=== PATIENT | female | born 1945 | race Caucasian/White ===

== ENCOUNTER 2017-06-01 02:05 | Inpatient (IN) | payer MEDICARE, OTHER ==
[2017-06-01] VITALS (18 sets, daily range): BP systolic 106–142; BP diastolic 52–65; PULSE 74–94; RESP 12–28; TEMP 97.9–101.4; O2SAT 86–100
[~2017-06-01] VITALS: Ht 157.5 cm; Wt 82.0 kg
[~2017-06-01 02:05] MED LIST: ACET325T PO; CIPR-9 PO; DEPA500T3 PO; FOSA70TA PO; IPRASOL INH; ISOS10TA PO; LACT PO; LAMO100T PO; LAMO25 PO; LEVE500T8 PO; LORA-392 PO; METF500 PO; METO25TA3 PO; PRAV40TA PO; RISP1 PO; SENN8.6C PO; SINE10100 PO; ZYVO600T PO
[2017-06-01] MEDS ORDERED: ACETAMINOPHEN 325 MG TAB PO ONE (02:15)
[2017-06-01] MEDS ORDERED: SODIUM CHLORIDE 0.9% FLUSH 10 ML FLUSH IVF PRN (02:15)
--- NOTE | 2017-06-01 02:18 | PD ---
HPI Chief Complaint: Respiratory Symptoms Time Seen by Provider: 02:10 Travel History International Travel<30 days: No Contact w/Intl Traveler<30days: No Traveled to known affect area: No History of Present Illness HPI The patient is a 72-year-old female who presents to the emergency department from [place] [facility] the [facility] for shortness of breath. The patient apparently had increasing shortness of breath earlier tonight, is normally on oxygen via nasal cannula 2 L, her oxygen level was increased to 4 L via nasal cannula. The patient was noted to have a fever of greater than 101 rectally. The patient was recently diagnosed with a stage IV sacral decubitus ulcer placed on vancomycin via a right upper extremity PICC line. The patient was brought to the emergency department for progressing shortness of breath. The patient is a somewhat limited historian, is able to answer to her name and current location, but is unable to tell me the month or year. She denies any chest pain, nausea, vomiting, or abdominal pain. PFSH Past Medical History Asthma: No Autoimmune Disease: No Blood Disorders: No Bipolar Disorder: Yes Anxiety: Yes Depression: Yes Heart Rhythm Problems: No Cancer: No Cardiovascular Problems: No High Cholesterol: No Chemotherapy: No Chest Pain: No Congestive Heart Failure: No COPD: No Cerebrovascular Accident: Yes Coronary Artery Disease: Yes (ANGINA) Diabetes: Yes Diminished Hearing: No Endocrine: Yes Gastrointestinal Disorders: Yes (gastro reflux ) GERD: Yes Glaucoma: No Genitourinary: Yes (CKD stage II) Headaches: No Hepatitis: No Hiatal Hernia: No Hypertension: Yes Immune Disorder: No Kidney Stones: No Musculoskeletal: Yes (osteoporosis, chronic shoulderpain ) Neurologic: Yes (epilepsy, cerebral infarction ) Psychiatric: Yes (dependent personality disorder) Reproductive: No Respiratory: Yes Migraines: No Myocardial Infarction: No Radiation Therapy: No Renal Failure: No Schizophrenia: Yes (paranoid schizophrenia ) Sickle Cell Disease: No Sleep Apnea: No Thyroid Disease: Yes (hypothyroidism ) Ulcer: No Menopausal: Yes Past Surgical History Abdominal Surgery: No AICD: No Arteriovenous Shunt: No Cardiac Surgery: No Ear Surgery: No Endocrine Surgery: No Eye Surgery: No Genitourinary Surgery: No Gynecologic Surgery: Yes (D & C) Insulin Pump: No Joint Replacement: No Neurologic Surgery: No Oral Surgery: No Pacemaker: No Thoracic Surgery: No Other Surgery: Yes Social History Alcohol Use: No Tobacco Use: No Substance Use: No Allergies-Medications (Allergen,Severity, Reaction): Coded Allergies: adhesive (Unverified Allergy, Severe, 05/24/17) doxycycline (Unverified Allergy, Severe, 05/24/17) minocycline (Unverified Allergy, Severe, 05/24/17) penicillin G (Unverified Allergy, Severe, 05/24/17) tigecycline (Unverified Allergy, Severe, 05/24/17) Uncoded Allergies: ANTIHISTAMINES (Allergy, Severe, 09/05/07) Reported Meds & Prescriptions Reported Meds & Active Scripts Active Acidophilus/l-Sporogenes (Lactobacillus Acidophilus) 1 Tab Tab 1 Tab PO Q12HR Cipro (Ciprofloxacin HCl) 500 Mg Tab 500 Mg PO Q12HR Metoprolol Tartrate 25 Mg Tab 50 Mg PO BID Ativan (Lorazepam) 0.5 Mg Tab 0.5 Mg PO Q8H PRN Reported Vitamin D-1000 (Cholecalciferol) 1,000 Unit Tab 1,000 Units PO DAILY Vitamin C (Ascorbic Acid) 250 Mg Chew 500 Mg CHEW BID Vancomycin Inj (Vancomycin HCl) 1,000 Mg Inj 1 Gm IV DAILY Synthroid (Levothyroxine Sodium) 125 Mcg Tab 125 Mcg PO DAILY Sinemet (Carbidopa/Levodopa) 10-100 Mg Tab 1 Tab PO TID Senokot S (Sennosides-Docusate Sodium) 8.6-50 Mg Tab 1 Tab PO DAILY PRN Requip (Ropinirole) 1 Mg Tab 1 Mg PO TID Neurontin (Gabapentin) 300 Mg Cap 300 Mg PO TID One Daily-Minerals (Multiple Vitamins W/ Minerals) 1 Tab 1 Tab PO DAILY Lopid (Gemfibrozil) 600 Mg Tab 600 Mg PO BID Take 30 minutes prior to breakfast and dinner Glipizide 5 Mg Tab 5 Mg PO BID Take 30 minutes before a meal Tylenol (Acetaminophen) 325 Mg Tab 650 Mg PO Q6H PRN Levetiracetam 500 Mg Tab 500 Mg PO BID Lamotrigine 100 Mg Tab 100 Mg PO DAILY Lamictal (Lamotrigine) 25 Mg Tab 25 Mg PO HS Isosorbide Dinitrate 10 Mg Tab 10 Mg PO BID Glucophage (Metformin HCl) 500 Mg Tab 1,000 Mg PO BID With meals Fosamax (Alendronate Sodium) 70 Mg Tab 70 Mg PO Q7D Duoneb (Ipratropium-Albuterol Neb) 0.5-2.5 Mg/3 Ml Neb 1 INH Q6HR NEB Depakote ER (Divalproex Sodium) 500 Mg Pedro 750 Mg PO HS Sinemet (Carbidopa/Levodopa) 10-100 Mg Tab 1 Tab PO Q8HR Risperdal (Risperidone) 1 Mg Tab 1 Mg PO TID Pravachol (Pravastatin) 40 Mg Tab 40 Mg PO DAILY Review of Systems ROS Limitations: Poor Historian Except as stated in HPI: all other systems reviewed are Neg General / Constitutional: Positive: Fever Cardiovascular: No: Chest Pain or Discomfort Respiratory: Positive: Cough, Shortness of Breath Gastrointestinal: No: Nausea, Vomiting, Abdominal Pain Musculoskeletal: Positive: Pain (back pain over the sacrum secondary to his sacral decubitus ulcer) Physical Exam Narrative GENERAL: Awake somewhat lethargic 72-year-old female who appears her stated age with mild respiratory distress. SKIN: Focused skin assessment warm/dry. HEAD: Atraumatic. Normocephalic. EYES: No injection or drainage. ENT: No nasal bleeding or discharge. Mucous membranes pink and moist. NECK: Trachea midline. No JVD. CARDIOVASCULAR: Regular rate and rhythm. No murmur appreciated. RESPIRATORY: Mild tachypnea with a respiratory rate of 24. Diminished breath sounds in the right base. Prolonged expiratory phase in the right upper lung montero. GASTROINTESTINAL: Abdomen soft, nontender without rebound tenderness. Back: Patient has a stage IV sacral decubitus ulcer with mild surrounding erythema. MUSCULOSKELETAL: No obvious deformities. No clubbing. No cyanosis. No edema. NEUROLOGICAL: Awake and alert. No obvious cranial nerve deficits. Motor grossly within normal limits. Normal speech. Oriented to person and place, but not month or year. PSYCHIATRIC: Appropriate mood and affect; insight and judgment normal. Data Data Last Documented VS Vital Signs Date Time Temp Pulse Resp B/P (MAP) Pulse Ox O2 Delivery O2 Flow Rate FiO2 06/01/17 03:30 99.6 83 20 126/58 (80) 95 3.00 06/01/17 02:38 Nasal Cannula Orders Orders Complete Blood Count With Diff (06/01/17 02:11) Comprehensive Metabolic Panel (06/01/17 02:11) B-Type Natriuretic Peptide (06/01/17 02:11) Act Partial Throm Time (Ptt) (06/01/17 02:11) Prothrombin Time / Inr (Pt) (06/01/17 02:11) Magnesium (Mg) (06/01/17 02:11) Ckmb (Isoenzyme) Profile (06/01/17 02:11) Troponin I (06/01/17 02:11) Urinalysis - C+S If Indicated (06/01/17 02:11) Influenzae A/B Antigen (06/01/17 02:11) Blood Culture (06/01/17 02:11) Iv Access Insert/Monitor (06/01/17 02:11) Electrocardiogram (06/01/17 02:11) Ecg Monitoring (06/01/17 02:11) Oximetry (06/01/17 02:11) Oxygen Administration (06/01/17 02:11) Chest, Single Ap (06/01/17 02:11) Sodium Chloride 0.9% Flush (Ns Flush) (06/01/17 02:15) Albuterol-Ipratropium Neb (Duoneb Neb) (06/01/17 02:15) Lactic Acid (06/01/17 02:11) Acetaminophen (Tylenol) (06/01/17 02:15) Valproic Acid (Depakene) (06/01/17 02:15) Cath For Specimen (06/01/17 02:52) Sodium Chlorid 0.9% 500 Ml Inj (Ns 500 M (06/01/17 03:15) Urine Culture (06/01/17 03:00) CKMB (06/01/17 02:15) CKMB% (06/01/17 02:15) Ceftriaxone Inj (Rocephin Inj) (06/01/17 03:30) Sodium Chlor 0.9% 1000 Ml Inj (Ns 1000 M (06/01/17 03:30) Admit Order (Ed Use Only) (06/01/17 03:58) Labs Laboratory Tests Test 06/01/17 02:15 06/01/17 02:30 06/01/17 03:00 White Blood Count 7.9 TH/MM3 Red Blood Count 3.85 MIL/MM3 Hemoglobin 11.0 GM/DL Hematocrit 34.8 % Mean Corpuscular Volume 90.3 FL Mean Corpuscular Hemoglobin 28.4 PG Mean Corpuscular Hemoglobin Concent 31.5 % Red Cell Distribution Width 17.7 % Platelet Count 295 TH/MM3 Mean Platelet Volume 7.5 FL Neutrophils (%) (Auto) 62.9 % Lymphocytes (%) (Auto) 21.2 % Monocytes (%) (Auto) 11.2 % Eosinophils (%) (Auto) 4.4 % Basophils (%) (Auto) 0.3 % Neutrophils # (Auto) 4.9 TH/MM3 Lymphocytes # (Auto) 1.7 TH/MM3 Monocytes # (Auto) 0.9 TH/MM3 Eosinophils # (Auto) 0.3 TH/MM3 Basophils # (Auto) 0.0 TH/MM3 CBC Comment AUTO DIFF Differential Comment AUTO DIFF CONFIRMED Prothrombin Time 10.5 SEC Prothromb Time International Ratio 1.0 RATIO Activated Partial Thromboplast Time 19.8 SEC Blood Urea Nitrogen 39 MG/DL Creatinine 1.61 MG/DL Random Glucose 140 MG/DL Total Protein 7.6 GM/DL Albumin 2.8 GM/DL Calcium Level 9.8 MG/DL Magnesium Level 2.5 MG/DL Alkaline Phosphatase 54 U/L Aspartate Amino Transf (AST/SGOT) 26 U/L Alanine Aminotransferase (ALT/SGPT) 12 U/L Total Bilirubin 0.1 MG/DL Sodium Level 138 MEQ/L Potassium Level 4.6 MEQ/L Chloride Level 100 MEQ/L Carbon Dioxide Level 27.9 MEQ/L Anion Gap 10 MEQ/L Estimat Glomerular Filtration Rate 32 ML/MIN Total Creatine Kinase 1163 U/L Creatine Kinase MB 23.6 NG/ML Creatine Kinase MB % 2.0 % Troponin I LESS THAN 0.02 NG/ML B-Type Natriuretic Peptide 79 PG/ML Valproic Acid (Depakene) Level 44 MCG/ML Lactic Acid Level 2.4 mmol/L Urine Color YELLOW Urine Turbidity CLOUDY Urine pH 6.0 Urine Specific [place] 1.014 Urine Protein 30 mg/dL Urine Glucose (UA) NEG mg/dL Urine Ketones NEG mg/dL Urine Occult Blood SMALL Urine Nitrite POS Urine Bilirubin NEG Urine Urobilinogen LESS THAN 2.0 MG/DL Urine Leukocyte Esterase LARGE Urine RBC 9 /hpf Urine WBC /hpf Urine WBC Clumps MANY Urine Squamous Epithelial Cells 3 /hpf Urine Bacteria FEW /hpf Microscopic Urinalysis Comment CULTURE INDICATED MDM Medical Decision Making Medical Screen Exam Complete: Yes Emergency Medical Condition: Yes Medical Record Reviewed: Yes Interpretation(s) EKG reveals normal sinus rhythm with a rate in 92. Chest x-ray reveals elevated right hemidiaphragm, atelectasis, stable exam compared to previous chest x-ray. Laboratory Tests Test 06/01/17 02:15 06/01/17 02:30 06/01/17 03:00 White Blood Count 7.9 TH/MM3 Red Blood Count 3.85 MIL/MM3 Hemoglobin 11.0 GM/DL Hematocrit 34.8 % Mean Corpuscular Volume 90.3 FL Mean Corpuscular Hemoglobin 28.4 PG Mean Corpuscular Hemoglobin Concent 31.5 % Red Cell Distribution Width 17.7 % Platelet Count 295 TH/MM3 Mean Platelet Volume 7.5 FL Neutrophils (%) (Auto) 62.9 % Lymphocytes (%) (Auto) 21.2 % Monocytes (%) (Auto) 11.2 % Eosinophils (%) (Auto) 4.4 % Basophils (%) (Auto) 0.3 % Neutrophils # (Auto) 4.9 TH/MM3 Lymphocytes # (Auto) 1.7 TH/MM3 Monocytes # (Auto) 0.9 TH/MM3 Eosinophils # (Auto) 0.3 TH/MM3 Basophils # (Auto) 0.0 TH/MM3 CBC Comment AUTO DIFF Prothrombin Time 10.5 SEC Prothromb Time International Ratio 1.0 RATIO Activated Partial Thromboplast Time 19.8 SEC Blood Urea Nitrogen 39 MG/DL Creatinine 1.61 MG/DL Random Glucose 140 MG/DL Total Protein 7.6 GM/DL Albumin 2.8 GM/DL Calcium Level 9.8 MG/DL Magnesium Level 2.5 MG/DL Alkaline Phosphatase 54 U/L Aspartate Amino Transf (AST/SGOT) 26 U/L Alanine Aminotransferase (ALT/SGPT) 12 U/L Total Bilirubin 0.1 MG/DL Sodium Level 138 MEQ/L Potassium Level 4.6 MEQ/L Chloride Level 100 MEQ/L Carbon Dioxide Level 27.9 MEQ/L Anion Gap 10 MEQ/L Estimat Glomerular Filtration Rate 32 ML/MIN Total Creatine Kinase 1163 U/L Troponin I LESS THAN 0.02 NG/ML B-Type Natriuretic Peptide 79 PG/ML Valproic Acid (Depakene) Level 44 MCG/ML Lactic Acid Level 2.4 mmol/L Urine Color YELLOW Urine Turbidity CLOUDY Urine pH 6.0 Urine Specific [place] 1.014 Urine Protein 30 mg/dL Urine Glucose (UA) NEG mg/dL Urine Ketones NEG mg/dL Urine Occult Blood SMALL Urine Nitrite POS Urine Bilirubin NEG Urine Urobilinogen LESS THAN 2.0 MG/DL Urine Leukocyte Esterase LARGE Urine RBC 9 /hpf Urine WBC /hpf Urine WBC Clumps MANY Urine Squamous Epithelial Cells 3 /hpf Urine Bacteria FEW /hpf Microscopic Urinalysis Comment CULTURE INDICATED Date/Time Source Procedure Growth Status 06/01/17 02:30 Blood Peripheral Aerobic Blood Culture Pending Received 06/01/17 02:30 Blood Peripheral Anaerobic Blood Culture Pending Received 06/01/17 02:15 Blood Peripheral Aerobic Blood Culture Pending Received 06/01/17 02:15 Blood Peripheral Anaerobic Blood Culture Pending Received 06/01/17 03:00 Nasal Aspirate Influenza Types A,B Antigen (HOMERO) - Final NEGATIVE FOR FLU A AND B ANTIGEN.... Complete 06/01/17 03:00 Urine Clean Catch Urine Culture Pending Received Differential Diagnosis Differential diagnosis includes pneumonia, aspiration pneumonia, congestive heart failure, pleural effusion, pulmonary embolism, acute coronary syndrome, sepsis, UTI, delirium. Narrative Course IV was established, labs are drawn and sent, and the patient was placed on cardiac telemetry monitoring and continuous pulse oximetry monitoring. EKG was ordered and interpreted. Chest x-ray was obtained. Blood culture and lactic acid were sent to lab. The patient was administer duo nebs 2. Chest x-ray reveals atelectasis, no obvious pneumonia. UA reveals infection with innumerable wbc's. The patient has been treated with vancomycin for a chronic sacral decubitus ulcer, however, is now febrile with UTI, lactic acidosis, and criteria suggesting severe sepsis. The patient initially was provided 500 cc of normal saline, was then provided another liter of normal saline, however, due to patient's IV fluids were administered as patient was slightly hypoxic. The on-call medical service was paged for admission. The patient received Rocephin 1 g intravenously for UTI with sepsis. Sepsis Criteria SIRS Criteria (2 or more): Temp > 100.9 or < 96.8, Heart rate over 90 Sepsis Criteria (SIRS+source): Infect source susp/known Severe Sepsis (+one): Lactate >2 Criteria Outcome: Meets severe sepsis criteria Physician Communication Physician Communication The on-call medical service was paged for admission. I discussed the patient with Dr. Hernandez who agrees with admission. Diagnosis Primary Impression: Severe sepsis Additional Impressions: UTI (urinary tract infection) Qualified Codes: N39.0 - Urinary tract infection, site not specified Rhabdomyolysis Qualified Codes: M62.82 - Rhabdomyolysis Sacral decubitus ulcer Qualified Codes: L89.154 - Pressure ulcer of sacral region, stage 4 DIDI (acute kidney injury) Admitting Information Admitting Physician Requests: Admit Condition: Stable Joaquín Charlton MD Jun 01, 2017 02:18
[2017-06-01] MEDS: RESP: ALBUTEROL 2.5 MG/IPRATROPIUM 0.5 MG NEB (SCH) INH ×2 (02:22→02:25)
--- NOTE | 2017-06-01 02:42 | RADRPT ---
EXAM DATE/TIME: 06/01/2017 02:19 [facility] COMPARISON: CHEST SINGLE AP, September 04, 2016, 9:35. INDICATIONS : Shortness of breath. MEDICAL HISTORY : Cerebrovascular disease. Hypertension. Gastroesophageal reflux disease.Epilepsy SURGICAL HISTORY : None. ENCOUNTER: Initial ACUITY: 1 day PAIN SCORE: 0/10 LOCATION: Bilateral chest FINDINGS: Elevated right hemidiaphragm noted. Basilar density on the right probably represents chronic atelecta sis. No significant effusion. No pneumothorax. Stable exam since August 2016 CONCLUSION: 1. Elevated right hemidiaphragm with basilar atelectasis. No acute findings compared with 2016. Vidal Diaz MD on June 01, 2017 at 2:39 Board Certified Radiologist. This report was verified electronically.
[2017-06-01 02:43] LABS: AUTOMATED NEUTROPHIL # 4.9 TH/MM3 (1.8-7.7); BASOPHIL % 0.3 % (0.0-2.0); EOSINOPHIL # 0.3 TH/MM3 (0-0.4); EOSINOPHIL % 4.4 % (0.0-4.0); HEMATOCRIT 34.8 % (35.0-46.0); LYMPH % 21.2 % (9.0-44.0); LYMPHOCYTE # 1.7 TH/MM3 (1.0-4.8); MEAN CELL VOLUME 90.3 FL (80.0-100.0); MEAN CORPUSCULAR HEMOGLOBIN 28.4 PG (27.0-34.0); MEAN CORPUSCULAR HGB CONC 31.5 % (32.0-36.0); MONO % 11.2 % (0.0-8.0); NEUT % 62.9 % (16.0-70.0); PLATELET COUNT 295 TH/MM3 (150-450); RED BLOOD COUNT 3.85 MIL/MM3 (4.00-5.30); RED CELL DISTRIBUTION WIDTH 17.7 % (11.6-17.2); WHITE BLOOD COUNT 7.9 TH/MM3 (4.0-11.0)
[2017-06-01 02:45] LABS: HEMO FLAGS AUTO DIFF
[2017-06-01 03:00] LABS: APTT (PATIENT) 19.8 SEC (24.3-30.1); PROTHROMBIN TIME - PATIENT 10.5 SEC (9.8-11.6)
[2017-06-01 03:02] LABS: ALT (GPT) 12 U/L (10-53); ANION GAP 10 MEQ/L (5-15); AST (GOT) 26 U/L (15-37); BICARBONATE 27.9 MEQ/L (21.0-32.0); BLOOD UREA NITROGEN 39 MG/DL (7-18); CHLORIDE 100 MEQ/L (98-107); GLOMERULAR FILTRATION RATE 32 ML/MIN (>89); MAGNESIUM 2.5 MG/DL (1.5-2.5); POTASSIUM 4.6 MEQ/L (3.5-5.1); SODIUM (NA) 138 MEQ/L (136-145)
[2017-06-01 03:14] LABS: BACTERIA, URINE FEW /hpf; BLOOD, URINE SMALL (NEG); GLUCOSE,URINE NEG (NEG); KETONE, URINE NEG (NEG); NITRITE,URINE POS (NEG); SQUAMOUS EPITHELIAL CELL URINE 3 /hpf (0-5); URINE COLOR YELLOW (YELLW/STRAW)
[2017-06-01 03:15] LABS: COMMENT (UR) CULTURE INDICATED; CULTURE IF INDICATED CULTURE INDICATED
[2017-06-01] MEDS ORDERED: SODIUM CHLORID 0.9% 500 ML INJ 500 ML IV ONE (03:15)
[2017-06-01 03:16] LABS: ALKALINE PHOSPHATASE 54 U/L (45-117); CREATINE KINASE 1163 U/L (26-192); TOTAL BILIRUBIN ADULT 0.1 MG/DL (0.2-1.0)
[2017-06-01] MEDS ORDERED: SINE10100 PO (03:24)
[2017-06-01] MEDS ORDERED: VITA1000 PO (03:24)
[2017-06-01] MEDS ORDERED: GEMF600 PO (03:24)
[2017-06-01] MEDS ORDERED: ONETAB22 PO (03:24)
[2017-06-01] MEDS ORDERED: GLIP5TAB8 PO (03:24)
[2017-06-01] MEDS ORDERED: NEUR300C PO (03:24)
[2017-06-01] MEDS ORDERED: LEVO.125 PO (03:24)
[2017-06-01] MEDS ORDERED: TYLE325T PO (03:24)
[2017-06-01] MEDS ORDERED: VANC1000P IV (03:24)
[2017-06-01] MEDS ORDERED: ROPI1TAB72 PO (03:24)
[2017-06-01] MEDS ORDERED: SENN1TAB17 PO (03:24)
[2017-06-01] MEDS ORDERED: VITA250C3 CHEW (03:24)
[2017-06-01 03:28] LABS: CKMB 23.6 NG/ML (0.5-3.6)
[2017-06-01] MEDS ORDERED: SODIUM CHLOR 0.9% 1000 ML INJ 1,000 ML IV ONE (03:30)
[2017-06-01] MEDS ORDERED: cefTRIAXone INJ 1,000 MG in SODIUM CHLORIDE 0.9% INJ 100 ML IV ONE (03:30)
[2017-06-01 03:46] LABS: SCAN/DIFF AUTO DIFF CONFIRMED
[2017-06-01] MEDS ORDERED: NALOXONE HCL 0.4 MG/ML AMP IV PRN (04:00)
[2017-06-01] MEDS ORDERED: SODIUM CHLORIDE 0.9% FLUSH 10 ML FLUSH IV FLUSH PRN (04:00)
--- NOTE | 2017-06-01 05:37 | HHI.HP ---
[facility] Primary Care Physician Admission Diagnosis sepsis, UTI, rhabdomyolysis, acute kidney injury, sacral decubitus u Diagnoses: (1) Sepsis (2) Rhabdomyolysis (3) UTI (urinary tract infection) (4) DIDI (acute kidney injury) (5) Sacral decubitus ulcer Chief Complaint: right arm pain and shortness of breath Travel History International Travel<30 Days: No Contact w/Intl Traveler <30 Da: No Traveled to Known Affected Are: No History of Present Illness Written by Mary Nolasco, acting as scribe for Dr. Hernandez on 06/01/17 at 05:36. Pain in PICC arm. Reports shortness of breath for "a while". States she does not have sleep apnea. States she's been coughing a lot. She reports mucus production. She states she's been unable to produce any mucus with her cough. Denies nausea, vomiting, diarrhea. States she has occasional pain with urination. Denies urinary catheter. She states she is unable to walk. She's had fever and large stage IV sacral decubitus per [employer]. Review of Systems Except as stated in HPI: all other systems reviewed are Neg Past Family Social History Past Medical History Per patient: States she used to have diabetes CVA Seizures Denies hepatitis, liver problems, CAD, CHF, atrial fibrillation, kidney problems , DVT, PE, thyroid problems, or cancers Per penitentiary paperwork: Diabetes Mellitus, type 2 Osteoporosis CVA Epilepsy Hyperlipidemia Bipolar disorder Schizophrenia, paranoid Parkinson's Disease Sacral decubitus Dysphagia Hypothyroidism GERd CKD Muscle Weakness . Past Surgical History D&C . Reported Medications Reported Meds & Active Scripts Active Acidophilus/l-Sporogenes (Lactobacillus Acidophilus) 1 Tab Tab 1 Tab PO Q12HR Cipro (Ciprofloxacin HCl) 500 Mg Tab 500 Mg PO Q12HR Metoprolol Tartrate 25 Mg Tab 50 Mg PO BID Ativan (Lorazepam) 0.5 Mg Tab 0.5 Mg PO Q8H PRN Reported Vitamin D-1000 (Cholecalciferol) 1,000 Unit Tab 1,000 Units PO DAILY Vitamin C (Ascorbic Acid) 250 Mg Chew 500 Mg CHEW BID Vancomycin Inj (Vancomycin HCl) 1,000 Mg Inj 1 Gm IV DAILY Synthroid (Levothyroxine Sodium) 125 Mcg Tab 125 Mcg PO DAILY Sinemet (Carbidopa/Levodopa) 10-100 Mg Tab 1 Tab PO TID Senokot S (Sennosides-Docusate Sodium) 8.6-50 Mg Tab 1 Tab PO DAILY PRN Requip (Ropinirole) 1 Mg Tab 1 Mg PO TID Neurontin (Gabapentin) 300 Mg Cap 300 Mg PO TID One Daily-Minerals (Multiple Vitamins W/ Minerals) 1 Tab 1 Tab PO DAILY Lopid (Gemfibrozil) 600 Mg Tab 600 Mg PO BID Take 30 minutes prior to breakfast and dinner Glipizide 5 Mg Tab 5 Mg PO BID Take 30 minutes before a meal Tylenol (Acetaminophen) 325 Mg Tab 650 Mg PO Q6H PRN Levetiracetam 500 Mg Tab 500 Mg PO BID Lamotrigine 100 Mg Tab 100 Mg PO DAILY Lamictal (Lamotrigine) 25 Mg Tab 25 Mg PO HS Isosorbide Dinitrate 10 Mg Tab 10 Mg PO BID Glucophage (Metformin HCl) 500 Mg Tab 1,000 Mg PO BID With meals Fosamax (Alendronate Sodium) 70 Mg Tab 70 Mg PO Q7D Duoneb (Ipratropium-Albuterol Neb) 0.5-2.5 Mg/3 Ml Neb 1 INH Q6HR NEB Depakote ER (Divalproex Sodium) 500 Mg Pedro 750 Mg PO HS Sinemet (Carbidopa/Levodopa) 10-100 Mg Tab 1 Tab PO Q8HR Risperdal (Risperidone) 1 Mg Tab 1 Mg PO TID Pravachol (Pravastatin) 40 Mg Tab 40 Mg PO DAILY . Allergies: Coded Allergies: adhesive (Unverified Allergy, Severe, 05/24/17) doxycycline (Unverified Allergy, Severe, 05/24/17) minocycline (Unverified Allergy, Severe, 05/24/17) penicillin G (Unverified Allergy, Severe, 05/24/17) tigecycline (Unverified Allergy, Severe, 05/24/17) Uncoded Allergies: ANTIHISTAMINES (Allergy, Severe, 09/05/07) Active Ordered Medications Current Medications Sodium Chloride (NS Flush) 2 ml UNSCH PRN IVF FLUSH AFTER USING IV ACCESS; Start 8/23/17 at 02:15; Stop 06/01/17 at 04:12; Status DC Albuterol/ Ipratropium (Duoneb Neb) 1 ampule Q15M INH Last administered on 06/01 02:25; Start 06/01/17 at 02:15; Stop 06/01/17 at 02:31; Status DC Acetaminophen (Tylenol) 650 mg ONCE ONCE PO Last administered on 06/01/17 02: 40; Start 06/01/17 at 02:15; Stop 06/01/17 at 02:16; Status DC Sodium Chloride 500 ml @ 500 mls/hr BOLUS ONCE IV Last administered on 03:19; Start 06/01/17 at 03:15; Stop 06/01/17 at 04:14; Status DC Ceftriaxone Sodium 1000 mg/ Sodium Chloride 100 ml @ 200 mls/hr ONCE ONCE IV Last administered on 06/01/17 03:33; Start 06/01/17 at 03:30; Stop 06/01/17 at 03:59; Status DC Sodium Chloride 1,000 ml @ 999 mls/hr BOLUS ONCE IV Last administered on 06/01 03:33; Start 06/01/17 at 03:30; Stop 06/01/17 at 04:30; Status DC Sodium Chloride (NS Flush) 2 ml UNSCH PRN IV FLUSH FLUSH AFTER USING IV ACCESS ; Start 06/01/17 at 04:00 Sodium Chloride (NS Flush) 2 ml BID IV FLUSH ; Start 06/01/17 at 09:00 Naloxone HCl (Narcan Inj) 0.4 mg UNSCH PRN IV SEE LABEL COMMENTS; Start at 04:00 Ceftriaxone Sodium 1000 mg/ Sodium Chloride 100 ml @ 200 mls/hr Q24H IV ; Start 06/02/17 at 04:15 . Family History none recalled . Social History Tobacco: smoked "a long time ago". Quit at least 20 - 30 years ago . Physical Exam Vital Signs Vital Signs Date Time Temp Pulse Resp B/P (MAP) Pulse Ox O2 Delivery O2 Flow Rate FiO2 06/01/17 04:44 87 20 108/52 (70) 94 Nasal Cannula 3.00 06/01/17 03:30 99.6 83 20 126/58 (80) 95 3.00 8/23/17 03:00 81 16 142/64 (90) 97 3.00 06/01/17 02:38 22 100 Nasal Cannula 3.00 06/01/17 02:34 93 22 100 Nasal Cannula 3.00 06/01/17 02:33 100 Nasal Cannula 3.00 06/01/17 02:23 96 Nasal Cannula 4.00 06/01/17 02:13 101.4 91 24 106/65 (79) 96 Physical Exam GENERAL: This is an ill-appearing elderly patient, in no apparent distress. SKIN: No rashes. Cool and dry. HEAD: Atraumatic. Normocephalic. EYES: No scleral icterus. No injection or drainage. ENT: Nose without bleeding, purulent drainage. NECK: Trachea midline. No JVD or lymphadenopathy. CARDIOVASCULAR: Regular rate and rhythm without murmurs, gallops, or rubs. Right arm tender, tense, slightly edematous. RESPIRATORY: Patient is purse-lipped breathing. Very tight air entry with minimal air movement auscultated. GASTROINTESTINAL: Abdomen soft, non-tender, nondistended. No guarding. MUSCULOSKELETAL: Extremities without clubbing, cyanosis. No calf tenderness. NEUROLOGICAL: Somewhat drowsy female; poor historian. . Laboratory Laboratory Tests Test 06/01/17 02:15 06/01/17 02:30 06/01/17 03:00 White Blood Count 7.9 Red Blood Count 3.85 Hemoglobin 11.0 Hematocrit 34.8 Mean Corpuscular Volume 90.3 Mean Corpuscular Hemoglobin 28.4 Mean Corpuscular Hemoglobin Concent 31.5 Red Cell Distribution Width 17.7 Platelet Count 295 Mean Platelet Volume 7.5 Neutrophils (%) (Auto) 62.9 Lymphocytes (%) (Auto) 21.2 Monocytes (%) (Auto) 11.2 Eosinophils (%) (Auto) 4.4 Basophils (%) (Auto) 0.3 Neutrophils # (Auto) 4.9 Lymphocytes # (Auto) 1.7 Monocytes # (Auto) 0.9 Eosinophils # (Auto) 0.3 Basophils # (Auto) 0.0 CBC Comment AUTO DIFF Differential Comment AUTO DIFF CONFIRMED Prothrombin Time 10.5 Prothromb Time International Ratio 1.0 Activated Partial Thromboplast Time 19.8 Blood Urea Nitrogen 39 Creatinine 1.61 Random Glucose 140 Total Protein 7.6 Albumin 2.8 Calcium Level 9.8 Magnesium Level 2.5 Alkaline Phosphatase 54 Aspartate Amino Transf (AST/SGOT) 26 Alanine Aminotransferase (ALT/SGPT) 12 Total Bilirubin 0.1 Sodium Level 138 Potassium Level 4.6 Chloride Level 100 Carbon Dioxide Level 27.9 Anion Gap 10 Estimat Glomerular Filtration Rate 32 Total Creatine Kinase 1163 Creatine Kinase MB 23.6 Creatine Kinase MB % 2.0 Troponin I LESS THAN 0.02 B-Type Natriuretic Peptide 79 Valproic Acid (Depakene) Level 44 Lactic Acid Level 2.4 Urine Color YELLOW Urine Turbidity CLOUDY Urine pH 6.0 Urine Specific [place] 1.014 Urine Protein 30 Urine Glucose (UA) NEG Urine Ketones NEG Urine Occult Blood SMALL Urine Nitrite POS Urine Bilirubin NEG Urine Urobilinogen LESS THAN 2.0 Urine Leukocyte Esterase LARGE Urine RBC 9 Urine WBC Urine WBC Clumps MANY Urine Squamous Epithelial Cells 3 Urine Bacteria FEW Microscopic Urinalysis Comment CULTURE INDICATED Date/Time Source Procedure Growth Status 06/01/17 02:30 Blood Peripheral Aerobic Blood Culture Pending Received 06/01/17 02:30 Blood Peripheral Anaerobic Blood Culture Pending Received 06/01/17 03:00 Nasal Aspirate Influenza Types A,B Antigen (HOMERO) - Final NEGATIVE FOR FLU A AND B ANTIGEN.... Complete 06/01/17 03:00 Urine Clean Catch Urine Culture Pending Received Result Diagram: 06/01/1721406/01/17214 Imaging CXR shows elevated right hemidiaphragm with basilar atelectasis. No acute findings. . Caprini VTE Risk Assessment Caprini VTE Risk Assessment: Mod/High Risk (score >= 2) Caprini Risk Assessment Model Point Value = 1 Point Value = 2 Point Value = 3 Point Value = 5 Age 41-60 Minor surgery BMI > 25 kg/m2 Swollen legs Varicose veins or History of unexplained or recurrent spontaneous Oral contraceptives or hormone replacement Sepsis (< 1 month) Serious lung disease, including pneumonia (< 1 month) Abnormal pulmonary function Acute myocardial infarction Congestive heart failure (< 1 month) History of inflammatory bowel disease Medical patient at bed rest Age 61-74 Arthroscopic surgery Major open surgery (> 45 min) Laparoscopic surgery (> 45 min) Malignancy Confined to bed (> 72 hours) Immobilizing plaster cast Central venous access Age >= 75 History of VTE Family history of VTE Factor V Leiden Prothrombin [id number] Lupus anticoagulant Anticardiolipin antibodies Elevated serum homocysteine Heparin-induced thrombocytopenia Other congenital or acquired thrombophilia Stroke (< 1 month) Elective arthroplasty Hip, pelvis, or leg fracture Acute spinal cord injury (< 1 month) Prophylaxis Regimen Total Risk Factor Score Risk Level Prophylaxis Regimen 0-1 Low Early ambulation 2 Moderate Order ONE of the following: *Sequential Compression Device (SCD) *Heparin 5000 units SQ BID 3-4 Higher Order ONE of the following medications: *Heparin 5000 units SQ TID *Enoxaparin/Lovenox 40 mg SQ daily (WT < 150 kg, CrCl > 30 mL/min) *Enoxaparin/Lovenox 30 mg SQ daily (WT < 150 kg, CrCl > 10-29 mL/min) *Enoxaparin/Lovenox 30 mg SQ BID (WT < 150 kg, CrCl > 30 mL/min) AND/OR *Sequential Compression Device (SCD) 5 or more Highest Order ONE of the following medications: *Heparin 5000 units SQ TID (Preferred with Epidurals) *Enoxaparin/Lovenox 40 mg SQ daily (WT < 150 kg, CrCl > 30 mL/min) *Enoxaparin/Lovenox 30 mg SQ daily (WT < 150 kg, CrCl > 10-29 mL/min) *Enoxaparin/Lovenox 30 mg SQ BID (WT < 150 kg, CrCl > 30 mL/min) AND *Sequential Compression Device (SCD) Assessment and Plan Problem List: (1) Sepsis ICD Code: A41.9 - Sepsis, unspecified organism Status: Acute (2) UTI (urinary tract infection) ICD Code: N39.0 - Urinary tract infection, site not specified Status: Acute (3) Rhabdomyolysis ICD Code: M62.82 - Rhabdomyolysis Status: Acute (4) DIDI (acute kidney injury) ICD Code: N17.9 - Acute kidney failure, unspecified Status: Acute (5) Sacral decubitus ulcer ICD Code: L89.159 - Pressure ulcer of sacral region, unspecified stage Status: Acute Assessment and Plan Sepsis UTI - Temperature 101.4 on admission, tachycardia, increasing oxygen requirements/ hypoxia, lactic acidosis - UA consistent with UTI - meets sepsis criteria - negative for flu a and b - Antibiotics: IV Levaquin and vancomycin - Initial lactic acid 2.4, will order lactic acid sepsis protocol - IVF boluses given in ED - await urine culture and adjust antibiotics as needed - Blood cultures pending - await results Hypoxic respiratory failure - check ABGs - Duonebs q6h and q2h prn wheezing - Solumedrol 125 mg IV and then 60 mg q6h - transfer to critical care for close observation - patient is at high risk for decompensation - check 2-D echocardiogram for cardiac function and structure Rhabdomyolysis - TCK 1163, CK-MB23.6 - Fluid boluses given in ED - recheck CK in a.m. and follow results DIDI - BUN 39, creatinine 1.61, estimated GFR 32 - Fluid boluses given in ED totaling 1.5 L - Recheck BMP and follow trends in renal indices - Avoid nephrotoxins Sacral decubitus - consult patient care nursing assistant Right arm pain, edema near PICC - Right upper extremity u/s, r/o DVT DVT prophylaxis - Heparin 5000 units subq q8h . This note was transcribed by essie [Mary Nolasco]. I, Dr. Ashutosh Hernandez personally performed the history, physical exam, and medical decision making; and confirmed the accuracy of the information in the transcribed note. Authenticated by Dr. Ashutosh Hernandez on 06/01/17 at 05:36. Discussed Condition With ER physician, patient, and RN . Physician Certification 2 Midnight Certification Type: Admission for Inpatient Services Order for Inpatient Services The services are ordered in accordance with Medicare regulations or non- Medicare payer requirements, as applicable. In the case of services not specified as inpatient-only, they are appropriately provided as inpatient services in accordance with the 2-midnight benchmark. Estimated LOS (days): 3 days is the estimated time the patient will need to remain in the hospital, assuming treatment plan goals are met and no additional complications. Post-Hospital Plan: SNF Problem Qualifiers (1) Rhabdomyolysis: Qualified Codes: M62.82 - Rhabdomyolysis (2) UTI (urinary tract infection): Qualified Codes: N39.0 - Urinary tract infection, site not specified (3) Sacral decubitus ulcer: Qualified Codes: L89.154 - Pressure ulcer of sacral region, stage 4 Mary Nolasco Jun 01, 2017 05:36 Ashutosh Hernandez MD Jun 01, 2017 06:43
[2017-06-01] MEDS ORDERED: methylPREDNISolone SOD SUCC 125 MG/2 ML VIAL IV PUSH ONE (05:45)
[2017-06-01] MEDS ORDERED: RESP: ALBUTEROL 2.5 MG/IPRATROPIUM 0.5 MG NEB (PRN) NEB (05:45)
[2017-06-01] MEDS: CARBIDOPA/LEVODOPA 10 MG/100 MG TAB PO SCH ×3 (06:00→21:04)
[2017-06-01 06:24] LABS: BLOOD GAS BASE EXCESS -1.1 mmol/L (-2-2); BLOOD GAS CARBOXYHEMOGLOBIN 1.4 % (0-4); BLOOD GAS HCO3 26 mmol/L (22-26); BLOOD GAS METHEMOGLOBIN 0.8 % (0-2); BLOOD GAS O2 HGB SATURATION 93 % (90-100); BLOOD GAS OXYGEN CONTENT 13.4 Vol % (12.0-20.0); BLOOD GAS PCO2 64 mmHg (38-42); BLOOD GAS PO2 88 mmHg (61-120); BLOOD GAS TOTAL HGB 10.1 G/DL (12.0-16.0); TEMP CORR TO 98.6
[2017-06-01 06:26] LABS: OXYGEN DEVICE NASAL CANNULA
[2017-06-01 06:27] LABS: DRAW SITE RT RADIAL; NUMBER OF ARTERIAL PUNCTURES 1; STAT NO; ULNAR PULSE PRESENT
[2017-06-01] MEDS ORDERED: CHLORHEXIDINE GLUCONATE 2 % 1 PACK (2 CLOTHS) TOP PRN (06:45)
[2017-06-01] MEDS ORDERED: MISCELLANEOUS NURSING INFORMATION XX SCH (06:45)
[2017-06-01] MEDS ORDERED: LEVOFLOXACIN 750 MG PREMIX INJ 150 ML IV SCH (08:00)
[2017-06-01] MEDS ORDERED: DEXTROSE 50% IN WATER 50 ML VIAL(D50) IV PRN (08:45)
[2017-06-01] MEDS ORDERED: GLUCAGON 1 MG/ML VIAL IM/SQ PRN (08:45)
[2017-06-01] MEDS ORDERED: CHLORHEXIDINE GLUCONATE 2 % 1 PACK (2 CLOTHS)(extra cloths) TOPICAL PRN (08:45)
[2017-06-01] MEDS: SODIUM CHLOR 0.9% 1000 ML INJ 1,000 ML IV SCH ×2 (08:45→21:05)
[2017-06-01] MEDS ORDERED: VANCOMYCIN HCL 1000 MG VIAL IV SCH (09:00)
[2017-06-01] MEDS: lamoTRIgine 100 MG TAB PO SCH (09:00)
[2017-06-01] MEDS: SODIUM CHLORIDE 0.9% FLUSH 10 ML FLUSH IV FLUSH SCH ×2 (09:00→21:04)
[2017-06-01] MEDS: RESP: ALBUTEROL 2.5 MG/IPRATROPIUM 0.5 MG NEB (SCH) NEB ×3 (09:03→20:34)
--- NOTE | 2017-06-01 09:05 | RADRPT ---
EXAM DATE/TIME: 06/01/2017 08:21 [facility] COMPARISON: No previous studies available for comparison. INDICATIONS : Right arm pain. MEDICAL HISTORY : CVA. Angina. Hypertension. Diabetic. Szichophrenic. Bipolar. CKD. Epilepsy. SURGICAL HISTORY : None. ENCOUNTER: Initial ACUITY: 1 day PAIN SCORE: 4/10 LOCATION: Right arm. FINDINGS: There is spontaneous flow documented in the brachial, basilic, cephalic, axillary, and subclavian vei ns. The vessels are compressible and augmentation response is documented. No filling defects are se en. The flow is phasic with respiration. Direction of flow in the jugular vein is caudal. CONCLUSION: Normal examination. Perico Miranda MD on June 01, 2017 at 9:03 Board Certified Radiologist. This report was verified electronically.
[2017-06-01 09:09] LABS: BACTERIA, URINE OCC /hpf; BLOOD, URINE NEG (NEG); COMMENT (UR) CATH-CULTURE IND; CULTURE IF INDICATED CATH CULTURE IND; GLUCOSE,URINE NEG (NEG); KETONE, URINE NEG (NEG); NITRITE,URINE NEG (NEG); URINE COLOR YELLOW (YELLW/STRAW)
--- NOTE | 2017-06-01 09:48 | PD.CONS ---
HPI Service Critical Care Medicine Consult Requested By Dr. Hernandez Reason for Consult respiratory distress Primary Care Physician No Primary Care Physician History of Present Illness Admission Diagnosis sepsis, UTI, rhabdomyolysis, acute kidney injury, sacral decubitus ulcer Diagnoses: (1) Sepsis (2) Rhabdomyolysis (3) UTI (urinary tract infection) (4) DIDI (acute kidney injury) (5) Sacral decubitus ulcer Chief Complaint: right arm pain and shortness of breath Travel History International Travel<30 Days: No Contact w/Intl Traveler <30 Da: No Traveled to Known Affected Are: No History of Present Illness 72-year-old female who was complaining of shortness of breath and cough with mucus production as well as pain with urination. Patient is also c/o pain in right arm where she has a PICC per documentation. She reportedly had a fever and large stage IV sacral decubitus ulcer and was admitted by hospitalist service for sepsis/UTI to the floor however in view of elevated PCO2 and respiratory acidosis was transferred to the ICU and placed on BiPAP. She did receive 2 L of normal saline bolus in the ER. Critical care consult was requested by hospitalist service following patient's transfer to the ICU. I evaluated the patient shortly following her arrival while she was on BiPAP with full facemask. At that time she was awake and alert moving all 4 extremities and following commands. She had already received IV antibiotics and Solu- Medrol. Her BNP was not elevated. She denied any chest pain, nausea or abdominal pain at the time of my evaluation. ROS - General Review of Systems Except as stated in HPI: all other systems reviewed are Neg. PFSH Past Family Social History Past Medical History Per patient: States she used to have diabetes CVA Seizures Denies hepatitis, liver problems, CAD, CHF, atrial fibrillation, kidney problems , DVT, PE, thyroid problems, or cancers Per residential paperwork: Diabetes Mellitus, type 2 Osteoporosis CVA Epilepsy Hyperlipidemia Bipolar disorder Schizophrenia, paranoid Parkinson's Disease Sacral decubitus Dysphagia Hypothyroidism GERd CKD Muscle Weakness . Past Surgical History D&C . Reported Medications Reported Meds & Active Scripts Active Acidophilus/l-Sporogenes (Lactobacillus Acidophilus) 1 Tab Tab 1 Tab PO Q12HR Cipro (Ciprofloxacin HCl) 500 Mg Tab 500 Mg PO Q12HR Metoprolol Tartrate 25 Mg Tab 50 Mg PO BID Ativan (Lorazepam) 0.5 Mg Tab 0.5 Mg PO Q8H PRN Reported Vitamin D-1000 (Cholecalciferol) 1,000 Unit Tab 1,000 Units PO DAILY Vitamin C (Ascorbic Acid) 250 Mg Chew 500 Mg CHEW BID Vancomycin Inj (Vancomycin HCl) 1,000 Mg Inj 1 Gm IV DAILY Synthroid (Levothyroxine Sodium) 125 Mcg Tab 125 Mcg PO DAILY Sinemet (Carbidopa/Levodopa) 10-100 Mg Tab 1 Tab PO TID Senokot S (Sennosides-Docusate Sodium) 8.6-50 Mg Tab 1 Tab PO DAILY PRN Requip (Ropinirole) 1 Mg Tab 1 Mg PO TID Neurontin (Gabapentin) 300 Mg Cap 300 Mg PO TID One Daily-Minerals (Multiple Vitamins W/ Minerals) 1 Tab 1 Tab PO DAILY Lopid (Gemfibrozil) 600 Mg Tab 600 Mg PO BID Take 30 minutes prior to breakfast and dinner Glipizide 5 Mg Tab 5 Mg PO BID Take 30 minutes before a meal Tylenol (Acetaminophen) 325 Mg Tab 650 Mg PO Q6H PRN Levetiracetam 500 Mg Tab 500 Mg PO BID Lamotrigine 100 Mg Tab 100 Mg PO DAILY Lamictal (Lamotrigine) 25 Mg Tab 25 Mg PO HS Isosorbide Dinitrate 10 Mg Tab 10 Mg PO BID Glucophage (Metformin HCl) 500 Mg Tab 1,000 Mg PO BID With meals Fosamax (Alendronate Sodium) 70 Mg Tab 70 Mg PO Q7D Duoneb (Ipratropium-Albuterol Neb) 0.5-2.5 Mg/3 Ml Neb 1 INH Q6HR NEB Depakote ER (Divalproex Sodium) 500 Mg Pedro 750 Mg PO HS Sinemet (Carbidopa/Levodopa) 10-100 Mg Tab 1 Tab PO Q8HR Risperdal (Risperidone) 1 Mg Tab 1 Mg PO TID Pravachol (Pravastatin) 40 Mg Tab 40 Mg PO DAILY . Allergies: Coded Allergies: adhesive (Unverified Allergy, Severe, 05/24/17) doxycycline (Unverified Allergy, Severe, 05/24/17) minocycline (Unverified Allergy, Severe, 05/24/17) penicillin G (Unverified Allergy, Severe, 05/24/17) tigecycline (Unverified Allergy, Severe, 05/24/17) Uncoded Allergies: ANTIHISTAMINES (Allergy, Severe, 09/05/07) Active Ordered Medications Current Medications Sodium Chloride (NS Flush) 2 ml UNSCH PRN IVF FLUSH AFTER USING IV ACCESS; Start 06/01/17 at 02:15; Stop 06/01/17 at 04:12; Status DC Albuterol/ Ipratropium (Duoneb Neb) 1 ampule Q15M INH Last administered on 06/01 02:25; Start 06/01/17 at 02:15; Stop 06/01/17 at 02:31; Status DC Acetaminophen (Tylenol) 650 mg ONCE ONCE PO Last administered on 06/01/17 02: 40; Start 06/01/17 at 02:15; Stop 06/01/17 at 02:16; Status DC Sodium Chloride 500 ml @ 500 mls/hr BOLUS ONCE IV Last administered on 03:19; Start 06/01/17 at 03:15; Stop 06/01/17 at 04:14; Status DC Ceftriaxone Sodium 1000 mg/ Sodium Chloride 100 ml @ 200 mls/hr ONCE ONCE IV Last administered on 06/01/17 03:33; Start 06/01/17 at 03:30; Stop 06/01/17 at 03:59; Status DC Sodium Chloride 1,000 ml @ 999 mls/hr BOLUS ONCE IV Last administered on 06/01 03:33; Start 06/01/17 at 03:30; Stop 06/01/17 at 04:30; Status DC Sodium Chloride (NS Flush) 2 ml UNSCH PRN IV FLUSH FLUSH AFTER USING IV ACCESS ; Start 06/01/17 at 04:00 Sodium Chloride (NS Flush) 2 ml BID IV FLUSH ; Start 06/01/17 at 09:00 Naloxone HCl (Narcan Inj) 0.4 mg UNSCH PRN IV SEE LABEL COMMENTS; Start at 04:00 Ceftriaxone Sodium 1000 mg/ Sodium Chloride 100 ml @ 200 mls/hr Q24H IV ; Start 06/02/17 at 04:15 . Family History noncontributory at this time . Social History Tobacco: smoked "a long time ago". Quit at least 20 - 30 years ago Physical Exam Vital Signs Vital Signs Date Time Temp Pulse Resp B/P (MAP) Pulse Ox O2 Delivery O2 Flow Rate FiO2 06/01/17 06:55 97 35 06/01/17 05:53 98.4 88 19 117/61 (79) 97 06/01/17 05:17 06/01/17 04:44 87 20 108/52 (70) 94 Nasal Cannula 3.00 06/01/17 03:30 99.6 83 20 126/58 (80) 95 3.00 06/01/17 03:00 81 16 142/64 (90) 97 3.00 06/01/17 02:38 22 100 Nasal Cannula 3.00 06/01/17 02:34 93 22 100 Nasal Cannula 3.00 06/01/17 02:33 100 Nasal Cannula 3.00 06/01/17 02:23 96 Nasal Cannula 4.00 06/01/17 02:13 101.4 91 24 106/65 (79) 96 Physical Exam Physical Exam GENERAL: This is an ill-appearing elderly patient, in no apparent distress. SKIN: No rashes. Cool and dry. HEAD: Atraumatic. Normocephalic. EYES: No scleral icterus. No injection or drainage. ENT: Nose without bleeding, purulent drainage. NECK: Trachea midline. No JVD or lymphadenopathy. CARDIOVASCULAR: Regular rate and rhythm without murmurs, gallops, or rubs. RESPIRATORY: Patient is purse-lipped breathing. Very tight air entry with minimal air movement auscultated. GASTROINTESTINAL: Abdomen soft, non-tender, nondistended. No guarding. MUSCULOSKELETAL: Extremities without clubbing, cyanosis. No calf tenderness. Right arm tender, tense, slightly edematous. NEUROLOGICAL: Awake and alert, moving all 4 extremities, grossly nonfocal. On BiPAP with full facemask. Does have some tremors. Laboratory Laboratory Tests Test 06/01/17 02:15 06/01/17 02:30 06/01/17 03:00 06/01/17 06:03 White Blood Count 7.9 Red Blood Count 3.85 Hemoglobin 11.0 Hematocrit 34.8 Mean Corpuscular Volume 90.3 Mean Corpuscular Hemoglobin 28.4 Mean Corpuscular Hemoglobin Concent 31.5 Red Cell Distribution Width 17.7 Platelet Count 295 Mean Platelet Volume 7.5 Neutrophils (%) (Auto) 62.9 Lymphocytes (%) (Auto) 21.2 Monocytes (%) (Auto) 11.2 Eosinophils (%) (Auto) 4.4 Basophils (%) (Auto) 0.3 Neutrophils # (Auto) 4.9 Lymphocytes # (Auto) 1.7 Monocytes # (Auto) 0.9 Eosinophils # (Auto) 0.3 Basophils # (Auto) 0.0 CBC Comment AUTO DIFF Differential Comment AUTO DIFF CONFIRMED Prothrombin Time 10.5 Prothromb Time International Ratio 1.0 Activated Partial Thromboplast Time 19.8 Blood Urea Nitrogen 39 Creatinine 1.61 Random Glucose 140 Total Protein 7.6 Albumin 2.8 Calcium Level 9.8 Magnesium Level 2.5 Alkaline Phosphatase 54 Aspartate Amino Transf (AST/SGOT) 26 Alanine Aminotransferase (ALT/SGPT) 12 Total Bilirubin 0.1 Sodium Level 138 Potassium Level 4.6 Chloride Level 100 Carbon Dioxide Level 27.9 Anion Gap 10 Estimat Glomerular Filtration Rate 32 Total Creatine Kinase 1163 Creatine Kinase MB 23.6 Creatine Kinase MB % 2.0 Troponin I LESS THAN 0.02 B-Type Natriuretic Peptide 79 Valproic Acid (Depakene) Level 44 Lactic Acid Level 2.4 Urine Color YELLOW Urine Turbidity CLOUDY Urine pH 6.0 Urine Specific [place] 1.014 Urine Protein 30 Urine Glucose (UA) NEG Urine Ketones NEG Urine Occult Blood SMALL Urine Nitrite POS Urine Bilirubin NEG Urine Urobilinogen LESS THAN 2.0 Urine Leukocyte Esterase LARGE Urine RBC 9 Urine WBC Urine WBC Clumps MANY Urine Squamous Epithelial Cells 3 Urine Bacteria FEW Microscopic Urinalysis Comment CULTURE INDICATED Blood Gas Puncture Site RT RADIAL Blood Gas Patient Temperature 98.6 Blood Gas HCO3 26 Blood Gas Base Excess -1.1 Blood Gas Oxygen Saturation 93 Arterial Blood pH 7.22 Arterial Blood Partial Pressure CO2 64 Arterial Blood Partial Pressure O2 88 Arterial Blood Oxygen Content 13.4 Arterial Blood Carboxyhemoglobin 1.4 Arterial Blood Methemoglobin 0.8 Blood Gas Hemoglobin 10.1 Oxygen Delivery Device NASAL CANNULA Test 06/01/17 08:14 Date/Time Source Procedure Growth Status 06/01/17 02:30 Blood Peripheral Aerobic Blood Culture Pending Received 06/01/17 02:30 Blood Peripheral Anaerobic Blood Culture Pending Received 06/01/17 03:00 Nasal Aspirate Influenza Types A,B Antigen (HOMERO) - Final NEGATIVE FOR FLU A AND B ANTIGEN.... Complete 06/01/17 03:00 Urine Clean Catch Urine Culture Pending Received Result Diagram: 06/01/1721406/01/17214 Imaging Rt UE venous doppler: negative for DVT Last Impressions Chest X-Ray 06/01/17210 Signed Impressions: Service Date/Time: Thursday, June 01, 2017 02:19 - CONCLUSION: 1. Elevated right hemidiaphragm with basilar atelectasis. No acute findings compared with 2016. Vidal Diaz MD Septic Shock Reassessment Heart: Regular rate and rhythm Lungs: Clear Skin: Warm Peripheral Pulses: Bounding Right Radial Capillary Refill: Brisk Assessment and Plan Assessment and Plan Sepsis UTI Acute respiratory failure requiring BiPAP Acute respiratory acidosis Rhabdomyolysis DIDI/ CKD Sacral decubitus ulcer Right upper extremity swelling near PICC Diabetes mellitus Parkinson's disease Osteoporosis CVA Epilepsy Hyperlipidemia Bipolar disorder Schizophrenia, paranoid Dysphagia Hypothyroidism GERD Muscle Weakness Neuro - Follow neuro status, avoid narcotics and sedatives. Continue meds for Parkinson's Cardiovascular - Received fluid boluses in ER. Will continue gentle hydration. BNP is normal. Watch for hypotension. Resp - Continue Duonebs q6h and q2h prn wheezing - Received Solumedrol 125 mg IV and then 60 mg q6h -Started on BiPAP with full facemask, patient is at high risk for decompensation - check 2-D echocardiogram for cardiac function and structure Renal/ - IV hydration, strict intake output, monitor and replete electro lites, follow BUN/creatinine - Current CPK ID - Temperature 101.4 on admission, tachycardia, increasing oxygen requirements/ hypoxia, lactic acidosis - UA consistent with UTI - meets sepsis criteria - negative for flu a and b - Antibiotics: IV Levaquin and vancomycin - Initial lactic acid 2.4, f/u lactic acid sepsis protocol -Received fluid boluses in ER. - Wound care to follow for sacral decubitus ulcer. Heme -Follow CBC. Right upper extremity negative for DVT by venous doppler Endocrine - Watch for hyperglycemia, SSI for glycemic control as needed. Continue glipizide if tolerating by mouth. DVT prophylaxis - Heparin 5000 units subq q8h Condition critical, patient started on BiPAP however may require intubation if respiratory status worsens. Time spent on critical care excluding procedures 40 minutes Reynaldo Ryan MD Jun 01, 2017 09:48
[2017-06-01] MEDS: PRAVASTATIN SOD 40 MG TAB PO SCH (09:51)
[2017-06-01] MEDS: ISOSORBIDE DINITRATE 10 MG TAB PO SCH ×2 (09:51→21:04)
[2017-06-01] MEDS: LACTOBACILLUS ACIDOPHILUS TAB PO SCH ×2 (09:51→21:05)
[2017-06-01] MEDS: risperiDONE 1 MG TAB PO SCH ×3 (09:51→18:20)
[2017-06-01] MEDS: levETIRAcetam 500 MG TAB PO SCH ×2 (09:51→21:04)
[2017-06-01] MEDS: VANCOMYCIN 1,000 MG/NS 250 ML IV SCH ×2 (11:00)
[2017-06-01] MEDS: INSULIN ASPART SUPPLEMENTAL SCALE SQ SCH ×3 (12:00→21:23)
--- NOTE | 2017-06-01 12:19 | PD.WCN.NOT ---
Wound Consult Description: Sacral stage 4 pressure injury present on admission Communicated with: DEBORAH Rianey 5th floor [facility] [place] and call placed to Doctor Sudha Ryan for orders Recommendation: Please cleanse wound to sacral area with normal saline. Please pack wound with maxorb II (calcium alginate) dressing cut in to single strip. Apply skin prep to periwound before applying adhesive foam dressing change every other day or PRN if saturated or dislodged. Please continue to turn patient every 2 hours and PRN for comfort Additional Information: Patient seen on 5th floor [facility] [place] for evaluation of sacral decubitus wound management. Patient positioned to L side with assistance of Redd CABRERA C and singer songwriter. Removed adhesive foam dressing in place to reveal small wound to sacral area. Wound measures 1cm x 0.5cm x 3.4cm. Patient admitted with wound and came from custodial care facility. Etiology of wound is pressure from prolonged sitting. Due to the size and location of wound, visualization of tissue in wound bed is obscured. Tissue that is visible near the surface is red and vascular. Bone is palpated in wound bed. Wound has round shape with well defined wound margins. Periwound presents with maceration that is circumferential and extends ~0.2cm out from wound. Cleansed wound with normal saline and packed wound with Maxorb II ( calcium alginate) dressing that was cut in to single strip. Applied skin prep to periwound before applying adhesive foam dressing in place. Patient is laying on Karla [facility] [place] standard air bed.DEBORAH Rainey Repositioned patient to offload pressure from buttock area. Malorie Mcghee [facility] Jun 01, 2017 12:19
[2017-06-01] MEDS: LEVOFLOXACIN 750 MG PREMIX INJ 150 ML IV SCH (12:35)
[2017-06-01] MEDS: methylPREDNISolone SOD SUCC 125 MG/2 ML VIAL IV PUSH SCH ×2 (12:36→18:21)
[2017-06-01] MEDS: HEPARIN SODIUM - SQ 10,000 UNITS/ML VIAL SQ SCH ×2 (14:00→21:03)
[2017-06-01 14:16] LABS: LACTIC ACID GHOST NOT REPORTABLE
--- NOTE | 2017-06-01 16:43 | ECHRPT ---
Indication: Shortness of breath CONCLUSIONS Normal left ventricular size and wall thickness. The left ventricular systolic function is normal wi th an estimated ejection fraction of 65%. Left ventricular diastolic function parameters are normal. The aortic valve is not well visualized. There is mild tricuspid valve regurgitation. The estimated pulmonary arterial pressure is 54 mmHg. BP: / HR: 88 Rhythm: Sinus MEASUREMENTS (Male / Female) Normal Values Technical Quality:Fair 2D ECHO LV Diastolic Diameter PLAX 4.2 cm 4.2 - 5.9 / 3.9 - 5.3 cm LV Systolic Diameter PLAX 3.0 cm IVS Diastolic Thickness 1.3 cm 0.6 - 1.0 / 0.6 - 0.9 cm LVPW Diastolic Thickness 1.4 cm 0.6 - 1.0 / 0.6 - 0.9 cm LV Relative Wall Thickness 0.7 LVOT Diameter 1.4 cm M-MODE Aortic Root Diameter MM 2.3 cm LA Systolic Diameter MM 3.4 cm LA Ao Ratio MM 1.5 AV Cusp Separation MM 1.8 cm DOPPLER AV Peak Velocity 152.0 cm/s AV Peak Gradient 9.2 mmHg LVOT Peak Velocity 133.0 cm/s LVOT Peak Gradient 7.1 mmHg AV Area Cont Eq pk 1.3 cm Mitral E Point Velocity 102.0 cm/s Mitral A Point Velocity 73.1 cm/s Mitral E to A Ratio 1.4 LV E' Lateral Velocity 8.4 cm/s Mitral E to LV E' Lateral Ratio 12.2 LV E' Septal Velocity 8.4 cm/s Mitral E to LV E' Septal Ratio 12.2 TR Peak Velocity 331.0 cm/s TR Peak Gradient 43.8 mmHg PV Peak Velocity 125.0 cm/s PV Peak Gradient 6.3 mmHg FINDINGS LEFT VENTRICLE Normal left ventricular size and wall thickness. The left ventricular systolic function is normal wi th an estimated ejection fraction in the range of 60-65%. Left ventricular diastolic function parameters a re normal. RIGHT VENTRICLE Normal right ventricular size and systolic function. LEFT ATRIUM The left atrial size is normal. RIGHT ATRIUM The right atrial size is normal. ATRIAL SEPTUM Normal atrial septal thickness without atrial level shunting by limited color doppler interrogation. AORTA The aortic root and proximal ascending aorta are normal in size on limited imaging. MITRAL VALVE Structurally normal mitral valve. No mitral valve stenosis or regurgitation. AORTIC VALVE The aortic valve is not well visualized. TRICUSPID VALVE There is mild tricuspid valve regurgitation. The estimated pulmonary arterial pressure is 54 mmHg. PULMONARY VALVE The pulmonary valve is not well visualized. VESSELS The inferior vena cava is normal in size. PERICARDIUM No pericardial effusion. Jaciel Perez MD (Electronically Signed) Final Date:01 June 2017 16:43
--- NOTE | 2017-06-01 19:38 | EKG ---
Date Performed: 06/01/2017 Time Performed: 02:43:54 PTAGE: 72 years EKG: Sinus rhythm BORDERLINE LEFT AXIS DEVIATION BORDERLINE ECG Compared to the PREVIOUS TRACING rate slower DOCTOR: Crain Turner Interpretating Date/Time 06/01/2017 19:37:14
[2017-06-01] MEDS: lamoTRIgine 25 MG TAB PO SCH (21:11)
[2017-06-02] VITALS (15 sets, daily range): BP systolic 129–165; BP diastolic 57–86; PULSE 88–110; RESP 19–24; TEMP 98.2–99.5; O2SAT 91–98
[2017-06-02] MEDS: INSULIN ASPART SUPPLEMENTAL SCALE SQ SCH ×6 (03:20→20:00)
[2017-06-02] MEDS: CHLORHEXIDINE GLUCONATE 2 % 1 PACK (2 CLOTHS) TOP SCH (03:21)
[2017-06-02] MEDS: CHLORHEXIDINE GLUCONATE 2 % 1 PACK (2 CLOTHS)(taper/protocol) TOPICAL SCH (03:21)
[2017-06-02] MEDS: RESP: ALBUTEROL 2.5 MG/IPRATROPIUM 0.5 MG NEB (SCH) NEB ×4 (03:40→20:09)
[2017-06-02] MEDS ORDERED: cefTRIAXone INJ 1,000 MG in SODIUM CHLORIDE 0.9% INJ 100 ML IV SCH (04:15)
[2017-06-02 04:48] LABS: AUTOMATED NEUTROPHIL # 4.9 TH/MM3 (1.8-7.7); BASOPHIL % 0.1 % (0.0-2.0); LYMPH % 10.6 % (9.0-44.0); LYMPHOCYTE # 0.6 TH/MM3 (1.0-4.8); MEAN CELL VOLUME 90.5 FL (80.0-100.0); MEAN CORPUSCULAR HEMOGLOBIN 28.7 PG (27.0-34.0); MEAN CORPUSCULAR HGB CONC 31.7 % (32.0-36.0); MONO % 1.9 % (0.0-8.0); NEUT % 87.4 % (16.0-70.0); PLATELET COUNT 268 TH/MM3 (150-450); RED BLOOD COUNT 3.65 MIL/MM3 (4.00-5.30); RED CELL DISTRIBUTION WIDTH 17.3 % (11.6-17.2); WHITE BLOOD COUNT 5.6 TH/MM3 (4.0-11.0)
[2017-06-02 04:55] LABS: HEMO FLAGS AUTO DIFF
[2017-06-02] MEDS: CARBIDOPA/LEVODOPA 10 MG/100 MG TAB PO SCH ×3 (05:23→22:11)
[2017-06-02] MEDS: methylPREDNISolone SOD SUCC 125 MG/2 ML VIAL IV PUSH SCH ×4 (05:24→20:26)
[2017-06-02] MEDS: HEPARIN SODIUM - SQ 10,000 UNITS/ML VIAL SQ SCH ×3 (05:24→22:11)
[2017-06-02 05:25] LABS: BICARBONATE 24.4 MEQ/L (21.0-32.0); POTASSIUM 4.5 MEQ/L (3.5-5.1)
[2017-06-02 05:45] LABS: CKMB 5.5 NG/ML (0.5-3.6)
[2017-06-02 07:01] LABS: BANDS 4 % (0-6); MYELOCYTES 1 % (0-0); POLYS (SEG NEUTROPHILS) 84 % (16-70); WBC DIFF SAMPLE 100
[2017-06-02 07:03] LABS: PLATELET ESTIMATE SMEAR NORMAL (NORMAL); PLATELET MORPHOLOGY NORMAL (NORMAL)
[2017-06-02 07:04] LABS: SCAN/DIFF FINAL DIFF MANUAL
[2017-06-02 07:31] LABS: CRITICAL VALUE YES
[2017-06-02] MEDS: SODIUM CHLOR 0.9% 1000 ML INJ 1,000 ML IV SCH ×2 (09:00→20:25)
[2017-06-02] MEDS: lamoTRIgine 100 MG TAB PO SCH (09:01)
[2017-06-02] MEDS: VANCOMYCIN 1,000 MG/NS 250 ML IV SCH ×2 (09:01)
[2017-06-02] MEDS: levETIRAcetam 500 MG TAB PO SCH ×2 (09:01→20:24)
[2017-06-02] MEDS: risperiDONE 1 MG TAB PO SCH ×3 (09:01→17:25)
[2017-06-02] MEDS: ISOSORBIDE DINITRATE 10 MG TAB PO SCH ×2 (09:01→20:24)
[2017-06-02] MEDS: SODIUM CHLORIDE 0.9% FLUSH 10 ML FLUSH IV FLUSH SCH ×2 (09:01→20:25)
[2017-06-02] MEDS: LACTOBACILLUS ACIDOPHILUS TAB PO SCH ×2 (09:02→20:24)
[2017-06-02] MEDS: PRAVASTATIN SOD 40 MG TAB PO SCH (09:02)
--- NOTE | 2017-06-02 14:21 | HHI.CCPN ---
Subjective Remarks/Hospital Course 06/01: 72-year-old female who was complaining of shortness of breath and cough with mucus production as well as pain with urination. Patient is also c/o pain in right arm where she has a PICC per documentation. She reportedly had a fever and large stage IV sacral decubitus ulcer and was admitted by hospitalist service for sepsis/UTI to the floor however in view of elevated PCO2 and respiratory acidosis was transferred to the ICU and placed on BiPAP. She did receive 2 L of normal saline bolus in the ER. Critical care consult was requested by hospitalist service following patient's transfer to the ICU. I evaluated the patient shortly following her arrival while she was on BiPAP with full facemask. At that time she was awake and alert moving all 4 extremities and following commands. She had already received IV antibiotics and Solu- Medrol. Her BNP was not elevated. She denied any chest pain, nausea or abdominal pain at the time of my evaluation. 06/02: Resting in bed comfortably. Breathing better. On nasal cannula since yesterday. No hypotension. Wants to eat. Has been tolerating by mouth diet. Objective Vital Signs Date Time Temp Pulse Resp B/P (MAP) Pulse Ox O2 Delivery O2 Flow Rate FiO2 06/02/17 13:24 149/58 (88) 06/02/17 12:00 110 06/02/17 12:00 98.2 22 96 06/02/17 08:49 Nasal Cannula 5.00 06/01/17 06:55 35 Intake and Output 06/02/17 06/02/17 06/03/17 08:00 16:00 00:00 Intake Total 1639 ml 250 ml Output Total 1400 ml Balance 239 ml 250 ml Result Diagram: 06/02/17 0426 06/02/17 0426 Other Results Microbiology Date/Time Source Procedure Growth Status 06/01/17 03:00 Nasal Aspirate Influenza Types A,B Antigen (HOMERO) - Final NEGATIVE FOR FLU A AND B ANTIGEN.... Complete Imaging Rt UE venous doppler: negative for DVT Last Impressions Chest X-Ray 06/01/17 021 Signed Impressions: Service Date/Time: Thursday, June 01, 2017 02:19 - CONCLUSION: 1. Elevated right hemidiaphragm with basilar atelectasis. No acute findings compared with 2016. Vidal Diaz MD Objective Remarks Physical Exam GENERAL: This is an elderly patient, in no apparent distress. SKIN: No rashes. Cool and dry. HEAD: Atraumatic. Normocephalic. EYES: No scleral icterus. No injection or drainage. ENT: Nose without bleeding, purulent drainage. NECK: Trachea midline. No JVD or lymphadenopathy. CARDIOVASCULAR: Regular rate and rhythm without murmurs, gallops, or rubs. RESPIRATORY: Patient is purse-lipped breathing. Very tight air entry with minimal air movement auscultated. GASTROINTESTINAL: Abdomen soft, non-tender, nondistended. No guarding. MUSCULOSKELETAL: Extremities without clubbing, cyanosis. No calf tenderness. Right arm tender, tense, slightly edematous. NEUROLOGICAL: Awake and alert, moving all 4 extremities, grossly nonfocal. Does have some tremors. A/P Assessment and Plan Sepsis UTI Acute respiratory failure Acute respiratory acidosis Rhabdomyolysis DIDI/ CKD Sacral decubitus ulcer Right upper extremity swelling near PICC Diabetes mellitus Parkinson's disease Osteoporosis CVA Epilepsy Hyperlipidemia Bipolar disorder Schizophrenia, paranoid Dysphagia Hypothyroidism GERD Muscle Weakness Neuro - Follow neuro status, avoid narcotics and sedatives. Continue meds for Parkinson's Cardiovascular - Received fluid boluses in ER. Will continue gentle hydration. BNP is normal. Watch for hypotension. Resp - Continue Duonebs q6h and q2h prn wheezing - Received Solumedrol 125 mg IV and then 60 mg q6h. decrease Solu-Medrol to 40 mg IV every 12 hours for 2 days and then stop - check 2-D echocardiogram for cardiac function and structure Renal/ - IV hydration, strict intake output, monitor and replete electro lites, follow BUN/creatinine - F/u CPK ID - Temperature 101.4 on admission, tachycardia, increasing oxygen requirements/ hypoxia, lactic acidosis - UA consistent with UTI - meets sepsis criteria - negative for flu a and b - Antibiotics: IV Levaquin and vancomycin - Initial lactic acid 2.4, f/u lactic acid sepsis protocol -Received fluid boluses in ER. - Wound care to follow for sacral decubitus ulcer. Urine cultures growing gram-negative rods, 1 set of blood culture with gram- positive cocci possibly contaminant. ID consult requested for antibiotic management Heme -Follow CBC. Right upper extremity negative for DVT by venous doppler Endocrine - Watch for hyperglycemia, SSI for glycemic control as needed. Continue glipizide if tolerating by mouth. DVT prophylaxis - Heparin 5000 units subq q8h Patient will be transferred out of ICU. Consult and Transfer to hospitalist service for further medical management. Critical care will be signing off. Reynaldo Ryan MD Jun 02, 2017 14:21
[2017-06-02] MEDS: lamoTRIgine 25 MG TAB PO SCH (20:26)
[2017-06-03] VITALS (17 sets, daily range): BP systolic 132–186; BP diastolic 66–107; PULSE 96–112; RESP 19–33; TEMP 98.1–99.3; O2SAT 90–97
[2017-06-03] MEDS: RESP: ALBUTEROL 2.5 MG/IPRATROPIUM 0.5 MG NEB (SCH) NEB ×4 (02:23→21:03)
[2017-06-03] MEDS: CHLORHEXIDINE GLUCONATE 2 % 1 PACK (2 CLOTHS)(taper/protocol) TOPICAL SCH (04:00)
[2017-06-03] MEDS: INSULIN ASPART SUPPLEMENTAL SCALE SQ SCH ×7 (04:00→23:50)
[2017-06-03] MEDS: CHLORHEXIDINE GLUCONATE 2 % 1 PACK (2 CLOTHS) TOP SCH (04:00)
[2017-06-03] MEDS: CARBIDOPA/LEVODOPA 10 MG/100 MG TAB PO SCH ×3 (05:07→20:47)
[2017-06-03] MEDS: HEPARIN SODIUM - SQ 10,000 UNITS/ML VIAL SQ SCH ×3 (05:07→20:46)
--- NOTE | 2017-06-03 07:43 | MB ---
cc: ANUSHKA VILLAFANA MD DATE OF CONSULTATION: 06/02/2017. REASON FOR CONSULTATION: Consult for bacteremia/sepsis. REQUESTING PHYSICIAN: Dr. Sanket Ryan. HISTORY OF PRESENT ILLNESS: This is a 72-year-old white female who was brought to the emergency department from a custodial facility with respiratory distress. The patient developed shortness of breath while at [place]. She was noted to also have temperature of 101 degrees rectally. She is noted to have been treated with antibiotics for a sacral decubitus ulceration and was receiving Vancomycin via PICC line. I do not have further information on that course of treatment. The patient has a history of schizophrenia of the paranoid type. Blood cultures were taken on 06/01, and one bottle has gram-positive cocci. A urine culture also was taken and has gram-negative silvia. The patient's white blood cell count is normal. Her temperature was 101.4 degrees Fahrenheit on admission and after that it came down to normal and has remained normal since admission. She is currently awake and alert. It is difficult to get information from her because her speech is pressured and she does not keep her attention on the questions asked. Another urine culture was taken later on the day of 06/01 and it has no growth in 24 hours. She has a Corrigan catheter in place, which was inserted on admission. The patient does follow commands for me. She denies aches or pains. PAST MEDICAL HISTORY: 1. Paranoid schizophrenia. 2. Seizure disorder. 3. Hypothyroidism. 4. Depression. 5. Anxiety. 6. Gastroesophageal reflux disease (GERD). 7. Chronic kidney disease stage II. 8. Diabetes mellitus type 2. 9. Hyperlipidemia. 10. Sacral decubitus. ALLERGIES: 1. PENICILLIN. 2. TIGECYCLINE. 3. MINOCYCLINE. 4. DOXYCYCLINE. 5. ADHESIVE TAPES. 6. ANTIHISTAMINES. MEDICATIONS: 1. Methylprednisolone. 2. Levaquin. 3. DuoNeb. 4. Isordil. 5. Lactinex. 6. Lamictal. 7. Keppra. 8. Pravachol. 9. Risperdal. 10. Vancomycin. 11. Sinemet. SOCIAL HISTORY: No tobacco. No alcohol. No illicit drugs. FAMILY HISTORY: Noncontributory. REVIEW OF SYSTEMS: Difficult to obtain because of the patient is unable to focus on questions asked and speech being pressured. FAMILY HISTORY: Unable to obtain. PHYSICAL EXAMINATION: GENERAL: This is a well-developed female who is moderately obese. She is in no acute distress. VITAL SIGNS: Temperature 98.2, blood pressure 163/67, heart rate 110, respirations 18. HEAD, EYES, EARS, NOSE, THROAT: The head is atraumatic. Extraocular movements grossly intact. Pupils reactive to light. No icterus. Oropharynx with moist mucosa. The patient is edentulous. NECK: The neck is supple without adenopathy or swelling. LUNGS: Decreased breath sounds bilaterally. HEART: Regular rate and rhythm without murmurs, rubs or gallops. ABDOMEN: Bowel sounds present, obese, soft, nontender. RECTAL: Not performed. EXTREMITIES: No clubbing, cyanosis or edema. SKIN: No rash. NEUROLOGIC: No gross focal findings. PSYCHIATRIC: The patient has pressured speech. LABS: White blood cells 5.6, platelet count 268,000, 84% neutrophils, hemoglobin 10.5. Creatinine 1.57, BUN 29, estimated GFR is 33, sodium 139. IMPRESSION: 1. Bacteremia with gram-positive cocci in one of four bottles. Pseudo bacteremia. The patient does not have current evidence suggesting sepsis, and I think the blood culture is contamination. 2. Bacteruria with gram-negative bacteria. 3. Fever on admission along with tachycardia and lactic acidosis suggesting sepsis; however, the blood culture and urine culture are not demonstrating the same bacteria. The patient however appears clinically stable. RECOMMENDATIONS/PLAN: 1. Discontinue Vancomycin. 2. May continue the Levaquin until the sensitivity of the urine bacteria is available. 3. Follow the patient's clinical status and repeat the blood cultures again if she has new fever. Thank you for this consultation. The patient's progress will be monitored and further recommendations will be given on follow up if necessary. Anushka Villafana MD FD/[place] /2:59 PM /7:38 AM
[2017-06-03] MEDS: SODIUM CHLORIDE 0.9% FLUSH 10 ML FLUSH IV FLUSH SCH ×2 (09:00→20:47)
[2017-06-03] MEDS: PRAVASTATIN SOD 40 MG TAB PO SCH (09:00)
[2017-06-03] MEDS: lamoTRIgine 100 MG TAB PO SCH (09:00)
[2017-06-03] MEDS: LACTOBACILLUS ACIDOPHILUS TAB PO SCH ×2 (09:00→20:47)
[2017-06-03] MEDS: ISOSORBIDE DINITRATE 10 MG TAB PO SCH ×2 (09:21→20:47)
[2017-06-03] MEDS: levETIRAcetam 500 MG TAB PO SCH ×2 (09:21→20:47)
[2017-06-03] MEDS: risperiDONE 1 MG TAB PO SCH ×3 (09:21→18:33)
[2017-06-03] MEDS: methylPREDNISolone SOD SUCC 125 MG/2 ML VIAL IV PUSH SCH ×2 (09:22→20:46)
[2017-06-03] MEDS: LEVOFLOXACIN 750 MG PREMIX INJ 150 ML IV SCH (10:00)
--- NOTE | 2017-06-03 10:30 | HHI.IDPN ---
Note Infectious Disease Note Patient is in no distress. Comfortable watching TV. Responsive. Speech pressured but understandable. PAST MEDICAL HISTORY: 1. Paranoid schizophrenia. 2. Seizure disorder. 3. Hypothyroidism. 4. Depression. 5. Anxiety. 6. Gastroesophageal reflux disease (GERD). 7. Chronic kidney disease stage II. 8. Diabetes mellitus type 2. 9. Hyperlipidemia. 10. Sacral decubitus. ALLERGIES: 1. PENICILLIN. 2. TIGECYCLINE. 3. MINOCYCLINE. 4. DOXYCYCLINE. 5. ADHESIVE TAPES. 6. ANTIHISTAMINES. MEDICATIONS: 1. Methylprednisolone. 2. Levaquin. 3. DuoNeb. 4. Isordil. 5. Lactinex. 6. Lamictal. 7. Keppra. 8. Pravachol. 9. Risperdal. 10. Vancomycin. 11. Sinemet. OBJECTIVE: Vital Signs Date Time Temp Pulse Resp B/P (MAP) Pulse Ox O2 Delivery O2 Flow Rate FiO2 06/03/17 07:39 96 Nasal Cannula 5.00 06/03/17 06:01 98.1 96 29 160/66 (97) 95 06/03/17 06:00 96 06/03/17 04:00 102 06/03/17 04:00 102 31 186/101 (129) 92 06/03/17 02:00 108 06/03/17 00:00 101 06/03/17 00:00 98.7 101 20 155/78 (103) 90 06/02/17 22:00 102 06/02/17 20:09 93 06/02/17 20:00 93 06/02/17 20:00 98.4 93 24 154/86 (108) 91 06/02/17 18:00 95 06/02/17 16:00 98.8 88 20 157/67 (97) 93 06/02/17 16:00 88 06/02/17 13:24 149/58 (88) 06/02/17 12:00 110 06/02/17 12:00 98.2 93 22 163/67 (99) 96 Laboratory Tests Test 06/02/17 04:26 White Blood Count 5.6 TH/MM3 Red Blood Count 3.65 MIL/MM3 Hemoglobin 10.5 GM/DL Hematocrit 33.0 % Mean Corpuscular Volume 90.5 FL Mean Corpuscular Hemoglobin 28.7 PG Mean Corpuscular Hemoglobin Concent 31.7 % Red Cell Distribution Width 17.3 % Platelet Count 268 TH/MM3 Mean Platelet Volume 7.5 FL Neutrophils (%) (Auto) 87.4 % Lymphocytes (%) (Auto) 10.6 % Monocytes (%) (Auto) 1.9 % Eosinophils (%) (Auto) 0.0 % Basophils (%) (Auto) 0.1 % Neutrophils # (Auto) 4.9 TH/MM3 Lymphocytes # (Auto) 0.6 TH/MM3 Monocytes # (Auto) 0.1 TH/MM3 Eosinophils # (Auto) 0.0 TH/MM3 Basophils # (Auto) 0.0 TH/MM3 CBC Comment AUTO DIFF Differential Total Cells Counted 100 Neutrophils % (Manual) 84 % Band Neutrophils % 4 % Lymphocytes % 11 % Neutrophils # (Manual) 5.0 TH/MM3 Myelocytes 1 % Differential Comment FINAL DIFF MANUAL Platelet Estimate NORMAL Platelet Morphology Comment NORMAL Red Cell Morphology Comment NORMAL Laboratory Tests Test 06/01/17 11:52 06/01/17 15:47 06/02/17 04:26 Lactic Acid Level 3.0 mmol/L 2.7 mmol/L Blood Urea Nitrogen 29 MG/DL Creatinine 1.57 MG/DL Random Glucose 281 MG/DL Calcium Level 8.8 MG/DL Sodium Level 139 MEQ/L Potassium Level 4.5 MEQ/L Chloride Level 106 MEQ/L Carbon Dioxide Level 24.4 MEQ/L Anion Gap 9 MEQ/L Estimat Glomerular Filtration Rate 33 ML/MIN Total Creatine Kinase 438 U/L Creatine Kinase MB 5.5 NG/ML Creatine Kinase MB % 1.3 % Microbiology Date/Time Source Procedure Growth Status 06/01/17 02:30 Blood Peripheral Aerobic Blood Culture - Preliminary NO GROWTH IN 1 DAY Resulted 06/01/17 02:30 Blood Peripheral Anaerobic Blood Culture - Preliminary NO GROWTH IN 1 DAY Resulted 06/01/17 02:15 Blood Peripheral Aerobic Blood Culture - Preliminary Staph Sp Coagulase Negative Resulted 06/01/17 02:15 Blood Peripheral Anaerobic Blood Culture - Preliminary NO GROWTH IN 1 DAY Resulted 06/01/17 03:00 Nasal Aspirate Influenza Types A,B Antigen (HOMERO) - Final NEGATIVE FOR FLU A AND B ANTIGEN.... Complete 06/01/17 08:21 Urine Catheterized Urine Urine Culture - Final NO GROWTH IN 48 HOURS. Complete 06/01/17 03:00 Urine Clean Catch Urine Culture - Final Escherichia Coli Complete PHYSICAL EXAMINATION: GENERAL: No acute distress. HEENT: No icterus. Oropharynx - moist mucosa. The patient is edentulous. NECK: The neck is supple without adenopathy or swelling. LUNGS: Decreased breath sounds. HEART: Regular rate and rhythm without murmurs, rubs or gallops. ABDOMEN: Bowel sounds present, obese, soft, nontender. EXTREMITIES: No clubbing, cyanosis or edema. SKIN: No rash. NEUROLOGIC: No gross focal findings. PSYCHIATRIC: Pressured speech. Calm. IMPRESSION: 1. Bacteremia with gram-positive cocci in one of four bottles. Pseudo bacteremia. The patient does not have current evidence suggesting sepsis, and I think the blood culture is contamination. 2. Bacteruria with gram-negative bacteria. E. coli resistant to cipro on first urine culture but repeated urine culture has no growth. 3. Fever on admission along with tachycardia and lactic acidosis suggesting sepsis; however, the blood culture and urine culture are not demonstrating the same bacteria. The patient appears clinically stable. RECOMMENDATIONS/PLAN: 1. Discontinue Levaquin since repeat urine culture has no growth. 2. Follow the patient's clinical status and repeat the blood cultures again if she has new fever. I will sign off now. Please reconsult if further input needed. Carlton Toribio MD Jun 03, 2017 10:30
[2017-06-03] MEDS ORDERED: NITROFURANTOIN MONOHYD MACROCR 100 MG CAP PO SCH (10:45)
--- NOTE | 2017-06-03 10:54 | HHI.PR ---
Subjective Remarks The patient appeared uncomfortable. She knew she was in [place] but otherwise was confused. She was irritated at being here. She did not elaborate on her symptoms much. Discussed with nursing at the bedside. Objective Vitals Vital Signs Date Time Temp Pulse Resp B/P (MAP) Pulse Ox O2 Delivery O2 Flow Rate FiO2 06/03/17 10:00 109 06/03/17 08:00 98.6 107 26 159/82 (107) 96 06/03/17 08:00 107 06/03/17 07:39 96 Nasal Cannula 5.00 06/03/17 06:01 98.1 96 29 160/66 (97) 95 06/03/17 06:00 96 06/03/17 04:00 102 06/03/17 04:00 102 31 186/101 (129) 92 06/03/17 02:00 108 06/03/17 00:00 101 06/03/17 00:00 98.7 101 20 155/78 (103) 90 06/02/17 22:00 102 06/02/17 20:09 93 06/02/17 20:00 93 06/02/17 20:00 98.4 93 24 154/86 (108) 91 06/02/17 18:00 95 06/02/17 16:00 98.8 88 20 157/67 (97) 93 06/02/17 16:00 88 06/02/17 13:24 149/58 (88) 06/02/17 12:00 110 06/02/17 12:00 98.2 93 22 163/67 (99) 96 I/O 06/02/17 06/02/17 06/02/17 06/03/17 06/03/17 06/03/17 07:00 15:00 23:00 07:00 15:00 23:00 Intake Total 1639 ml 250 ml 1201 ml 720 ml Output Total 1400 ml 1000 ml 1000 ml Balance 239 ml 250 ml 201 ml -280 ml Intake Oral 650 ml 720 ml IV Total 989 ml 250 ml 1201 ml Output Urine Total 1400 ml 1000 ml 1000 ml # Bowel Movements 0 Result Diagram: 06/02/17 0426 06/02/17 042 Imaging Last Impressions Chest X-Ray 06/01/17210 Signed Impressions: Service Date/Time: Thursday, June 01, 2017 02:19 - CONCLUSION: 1. Elevated right hemidiaphragm with basilar atelectasis. No acute findings compared with 2016. Vidal Diaz MD Upper Extremity Ultrasound 06/01/17 0000 Signed Impressions: Service Date/Time: Thursday, June 01, 2017 08:21 - CONCLUSION: Normal examination. Perico Miranda MD Objective Remarks GENERAL: This is an elderly patient, appearing uncomfortable. SKIN: No rashes. Cool and dry. HEAD: Atraumatic. Normocephalic. EYES: No scleral icterus. No injection or drainage. ENT: Nose without bleeding, purulent drainage. NECK: Trachea midline. No JVD or lymphadenopathy. CARDIOVASCULAR: Regular rate and rhythm without murmurs, gallops, or rubs. RESPIRATORY: Poor respiratory effort. GASTROINTESTINAL: Abdomen soft, non-tender, nondistended. No guarding. MUSCULOSKELETAL: TR- 1 + LE edema. NEUROLOGICAL: Awake and alert, moving all 4 extremities, grossly nonfocal. Does have some tremors. PSYCH: Agitated. Medications and IVs Current Medications Medications (Trade) Dose Ordered Sig/Malena Route Start Time Stop Time Status Last Admin (NS Flush) 2 ml UNSCH PRN IV FLUSH 06/01/17 04:00 (NS Flush) 2 ml BID IV FLUSH 06/01/17 09:00 06/03/17 09:00 (Narcan Inj) 0.4 mg UNSCH PRN IV 06/01/17 04:00 (Duoneb Neb) 1 ampule Q6HR NEB NEB 06/01/17 10:00 06/03/17 07:38 (Duoneb Neb) 1 ampule Q2HR NEB PRN NEB 06/01/17 05:45 (Sinemet 10-100 Mg) 1 tab Q8HR PO 06/01/17 06:00 06/03/17 05:07 (Isordil) 10 mg BID PO 06/01/17 09:00 06/03/17 09:21 (Lactinex) 1 tab Q12HR PO 06/01/17 09:00 06/03/17 09:00 (LaMICtal) 100 mg DAILY PO 06/01/17 09:00 06/03/17 09:00 (LaMICtal) 25 mg HS PO 06/01/17 21:00 06/02/17 20:26 (Keppra) 500 mg BID PO 06/01/17 09:00 06/03/17 09:21 (Ativan) 0.5 mg Q8H PRN PO 06/01/17 05:45 (Pravachol) 40 mg DAILY PO 06/01/17 09:00 06/03/17 09:00 (risperDAL) 1 mg TID PO 06/01/17 09:00 06/03/17 09:21 Miscellaneous Information 1 Q361D XX 06/01/17 06:45 06/01/17 06:45 (Chlorhexidine 2% Cloth) 3 pack Taper DAILY@04 TOP 06/02/17 04:00 05/29/18 03:59 06/03/17 04:00 (Chlorhexidine 2% Cloth) 3 pack UNSCH PRN TOP 06/01/17 06:45 (Heparin Inj) 5,000 units Q8HR SQ 06/01/17 06:45 06/03/17 05:07 Sodium Chloride 1,000 ml @ 84 mls/hr [id number] IV 06/01/17 08:45 06/02/17 20:25 Miscellaneous Information Patient in critical care unit? Ass... Q361D .XX 06/01/17 08:45 (Chlorhexidine 2% Cloth) 3 pack DAILY@04 TOPICAL 06/02/17 04:00 06/06/17 04:01 (Chlorhexidine 2% Cloth) 3 pack UNSCH PRN TOPICAL 06/01/17 08:45 06/06/17 08:44 (NovoLOG SUPPLEMENTAL SCALE) 1 Q4HR SQ 06/01/17 12:00 06/03/17 08:00 (D50w (Vial) Inj) 25 ml UNSCH PRN IV 06/01/17 08:45 (Glucagon Inj) 1 mg UNSCH PRN IM/SQ 06/01/17 08:45 (SoluMEDROL INJ) 40 mg Q12HR IV PUSH 06/02/17 21:00 06/04/17 14:20 06/03/17 09:22 (Macrobid) 100 mg BIDPC PO 06/03/17 10:45 UNV A/P Problem List: (1) Sepsis ICD Code: A41.9 - Sepsis, unspecified organism Status: Acute (2) UTI (urinary tract infection) ICD Code: N39.0 - Urinary tract infection, site not specified Status: Acute (3) Rhabdomyolysis ICD Code: M62.82 - Rhabdomyolysis Status: Acute (4) DIDI (acute kidney injury) ICD Code: N17.9 - Acute kidney failure, unspecified Status: Acute (5) Sacral decubitus ulcer ICD Code: L89.159 - Pressure ulcer of sacral region, unspecified stage Status: Acute Assessment and Plan Sepsis/ UTI Temperature 101.4 on admission, tachycardic, increasing oxygen requirements/ hypoxia, lactic acidosis - UA consistent with UTI. Negative for flu a and b. Initial lactic acid 2.4. IVF boluses given in ED. 1 blood culture positive, likely contaminant per ID. - ID following. D/c antibiotics as repeat urine culture with no growth. - follow blood cultures. Hypoxic respiratory failure Required BiPAP, now on 4L NC. Echo with normal EF. - Continue Duonebs q6h and q2h prn wheezing. - Decrease Solu-Medrol to 40 mg IV every 12 hours for 2 days and then stop. - oxygen and nebs as needed. - incentive spirometry. - pulmonology consult requested. - PT/ OT. Rhabdomyolysis CPK 1163 on admission. Improved with IVFs. - follow CPK. DIDI Creatinine similar to baseline. S/p IVFs. - avoid nephrotoxic agents. Sacral decubitus clinical liaison consult appreciated. - continue wound care. - continue IV vancomycin. Right arm pain/ edema Duplex negative for DVT. - pain control as needed. Diabetes Glucose exacerbated by steroids. - Wean steroids as tolerated. - Insulin sliding scale. PPx: Heparin Discharge Planning Patient on transfer to the floor Problem Qualifiers (1) UTI (urinary tract infection): Qualified Codes: N39.0 - Urinary tract infection, site not specified (2) Rhabdomyolysis: Qualified Codes: M62.82 - Rhabdomyolysis (3) Sacral decubitus ulcer: Qualified Codes: L89.154 - Pressure ulcer of sacral region, stage 4 Lenin Mejía DO Jun 03, 2017 10:54
[2017-06-03] MEDS ORDERED: Vancomycin Consult Pharmacy 1 EA OTHER SCH (11:15)
[2017-06-03] MEDS ORDERED: VANCOMYCIN INJ 1,000 MG in SODIUM CHLOR 0.9% 250 ML INJ 250 ML IV SCH (11:15)
[2017-06-03] MEDS: LEVOTHYROXINE SODIUM 125 MCG TAB PO SCH (12:36)
--- NOTE | 2017-06-03 20:35 | MB ---
cc: CHINO HUGGINS DATE OF CONSULTATION 06/03/[address] Lnein Mejía REASON FOR CONSULTATION Respiratory failure HISTORY OF PRESENT ILLNESS Ms. Shields is a 72-year-old female with history of schizophrenia. She has sacral decubitus ulcer. The patient was admitted in the hospital with shortness of breath. She was found to have sepsis and UTI. She had blood work done. Her urine culture is growing E-coli. CBC - WBC count 5.6, hemoglobin 10.5, hematocrit 33, MCV 90, platelet count 268. Sodium 139, potassium 4.8, chloride 106, CO2 24, BUN 29, creatinine 1.59. Blood gas - pH 7.2, pCO2 64, bicarb 26. She is currently on nasal cannula. PAST MEDICAL HISTORY 1. History of decubitus ulcers 2. Schizophrenia 3. Renal insufficiency, 4. History of CVA 5. Seizure disorder. MEDICATIONS Currently taking 1. Depakote 750 mg at night time 2. Ativan 1 mg three times a day. 3. Levothyroxine 125 mcg a day. 4. Solu-Medrol 40 mg q. 12-hour. 5. Lamictal 25 mg at nighttime. 6. Albuterol/Atrovent nebulizer treatment 7. Imdur 10 mg a day. 8. Sinemet one tablet q.8 h. 9. Heparin 5000 units subcu ALLERGIES MINOCYCLINE PENICILLIN G DOXYCYCLINE ADHESIVE TAPE TIGECYCLINE ANTIHISTAMINES SOCIAL HISTORY The patient is un coperative, Denies any smoking or alcohol use. FAMILY HISTORY Noncontributory. REVIEW OF SYSTEMS She is irritable and does not answer appropriately. PHYSICAL EXAMINATION GENERAL: Obese female in mild shortness of breath not in acute distress. VITAL SIGNS: Blood pressure 168/83, heart rate 112, respirations 20, temperature 99 HEENT: Pupils are equal and reactive to light. Oral mucosa, nasal mucosa normal. NECK: Supple. JVP not raised. CHEST: Equal bilaterally. No rhonchi. CARDIOVASCULAR: S1, S2, normal. ABDOMEN: Soft, nondistended. Bowel sounds are present. EXTREMITIES: She has sacral decubitus. IMPRESSION 1. Respiratory insufficiency and respiratory acidosis, improving 2. COPD. 3. Schizophrenia 4. Sepsis 5. UTI 6. History of seizure disorder. PLAN The patient will continue with antibiotic. Give her aerosol treatment. Supplement her oxygen. IV Solu-Medrol. Monitor her electrolyte. The patient is being transferred to the floor. Further treatment will depend on the course in the hospital. Thank you, Dr. Mejía, for this consultation. MD MERRITT [place]/ /5:50 PM /8:17 PM DALI
[2017-06-03] MEDS: DIVALPROEX SODIUM E.R. 250 MG TAB PO SCH (20:46)
[2017-06-03] MEDS: LORazepam 0.5 MG TAB PO PRN (20:47)
[2017-06-03] MEDS: lamoTRIgine 25 MG TAB PO SCH (20:47)
[2017-06-03] MEDS ORDERED: VANCOMYCIN 1,000 MG/NS 250 ML IV ONE ×2 (23:00)
[2017-06-04] VITALS (10 sets, daily range): BP systolic 137–180; BP diastolic 73–89; PULSE 82–118; RESP 17–20; TEMP 97.1–99.8; O2SAT 90–97
[2017-06-04] MEDS: CHLORHEXIDINE GLUCONATE 2 % 1 PACK (2 CLOTHS) TOP SCH (00:11)
[2017-06-04] MEDS: CHLORHEXIDINE GLUCONATE 2 % 1 PACK (2 CLOTHS)(taper/protocol) TOPICAL SCH (00:11)
[2017-06-04] MEDS: INSULIN ASPART SUPPLEMENTAL SCALE SQ SCH ×6 (03:40→23:50)
[2017-06-04 05:22] LABS: BICARBONATE 24.6 MEQ/L (21.0-32.0); MAGNESIUM 2.4 MG/DL (1.5-2.5)
[2017-06-04 05:50] LABS: HEMATOCRIT 34.9 % (35.0-46.0); MEAN CELL VOLUME 90.7 FL (80.0-100.0); MEAN CORPUSCULAR HEMOGLOBIN 28.4 PG (27.0-34.0); MEAN CORPUSCULAR HGB CONC 31.4 % (32.0-36.0); PLATELET COUNT 280 TH/MM3 (150-450); RED BLOOD COUNT 3.85 MIL/MM3 (4.00-5.30); RED CELL DISTRIBUTION WIDTH 17.3 % (11.6-17.2); REVIEW FLAG FINAL; WHITE BLOOD COUNT 6.7 TH/MM3 (4.0-11.0)
[2017-06-04] MEDS: CARBIDOPA/LEVODOPA 10 MG/100 MG TAB PO SCH ×3 (05:54→21:47)
[2017-06-04] MEDS: HEPARIN SODIUM - SQ 10,000 UNITS/ML VIAL SQ SCH ×3 (05:54→21:47)
[2017-06-04] MEDS: LEVOTHYROXINE SODIUM 125 MCG TAB PO SCH (05:54)
[2017-06-04] MEDS: LORazepam 0.5 MG TAB PO PRN ×2 (05:55→14:05)
[2017-06-04] MEDS: RESP: ALBUTEROL 2.5 MG/IPRATROPIUM 0.5 MG NEB (SCH) NEB ×4 (05:57→20:51)
[2017-06-04] MEDS: lamoTRIgine 100 MG TAB PO SCH (08:14)
[2017-06-04] MEDS: CHOLECALCIFEROL (VIT D3) 1000 UNIT TAB PO SCH (08:14)
[2017-06-04] MEDS: levETIRAcetam 500 MG TAB PO SCH ×2 (08:14→21:47)
[2017-06-04] MEDS: PRAVASTATIN SOD 40 MG TAB PO SCH (08:14)
[2017-06-04] MEDS: risperiDONE 1 MG TAB PO SCH ×3 (08:15→17:57)
[2017-06-04] MEDS: ISOSORBIDE DINITRATE 10 MG TAB PO SCH ×2 (08:15→21:47)
[2017-06-04] MEDS: LACTOBACILLUS ACIDOPHILUS TAB PO SCH ×2 (08:16→21:46)
[2017-06-04] MEDS: methylPREDNISolone SOD SUCC 125 MG/2 ML VIAL IV PUSH SCH (08:16)
[2017-06-04] MEDS: SODIUM CHLORIDE 0.9% FLUSH 10 ML FLUSH IV FLUSH SCH ×2 (08:16→21:53)
--- NOTE | 2017-06-04 11:05 | HHI.PR ---
Subjective Remarks The patient said that she was thirsty. She wanted to drink water. She said she was having some shortness of breath. She denied any pain. Discussed with nursing. No acute concerns. Objective Vitals Vital Signs Date Time Temp Pulse Resp B/P (MAP) Pulse Ox O2 Delivery O2 Flow Rate FiO2 06/04/17 09:16 97 Nasal Cannula 2.00 06/04/17 08:30 96 Nasal Cannula 4.00 06/04/17 08:30 95 06/04/17 08:00 97.8 88 17 141/73 (95) 90 06/04/17 05:55 151/77 (101) 06/04/17 04:00 97.1 88 20 180/89 (119) 94 06/04/17 00:10 99.4 82 20 145/74 (97) 96 06/03/17 21:07 97 Nasal Cannula 3.00 06/03/17 20:15 Nasal Cannula 4.00 Humidified 06/03/17 20:15 104 06/03/17 20:00 98.3 107 19 132/86 (101) 97 06/03/17 18:00 104 06/03/17 17:00 112 31 168/83 (111) 95 06/03/17 17:00 112 06/03/17 16:02 112 33 156/79 (104) 95 06/03/17 16:02 112 06/03/17 16:00 112 06/03/17 16:00 112 31 177/107 (130) 94 06/03/17 16:00 99.0 06/03/17 14:00 105 06/03/17 12:00 99.3 111 30 166/74 (104) 94 06/03/17 12:00 111 I/O 06/03/17 06/03/17 06/03/17 06/04/17 06/04/17 06/04/17 07:00 15:00 23:00 07:00 15:00 23:00 Intake Total 720 ml 1472 ml 1590 ml 490 ml Output Total 1000 ml 2250 ml 900 ml Balance -280 ml 1472 ml -660 ml -410 ml Intake Oral 720 ml 1590 ml 240 ml IV Total 1472 ml 250 ml Output Urine Total 1000 ml 2250 ml 900 ml # Bowel Movements 0 0 Result Diagram: 06/04/1742406/04/17424 Imaging Last Impressions Chest X-Ray 06/01/17 0211 Signed Impressions: Service Date/Time: Thursday, June 01, 2017 02:19 - CONCLUSION: 1. Elevated right hemidiaphragm with basilar atelectasis. No acute findings compared with 2016. Vidal Diaz MD Upper Extremity Ultrasound 06/01/17 0000 Signed Impressions: Service Date/Time: Thursday, June 01, 2017 08:21 - CONCLUSION: Normal examination. Perico Miranda MD Objective Remarks GENERAL: This is an elderly patient, appearing comfortable. SKIN: No rashes. Cool and dry. HEAD: Atraumatic. Normocephalic. EYES: No scleral icterus. No injection or drainage. ENT: Nose without bleeding, purulent drainage. NECK: Trachea midline. No JVD or lymphadenopathy. CARDIOVASCULAR: Regular rate and rhythm without murmurs, gallops, or rubs. RESPIRATORY: Scattered rhonchi. GASTROINTESTINAL: Abdomen soft, non-tender, nondistended. No guarding. MUSCULOSKELETAL: TR- 1 + LE edema. NEUROLOGICAL: Awake and alert, moving all 4 extremities, grossly nonfocal. Does have some tremors. PSYCH: Calm. Medications and IVs Current Medications Medications (Trade) Dose Ordered Sig/Malena Route Start Time Stop Time Status Last Admin (NS Flush) 2 ml UNSCH PRN IV FLUSH 06/01/17 04:00 (NS Flush) 2 ml BID IV FLUSH 06/01/17 09:00 06/04/17 08:16 (Narcan Inj) 0.4 mg UNSCH PRN IV 06/01/17 04:00 (Duoneb Neb) 1 ampule Q6HR NEB NEB 06/01/17 10:00 06/04/17 09:15 (Duoneb Neb) 1 ampule Q2HR NEB PRN NEB 06/01/17 05:45 (Sinemet 10-100 Mg) 1 tab Q8HR PO 06/01/17 06:00 06/04/17 05:54 (Isordil) 10 mg BID PO 06/01/17 09:00 06/04/17 08:15 (Lactinex) 1 tab Q12HR PO 06/01/17 09:00 06/04/17 08:16 (LaMICtal) 100 mg DAILY PO 06/01/17 09:00 06/04/17 08:14 (LaMICtal) 25 mg HS PO 06/01/17 21:00 06/03/17 20:47 (Keppra) 500 mg BID PO 06/01/17 09:00 06/04/17 08:14 (Ativan) 0.5 mg Q8H PRN PO 06/01/17 05:45 06/04/17 05:55 (Pravachol) 40 mg DAILY PO 06/01/17 09:00 06/04/17 08:14 (risperDAL) 1 mg TID PO 06/01/17 09:00 06/04/17 08:15 Miscellaneous Information 1 Q361D XX 06/01/17 06:45 06/01/17 06:45 (Chlorhexidine 2% Cloth) 3 pack Taper DAILY@04 TOP 06/02/17 04:00 05/29/18 03:59 06/03/17 04:00 (Chlorhexidine 2% Cloth) 3 pack UNSCH PRN TOP 06/01/17 06:45 (Heparin Inj) 5,000 units Q8HR SQ 06/01/17 06:45 06/04/17 05:54 Miscellaneous Information Patient in critical care unit? Ass... Q361D .XX 06/01/17 08:45 (Chlorhexidine 2% Cloth) 3 pack DAILY@04 TOPICAL 06/02/17 04:00 06/06/17 04:01 (Chlorhexidine 2% Cloth) 3 pack UNSCH PRN TOPICAL 06/01/17 08:45 06/06/17 08:44 (NovoLOG SUPPLEMENTAL SCALE) 1 Q4HR SQ 06/01/17 12:00 06/04/17 03:40 (D50w (Vial) Inj) 25 ml UNSCH PRN IV 06/01/17 08:45 (Glucagon Inj) 1 mg UNSCH PRN IM/SQ 06/01/17 08:45 (SoluMEDROL INJ) 40 mg Q12HR IV PUSH 06/02/17 21:00 06/04/17 14:20 06/04/17 08:16 (Vitamin D3) 1,000 units DAILY PO 06/04/17 09:00 06/04/17 08:14 (Depakote Er) 750 mg HS PO 06/03/17 21:00 06/03/17 20:46 (Synthroid) 125 mcg DAILY@0600 PO 06/03/17 12:00 06/04/17 05:54 (Requip) 1 mg TID PO 06/03/17 13:00 06/04/17 08:15 Pharmacy Profile Note 0 ml @ 0 mls/hr UNSCH OTHER 06/03/17 11:15 A/P Problem List: (1) Sepsis ICD Code: A41.9 - Sepsis, unspecified organism Status: Acute (2) UTI (urinary tract infection) ICD Code: N39.0 - Urinary tract infection, site not specified Status: Acute (3) Rhabdomyolysis ICD Code: M62.82 - Rhabdomyolysis Status: Acute (4) DIDI (acute kidney injury) ICD Code: N17.9 - Acute kidney failure, unspecified Status: Acute (5) Sacral decubitus ulcer ICD Code: L89.159 - Pressure ulcer of sacral region, unspecified stage Status: Acute Assessment and Plan Sepsis/ UTI Temperature 101.4 on admission, tachycardic, increasing oxygen requirements/ hypoxia, lactic acidosis - UA consistent with UTI. Negative for flu a and b. Initial lactic acid 2.4. IVF boluses given in ED. 1 blood culture positive, likely contaminant per ID. - ID following. D/c antibiotics as repeat urine culture with no growth. - follow blood cultures. Hypoxic respiratory failure Required BiPAP, now on 2L NC. Echo with normal EF. Pulmonology consult appreciated. - Continue Duonebs q6h and q2h prn wheezing. - Decrease Solu-Medrol to 40 mg IV every 12 hours for 2 days and then stop. - oxygen and nebs as needed. - incentive spirometry. - pulmonology following. - PT/ OT. Rhabdomyolysis CPK 1163 on admission. Improved with IVFs. - follow CPK. Improved. DIDI Creatinine similar to baseline. S/p IVFs. Improved. - avoid nephrotoxic agents. Sacral decubitus customer care coordinator consult appreciated. - continue wound care. - continue IV vancomycin until 06/20 per order from [facility]. Right arm pain/ edema Duplex negative for DVT. - pain control as needed. Diabetes Glucose exacerbated by steroids. Well controlled 06/04. - Wean steroids as tolerated. - Insulin sliding scale. PPx: Heparin Discharge Planning D/c back to SNF when respiratory status improves Problem Qualifiers (1) UTI (urinary tract infection): Qualified Codes: N39.0 - Urinary tract infection, site not specified (2) Rhabdomyolysis: Qualified Codes: M62.82 - Rhabdomyolysis (3) Sacral decubitus ulcer: Qualified Codes: L89.154 - Pressure ulcer of sacral region, stage 4 Lenin Meíja DO Jun 04, 2017 11:05
[2017-06-04] MEDS ORDERED: VANCOMYCIN INJ 1,250 MG in SODIUM CHLOR 0.9% 250 ML INJ 250 ML IV ONE (13:00)
--- NOTE | 2017-06-04 18:33 | HHI.PR ---
Subjective Remarks 72 YOWF with COPD,Schizophrenia, UTI Off Abx Breathing better No Fever Hungry Objective Vital Signs Vital Signs Date Time Temp Pulse Resp B/P (MAP) Pulse Ox O2 Delivery O2 Flow Rate FiO2 06/04/17 16:00 97.6 118 17 137/76 (96) 93 06/04/17 12:00 98.3 101 17 138/78 (98) 95 06/04/17 09:16 97 Nasal Cannula 2.00 06/04/17 08:30 96 Nasal Cannula 4.00 06/04/17 08:30 95 06/04/17 08:00 97.8 88 17 141/73 (95) 90 06/04/17 05:55 151/77 (101) 06/04/17 04:00 97.1 88 20 180/89 (119) 94 06/04/17 00:10 99.4 82 20 145/74 (97) 96 06/03/17 21:07 97 Nasal Cannula 3.00 06/03/17 20:15 Nasal Cannula 4.00 Humidified 06/03/17 20:15 104 06/03/17 20:00 98.3 107 19 132/86 (101) 97 I/O 06/03/17 06/03/17 06/03/17 06/04/17 06/04/17 06/04/17 07:00 15:00 23:00 07:00 15:00 23:00 Intake Total 720 ml 1472 ml 1590 ml 490 ml Output Total 1000 ml 2250 ml 900 ml Balance -280 ml 1472 ml -660 ml -410 ml Intake Oral 720 ml 1590 ml 240 ml IV Total 1472 ml 250 ml Output Urine Total 1000 ml 2250 ml 900 ml # Bowel Movements 0 0 Result Diagram: 06/04/1742406/04/17424 Objective Remarks GENERAL: WBWN WF, NAD SKIN: Warm and dry. HEAD: Normocephalic. EYES: No scleral icterus. No injection or drainage. NECK: Supple, trachea midline. No JVD or lymphadenopathy. CARDIOVASCULAR: Regular rate and rhythm without murmurs, gallops, or rubs. RESPIRATORY: Breath sounds equal bilaterally. No accessory muscle use. GASTROINTESTINAL: Abdomen soft, non-tender, nondistended. MUSCULOSKELETAL: No cyanosis, or edema. BACK: Nontender without obvious deformity. No CVA tenderness. A/P Assessment and Plan COPD Resp insuff improved Schizophrenia Sz disorder UTI PLAN: Aerosol nebs Supplement 02 Stable off abx. Homer Fernandez MD Jun 04, 2017 18:33
[2017-06-04] MEDS: lamoTRIgine 25 MG TAB PO SCH (21:47)
[2017-06-04] MEDS: DIVALPROEX SODIUM E.R. 250 MG TAB PO SCH (21:47)
[2017-06-05] VITALS (8 sets, daily range): BP systolic 119–175; BP diastolic 56–86; PULSE 76–112; RESP 16–20; TEMP 96.4–99.8; O2SAT 94–96
[2017-06-05] MEDS: CHLORHEXIDINE GLUCONATE 2 % 1 PACK (2 CLOTHS)(taper/protocol) TOPICAL SCH (03:10)
[2017-06-05] MEDS: RESP: ALBUTEROL 2.5 MG/IPRATROPIUM 0.5 MG NEB (SCH) NEB ×4 (04:00→20:04)
[2017-06-05] MEDS: INSULIN ASPART SUPPLEMENTAL SCALE SQ SCH ×6 (04:00→23:31)
[2017-06-05] MEDS ORDERED: SODIUM CHLORIDE 0.9% FLUSH 10 ML FLUSH IVF PRN ×2 (04:00)
[2017-06-05] MEDS: CARBIDOPA/LEVODOPA 10 MG/100 MG TAB PO SCH ×3 (06:11→23:20)
[2017-06-05] MEDS: LEVOTHYROXINE SODIUM 125 MCG TAB PO SCH (06:11)
[2017-06-05] MEDS: HEPARIN SODIUM - SQ 10,000 UNITS/ML VIAL SQ SCH ×3 (06:12→23:19)
[2017-06-05 07:35] LABS: BICARBONATE 27.6 MEQ/L (21.0-32.0); MAGNESIUM 2.4 MG/DL (1.5-2.5)
[2017-06-05] MEDS: SODIUM CHLORIDE 0.9% FLUSH 10 ML FLUSH IVF SCH (09:00)
[2017-06-05] MEDS: LACTOBACILLUS ACIDOPHILUS TAB PO SCH ×2 (10:29→20:08)
[2017-06-05] MEDS: CHOLECALCIFEROL (VIT D3) 1000 UNIT TAB PO SCH (10:30)
[2017-06-05] MEDS: risperiDONE 1 MG TAB PO SCH ×3 (10:30→18:31)
[2017-06-05] MEDS: levETIRAcetam 500 MG TAB PO SCH ×2 (10:30→20:08)
[2017-06-05] MEDS: ISOSORBIDE DINITRATE 10 MG TAB PO SCH ×2 (10:30→20:07)
[2017-06-05] MEDS: SODIUM CHLORIDE 0.9% FLUSH 10 ML FLUSH IV FLUSH SCH ×2 (10:31→20:05)
[2017-06-05] MEDS: lamoTRIgine 100 MG TAB PO SCH (10:31)
[2017-06-05] MEDS: PRAVASTATIN SOD 40 MG TAB PO SCH (10:31)
[2017-06-05] MEDS: LORazepam 0.5 MG TAB PO PRN (10:35)
[2017-06-05] MEDS ORDERED: NITROFURANTOIN MONOHYD MACROCR 100 MG CAP PO SCH (12:45)
--- NOTE | 2017-06-05 12:47 | HHI.PR ---
Subjective Remarks The patient requested a purple popsicle. She said her breathing was good. She says she wanted to go back to her long-term facility. Discussed with nursing. Objective Vitals Vital Signs Date Time Temp Pulse Resp B/P (MAP) Pulse Ox O2 Delivery O2 Flow Rate FiO2 06/05/17 12:00 98.6 110 16 119/58 (78) 95 06/05/17 08:00 99.4 101 18 175/86 (115) 95 06/05/17 04:00 96.4 94 20 141/77 (98) 94 06/05/17 00:00 99.1 102 19 138/79 (98) 95 06/04/17 20:52 97 Nasal Cannula 2.00 06/04/17 20:00 99.8 118 19 179/88 (118) 95 06/04/17 20:00 106 06/04/17 20:00 Nasal Cannula 4.00 06/04/17 16:00 97.6 118 17 137/76 (96) 93 I/O 06/04/17 06/04/17 06/04/17 06/05/17 06/05/17 06/05/17 06:59 14:59 22:59 06:59 14:59 22:59 Intake Total 490 ml 820 ml 120 ml Output Total 900 ml 1150 ml 700 ml Balance -410 ml -330 ml -580 ml Intake Oral 240 ml 820 ml 120 ml IV Total 250 ml Output Urine Total 900 ml 1150 ml 700 ml # Bowel Movements 0 1 0 Result Diagram: 06/04/17 0425 06/05/17 0554 Imaging Last Impressions Chest X-Ray 06/01/17 0211 Signed Impressions: Service Date/Time: Thursday, June 01, 2017 02:19 - CONCLUSION: 1. Elevated right hemidiaphragm with basilar atelectasis. No acute findings compared with 2016. Vidal Diaz MD Upper Extremity Ultrasound 06/01/17 0000 Signed Impressions: Service Date/Time: Thursday, June 01, 2017 08:21 - CONCLUSION: Normal examination. Perico Miranda MD Objective Remarks GENERAL: This is an elderly patient, appearing comfortable. SKIN: No rashes. Cool and dry. HEAD: Atraumatic. Normocephalic. EYES: No scleral icterus. No injection or drainage. ENT: Nose without bleeding, purulent drainage. NECK: Trachea midline. No JVD or lymphadenopathy. CARDIOVASCULAR: Tachycardic without murmurs, gallops or rubs. RESPIRATORY: Scattered rhonchi. GASTROINTESTINAL: Abdomen soft, non-tender, nondistended. No guarding. MUSCULOSKELETAL: TR- 1 + LE edema. NEUROLOGICAL: Awake and alert, moving all 4 extremities, grossly nonfocal. Does have some tremors. PSYCH: Calm. Medications and IVs Current Medications Medications (Trade) Dose Ordered Sig/Malena Route Start Time Stop Time Status Last Admin (NS Flush) 2 ml UNSCH PRN IV FLUSH 06/01/17 04:00 (NS Flush) 2 ml BID IV FLUSH 06/01/17 09:00 06/05/17 10:31 (Narcan Inj) 0.4 mg UNSCH PRN IV 06/01/17 04:00 (Duoneb Neb) 1 ampule Q2HR NEB PRN NEB 06/01/17 05:45 (Sinemet 10-100 Mg) 1 tab Q8HR PO 06/01/17 06:00 06/05/17 06:11 (Isordil) 10 mg BID PO 06/01/17 09:00 06/05/17 10:30 (Lactinex) 1 tab Q12HR PO 06/01/17 09:00 06/05/17 10:29 (LaMICtal) 100 mg DAILY PO 06/01/17 09:00 06/05/17 10:31 (LaMICtal) 25 mg HS PO 06/01/17 21:00 06/04/17 21:47 (Keppra) 500 mg BID PO 06/01/17 09:00 06/05/17 10:30 (Ativan) 0.5 mg Q8H PRN PO 06/01/17 05:45 06/05/17 10:35 (Pravachol) 40 mg DAILY PO 06/01/17 09:00 06/05/17 10:31 (risperDAL) 1 mg TID PO 06/01/17 09:00 06/05/17 10:30 (Heparin Inj) 5,000 units Q8HR SQ 06/01/17 06:45 06/05/17 06:12 Miscellaneous Information Patient in critical care unit? Ass... Q361D .XX 06/01/17 08:45 (NovoLOG SUPPLEMENTAL SCALE) 1 Q4HR SQ 06/01/17 12:00 06/04/17 16:20 (D50w (Vial) Inj) 25 ml UNSCH PRN IV 06/01/17 08:45 (Glucagon Inj) 1 mg UNSCH PRN IM/SQ 06/01/17 08:45 (Vitamin D3) 1,000 units DAILY PO 06/04/17 09:00 06/05/17 10:30 (Depakote Er) 750 mg HS PO 06/03/17 21:00 06/04/17 21:47 (Synthroid) 125 mcg DAILY@0600 PO 06/03/17 12:00 06/05/17 06:11 (Requip) 1 mg TID PO 06/03/17 13:00 06/05/17 10:30 Pharmacy Profile Note 0 ml @ 0 mls/hr UNSCH OTHER 06/03/17 11:15 (Duoneb Neb) 1 ampule Q6HR NEB NEB 06/04/17 16:00 06/04/17 20:51 (NS Flush) DAILY IVF 06/05/17 09:00 (Heparin Central Flush) DAILY IV FLUSH 06/05/17 09:00 06/05/17 10:32 (NS Flush) UNSCH PRN IVF 06/05/17 04:00 (Heparin Central Flush) UNSCH PRN IV FLUSH 06/05/17 04:00 06/05/17 04:12 (NS Flush) UNSCH PRN IVF 06/05/17 04:00 A/P Problem List: (1) Sepsis ICD Code: A41.9 - Sepsis, unspecified organism Status: Acute (2) UTI (urinary tract infection) ICD Code: N39.0 - Urinary tract infection, site not specified Status: Acute (3) Rhabdomyolysis ICD Code: M62.82 - Rhabdomyolysis Status: Acute (4) DIDI (acute kidney injury) ICD Code: N17.9 - Acute kidney failure, unspecified Status: Acute (5) Sacral decubitus ulcer ICD Code: L89.159 - Pressure ulcer of sacral region, unspecified stage Status: Acute Assessment and Plan Sepsis/ UTI Temperature 101.4 on admission, tachycardic, increasing oxygen requirements/ hypoxia, lactic acidosis - UA consistent with UTI. Negative for flu a and b. Initial lactic acid 2.4. IVF boluses given in ED. 1 blood culture positive, likely contaminant per ID. - ID signed off. - follow blood cultures. - complete course of nitrofurantoin. - d/c Corrigan. Hypoxic respiratory failure Required BiPAP, now on 2L NC. Echo with normal EF. Pulmonology consult appreciated. - Continue Duonebs q6h and q2h prn wheezing. - S/p Solu-Medrol. - oxygen and nebs as needed. - incentive spirometry. - pulmonology following. - PT/ OT. Rhabdomyolysis CPK 1163 on admission. Improved with IVFs. - follow CPK. Improved. DIDI Creatinine similar to baseline. S/p IVFs. Improved. - avoid nephrotoxic agents. Sacral decubitus marketing and communications officer consult appreciated. - continue wound care. - continue IV vancomycin until 06/20 per order from SNF. Right arm pain/ edema Duplex negative for DVT. - pain control as needed. Diabetes Glucose exacerbated by steroids. Well controlled 06/05. - Wean steroids as tolerated. - Insulin sliding scale. PPx: Heparin Discharge Planning D/c back to SNF when respiratory status improves, possibly in AM Problem Qualifiers (1) UTI (urinary tract infection): Qualified Codes: N39.0 - Urinary tract infection, site not specified (2) Rhabdomyolysis: Qualified Codes: M62.82 - Rhabdomyolysis (3) Sacral decubitus ulcer: Qualified Codes: L89.154 - Pressure ulcer of sacral region, stage 4 Lenin Mejía DO Jun 05, 2017 12:47
--- NOTE | 2017-06-05 13:35 | RADRPT ---
EXAM DATE/TIME: 06/05/2017 13:06 [facility] COMPARISON: CHEST SINGLE AP, September 04, 2016, 9:35. CHEST SINGLE AP, June 01, 2017, 2:19. INDICATIONS : Dyspnea MEDICAL HISTORY : Cerebrovascular disease. Hypertension. Gastroesophageal reflux SURGICAL HISTORY : None. ENCOUNTER: Subsequent ACUITY: 4 - 6 days PAIN SCORE: Non-responsive. LOCATION: chest FINDINGS: A single view of the chest demonstrates an increasing infiltrate in the right lower lung. There is a mild infiltrate in the left lung base. There appears to be a small right effusion. The heart size is stable. There is a right-sided PICC line with no evidence of pneumothorax. The PICC line appears to b e curved into the innominate vein.. CONCLUSION: Increasing infiltrate and probable small effusion in the right lower lung. Mild infiltrate in the lef t lung base. Lamin Monahan MD on June 05, 2017 at 13:29 Board Certified Radiologist. This report was verified electronically.
--- NOTE | 2017-06-05 15:53 | HHI.PR ---
Subjective Remarks 72 YOWF with COPD,Schizophrenia, UTI Off Abx Breathing better No Fever Objective Vital Signs Vital Signs Date Time Temp Pulse Resp B/P (MAP) Pulse Ox O2 Delivery O2 Flow Rate FiO2 06/05/17 12:00 98.6 110 16 119/58 (78) 95 06/05/17 10:00 Nasal Cannula 4.00 06/05/17 08:00 99.4 101 18 175/86 (115) 95 06/05/17 04:00 96.4 94 20 141/77 (98) 94 06/05/17 00:00 99.1 102 19 138/79 (98) 95 06/04/17 20:52 97 Nasal Cannula 2.00 06/04/17 20:00 99.8 118 19 179/88 (118) 95 06/04/17 20:00 106 06/04/17 20:00 Nasal Cannula 4.00 06/04/17 16:00 97.6 118 17 137/76 (96) 93 I/O 06/04/17 06/04/17 06/04/17 06/05/17 06/05/17 06/05/17 06:59 14:59 22:59 06:59 14:59 22:59 Intake Total 490 ml 820 ml 120 ml Output Total 900 ml 1150 ml 700 ml Balance -410 ml -330 ml -580 ml Intake Oral 240 ml 820 ml 120 ml IV Total 250 ml Output Urine Total 900 ml 1150 ml 700 ml # Bowel Movements 0 1 0 Result Diagram: 06/04/17 0425 06/05/17 0554 Objective Remarks GENERAL: WBWN WF, NAD SKIN: Warm and dry. HEAD: Normocephalic. EYES: No scleral icterus. No injection or drainage. NECK: Supple, trachea midline. No JVD or lymphadenopathy. CARDIOVASCULAR: Regular rate and rhythm without murmurs, gallops, or rubs. RESPIRATORY: Breath sounds equal bilaterally. No accessory muscle use. GASTROINTESTINAL: Abdomen soft, non-tender, nondistended. MUSCULOSKELETAL: No cyanosis, or edema. BACK: Nontender without obvious deformity. No CVA tenderness. A/P Assessment and Plan COPD Resp insuff improved Schizophrenia Sz disorder UTI PLAN: Aerosol nebs Supplement 02 Stable off abx. Encourage PO intake. Homer Fernandez MD Jun 05, 2017 15:53
[2017-06-05] MEDS: DIVALPROEX SODIUM E.R. 250 MG TAB PO SCH (20:07)
[2017-06-05] MEDS: lamoTRIgine 25 MG TAB PO SCH (23:20)
[2017-06-06] VITALS: BP 111/59; PULSE 81; RESP 19; TEMP 99; O2SAT 96
[2017-06-06] MEDS: INSULIN ASPART SUPPLEMENTAL SCALE SQ SCH ×3 (04:00→11:32)
[2017-06-06 04:06] VITALS: BP 118/60; PULSE 83; RESP 19; TEMP 96.5; O2SAT 96
[2017-06-06] MEDS: CARBIDOPA/LEVODOPA 10 MG/100 MG TAB PO SCH (04:57)
[2017-06-06] MEDS: LORazepam 0.5 MG TAB PO PRN (04:58)
[2017-06-06] MEDS: LEVOTHYROXINE SODIUM 125 MCG TAB PO SCH (04:58)
[2017-06-06] MEDS: HEPARIN SODIUM - SQ 10,000 UNITS/ML VIAL SQ SCH (04:58)
[2017-06-06] MEDS: RESP: ALBUTEROL 2.5 MG/IPRATROPIUM 0.5 MG NEB (SCH) NEB ×2 (05:12→08:37)
[2017-06-06 06:39] LABS: BICARBONATE 29.4 MEQ/L (21.0-32.0); MAGNESIUM 2.3 MG/DL (1.5-2.5)
[2017-06-06 08:00] VITALS: BP 169/90; PULSE 111; RESP 19; TEMP 99; O2SAT 93
[2017-06-06 08:38] VITALS: O2SAT 92
[2017-06-06] MEDS: lamoTRIgine 100 MG TAB PO SCH (09:00)
[2017-06-06] MEDS: SODIUM CHLORIDE 0.9% FLUSH 10 ML FLUSH IVF SCH (09:00)
[2017-06-06] MEDS: LACTOBACILLUS ACIDOPHILUS TAB PO SCH (09:03)
[2017-06-06] MEDS: levETIRAcetam 500 MG TAB PO SCH (09:04)
[2017-06-06] MEDS: PRAVASTATIN SOD 40 MG TAB PO SCH (09:04)
[2017-06-06] MEDS: risperiDONE 1 MG TAB PO SCH (09:04)
[2017-06-06] MEDS: ISOSORBIDE DINITRATE 10 MG TAB PO SCH (09:04)
[2017-06-06] MEDS: SODIUM CHLORIDE 0.9% FLUSH 10 ML FLUSH IV FLUSH SCH (09:04)
[2017-06-06] MEDS: CHOLECALCIFEROL (VIT D3) 1000 UNIT TAB PO SCH (09:04)
[2017-06-06] MEDS ORDERED: LORA-392 PO (09:12)
--- NOTE | 2017-06-06 09:13 | HHI.DCPOC ---
Discharge Care Plan Diagnosis: (1) DIDI (acute kidney injury) (2) Sacral decubitus ulcer (3) UTI (urinary tract infection) (4) Hypernatremia (5) Parkinson's disease Goals to Promote Your Health * To prevent worsening of your condition and complications * To maintain your health at the optimal level Directions to Meet Your Goals Take your medications as prescribed Follow your dietary instruction Follow activity as directed Keep your appointments as scheduled Take your immunizations and boosters as scheduled If your symptoms worsen call your PCP, if no PCP go to Urgent Care Center or Emergency Room Smoking is Dangerous to Your Health. Avoid second hand smoke Call the 24-hour hour crisis hotline for domestic abuse at Lenin Mejía DO Jun 06, 2017 09:13
--- NOTE | 2017-06-06 09:16 | HHI.DS ---
Discharge Summary Admission Date Jun 01, 2017 at 04:00 Discharge Date: Jun 06, 2017 Admitting Diagnosis sepsis, UTI, rhabdomyolysis, acute kidney injury, sacral decubitus u (1) Sepsis ICD Code: A41.9 - Sepsis, unspecified organism Status: Acute (2) UTI (urinary tract infection) ICD Code: N39.0 - Urinary tract infection, site not specified Diagnosis: Principal Status: Acute (3) Rhabdomyolysis ICD Code: M62.82 - Rhabdomyolysis Status: Acute (4) DIDI (acute kidney injury) ICD Code: N17.9 - Acute kidney failure, unspecified Diagnosis: Principal Status: Acute (5) Sacral decubitus ulcer ICD Code: L89.159 - Pressure ulcer of sacral region, unspecified stage Status: Acute Procedures None Brief History - From Admission Written by Mary Nolasco, acting as scribe for Dr. Hernandez on 06/01/17 at 05:36. Pain in PICC arm. Reports shortness of breath for "a while". States she does not have sleep apnea. States she's been coughing a lot. She reports mucus production. She states she's been unable to produce any mucus with her cough. Denies nausea, vomiting, diarrhea. States she has occasional pain with urination. Denies urinary catheter. She states she is unable to walk. She's had fever and large stage IV sacral decubitus per MANAGER TALENT MANAGEMENT. CBC/BMP: 06/04/17 0425 06/06/17 0541 Significant Findings Laboratory Tests Test 06/03/17 14:07 06/04/17 04:25 06/05/17 05:54 06/06/17 05:41 Red Blood Count 3.85 MIL/MM3 (4.00-5.30) Hemoglobin 11.0 GM/DL (11.6-15.3) Hematocrit 34.9 % (35.0-46.0) Mean Corpuscular Hemoglobin Concent 31.4 % (32.0-36.0) Red Cell Distribution Width 17.3 % (11.6-17.2) Blood Urea Nitrogen 21 MG/DL (7-18) 21 MG/DL (7-18) Creatinine 1.34 MG/DL (0.50-1.00) 1.37 MG/DL (0.50-1.00) 1.19 MG/DL (0.50-1.00) Random Glucose 187 MG/DL (74-106) 129 MG/DL (74-106) 130 MG/DL (74-106) Chloride Level 110 MEQ/L (98-107) 111 MEQ/L (98-107) 109 MEQ/L (98-107) Estimat Glomerular Filtration Rate 39 ML/MIN (>89) 38 ML/MIN (>89) 45 ML/MIN (>89) Calcium Level 8.3 MG/DL (8.5-10.1) Sodium Level 146 MEQ/L (136-145) Imaging Last Impressions Chest X-Ray 06/05/17 0000 Signed Impressions: Service Date/Time: Monday, June 05, 2017 13:06 - CONCLUSION: Increasing infiltrate and probable small effusion in the right lower lung. Mild infiltrate in the left lung base. Lamin Monahan MD Upper Extremity Ultrasound 06/01/17 0000 Signed Impressions: Service Date/Time: Thursday, June 01, 2017 08:21 - CONCLUSION: Normal examination. Perico Miranda MD PE at Discharge GENERAL: This is an elderly patient resting in bed. SKIN: No rashes. Cool and dry. HEAD: Atraumatic. Normocephalic. EYES: No scleral icterus. No injection or drainage. ENT: Nose without bleeding, purulent drainage. NECK: Trachea midline. No JVD or lymphadenopathy. CARDIOVASCULAR: Tachycardic without murmurs, gallops or rubs. RESPIRATORY: Scattered rhonchi. GASTROINTESTINAL: Abdomen soft, non-tender, nondistended. No guarding. MUSCULOSKELETAL: 1+ edema in RUE, TR LE edema. NEUROLOGICAL: Awake and alert, moving all 4 extremities, grossly nonfocal. Does have some tremors. PSYCH: Calm. Pt update on day of discharge The pt wanted a purple popsicle. She had no other acute complaints. Discussed with nursing at the bedside. Hospital Course Sepsis/ PNA Temperature 101.4 on admission, tachycardic, increasing oxygen requirements/ hypoxia, lactic acidosis and UA consistent with UTI. Negative for flu a and b. Initial lactic acid 2.4. IVF boluses given in ED. ID was consulted. 1 blood culture positive, likely contaminant per ID. Initial urine culture grew e coli, repeat was negative. No antibiotics were recommended by infectious disease. Her Corrigan was discontinued. She was continued on IV vancomycin for her decubitus ulcer. Repeat CXR with increasing infiltrates. The pt was started on PO Levaquin and will complete a course. She will follow up with her PCP and pulmonology. Hypoxic respiratory failure Required BiPAP, now on 2L NC. Echo with normal EF. Pulmonology was consulted. She was continued on Duonebs q6h and q2h prn wheezing. S/p Solu-Medrol. She received oxygen as needed as well as incentive spirometry. She worked with PT/ OT. CXR with infiltrates. Levaquin was started and she will complete a course. She will follow up with pulmonology as an outpt. Rhabdomyolysis CPK 1163 on admission. Improved with IVFs. DIDI Creatinine similar to baseline. S/p IVFs. Improved. Levaquin will be renally dosed. Sacral decubitus district sales leader was consulted. She will continue IV vancomycin until 06/20 per order from SNF. Right arm pain/ edema Duplex negative for DVT. She received pain control as needed. Diabetes Glucose exacerbated by steroids. Steroids were discontinued. She will resume her home regimen. Pt Condition on Discharge: Stable Discharge Disposition: Discharge to SNF Discharge Time: > 30 minutes Discharge Instructions DIET: Follow Instructions for: Diabetic Diet Activities you can perform: Weight Bearing as Pedro Follow up Referrals: PCP Follow-up - 1 Week Pulmonology - 1 Week with Homer Fernandez MD New Medications: Levofloxacin (Levofloxacin) 750 Mg Tablet 750 MG PO Q48H for Infection, #3 TAB 0 Refills Take first dose 06/08 Continued Medications: Acetaminophen (Tylenol) 325 Mg Tab 650 MG PO Q6H PRN for PAIN SCALE 1 TO 10, TAB 0 Refills Alendronate (Fosamax) 70 Mg Tab 70 MG PO Q7D for Osteoporosis Treatment, #4 TAB 0 Refills Ascorbic Acid (Vitamin C) 250 Mg Chew 500 MG CHEW BID for Nutritional Supplement, #60 TAB 0 Refills Carbidopa-Levodopa (Sinemet) 10-100 Mg Tab 1 TAB PO Q8HR for Parkinson Disease Mgmt, #90 TAB 0 Refills Cholecalciferol (Vitamin D-1000) 1,000 Unit Tab 1000 UNITS PO DAILY for Nutritional Supplement, #1 BOTTLE 0 Refills Divalproex ER (Depakote ER) 500 Mg Pedro 750 MG PO HS for Control Seizures, #60 TAB 0 Refills Gabapentin (Neurontin) 300 Mg Cap 300 MG PO TID, #90 CAP 0 Refills Gemfibrozil (Lopid) 600 Mg Tab 600 MG PO BID, #60 TAB 0 Refills Take 30 minutes prior to breakfast and dinner Glipizide (Glipizide) 5 Mg Tab 5 MG PO BID for Blood Sugar Management, #60 TAB 0 Refills Take 30 minutes before a meal Ipratropium-Albuterol Neb (Duoneb) 0.5-2.5 Mg/3 Ml Neb 1 INH Q6HR NEB for Breathing Treatment, #120 NEBULE 0 Refills Isosorbide Dinitrate (Isosorbide Dinitrate) 10 Mg Tab 10 MG PO BID, #60 TAB 0 Refills Lactobacillus Acidophilus (Acidophilus/l-Sporogenes) 1 Tab Tab 1 TAB PO Q12HR for Build Red Blood Cells, #30 TAB Lamotrigine (Lamictal) 25 Mg Tab 25 MG PO HS for Control Seizures, #30 TAB 0 Refills Lamotrigine (Lamotrigine) 100 Mg Tab 100 MG PO DAILY for Control Seizures, #30 TAB 0 Refills Levetiracetam (Levetiracetam) 500 Mg Tab 500 MG PO BID for Control Seizures, #60 TAB 0 Refills Levothyroxine (Synthroid) 125 Mcg Tab 125 MCG PO DAILY for Thyroid, #30 TAB 0 Refills Lorazepam (Ativan) 0.5 Mg Tab 0.5 MG PO Q8H PRN for ANXIETY, #10 TAB (This prescription has been renewed) Metformin (Glucophage) 500 Mg Tab 1000 MG PO BID for Blood Sugar Management, #60 TAB 0 Refills With meals Metoprolol Tartrate (Metoprolol Tartrate) 25 Mg Tab 50 MG PO BID for Blood Pressure Management, #60 TAB Multiple Vitamins W/ Minerals (One Daily-Minerals) 1 Tab 1 TAB PO DAILY for Nutritional Supplement, #100 TAB 0 Refills Pravastatin (Pravachol) 40 Mg Tab 40 MG PO DAILY for Cholesterol Management, #30 TAB 0 Refills Risperidone (Risperdal) 1 Mg Tab 1 MG PO TID, #30 TAB 0 Refills Ropinirole (Requip) 1 Mg Tab 1 MG PO TID, #90 TAB 0 Refills Sennosides-Docusate Sodium (Senokot S) 8.6-50 Mg Tab 1 TAB PO DAILY PRN for CONSTIPATION, #30 TAB 0 Refills Vancomycin Inj (Vancomycin Inj) 1,000 Mg Inj 1 GM IV DAILY for Infection, BAG 0 Refills Discontinued Medications: Carbidopa-Levodopa (Sinemet) 10-100 Mg Tab 1 TAB PO TID for Parkinson Disease Mgmt, #90 TAB 0 Refills Ciprofloxacin (Cipro) 500 Mg Tab 500 MG PO Q12HR for Infection, #11 TAB Lenin Mejía DO Jun 06, 2017 09:15
[2017-06-06] MEDS ORDERED: LEVO750T3 PO (09:18)
[2017-06-06] MEDS ORDERED: LEVOFLOXACIN 750 MG TAB PO ONE (10:00)
[2017-06-06 10:41] VITALS: PULSE 88
[2017-06-06] MEDS ORDERED: VANCOMYCIN 1,000 MG/NS 250 ML IV ONE ×2 (12:00)
== END 2017-06-06 12:52 | DRG 871 ==
LOC: NEPE 02:05 → NEDA 04:00 → N05B 05:27 → HIMN 06:35 → N07A 06-03 19:16
PROVIDERS: ADMIT Hospitalist; ATTEND Hospitalist
DX: A41.9 Sepsis, unspecified organism (principal); J96.01 Acute respiratory failure with hypoxia; N17.9 Acute kidney failure, unspecified; L89.154 Pressure ulcer of sacral region, stage 4; E87.2 Acidosis; M62.82 Rhabdomyolysis; E11.22 Type 2 diabetes mellitus with diabetic chronic kidney disease; R13.10 Dysphagia, unspecified; N39.0 Urinary tract infection, site not specified; G20 Parkinson's disease; F20.0 Paranoid schizophrenia; I12.9 Hypertensive chronic kidney disease with stage 1 through stage 4 chronic kidney disease, or unspecified chronic kidney disease; F41.9 Anxiety disorder, unspecified; I25.10 Atherosclerotic heart disease of native coronary artery without angina pectoris; K21.9 Gastro-esophageal reflux disease without esophagitis; N18.2 Chronic kidney disease, stage 2 (mild); E03.9 Hypothyroidism, unspecified; M81.0 Age-related osteoporosis without current pathological fracture; G40.909 Epilepsy, unspecified, not intractable, without status epilepticus; E78.5 Hyperlipidemia, unspecified; M79.601 Pain in right arm; J44.9 Chronic obstructive pulmonary disease, unspecified; Z79.84 Long term (current) use of oral hypoglycemic drugs; Z99.81 Dependence on supplemental oxygen
CPT/HCPCS: 36600; 71010; 80048; 80053; 80164; 80202; 81001; 82550; 82552; 82805; 82948; 83605; 83735; 83880; 84484; 85007; 85025; 85027; 85610; 85730; 87040; 87077; 87086; 87186; 87205; 87641; 87804; 93005; 93306; 93971; 94002; 94150; 94640; 94664; 96360; J0696; J1642; J1644; J1815; J1956; J2930; J3370; J7030; J7040; J7050; P9612

== ENCOUNTER 2017-07-05 14:34 | Inpatient (IN) | payer MEDICARE, OTHER ==
[~2017-07-05] VITALS: Ht 152.4 cm; Wt 77.7 kg
[2017-07-05] VITALS (11 sets, daily range): BP systolic 117–130; BP diastolic 56–64; PULSE 81–101; RESP 16–30; TEMP 100.1; O2SAT 97–99
[~2017-07-05 14:34] MED LIST changes: -ACET325T PO; -CIPR-9 PO; +GEMF600 PO; +GLIP5TAB8 PO; +LEVO.125 PO; +LEVO750T3 PO; +NEUR300C PO; +ONETAB22 PO; +ROPI1TAB72 PO; +SENN1TAB17 PO; -SENN8.6C PO; +TYLE325T PO; +VANC1000P IV; +VITA1000 PO; +VITA250C3 CHEW; -ZYVO600T PO
[2017-07-05] MEDS ORDERED: SODIUM CHLORIDE 0.9% FLUSH 10 ML FLUSH IVF PRN (14:45)
[2017-07-05] MEDS: RESP: ALBUTEROL 2.5 MG/IPRATROPIUM 0.5 MG NEB (SCH) INH ×2 (15:17→20:33)
[2017-07-05 15:45] LABS: BLOOD GAS BASE EXCESS 3.7 mmol/L (-2-2); BLOOD GAS CARBOXYHEMOGLOBIN 1.3 % (0-4); BLOOD GAS HCO3 30 mmol/L (22-26); BLOOD GAS METHEMOGLOBIN 0.7 % (0-2); BLOOD GAS O2 HGB SATURATION 97 % (90-100); BLOOD GAS OXYGEN CONTENT 19.6 Vol % (12.0-20.0); BLOOD GAS PCO2 63 mmHg (38-42); BLOOD GAS PO2 147 mmHG (61-120); BLOOD GAS TOTAL HGB 14.2 G/DL (12.0-16.0); TEMP CORR TO 98.6
[2017-07-05 15:46] LABS: CRITICAL VALUE YES; DRAW SITE RT RADIAL; FIO2 60 %; NUMBER OF ARTERIAL PUNCTURES 1; OXYGEN DEVICE BIPAP; STAT YES; ULNAR PULSE PRESENT; VENT SETTINGS IPAP12/EPAP6
--- NOTE | 2017-07-05 15:54 | RADRPT ---
EXAM DATE/TIME: 07/05/2017 15:07 [facility] COMPARISON: CHEST SINGLE AP, June 01, 2017, 2:19. CHEST SINGLE AP, June 05, 2017, 13:06. INDICATIONS : Short of breath MEDICAL HISTORY : Nonresponsive. SURGICAL HISTORY : Nonresponsive. ENCOUNTER: Initial ACUITY: 1 day PAIN SCORE: Non-responsive. LOCATION: Bilateral chest FINDINGS: There is a PICC which enters from the right arm. A catheter overlies the superior vena cava. There ar e mild atelectatic changes in the right lung base. There appears to be minimal effusion at the right lung base. These changes are stable compared to previous examination of 06/01/17. The bony structures are grossly intact. CONCLUSION: 1. PICC in good position. 2. Minimal right basilar effusion and chronic appearing interstitial changes. 3. Stable compared to previous dated 06/01/17. George Elena MD on July 05, 2017 at 15:51 Board Certified Radiologist. This report was verified electronically.
[2017-07-05 16:35] LABS: AUTOMATED NEUTROPHIL # 9.3 TH/MM3 (1.8-7.7); BASOPHIL % 0.3 % (0.0-2.0); EOSINOPHIL # 0.1 TH/MM3 (0-0.4); EOSINOPHIL % 0.6 % (0.0-4.0); HEMATOCRIT 35.3 % (35.0-46.0); HEMO FLAGS DIFF FINAL; LYMPH % 3.2 % (9.0-44.0); LYMPHOCYTE # 0.3 TH/MM3 (1.0-4.8); MEAN CELL VOLUME 87.6 FL (80.0-100.0); MEAN CORPUSCULAR HEMOGLOBIN 27.5 PG (27.0-34.0); MEAN CORPUSCULAR HGB CONC 31.3 % (32.0-36.0); MONO % 6.5 % (0.0-8.0); NEUT % 89.4 % (16.0-70.0); PLATELET COUNT 199 TH/MM3 (150-450); RED BLOOD COUNT 4.03 MIL/MM3 (4.00-5.30); WHITE BLOOD COUNT 10.4 TH/MM3 (4.0-11.0)
[2017-07-05 16:39] LABS: APTT (PATIENT) 26.6 SEC (24.3-30.1); PROTHROMBIN TIME - PATIENT 10.7 SEC (9.8-11.6)
--- NOTE | 2017-07-05 16:44 | PD ---
HPI Chief Complaint: Respiratory Distress Time Seen by Provider: 14:43 Travel History International Travel<30 days: No Contact w/Intl Traveler<30days: No Traveled to known affect area: No History of Present Illness HPI 72 yo F arrives by EMS 2/2 shortness of breath. Hx provided by EMS. Pt was seen by primary md who noticed lethargy and SOB. O2 sat in 80s on 2L NC, sats dropped on RA, O2 sats high 90s on NRB. Hx limited 2/2 AMS here. PFSH Past Medical History Arthritis: No Asthma: No Autoimmune Disease: No Blood Disorders: No Bipolar Disorder: Yes Anxiety: Yes Depression: Yes Heart Rhythm Problems: No Cancer: No Cardiovascular Problems: No High Cholesterol: No Chemotherapy: No Chest Pain: No Congestive Heart Failure: No COPD: No Cerebrovascular Accident: Yes Coronary Artery Disease: Yes (ANGINA) Diabetes: Yes Diminished Hearing: No Endocrine: Yes Gastrointestinal Disorders: Yes (gastro reflux ) GERD: Yes Glaucoma: No Genitourinary: Yes (CKD stage II) Headaches: No Hepatitis: No Hiatal Hernia: No Hypertension: Yes Immune Disorder: No Kidney Stones: No Musculoskeletal: Yes (osteoporosis, chronic shoulderpain ) Neurologic: Yes (epilepsy, cerebral infarction ) Psychiatric: Yes (dependent personality disorder) Reproductive: No Respiratory: Yes Migraines: No Myocardial Infarction: No Radiation Therapy: No Renal Failure: No Schizophrenia: Yes (paranoid schizophrenia ) Sickle Cell Disease: No Sleep Apnea: No Thyroid Disease: Yes (hypothyroidism ) Ulcer: No Menopausal: Yes Past Surgical History Abdominal Surgery: No AICD: No Arteriovenous Shunt: No Cardiac Surgery: No Ear Surgery: No Endocrine Surgery: No Eye Surgery: No Genitourinary Surgery: No Gynecologic Surgery: Yes (D & C) Insulin Pump: No Joint Replacement: No Neurologic Surgery: No Oral Surgery: No Pacemaker: No Thoracic Surgery: No Other Surgery: Yes Social History Alcohol Use: No Tobacco Use: No Substance Use: No Allergies-Medications (Allergen,Severity, Reaction): Coded Allergies: adhesive (Unverified Allergy, Severe, 05/24/17) doxycycline (Unverified Allergy, Severe, 05/24/17) minocycline (Unverified Allergy, Severe, 05/24/17) penicillin G (Unverified Allergy, Severe, 05/24/17) tigecycline (Unverified Allergy, Severe, 05/24/17) Uncoded Allergies: ANTIHISTAMINES (Allergy, Severe, 09/05/07) Reported Meds & Prescriptions Reported Meds & Active Scripts Active Levofloxacin 750 Mg Tablet 750 Mg PO Q48H Take first dose 06/08 Ativan (Lorazepam) 0.5 Mg Tab 0.5 Mg PO Q8H PRN Acidophilus/l-Sporogenes (Lactobacillus Acidophilus) 1 Tab Tab 1 Tab PO Q12HR Metoprolol Tartrate 25 Mg Tab 50 Mg PO BID Reported Vitamin D-1000 (Cholecalciferol) 1,000 Unit Tab 1,000 Units PO DAILY Vitamin C (Ascorbic Acid) 250 Mg Chew 500 Mg CHEW BID Vancomycin Inj (Vancomycin HCl) 1,000 Mg Inj 1 Gm IV DAILY Synthroid (Levothyroxine Sodium) 125 Mcg Tab 125 Mcg PO DAILY Senokot S (Sennosides-Docusate Sodium) 8.6-50 Mg Tab 1 Tab PO DAILY PRN Requip (Ropinirole) 1 Mg Tab 1 Mg PO TID Neurontin (Gabapentin) 300 Mg Cap 300 Mg PO TID One Daily-Minerals (Multiple Vitamins W/ Minerals) 1 Tab 1 Tab PO DAILY Lopid (Gemfibrozil) 600 Mg Tab 600 Mg PO BID Take 30 minutes prior to breakfast and dinner Glipizide 5 Mg Tab 5 Mg PO BID Take 30 minutes before a meal Tylenol (Acetaminophen) 325 Mg Tab 650 Mg PO Q6H PRN Levetiracetam 500 Mg Tab 500 Mg PO BID Lamotrigine 100 Mg Tab 100 Mg PO DAILY Lamictal (Lamotrigine) 25 Mg Tab 25 Mg PO HS Isosorbide Dinitrate 10 Mg Tab 10 Mg PO BID Glucophage (Metformin HCl) 500 Mg Tab 1,000 Mg PO BID With meals Fosamax (Alendronate Sodium) 70 Mg Tab 70 Mg PO Q7D Duoneb (Ipratropium-Albuterol Neb) 0.5-2.5 Mg/3 Ml Neb 1 INH Q6HR NEB Depakote ER (Divalproex Sodium) 500 Mg Pedro 750 Mg PO HS Sinemet (Carbidopa/Levodopa) 10-100 Mg Tab 1 Tab PO Q8HR Risperdal (Risperidone) 1 Mg Tab 1 Mg PO TID Pravachol (Pravastatin) 40 Mg Tab 40 Mg PO DAILY Review of Systems ROS Limitations: Clinical Condition Physical Exam Narrative GENERAL: 72 yo F, responsive to tactile stimulus, does not answer questions SKIN: Warm and dry. HEAD: Atraumatic. Normocephalic. EYES: Pupils equal and round. No scleral icterus. No injection or drainage. ENT: No nasal bleeding or discharge. Mucous membranes pink and moist. NECK: Trachea midline. No JVD. CARDIOVASCULAR: Regular rate and rhythm. RESPIRATORY: Rhonchi at bases bilaterally. Shallow breath sounds. GASTROINTESTINAL: Abdomen soft, non-tender, nondistended. Hepatic and splenic margins not palpable. MUSCULOSKELETAL: Extremities without clubbing, cyanosis, or edema. No obvious deformities. NEUROLOGICAL: Awake and alert. No obvious cranial nerve deficits. Motor grossly within normal limits. Five out of 5 muscle strength in the arms and legs. Normal speech. PSYCHIATRIC: Appropriate mood and affect; insight and judgment normal. Data Data Last Documented VS Vital Signs Date Time Temp Pulse Resp B/P (MAP) Pulse Ox O2 Delivery O2 Flow Rate FiO2 07/05/17 16:30 81 30 121/58 (79) 98 BiPAP 07/05/17 15:00 60 07/05/17 14:55 15.00 Orders Orders Complete Blood Count With Diff (07/05/17 14:44) Basic Metabolic Panel (Bmp) (07/05/17 14:44) B-Type Natriuretic Peptide (07/05/17 14:44) Act Partial Throm Time (Ptt) (07/05/17 14:44) Prothrombin Time / Inr (Pt) (07/05/17 14:44) Ckmb (Isoenzyme) Profile (07/05/17 14:44) Troponin I (07/05/17 14:44) Arterial Blood Gas (Abg) (07/05/17 14:44) Iv Access Insert/Monitor (07/05/17 14:44) Electrocardiogram (07/05/17 14:44) Ecg Monitoring (07/05/17 14:44) Oximetry (07/05/17 14:44) Oxygen Administration (07/05/17 14:44) Chest, Single Ap (07/05/17 14:44) Sodium Chloride 0.9% Flush (Ns Flush) (07/05/17 14:45) Albuterol-Ipratropium Neb (Duoneb Neb) (07/05/17 14:45) Resp Bipap / Cpap Non Invas Vt (07/05/17 14:44) Vascular Access Team Consult/P PRN (07/05/17 15:06) Vascular Poc Ultrasound (07/05/17 ) CKMB (07/05/17 15:50) CKMB% (07/05/17 15:50) Arterial Blood Gas (Abg) (07/05/17 ) Admit Order (Ed Use Only) (07/05/17 17:31) Labs Laboratory Tests Test 07/05/17 15:30 07/05/17 15:50 Blood Gas Puncture Site RT RADIAL Blood Gas Patient Temperature 98.6 Blood Gas HCO3 30 mmol/L Blood Gas Base Excess 3.7 mmol/L Blood Gas Oxygen Saturation 97 % Arterial Blood pH 7.30 Arterial Blood Partial Pressure CO2 63 mmHg Arterial Blood Partial Pressure O2 147 mmHG Arterial Blood Oxygen Content 19.6 Vol % Arterial Blood Carboxyhemoglobin 1.3 % Arterial Blood Methemoglobin 0.7 % Blood Gas Hemoglobin 14.2 G/DL Oxygen Delivery Device BIPAP Blood Gas Ventilator Setting IPAP12/EPAP6 Blood Gas Inspired Oxygen 60 % White Blood Count 10.4 TH/MM3 Red Blood Count 4.03 MIL/MM3 Hemoglobin 11.1 GM/DL Hematocrit 35.3 % Mean Corpuscular Volume 87.6 FL Mean Corpuscular Hemoglobin 27.5 PG Mean Corpuscular Hemoglobin Concent 31.3 % Red Cell Distribution Width 17.0 % Platelet Count 199 TH/MM3 Mean Platelet Volume 8.5 FL Neutrophils (%) (Auto) 89.4 % Lymphocytes (%) (Auto) 3.2 % Monocytes (%) (Auto) 6.5 % Eosinophils (%) (Auto) 0.6 % Basophils (%) (Auto) 0.3 % Neutrophils # (Auto) 9.3 TH/MM3 Lymphocytes # (Auto) 0.3 TH/MM3 Monocytes # (Auto) 0.7 TH/MM3 Eosinophils # (Auto) 0.1 TH/MM3 Basophils # (Auto) 0.0 TH/MM3 CBC Comment DIFF FINAL Differential Comment Prothrombin Time 10.7 SEC Prothromb Time International Ratio 1.0 RATIO Activated Partial Thromboplast Time 26.6 SEC Blood Urea Nitrogen 38 MG/DL Creatinine 1.53 MG/DL Random Glucose 311 MG/DL Calcium Level 11.1 MG/DL Sodium Level 135 MEQ/L Potassium Level 5.1 MEQ/L Chloride Level 94 MEQ/L Carbon Dioxide Level 31.0 MEQ/L Anion Gap 10 MEQ/L Estimat Glomerular Filtration Rate 34 ML/MIN Total Creatine Kinase 160 U/L Creatine Kinase MB 5.6 NG/ML Troponin I LESS THAN 0.02 NG/ML B-Type Natriuretic Peptide 34 PG/ML MDM Medical Decision Making Medical Screen Exam Complete: Yes Emergency Medical Condition: Yes Differential Diagnosis Pneumonia, hypoxemia, hypercapnic respiratory failure, anemia, renal failure Narrative Course CBC & BMP Diagram 07/05/17 15:50 Calcium Level 11.1 H Tn < 0.02 BNP 34 Last 24 hours Impressions Chest X-Ray 07/05/17 1444 Signed Impressions: Service Date/Time: Wednesday, July 05, 2017 15:07 - CONCLUSION: 1. PICC in good position. 2. Minimal right basilar effusion and chronic appearing interstitial changes. 3. Stable compared to previous dated 06/01/17. MD Crystal Baker/Lyndsay added AB.30/63/30 PO2 141, BIPAP 12/6 FiO2 60% Repeat AB.28/32/28 pO2 190 BIPAP 15/6 FiO2 60% FiO2 dropped to 40 Pt reports feeling better at 530PM. d/w Dr Monk for sole layer hand service Diagnosis Primary Impression: Hypercapnic acidosis Additional Impressions: Dyspnea Qualified Codes: R06.00 - Dyspnea, unspecified PNA (pneumonia) Qualified Codes: J18.9 - Pneumonia, unspecified organism Admitting Information Admitting Physician Requests: Admit George Weaver MD Jul 05, 2017 16:44
[2017-07-05 16:55] LABS: ANION GAP 10 MEQ/L (5-15); BLOOD UREA NITROGEN 38 MG/DL (7-18); CHLORIDE 94 MEQ/L (98-107); GLOMERULAR FILTRATION RATE 34 ML/MIN (>89); POTASSIUM 5.1 MEQ/L (3.5-5.1); SODIUM (NA) 135 MEQ/L (136-145)
[2017-07-05 16:59] LABS: CREATINE KINASE 160 U/L (26-192)
[2017-07-05 17:11] LABS: CKMB 5.6 NG/ML (0.5-3.6)
[2017-07-05] MEDS ORDERED: cefTRIAXone INJ 1,000 MG in SODIUM CHLORIDE 0.9% INJ 100 ML IV ONE (18:00)
[2017-07-05] MEDS ORDERED: SODIUM CHLOR 0.9% 1000 ML INJ 1,000 ML IV ONE (18:00)
[2017-07-05] MEDS ORDERED: AZITHROMYCIN INJ 500 MG in SODIUM CHLOR 0.9% 250 ML INJ 250 ML IV ONE (18:00)
[2017-07-05 18:24] LABS: BLOOD GAS BASE EXCESS 1.9 mmol/L (-2-2); BLOOD GAS CARBOXYHEMOGLOBIN 1.2 % (0-4); BLOOD GAS HCO3 28 mmol/L (22-26); BLOOD GAS METHEMOGLOBIN 0.6 % (0-2); BLOOD GAS O2 HGB SATURATION 98 % (90-100); BLOOD GAS PCO2 62 mmHg (38-42); BLOOD GAS PO2 190 mmHG (61-120); BLOOD GAS TOTAL HGB 11.4 G/DL (12.0-16.0); TEMP CORR TO 98.6
[2017-07-05 18:25] LABS: CRITICAL VALUE YES; DRAW SITE RT RADIAL; FIO2 60 %; NUMBER OF ARTERIAL PUNCTURES 1; OXYGEN DEVICE BIPAP; STAT YES; ULNAR PULSE PRESENT; VENT SETTINGS IPAP15/EPAP6
[2017-07-05] MEDS ORDERED: LORazepam 0.5 MG TAB PO PRN (19:15)
[2017-07-05] MEDS ORDERED: ACETAMINOPHEN 325 MG TAB PO PRN (19:15)
[2017-07-05] MEDS ORDERED: GLUCAGON 1 MG/ML VIAL OTHER PRN (19:30)
[2017-07-05] MEDS ORDERED: RESP: ALBUTEROL 2.5 MG/IPRATROPIUM 0.5 MG NEB (PRN) INH (19:30)
[2017-07-05] MEDS ORDERED: MISCELLANEOUS NURSING INFORMATION XX SCH (19:30)
[2017-07-05] MEDS ORDERED: BISACODYL 10 MG SUPP RECTAL PRN (19:30)
[2017-07-05] MEDS ORDERED: LACTULOSE SYRUP 20 GM/30 ML CUP PO PRN (19:30)
[2017-07-05] MEDS ORDERED: DEXTROSE 50% IN WATER 50 ML VIAL(D50) IV PUSH PRN (19:30)
[2017-07-05] MEDS ORDERED: MAGNESIUM HYDROXIDE SUSP 30 ML CUP PO PRN (19:30)
[2017-07-05] MEDS ORDERED: ONDANSETRON HCL 4 MG/2 ML VIAL IV PUSH PRN (19:30)
[2017-07-05] MEDS ORDERED: CHLORHEXIDINE GLUCONATE 2 % 1 PACK (2 CLOTHS) TOP PRN (19:30)
[2017-07-05] MEDS ORDERED: SODIUM CHLORIDE 0.9% FLUSH 10 ML FLUSH PRN (19:30)
[2017-07-05] MEDS ORDERED: SENNOSIDES 8.6 MG TAB PO PRN (19:30)
[2017-07-05] MEDS ORDERED: Vancomycin Consult Pharmacy 1 EA OTHER SCH (19:30)
[2017-07-05] MEDS ORDERED: VANCOMYCIN INJ 1,000 MG in SODIUM CHLOR 0.9% 250 ML INJ 250 ML IV SCH (19:30)
[2017-07-05] MEDS: SODIUM CHLORIDE 0.9% FLUSH 10 ML FLUSH SCH (20:21)
--- NOTE | 2017-07-05 20:55 | HHI.HP ---
HPI Service Critical Care Medicine Primary Care Physician Unknown Admission Diagnosis Hypercapneic Resp Distress; R Lung PNA Diagnosis: Travel History International Travel<30 Days: No Contact w/Intl Traveler <30 Da: No Traveled to Known Affected Are: No History of Present Illness 72 -year-old female presents by EMS due to shortness of breath. History is obtained from the chart and ED records. The patient was seen by her primary physician who noticed lethargy and respiratory distress. Her O2 saturations where in low in 80s on 2L nasal cannula, became even lower on room air, and improved on nonrebreather to high 90s. In the emergency department she was placed on facemask BiPAP with further improvement of oxygenation. Review of Systems ROS Unobtainable, patient is facemask BiPAP Past Family Social History Allergies: Coded Allergies: adhesive (Unverified Allergy, Severe, 05/24/17) doxycycline (Unverified Allergy, Severe, 05/24/17) minocycline (Unverified Allergy, Severe, 05/24/17) penicillin G (Unverified Allergy, Severe, 05/24/17) tigecycline (Unverified Allergy, Severe, 05/24/17) Uncoded Allergies: ANTIHISTAMINES (Allergy, Severe, 09/05/07) Past Medical History Diabetes Mellitus, type 2 Osteoporosis CVA Epilepsy Hyperlipidemia Bipolar disorder Schizophrenia, paranoid Parkinson's Disease Sacral decubitus Dysphagia Hypothyroidism GERD CKD Muscle Weakness Past Surgical History DNC Reported Medications Reported Meds & Active Scripts Active Levofloxacin 750 Mg Tablet 750 Mg PO Q48H Take first dose 06/08 Ativan (Lorazepam) 0.5 Mg Tab 0.5 Mg PO Q8H PRN Acidophilus/l-Sporogenes (Lactobacillus Acidophilus) 1 Tab Tab 1 Tab PO Q12HR Metoprolol Tartrate 25 Mg Tab 50 Mg PO BID Reported Vitamin D-1000 (Cholecalciferol) 1,000 Unit Tab 1,000 Units PO DAILY Vitamin C (Ascorbic Acid) 250 Mg Chew 500 Mg CHEW BID Vancomycin Inj (Vancomycin HCl) 1,000 Mg Inj 1 Gm IV DAILY Synthroid (Levothyroxine Sodium) 125 Mcg Tab 125 Mcg PO DAILY Senokot S (Sennosides-Docusate Sodium) 8.6-50 Mg Tab 1 Tab PO DAILY PRN Requip (Ropinirole) 1 Mg Tab 1 Mg PO TID Neurontin (Gabapentin) 300 Mg Cap 300 Mg PO TID One Daily-Minerals (Multiple Vitamins W/ Minerals) 1 Tab 1 Tab PO DAILY Lopid (Gemfibrozil) 600 Mg Tab 600 Mg PO BID Take 30 minutes prior to breakfast and dinner Glipizide 5 Mg Tab 5 Mg PO BID Take 30 minutes before a meal Tylenol (Acetaminophen) 325 Mg Tab 650 Mg PO Q6H PRN Levetiracetam 500 Mg Tab 500 Mg PO BID Lamotrigine 100 Mg Tab 100 Mg PO DAILY Lamictal (Lamotrigine) 25 Mg Tab 25 Mg PO HS Isosorbide Dinitrate 10 Mg Tab 10 Mg PO BID Glucophage (Metformin HCl) 500 Mg Tab 1,000 Mg PO BID With meals Fosamax (Alendronate Sodium) 70 Mg Tab 70 Mg PO Q7D Duoneb (Ipratropium-Albuterol Neb) 0.5-2.5 Mg/3 Ml Neb 1 INH Q6HR NEB Depakote ER (Divalproex Sodium) 500 Mg Pedro 750 Mg PO HS Sinemet (Carbidopa/Levodopa) 10-100 Mg Tab 1 Tab PO Q8HR Risperdal (Risperidone) 1 Mg Tab 1 Mg PO TID Pravachol (Pravastatin) 40 Mg Tab 40 Mg PO DAILY Active Ordered Medications Current Medications Medications (Trade) Dose Ordered Sig/Malena Route PRN Reason Start Time Stop Time Status Last Admin Dose Admin Sodium Chloride (NS Flush) 2 ml UNSCH PRN IVF FLUSH AFTER USING IV ACCESS 07/05/17 14:45 07/05/17 18:30 Acetaminophen (Tylenol) 650 mg Q6H PRN PO PAIN SCALE 1 TO 10 07/05/17 19:15 Alendronate Sodium (Fosamax) 70 mg Q7D PO 07/06/17 09:00 Carbidopa/Levodopa (Sinemet 10-100 Mg) 1 tab Q8HR PO 07/05/17 22:00 Cholecalciferol (Vitamin D3) 1,000 units DAILY PO 07/06/17 09:00 Divalproex Sodium (Depakote Er) 750 mg HS PO 07/05/17 21:00 Gabapentin (Neurontin) 300 mg TID PO 07/06/17 09:00 Gemfibrozil (Lopid) 600 mg BIDAC PO 07/06/17 07:00 Isosorbide Dinitrate (Isordil) 10 mg BID@0900,1800 PO 07/06/17 09:00 Lactobacillus Acidophilus (Lactinex) 1 tab Q12HR PO 07/05/17 21:00 Lamotrigine (LaMICtal) 100 mg DAILY PO 07/06/17 09:00 Lamotrigine (LaMICtal) 25 mg HS PO 07/05/17 21:00 Levetriacetam (Keppra) 500 mg BID PO 07/05/17 21:00 Levothyroxine Sodium (Synthroid) 125 mcg DAILY@0600 PO 07/06/17 06:00 Lorazepam (Ativan) 0.5 mg Q8H PRN PO ANXIETY 07/05/17 19:15 Metoprolol Tartrate (Lopressor) 50 mg BID PO 07/05/17 21:00 Multivitamins/ Minerals Therapeutic (Theragran M Tab) 1 tab DAILY PO 07/06/17 09:00 Pravastatin Sodium (Pravachol) 40 mg DAILY PO 07/06/17 09:00 Risperidone (risperDAL) 1 mg TID PO 07/06/17 09:00 Ropinirole HCl (Requip) 1 mg TID PO 07/06/17 09:00 Ascorbic Acid (Vitamin C) 500 mg BID PO 07/05/17 21:00 Sodium Chloride 1,000 ml @ 84 mls/hr [id number] IV 07/05/17 20:00 07/05/17 21:24 Sodium Chloride (NS Flush) 2 ml UNSCH PRN .XX FLUSH AFTER USING IV ACCESS 07/05/17 19:30 Sodium Chloride (NS Flush) 2 ml BID .XX 07/05/17 21:00 Ondansetron HCl (Zofran Inj) 4 mg Q6H PRN IV PUSH NAUSEA OR VOMITING 07/05/17 19:30 Albuterol/ Ipratropium (Duoneb Neb) 1 ampule Q6HR NEB INH 07/05/17 22:00 07/05/17 20:33 Albuterol/ Ipratropium (Duoneb Neb) 1 ampule Q2HR NEB PRN INH WHEEZING 07/05/17 19:30 Heparin Sodium (Porcine) (Heparin Inj) 5,000 units Q8H SQ 07/05/17 22:00 Miscellaneous Information 1 Q361D XX 07/05/17 19:30 Chlorhexidine Gluconate (Chlorhexidine 2% Cloth) 3 pack Taper DAILY@04 TOP 07/06/17 04:00 07/02/18 03:59 Chlorhexidine Gluconate (Chlorhexidine 2% Cloth) 3 pack UNSCH PRN TOP HYGIENIC CARE 07/05/17 19:30 Senna/Docusate Sodium (Hamida-Colace) 1 tab BID PO 07/05/17 21:00 Magnesium Hydroxide (Milk Of Magnesia Liq) 30 ml Q12H PRN PO MILD - MODERATE CONSTIPATION 07/05/17 19:30 Sennosides (Senokot) 17.2 mg Q12H PRN PO MODERATE - SEVERE CONSTIPATION 07/05/17 19:30 Bisacodyl (Dulcolax Supp) 10 mg DAILY PRN RECTAL SEVERE CONSITIPATION 07/05/17 19:30 Lactulose (Lactulose Liq) 30 ml DAILY PRN PO SEVERE CONSITIPATION 07/05/17 19:30 Azithromycin 500 mg/Sodium Chloride 250 ml @ 250 mls/hr Q24H IV 07/06/17 20:00 Levofloxacin/ Dextrose 150 ml @ 100 mls/hr Q24H IV 07/05/17 21:00 07/05/17 21:25 Pharmacy Profile Note 0 ml @ 0 mls/hr UNSCH OTHER 07/05/17 19:30 Dextrose (D50w (Vial) Inj) 50 ml UNSCH PRN IV PUSH HYPOGLYCEMIA-SEE COMMENTS 07/05/17 19:30 Glucagon (Glucagon Inj) 1 mg UNSCH PRN OTHER HYPOGLYCEMIA-SEE COMMENTS 07/05/17 19:30 Insulin Aspart (NovoLOG SUPPLEMENTAL SCALE) 1 ACHS SLIDING SCALE SQ 07/05/17 21:00 Family History No family history significant for early coronary artery disease or malignancy Social History Negative for tobacco alcohol or illicit drug abuse Physical Exam Vital Signs Vital Signs Date Time Temp Pulse Resp B/P (MAP) Pulse Ox O2 Delivery O2 Flow Rate FiO2 07/05/17 19:25 97 30 07/05/17 18:00 86 28 118/56 (76) 98 BiPAP 07/05/17 16:30 81 30 121/58 (79) 98 BiPAP 07/05/17 15:30 98 07/05/17 15:05 98 BiPAP 07/05/17 15:00 98 60 07/05/17 14:55 99 Non-Rebreather 15.00 07/05/17 14:53 99 Non-Rebreather 15.00 07/05/17 14:53 28 99 Non-Rebreather 15.00 07/05/17 14:47 101 28 117/64 (81) 99 Physical Exam GENERAL: Elderly woman on facemask BiPAP SKIN: Warm and dry. HEAD: Normocephalic. EYES: No scleral icterus. No injection or drainage. NECK: Supple, trachea midline. No JVD or lymphadenopathy. CARDIOVASCULAR: Regular rate and rhythm without murmurs, gallops, or rubs. RESPIRATORY: Breath sounds equal bilaterally. No accessory muscle use. GASTROINTESTINAL: Abdomen soft, non-tender, nondistended. MUSCULOSKELETAL: No cyanosis, or edema. BACK: Nontender without obvious deformity. NEURO EXAM: GCS: M6 Vt E4 Mental Status: Patient is in moderate distress on facemask BiPAP Cranial Nerves: Pupils are round, reactive to light. Reflexes: Biceps, patellar, and Achilles are 2/4 bilaterally. No clonus. Laboratory Laboratory Tests Test 07/05/17 15:30 07/05/17 15:50 07/05/17 17:54 Blood Gas Puncture Site RT RADIAL RT RADIAL Blood Gas Patient Temperature 98.6 98.6 Blood Gas HCO3 30 28 Blood Gas Base Excess 3.7 1.9 Blood Gas Oxygen Saturation 97 98 Arterial Blood pH 7.30 7.28 Arterial Blood Partial Pressure CO2 63 62 Arterial Blood Partial Pressure O2 147 190 Arterial Blood Oxygen Content 19.6 16.0 Arterial Blood Carboxyhemoglobin 1.3 1.2 Arterial Blood Methemoglobin 0.7 0.6 Blood Gas Hemoglobin 14.2 11.4 Oxygen Delivery Device BIPAP BIPAP Blood Gas Ventilator Setting IPAP12/EPAP6 IPAP15/EPAP6 Blood Gas Inspired Oxygen 60 60 White Blood Count 10.4 Red Blood Count 4.03 Hemoglobin 11.1 Hematocrit 35.3 Mean Corpuscular Volume 87.6 Mean Corpuscular Hemoglobin 27.5 Mean Corpuscular Hemoglobin Concent 31.3 Red Cell Distribution Width 17.0 Platelet Count 199 Mean Platelet Volume 8.5 Neutrophils (%) (Auto) 89.4 Lymphocytes (%) (Auto) 3.2 Monocytes (%) (Auto) 6.5 Eosinophils (%) (Auto) 0.6 Basophils (%) (Auto) 0.3 Neutrophils # (Auto) 9.3 Lymphocytes # (Auto) 0.3 Monocytes # (Auto) 0.7 Eosinophils # (Auto) 0.1 Basophils # (Auto) 0.0 CBC Comment DIFF FINAL Differential Comment Prothrombin Time 10.7 Prothromb Time International Ratio 1.0 Activated Partial Thromboplast Time 26.6 Blood Urea Nitrogen 38 Creatinine 1.53 Random Glucose 311 Calcium Level 11.1 Sodium Level 135 Potassium Level 5.1 Chloride Level 94 Carbon Dioxide Level 31.0 Anion Gap 10 Estimat Glomerular Filtration Rate 34 Total Creatine Kinase 160 Creatine Kinase MB 5.6 Troponin I LESS THAN 0.02 B-Type Natriuretic Peptide 34 Date/Time Source Procedure Growth Status 07/05/17 18:00 Blood Peripheral Aerobic Blood Culture Pending Received 07/05/17 18:00 Blood Peripheral Anaerobic Blood Culture Pending Received Result Diagram: 07/05/17 1550 07/05/17 1550 Imaging Last 24 hours Impressions Chest X-Ray 07/05/17 1444 Signed Impressions: Service Date/Time: Wednesday, July 05, 2017 15:07 - CONCLUSION: 1. PICC in good position. 2. Minimal right basilar effusion and chronic appearing interstitial changes. 3. Stable compared to previous dated 06/01/17. George Elena MD Caprini VTE Risk Assessment Caprini VTE Risk Assessment: Mod/High Risk (score >= 2) Caprini Risk Assessment Model Point Value = 1 Point Value = 2 Point Value = 3 Point Value = 5 Age 41-60 Minor surgery BMI > 25 kg/m2 Swollen legs Varicose veins or History of unexplained or recurrent spontaneous Oral contraceptives or hormone replacement Sepsis (< 1 month) Serious lung disease, including pneumonia (< 1 month) Abnormal pulmonary function Acute myocardial infarction Congestive heart failure (< 1 month) History of inflammatory bowel disease Medical patient at bed rest Age 61-74 Arthroscopic surgery Major open surgery (> 45 min) Laparoscopic surgery (> 45 min) Malignancy Confined to bed (> 72 hours) Immobilizing plaster cast Central venous access Age >= 75 History of VTE Family history of VTE Factor V Leiden Prothrombin [id number] Lupus anticoagulant Anticardiolipin antibodies Elevated serum homocysteine Heparin-induced thrombocytopenia Other congenital or acquired thrombophilia Stroke (< 1 month) Elective arthroplasty Hip, pelvis, or leg fracture Acute spinal cord injury (< 1 month) Prophylaxis Regimen Total Risk Factor Score Risk Level Prophylaxis Regimen 0-1 Low Early ambulation 2 Moderate Order ONE of the following: *Sequential Compression Device (SCD) *Heparin 5000 units SQ BID 3-4 Higher Order ONE of the following medications: *Heparin 5000 units SQ TID *Enoxaparin/Lovenox 40 mg SQ daily (WT < 150 kg, CrCl > 30 mL/min) *Enoxaparin/Lovenox 30 mg SQ daily (WT < 150 kg, CrCl > 10-29 mL/min) *Enoxaparin/Lovenox 30 mg SQ BID (WT < 150 kg, CrCl > 30 mL/min) AND/OR *Sequential Compression Device (SCD) 5 or more Highest Order ONE of the following medications: *Heparin 5000 units SQ TID (Preferred with Epidurals) *Enoxaparin/Lovenox 40 mg SQ daily (WT < 150 kg, CrCl > 30 mL/min) *Enoxaparin/Lovenox 30 mg SQ daily (WT < 150 kg, CrCl > 10-29 mL/min) *Enoxaparin/Lovenox 30 mg SQ BID (WT < 150 kg, CrCl > 30 mL/min) AND *Sequential Compression Device (SCD) Assessment and Plan Assessment and Plan Respiratory failure - Hypercapnic - Improving on BiPAP - Broad-spectrum antibiotics and IV steroids - Repeat ABG and CXR a.m. - DuoNeb scheduled and when necessary DIDI - BUN 33, creatinine 1.58, estimated GFR 32 - Fluid boluses given in ED - Continue gentle IV hydration - Avoid nephrotoxins - Monitor electrolytes and creatinine Sacral decubitus - consult grinder lap Hypothyroidism - Levothyroxine Parkinson's disease - Carbidopa levodopa Epilepsy - Lamictal - Depakote Hyperlipidemia - Gemfibrozil Bipolar disorder, Schizophrenia, paranoid - Risperidone - Ropinirole Hypertension - Metoprolol - Isosorbide DVT and GI prophylaxis - Heparin 5000 units subq q8h - Pepcid - Teds SCDs Critical Care: The total critical care time was 35 minutes. Time to perform other separately billable procedures was not included in the critical care time. Amando Sanchez MD Jul 05, 2017 20:55
[2017-07-05] MEDS ORDERED: VANCOMYCIN INJ 2,000 MG in SODIUM CHLORID 0.9% 500 ML INJ 500 ML IV ONE (21:00)
[2017-07-05] MEDS: SODIUM CHLOR 0.9% 1000 ML INJ 1,000 ML IV SCH (21:24)
[2017-07-05] MEDS: LEVOFLOXACIN 750 MG PREMIX INJ 150 ML IV SCH (21:25)
[2017-07-05] MEDS: CHLORHEXIDINE GLUCONATE 2 % 1 PACK (2 CLOTHS) TOP SCH (23:00)
[2017-07-05] MEDS: HEPARIN SODIUM - SQ 10,000 UNITS/ML VIAL SQ SCH (23:31)
[2017-07-05] MEDS: CARBIDOPA/LEVODOPA 10 MG/100 MG TAB PO SCH (23:31)
[2017-07-06] VITALS (13 sets, daily range): BP systolic 91–136; BP diastolic 52–74; PULSE 75–99; RESP 22–31; TEMP 97.5–99.6; O2SAT 87–99
[2017-07-06 01:27] LABS: BLOOD, URINE NEG (NEG); COMMENT (UR) CULT NOT INDICATED; CULTURE IF INDICATED CULT NOT INDICATED; GLUCOSE,URINE NEG (NEG); KETONE, URINE NEG (NEG); NITRITE,URINE NEG (NEG); URINE COLOR YELLOW (YELLW/STRAW)
[2017-07-06 01:38] LABS: AUTOMATED NEUTROPHIL # 5.6 TH/MM3 (1.8-7.7); BASOPHIL % 0.3 % (0.0-2.0); EOSINOPHIL # 0.2 TH/MM3 (0-0.4); EOSINOPHIL % 3.3 % (0.0-4.0); HEMATOCRIT 30.4 % (35.0-46.0); HEMO FLAGS DIFF FINAL; LYMPHOCYTE # 0.8 TH/MM3 (1.0-4.8); MEAN CELL VOLUME 86.5 FL (80.0-100.0); MEAN CORPUSCULAR HEMOGLOBIN 27.2 PG (27.0-34.0); MEAN CORPUSCULAR HGB CONC 31.5 % (32.0-36.0); MONO % 12.7 % (0.0-8.0); NEUT % 73.7 % (16.0-70.0); PLATELET COUNT 168 TH/MM3 (150-450); RED BLOOD COUNT 3.52 MIL/MM3 (4.00-5.30); RED CELL DISTRIBUTION WIDTH 16.3 % (11.6-17.2); WHITE BLOOD COUNT 7.6 TH/MM3 (4.0-11.0)
[2017-07-06 02:08] LABS: ALKALINE PHOSPHATASE 56 U/L (45-117); ALT (GPT) 9 U/L (10-53); ANION GAP 6 MEQ/L (5-15); AST (GOT) 41 U/L (15-37); BICARBONATE 29.6 MEQ/L (21.0-32.0); BLOOD UREA NITROGEN 33 MG/DL (7-18); CHLORIDE 103 MEQ/L (98-107); GLOMERULAR FILTRATION RATE 47 ML/MIN (>89); MAGNESIUM 1.9 MG/DL (1.5-2.5); POTASSIUM 4.3 MEQ/L (3.5-5.1); SODIUM (NA) 139 MEQ/L (136-145); TOTAL BILIRUBIN ADULT 0.2 MG/DL (0.2-1.0)
[2017-07-06] MEDS: RESP: ALBUTEROL 2.5 MG/IPRATROPIUM 0.5 MG NEB (SCH) INH ×4 (03:43→20:57)
[2017-07-06] MEDS: LEVOTHYROXINE SODIUM 125 MCG TAB PO SCH (05:33)
[2017-07-06] MEDS: CARBIDOPA/LEVODOPA 10 MG/100 MG TAB PO SCH ×3 (05:33→20:59)
[2017-07-06] MEDS: HEPARIN SODIUM - SQ 10,000 UNITS/ML VIAL SQ SCH ×3 (05:34→21:01)
--- NOTE | 2017-07-06 05:41 | RADRPT ---
EXAM DATE/TIME: 07/06/2017 05:08 [place] COMPARISON: CHEST SINGLE AP, July 05, 2017, 15:07. INDICATIONS : Short of breath. MEDICAL HISTORY : None. SURGICAL HISTORY : None. ENCOUNTER: Subsequent ACUITY: 1 week PAIN SCORE: 0/10 LOCATION: Bilateral chest FINDINGS: A single view of the chest demonstrates right PICC line in superior vena cava. Subsegmental basilar a telectasis. Elevated right hemidiaphragm. No pneumothorax. Tortuous aorta. Heart size enlarged. [place] zack right hemidiaphragm. CONCLUSION: 1. Right PICC line in superior vena cava. 2. Elevated right hemidiaphragm. Subsegmental atelectasis at the lung bases. Vidal Diaz MD on July 06, 2017 at 5:37 Board Certified Radiologist. This report was verified electronically.
[2017-07-06 05:47] LABS: BLOOD GAS BASE EXCESS 2.5 mmol/L (-2-2); BLOOD GAS CARBOXYHEMOGLOBIN 1.7 % (0-4); BLOOD GAS HCO3 29 mmol/L (22-26); BLOOD GAS METHEMOGLOBIN 1.1 % (0-2); BLOOD GAS O2 HGB SATURATION 94 % (90-100); BLOOD GAS PCO2 66 mmHg (38-42); BLOOD GAS PO2 90 mmHg (61-120); BLOOD GAS TOTAL HGB 11.3 G/DL (12.0-16.0); TEMP CORR TO 98.6
[2017-07-06 05:48] LABS: CRITICAL VALUE YES; DRAW SITE LT BRACHIAL; FIO2 30 %; NUMBER OF ARTERIAL PUNCTURES 1; OXYGEN DEVICE BIPAP; STAT NO; VENT SETTINGS IPAP15/EPAP6
[2017-07-06] MEDS: GEMFIBROZIL 600 MG TAB PO SCH ×2 (06:02→15:35)
[2017-07-06] MEDS: INSULIN ASPART SUPPLEMENTAL SCALE SQ SCH ×4 (08:00→21:00)
[2017-07-06] MEDS ORDERED: GABAPENTIN 300 MG CAP PO SCH (09:00)
[2017-07-06] MEDS: DOCUSATE SODIUM 50 MG/SENNA 8.6 MG TAB PO SCH ×2 (09:00→20:53)
[2017-07-06] MEDS: lamoTRIgine 100 MG TAB PO SCH (09:00)
[2017-07-06] MEDS ORDERED: VANCOMYCIN HCL 1000 MG VIAL IV SCH (09:00)
[2017-07-06] MEDS: methylPREDNISolone SOD SUCC 40 MG/1 ML VIAL IV PUSH SCH ×2 (09:17→20:53)
[2017-07-06] MEDS: ALENDRONATE SODIUM 70 MG TAB PO SCH (09:18)
[2017-07-06] MEDS: LACTOBACILLUS ACIDOPHILUS TAB PO SCH ×2 (09:18→20:53)
[2017-07-06] MEDS: ASCORBIC ACID 500 MG TAB PO SCH ×2 (09:18→20:53)
[2017-07-06] MEDS: PRAVASTATIN SOD 40 MG TAB PO SCH (09:18)
[2017-07-06] MEDS: MULTIVITAMINS/MINERALS THERAPEUTIC TAB PO SCH (09:18)
[2017-07-06] MEDS: SODIUM CHLORIDE 0.9% FLUSH 10 ML FLUSH SCH ×2 (09:18→20:53)
[2017-07-06] MEDS: CHOLECALCIFEROL (VIT D3) 1000 UNIT TAB PO SCH (09:19)
[2017-07-06] MEDS: risperiDONE 1 MG TAB PO SCH ×3 (09:19→18:06)
[2017-07-06] MEDS: levETIRAcetam 500 MG TAB PO SCH ×2 (09:19→20:53)
[2017-07-06] MEDS: ISOSORBIDE DINITRATE 10 MG TAB PO SCH ×2 (09:19→18:00)
[2017-07-06] MEDS: lamoTRIgine 25 MG TAB PO SCH ×2 (09:19→20:59)
[2017-07-06] MEDS: METOPROLOL TARTRATE 50 MG TAB PO SCH ×2 (09:20→20:54)
--- NOTE | 2017-07-06 09:33 | HHI.CCPN ---
Subjective Remarks/Hospital Course 07/05: 72 -year-old female presents by EMS due to shortness of breath. History is obtained from the chart and ED records. The patient was seen by her primary physician who noticed lethargy and respiratory distress. Her O2 saturations where in low in 80s on 2L nasal cannula, became even lower on room air, and improved on nonrebreather to high 90s. In the emergency department she was placed on facemask BiPAP with further improvement of oxygenation. 07/06: Drowsy, easily arousable. On nasal cannula 2 L/m with O2 sat 96%. Has been refusing BiPAP all night. Objective Vital Signs Date Time Temp Pulse Resp B/P (MAP) Pulse Ox O2 Delivery O2 Flow Rate FiO2 07/06/17 08:23 95 Nasal Cannula 2.00 07/06/17 04:12 30 07/06/17 04:00 98.9 99 25 123/60 (81) Intake and Output 07/06/17 07/06/17 07/07/17 08:00 16:00 00:00 Intake Total 2485 ml Output Total 1700 ml Balance 785 ml Result Diagram: 07/06/17 0125 07/06/17 0125 Other Results Laboratory Tests Test 07/05/17 15:30 07/05/17 17:54 07/06/17 05:30 Blood Gas Puncture Site RT RADIAL RT RADIAL LT BRACHIAL Blood Gas Patient Temperature 98.6 98.6 98.6 Blood Gas HCO3 30 mmol/L (22-26) 28 mmol/L (22-26) 29 mmol/L (22-26) Blood Gas Base Excess 3.7 mmol/L (-2-2) 1.9 mmol/L (-2-2) 2.5 mmol/L (-2-2) Blood Gas Oxygen Saturation 97 % (90-100) 98 % (90-100) 94 % (90-100) Arterial Blood pH 7.30 (7.380-7.420) 7.28 (7.380-7.420) 7.27 (7.380-7.420) Arterial Blood Partial Pressure CO2 63 mmHg (38-42) 62 mmHg (38-42) 66 mmHg (38-42) Arterial Blood Partial Pressure O2 147 mmHG (61-120) 190 mmHG (61-120) 90 mmHg (61-120) Arterial Blood Oxygen Content 19.6 Vol % (12.0-20.0) 16.0 Vol % (12.0-20.0) 15.0 Vol % (12.0-20.0) Arterial Blood Carboxyhemoglobin 1.3 % (0-4) 1.2 % (0-4) 1.7 % (0-4) Arterial Blood Methemoglobin 0.7 % (0-2) 0.6 % (0-2) 1.1 % (0-2) Blood Gas Hemoglobin 14.2 G/DL (12.0-16.0) 11.4 G/DL (12.0-16.0) 11.3 G/DL (12.0-16.0) Oxygen Delivery Device BIPAP BIPAP BIPAP Blood Gas Ventilator Setting IPAP12/EPAP6 IPAP15/EPAP6 IPAP15/EPAP6 Blood Gas Inspired Oxygen 60 % 60 % 30 % Imaging Last 24 hours Impressions Chest X-Ray 07/05/17 1444 Signed Impressions: Service Date/Time: Wednesday, July 05, 2017 15:07 - CONCLUSION: 1. PICC in good position. 2. Minimal right basilar effusion and chronic appearing interstitial changes. 3. Stable compared to previous dated 06/01/17. George Elena MD Objective Remarks GENERAL: Elderly woman on [place] SKIN: Warm and dry. HEAD: Normocephalic. EYES: No scleral icterus. No injection or drainage. NECK: Supple, trachea midline. No JVD or lymphadenopathy. CARDIOVASCULAR: Regular rate and rhythm without murmurs, gallops, or rubs. RESPIRATORY: Breath sounds equal bilaterally. No accessory muscle use. GASTROINTESTINAL: Abdomen soft, non-tender, nondistended. MUSCULOSKELETAL: No cyanosis, or edema. BACK: Nontender without obvious deformity. NEURO EXAM: GCS: M6 Vt E4 Mental Status: Drowsy, easily arousable, follows commands. Cranial Nerves: Pupils are round, reactive to light. Reflexes: Biceps, patellar, and Achilles are 2/4 bilaterally. No clonus. A/P Assessment and Plan Respiratory failure - Hypercapnic -Refused BiPAP all night, will decrease O2 as long as her O2 sat is above 90% - Broad-spectrum antibiotics and IV steroids - DuoNeb scheduled and when necessary DIDI - BUN 33, creatinine 1.58, estimated GFR 32 - Fluid boluses given in ED - Continue gentle IV hydration - Avoid nephrotoxins - Monitor electrolytes and creatinine Sacral decubitus - consult lime kiln operator Hypothyroidism - Levothyroxine Parkinson's disease - Carbidopa levodopa Epilepsy - Lamictal - Depakote Hyperlipidemia - Gemfibrozil Bipolar disorder, Schizophrenia, paranoid - Risperidone - Ropinirole Hypertension - Metoprolol - Isosorbide DVT and GI prophylaxis - Heparin 5000 units subq q8h - Pepcid - Teds SCDs Reynaldo Ryan MD Jul 06, 2017 09:33
--- NOTE | 2017-07-06 11:28 | PD.WCN.NOT ---
Wound Consult Description: Received consult for evaluation of wound management to sacral area. from Doctor Amando Sanchez. Communicated with: RN Michael [facility] and Doctor Reynaldo Ryan Recommendation: Please cleans stage 4 pressure injury to sacrum with normal saline Pack wound with maxorb II (Calcium alginate) and cover with adhesive foam dressing change dressing every other day or as needed for saturation is dislodgment. Continue to turn patient every 2 hours or PRN for comfort. May need plastics consult for chronic non healing wound with depth of 4cm with tunneling Additional Information: Patient seen on 5th floor [facility] for evaluation of wound management of sacral area. Patient is a confused female laying on a Karla [facility] low air loss bed. Thick cloth underpad noted under patient.Bed is set to correct inflation for patient's weight. Microclimate management was turned on.Positioned patient to R side with the assistance of Michael CABRERA Junior and medical underwriter to reveal intact sacral foam dressing. Removed adhesive foam dressing in place to reveal small wound to sacral area. Wound measures 0.6cm x 0.5cm x 4 cm. Wound has some tunneling at 3 and 9 o'clock measuring ~5cm.Wound drainage is moderate, cloudy, and rust colored without odor.Periwound is noted with maceration circumferentially. Wound shape is oval with defined wound margins. Irrigated wound with 15 ml of normal saline.Wound has a narrow opening and tissue in wound bed was not visible. pink tissue is noted near the surface Packed wound with calcium alginate before applying skin prep to periwound and covering with adhesive foam dressing. Replaced thick cloth pad under patient with two ultrasorb pads placed in a staggered fashion with a flat turn sheet underneath. Patient positioned off bottom for pressure relief with pillow for support. Wound care will continue to follow patient weekly. Patient may need plastics consult for deep non healing wound with narrow opening. Malorie Mcghee [facility] Jul 06, 2017 11:28
--- NOTE | 2017-07-06 15:03 | EKG ---
Date Performed: 07/05/2017 Time Performed: 20:21:50 PTAGE: 72 years EKG: Sinus rhythm LOW QRS VOLTAGE IN PRECORDIAL LEADS BORDERLINE ECG PREVIOUS TRACING : 07/05/2017 14.56 Compared to prior tracing no significant change DOCTOR: Carin Turner Interpretating Date/Time 07/06/2017 15:02:47
--- NOTE | 2017-07-06 15:23 | EKG ---
Date Performed: 07/05/2017 Time Performed: 14:56:39 PTAGE: 72 years EKG: SINUS TACHYCARDIA BORDERLINE LEFT AXIS DEVIATION MINIMAL VOLTAGE CRITERIA FOR LVH, CONSIDER NORMAL VARIANT MILD DIFFUSE ST ELEVATION ABNORMAL ECG PREVIOUS TRACING : 06/01/2017 02.43 Compared to the previous tracing mild diffuse ST elevation is present DOCTOR: Carin Turner Interpretating Date/Time 07/06/2017 15:22:16
[2017-07-06] MEDS: SODIUM CHLOR 0.9% 1000 ML INJ 1,000 ML IV SCH (19:50)
[2017-07-06] MEDS: AZITHROMYCIN INJ 500 MG in SODIUM CHLOR 0.9% 250 ML INJ 250 ML IV SCH (20:53)
[2017-07-06] MEDS: GABAPENTIN 400 MG CAP PO SCH (20:54)
[2017-07-06] MEDS: DIVALPROEX SODIUM E.R. 250 MG TAB PO SCH (20:54)
[2017-07-06] MEDS: LEVOFLOXACIN 750 MG PREMIX INJ 150 ML IV SCH (20:54)
[2017-07-06] MEDS: CHLORHEXIDINE GLUCONATE 2 % 1 PACK (2 CLOTHS) TOP SCH (20:59)
[2017-07-06] MEDS: VANCOMYCIN INJ 2,000 MG in SODIUM CHLORID 0.9% 500 ML INJ 500 ML IV SCH (20:59)
[2017-07-07] VITALS (14 sets, daily range): BP systolic 90–153; BP diastolic 55–74; PULSE 62–81; RESP 16–24; TEMP 98–98.3; O2SAT 95–99
[2017-07-07] MEDS: RESP: ALBUTEROL 2.5 MG/IPRATROPIUM 0.5 MG NEB (SCH) INH ×4 (03:03→20:14)
[2017-07-07] MEDS: LEVOTHYROXINE SODIUM 125 MCG TAB PO SCH (05:26)
[2017-07-07] MEDS: GEMFIBROZIL 600 MG TAB PO SCH ×2 (05:26→16:14)
[2017-07-07] MEDS: CARBIDOPA/LEVODOPA 10 MG/100 MG TAB PO SCH ×3 (05:26→21:51)
[2017-07-07] MEDS: HEPARIN SODIUM - SQ 10,000 UNITS/ML VIAL SQ SCH ×3 (05:37→21:51)
[2017-07-07] MEDS: INSULIN ASPART SUPPLEMENTAL SCALE SQ SCH ×4 (08:00→21:00)
[2017-07-07 08:02] LABS: BLOOD GAS CARBOXYHEMOGLOBIN 1.8 % (0-4); BLOOD GAS HCO3 27 mmol/L (22-26); BLOOD GAS METHEMOGLOBIN 1.1 % (0-2); BLOOD GAS O2 HGB SATURATION 94 % (90-100); BLOOD GAS OXYGEN CONTENT 12.5 Vol % (12.0-20.0); BLOOD GAS PCO2 54 mmHg (38-42); BLOOD GAS PO2 87 mmHg (61-120); BLOOD GAS TOTAL HGB 9.4 G/DL (12.0-16.0); CRITICAL VALUE YES; DRAW SITE LT RADIAL; LITER FLOW 1.5 L/M; NUMBER OF ARTERIAL PUNCTURES 1; OXYGEN DEVICE NASAL CANNULA; STAT NO; TEMP CORR TO 98.6; ULNAR PULSE PRESENT
[2017-07-07] MEDS: METOPROLOL TARTRATE 50 MG TAB PO SCH ×2 (08:36→21:53)
[2017-07-07] MEDS: methylPREDNISolone SOD SUCC 40 MG/1 ML VIAL IV PUSH SCH ×3 (08:36→21:51)
[2017-07-07] MEDS: levETIRAcetam 500 MG TAB PO SCH ×2 (08:36→21:51)
[2017-07-07] MEDS: ASCORBIC ACID 500 MG TAB PO SCH ×2 (08:36→21:51)
[2017-07-07] MEDS: PRAVASTATIN SOD 40 MG TAB PO SCH (08:36)
[2017-07-07] MEDS: CHOLECALCIFEROL (VIT D3) 1000 UNIT TAB PO SCH (08:36)
[2017-07-07] MEDS: LACTOBACILLUS ACIDOPHILUS TAB PO SCH ×2 (08:37→21:51)
[2017-07-07] MEDS: GABAPENTIN 400 MG CAP PO SCH ×2 (08:37→21:51)
[2017-07-07] MEDS: risperiDONE 1 MG TAB PO SCH ×3 (08:37→18:46)
[2017-07-07] MEDS: DOCUSATE SODIUM 50 MG/SENNA 8.6 MG TAB PO SCH ×2 (08:37→21:53)
[2017-07-07] MEDS: MULTIVITAMINS/MINERALS THERAPEUTIC TAB PO SCH (08:37)
[2017-07-07] MEDS: ISOSORBIDE DINITRATE 10 MG TAB PO SCH ×2 (08:51→18:49)
[2017-07-07] MEDS: lamoTRIgine 100 MG TAB PO SCH (08:51)
[2017-07-07] MEDS: SODIUM CHLORIDE 0.9% FLUSH 10 ML FLUSH SCH ×2 (08:51→21:52)
--- NOTE | 2017-07-07 10:30 | HHI.CCPN ---
Subjective Remarks/Hospital Course 07/05: 72 -year-old female presents by EMS due to shortness of breath. History is obtained from the chart and ED records. The patient was seen by her primary physician who noticed lethargy and respiratory distress. Her O2 saturations where in low in 80s on 2L nasal cannula, became even lower on room air, and improved on nonrebreather to high 90s. In the emergency department she was placed on facemask BiPAP with further improvement of oxygenation. 07/06: Drowsy, easily arousable. On nasal cannula 2 L/m with O2 sat 96%. Has been refusing BiPAP all night. 07/07: Drowsy, easily arousable. Follows commands. On nasal cannula 2 L/m. Has been refusing BiPAP overnight. PCO2 improved to the 50s. Objective Vital Signs Date Time Temp Pulse Resp B/P (MAP) Pulse Ox O2 Delivery O2 Flow Rate FiO2 07/07/17 09:45 99 Nasal Cannula 1.00 07/07/17 06:00 67 07/07/17 04:00 98.0 20 90/55 (67) 07/06/17 04:12 30 Intake and Output 07/07/17 07/07/17 07/08/17 08:00 16:00 00:00 Intake Total 250 ml Output Total 1600 ml Balance -1350 ml Result Diagram: 07/06/17 0125 07/06/17 0125 Other Results Microbiology Date/Time Source Procedure Growth Status 07/05/17 22:45 Urine Catheterized Urine Legionella Antigen - Final PRESUMPTIVE NEGATIVE FOR LEGIONELLA P... Complete 07/05/17 22:45 Urine Catheterized Urine Streptococcus pneumoniae Antigen (M - Final PRESUMPTIVE NEGATIVE FOR STREPTOCOCCU... Complete Laboratory Tests Test 07/07/17 07:56 Blood Gas Puncture Site LT RADIAL Blood Gas Patient Temperature 98.6 Blood Gas HCO3 27 mmol/L (22-26) Blood Gas Base Excess 1.0 mmol/L (-2-2) Blood Gas Oxygen Saturation 94 % (90-100) Arterial Blood pH 7.32 (7.380-7.420) Arterial Blood Partial Pressure CO2 54 mmHg (38-42) Arterial Blood Partial Pressure O2 87 mmHg (61-120) Arterial Blood Oxygen Content 12.5 Vol % (12.0-20.0) Arterial Blood Carboxyhemoglobin 1.8 % (0-4) Arterial Blood Methemoglobin 1.1 % (0-2) Blood Gas Hemoglobin 9.4 G/DL (12.0-16.0) Oxygen Delivery Device NASAL CANNULA Blood Gas Liter Flow 1.5 L/M Imaging Last 24 hours Impressions Chest X-Ray 07/05/17 1444 Signed Impressions: Service Date/Time: Wednesday, July 05, 2017 15:07 - CONCLUSION: 1. PICC in good position. 2. Minimal right basilar effusion and chronic appearing interstitial changes. 3. Stable compared to previous dated 06/01/17. George Elena MD Objective Remarks GENERAL: Elderly woman on [place] SKIN: Warm and dry. HEAD: Normocephalic. EYES: No scleral icterus. No injection or drainage. NECK: Supple, trachea midline. No JVD or lymphadenopathy. CARDIOVASCULAR: Regular rate and rhythm without murmurs, gallops, or rubs. RESPIRATORY: Breath sounds equal bilaterally. No accessory muscle use. GASTROINTESTINAL: Abdomen soft, non-tender, nondistended. MUSCULOSKELETAL: No cyanosis, or edema. BACK: Nontender without obvious deformity. NEURO EXAM: GCS: M6 Vt E4 Mental Status: Drowsy, easily arousable, follows commands. Moves all 4 extremities, grossly nonfocal A/P Assessment and Plan Respiratory failure - Hypercapnic -Refused BiPAP all night, will decrease O2 as long as her O2 sat is above 90% - Broad-spectrum antibiotics and IV steroids - DuoNeb scheduled and when necessary DIDI - BUN 33, creatinine 1.58, estimated GFR 32 - Fluid boluses given in ED - Continue gentle IV hydration - Avoid nephrotoxins - Monitor electrolytes and creatinine Sacral decubitus - stage IV - consult wound care, plastic surgery Hypothyroidism - Levothyroxine Parkinson's disease - Carbidopa levodopa Epilepsy - Lamictal - Depakote Hyperlipidemia - Gemfibrozil Bipolar disorder, Schizophrenia, paranoid - Risperidone - Ropinirole Hypertension - Metoprolol - Isosorbide DVT and GI prophylaxis - Heparin 5000 units subq q8h - Pepcid - Teds SCDs We'll consult and transfer to hospitalist service for further medical management. Transfer out of ICU today. Consult pulmonary for further follow- up for respiratory failure and CO2 retention. Reynaldo Ryan MD Jul 07, 2017 10:30
--- NOTE | 2017-07-07 11:26 | PD.VS.CON ---
History of Present Illness Chief Complaint: Consulted for stage 4 sacral decubitus ulcer Consult Requested by: Dr. Ryan History of Present Illness Obtained from EMR/Nurse 72 -year-old female presents by EMS due to shortness of breath. Pt was placed on bipap and transferred to ICU Past/Family/Social History Past Medical History Obtained from EMR Diabetes Mellitus, type 2 Osteoporosis CVA Epilepsy Hyperlipidemia Bipolar disorder Schizophrenia, paranoid Parkinson's Disease Sacral decubitus Dysphagia Hypothyroidism GERD CKD Social History Neg-tobacco Neg-alcohol Neg-illicit drug usage Home Medications Active Scripts Levofloxacin (Levofloxacin) 750 Mg Tablet, 750 MG PO Q48H for Infection, #3 TAB 0 Refills Take first dose 06/08 Prov:Lenin Mejía DO 06/06/17 Lorazepam (Ativan) 0.5 Mg Tab, 0.5 MG PO Q8H Y for ANXIETY, #10 TAB Prov:Lenin Mejía DO 06/06/17 Lactobacillus Acidophilus (Acidophilus/l-Sporogenes) 1 Tab Tab, 1 TAB PO Q12HR for Build Red Blood Cells, #30 TAB Prov:Conor Jacques MD 09/08/16 Metoprolol Tartrate (Metoprolol Tartrate) 25 Mg Tab, 50 MG PO BID for Blood Pressure Management, #60 TAB Prov:Conor Jacques MD 09/08/16 Reported Medications Cholecalciferol (Vitamin D-1000) 1,000 Unit Tab, 1000 UNITS PO DAILY for Nutritional Supplement, #1 BOTTLE 0 Refills 06/01/17 Ascorbic Acid (Vitamin C) 250 Mg Chew, 500 MG CHEW BID for Nutritional Supplement, #60 TAB 0 Refills 06/01/17 Vancomycin Inj (Vancomycin Inj) 1,000 Mg Inj, 1 GM IV DAILY for Infection, BAG 0 Refills 06/01/17 Levothyroxine (Synthroid) 125 Mcg Tab, 125 MCG PO DAILY for Thyroid, #30 TAB 0 Refills 06/01/17 Sennosides-Docusate Sodium (Senokot S) 8.6-50 Mg Tab, 1 TAB PO DAILY Y for CONSTIPATION, #30 TAB 0 Refills 06/01/17 Ropinirole (Requip) 1 Mg Tab, 1 MG PO TID, #90 TAB 0 Refills 06/01/17 Gabapentin (Neurontin) 300 Mg Cap, 300 MG PO TID, #90 CAP 0 Refills 06/01/17 Multiple Vitamins W/ Minerals (One Daily-Minerals) 1 Tab, 1 TAB PO DAILY for Nutritional Supplement, #100 TAB 0 Refills 06/01/17 Gemfibrozil (Lopid) 600 Mg Tab, 600 MG PO BID, #60 TAB 0 Refills Take 30 minutes prior to breakfast and dinner 06/01/17 Glipizide (Glipizide) 5 Mg Tab, 5 MG PO BID for Blood Sugar Management, #60 TAB 0 Refills Take 30 minutes before a meal 06/01/17 Acetaminophen (Tylenol) 325 Mg Tab, 650 MG PO Q6H Y for PAIN SCALE 1 TO 10, TAB 0 Refills 06/01/17 Levetiracetam (Levetiracetam) 500 Mg Tab, 500 MG PO BID for Control Seizures, # 60 TAB 0 Refills 09/02/16 Lamotrigine (Lamotrigine) 100 Mg Tab, 100 MG PO DAILY for Control Seizures, #30 TAB 0 Refills 09/02/16 Lamotrigine (Lamictal) 25 Mg Tab, 25 MG PO HS for Control Seizures, #30 TAB 0 Refills 09/02/16 Isosorbide Dinitrate (Isosorbide Dinitrate) 10 Mg Tab, 10 MG PO BID, #60 TAB 0 Refills 09/02/16 Metformin (Glucophage) 500 Mg Tab, 1000 MG PO BID for Blood Sugar Management, # 60 TAB 0 Refills With meals 09/02/16 Alendronate (Fosamax) 70 Mg Tab, 70 MG PO Q7D for Osteoporosis Treatment, #4 TAB 0 Refills 09/02/16 Ipratropium-Albuterol Neb (Duoneb) 0.5-2.5 Mg/3 Ml Neb, 1 INH Q6HR NEB for Breathing Treatment, #120 NEBULE 0 Refills 09/02/16 Divalproex ER (Depakote ER) 500 Mg Pedro, 750 MG PO HS for Control Seizures, # 60 TAB 0 Refills 09/02/16 Carbidopa-Levodopa (Sinemet) 10-100 Mg Tab, 1 TAB PO Q8HR for Parkinson Disease Mgmt, #90 TAB 0 Refills 09/02/16 Risperidone (Risperdal) 1 Mg Tab, 1 MG PO TID, #30 TAB 0 Refills 09/02/16 Pravastatin (Pravachol) 40 Mg Tab, 40 MG PO DAILY for Cholesterol Management, # 30 TAB 0 Refills 09/02/16 Coded Allergies: adhesive (Unverified Allergy, Severe, 05/24/17) doxycycline (Unverified Allergy, Severe, 05/24/17) minocycline (Unverified Allergy, Severe, 05/24/17) penicillin G (Unverified Allergy, Severe, 05/24/17) tigecycline (Unverified Allergy, Severe, 05/24/17) Uncoded Allergies: ANTIHISTAMINES (Allergy, Severe, 09/05/07) Physical Exam Vitals/I&O Date Time Temp Pulse Resp B/P (MAP) Pulse Ox O2 Delivery O2 Flow Rate FiO2 07/07/17 09:45 99 Nasal Cannula 1.00 07/07/17 06:00 67 07/07/17 04:00 98.0 62 20 90/55 (67) 95 07/07/17 04:00 62 07/07/17 02:00 72 07/07/17 00:00 98.3 72 22 145/72 (96) 96 07/07/17 00:00 71 07/06/17 22:00 75 07/06/17 20:56 99 Nasal Cannula 2.00 07/06/17 20:00 98.9 76 22 117/64 (81) 97 07/06/17 20:00 76 07/06/17 19:00 93 Nasal Cannula 1.00 07/06/17 18:00 90 07/06/17 16:00 98.4 90 24 130/63 (85) 94 07/06/17 16:00 90 07/06/17 12:00 97.9 77 31 91/54 (66) 87 07/07/17 07/07/17 07/07/17 07:00 15:00 23:00 Intake Total 250 ml Output Total 1600 ml Balance -1350 ml Neuro: Pt alert Responds to questions with single words - yes/no/stop Pt yells and screams when moved or being spoken to Heart: RRR on CM Lungs: Pt on 02 w/ NC Abdomen: S/NT Vascular: Palpable bilat femorals Palpable R/L DP/PT LE warm w/ motor intact Extremities: Sacral decubitus present with packing Wound has some tunneling at 3 and 9 o'clock Periwound is noted with maceration circumferentially Wound shape is oval with defined wound margins Laboratory Tests Test 07/07/17 07:56 Blood Gas Puncture Site LT RADIAL Blood Gas Patient Temperature 98.6 Blood Gas HCO3 27 Blood Gas Base Excess 1.0 Blood Gas Oxygen Saturation 94 Arterial Blood pH 7.32 Arterial Blood Partial Pressure CO2 54 Arterial Blood Partial Pressure O2 87 Arterial Blood Oxygen Content 12.5 Arterial Blood Carboxyhemoglobin 1.8 Arterial Blood Methemoglobin 1.1 Blood Gas Hemoglobin 9.4 Oxygen Delivery Device NASAL CANNULA Blood Gas Liter Flow 1.5 Date/Time Source Procedure Growth Status 07/05/17 18:00 Blood Peripheral Aerobic Blood Culture - Preliminary NO GROWTH IN 1 DAY Resulted 07/05/17 18:00 Blood Peripheral Anaerobic Blood Culture - Preliminary NO GROWTH IN 1 DAY Resulted 07/05/17 22:45 Urine Catheterized Urine Legionella Antigen - Final PRESUMPTIVE NEGATIVE FOR LEGIONELLA P... Complete 07/05/17 22:45 Urine Catheterized Urine Streptococcus pneumoniae Antigen (M - Final PRESUMPTIVE NEGATIVE FOR STREPTOCOCCU... Complete Last 48 hours Impressions Chest X-Ray 07/06/17 0000 Signed Impressions: Service Date/Time: Thursday, July 06, 2017 05:08 - CONCLUSION: 1. Right PICC line in superior vena cava. 2. Elevated right hemidiaphragm. Subsegmental atelectasis at the lung bases. Vidal Diaz MD Chest X-Ray 07/05/17 1444 Signed Impressions: Service Date/Time: Wednesday, July 05, 2017 15:07 - CONCLUSION: 1. PICC in good position. 2. Minimal right basilar effusion and chronic appearing interstitial changes. 3. Stable compared to previous dated 06/01/17. George Elena MD Assessment and Plan Assessment: (1) Sacral decubitus ulcer Status: Acute Plan Was consulted for a chronic sacral wound Plan No Vascular surgical intervention needed Recommend continued wound care therapy Will sign off and see patient on an as needed basis Sheila PAN [facility] [phone] Sheila Hanna Jul 07, 2017 11:26
[2017-07-07] MEDS: SODIUM CHLOR 0.9% 1000 ML INJ 1,000 ML IV SCH ×2 (13:44→21:52)
[2017-07-07 18:18] LABS: AUTOMATED NEUTROPHIL # 5.3 TH/MM3 (1.8-7.7); BASOPHIL % 0.2 % (0.0-2.0); HEMO FLAGS DIFF FINAL; LYMPH % 14.8 % (9.0-44.0); MEAN CELL VOLUME 87.1 FL (80.0-100.0); MEAN CORPUSCULAR HEMOGLOBIN 27.7 PG (27.0-34.0); MEAN CORPUSCULAR HGB CONC 31.8 % (32.0-36.0); MONO % 4.2 % (0.0-8.0); NEUT % 80.8 % (16.0-70.0); PLATELET COUNT 192 TH/MM3 (150-450); RED BLOOD COUNT 3.45 MIL/MM3 (4.00-5.30); RED CELL DISTRIBUTION WIDTH 16.1 % (11.6-17.2); WHITE BLOOD COUNT 6.5 TH/MM3 (4.0-11.0)
[2017-07-07 19:24] LABS: ALKALINE PHOSPHATASE 60 U/L (45-117); ALT (GPT) 12 U/L (10-53); ANION GAP 6 MEQ/L (5-15); AST (GOT) 24 U/L (15-37); BLOOD UREA NITROGEN 25 MG/DL (7-18); CHLORIDE 107 MEQ/L (98-107); GLOMERULAR FILTRATION RATE 44 ML/MIN (>89); POTASSIUM 4.4 MEQ/L (3.5-5.1); SODIUM (NA) 142 MEQ/L (136-145); TOTAL BILIRUBIN ADULT 0.2 MG/DL (0.2-1.0)
[2017-07-07] MEDS ORDERED: ALTEPLASE RECOMBINANT 2 MG VIAL IV FLUSH PRN ×2 (19:30→19:45)
[2017-07-07] MEDS: RESP: ALBUTEROL 2.5 MG/IPRATROPIUM 0.5 MG NEB (SCH) NEB (20:00)
--- NOTE | 2017-07-07 20:28 | MB ---
cc: Rocio ANDERS M.D. DATE OF CONSULTATION 07/07/17 REASON FOR CONSULTATION Respiratory distress and pneumonia. HISTORY OF PRESENT ILLNESS This is a 72-year-old overweight white female who was admitted through the emergency room with history of lethargy and respiratory distress. The patient upon arrival in the ER was running a low O2 sat. She was also hypercapnic and was placed on a BiPap mask initially. Had a chest x-ray was done demonstrated infiltrates in the right lower lobe as well as mild interstitial changes. The patient was started on BiPap mask, placed on IV antibiotics including vancomycin and Zithromax and placed on Isordil and was also on nebulized DuoNeb solution. She has improved over the past 24 hours. She is awake and oriented and seems to be in no acute distress and somewhat lethargic still. Most recent blood gases showed hypercapnia. The patient is a poor historian, does not volunteer any information. PAST HISTORY Has included diabetes mellitus type 2, history of a stroke and prior history of hyperlipidemia. She has paranoid schizophrenia, Parkinson's disease and hypothyroidism as well as gastroesophageal reflux disease and chronic kidney disease. She has generalized weakness and history for epilepsy and osteoporosis. Denies history of chronic lung disease but likely has obstructive sleep apnea. HABITS The patient is a nonsmoker. There is no history for alcohol use. FAMILY HISTORY Significant for heart disease. ALLERGIES DOXYCYCLINE, PENICILLIN, TIGECYCLINE. MEDICATIONS List included: 1. Levaquin 750 milligrams a day. 2. Presently on vancomycin 1 gram IV daily. 3. Synthroid 125 micrograms a day. 4. Requip 1 milligrams t.i.d. 5. Neurontin 300 milligrams t.i.d. 6. Lopid 600 milligrams b.i.d. 7. Glipizide 5 milligrams b.i.d. 8. Levetiracetam 500 milligrams b.i.d. 9. Lamotrigine 100 milligrams daily. 10. Lamictal 25 milligrams h.s. 11. Isordil 10 milligrams b.i.d. 12. Glucophage 1000 milligrams b.i.d. 13. Fosamax 70 milligrams weekly. 14. DuoNeb nebs. 15. Sinemet 10/100 1 every 8 hours. 16. Risperidone 1 milligram t.i.d. 17. Pravachol 40 milligrams a day. REVIEW OF SYSTEMS The patient does not volunteer much information. She denies any chest or abdominal pain but she has some leg swelling and arm swelling. She has dizziness and epigastric distress. Denies urinary symptoms. She has some anxiety with depression. PHYSICAL EXAMINATION GENERAL: This moderately obese elderly lady who is pale and no acute distress. VITAL SIGNS: Blood pressure 120/70, pulse 85, respirations 22, temperature 98.9. HEENT: Head normocephalic. Pupils are reactive. Throat is clear. Nasal mucosa injected. NECK: Supple without venous distension. No thyromegaly or lymphadenopathy. CHEST: Decreased breath sounds at the bases with occasional bibasilar crackles. HEART: The heart sounds are irregular S1-S2 with no murmur. No S3. ABDOMEN: Soft, protuberant without masses. There is mild epigastric tenderness. No organomegaly. EXTREMITIES: Minimal edema with diminished peripheral pulses. Reflexes are 11+ with no gross motor deficits. RECTAL: Exam is deferred. SKIN: Skin was dry and warm. IMPRESSION 1. Hypercapnic respiratory failure. 2. Probable obstructive sleep apnea syndrome. 3. Chronic kidney disease. 4. Diabetes mellitus type 2. 5. Hypothyroidism. 6. Basilar atelectasis with possible pneumonia. 7. Parkinson's disease. 8. Bipolar disorder and schizophrenia. 9. Hypertension. PLAN The patient has been placed on O2 at 2 liters. We will check a blood gas study. She has evidence of bronchospasm and will be placed on Solu-Medrol 40 milligrams b.i.d. IV. Nebulized DuoNeb solution added q.i.d. Continue with antibiotic therapy as ordered including vancomycin and Zithromax. Sputum was sent for Gram stain and culture. Follow up chest x-ray obtained and a CT scan of the chest to be done without contrast. Continue with anticoagulant therapy and the patient will have a pulmonary function study done when she is clinically stable. Thank you Dr. Banuelos for this consultation. MD MARIAN Yoon/GINA /7:54 PM /8:05 PM
[2017-07-07] MEDS: lamoTRIgine 25 MG TAB PO SCH (21:00)
--- NOTE | 2017-07-07 21:19 | RADRPT ---
EXAM DATE/TIME: 07/07/2017 20:48 [place] COMPARISON: CT ABDOMEN & PELVIS W/O CONTRAST, September 02, 2016, 2:29. INDICATIONS : Shortness of breath. RADIATION DOSE: 13.19 CTDIvol (mGy) MEDICAL HISTORY : Hypertension. Cardiovascular disease Osteoporosis. Diabetes. SURGICAL HISTORY : None. ENCOUNTER: Initial ACUITY: 1 day PAIN SCALE: 0/10 LOCATION: chest TECHNIQUE: Volumetric scanning of the chest was performed. Using automated exposure control and adjustment of t he mA and/or kV according to patient size, radiation dose was kept as low as reasonably achievable to obtain optimal diagnostic quality images. DICOM format image data is available electronically for r eview and comparison. Follow-up recommendations for detected pulmonary nodules are based at a minimum on nodule size and pa tient risk factors according to Fleischner Society Guidelines. FINDINGS: Focally dense consolidation is seen in the right infrahilar region and posteromedially of the left lo wer lobe with air bronchograms. Otherwise, there is patchy and mostly upper lobe infiltrate. A small right pleural effusion is present. There is right hemidiaphragm elevation again noted. Heart size within normal limits. No pathologic appearing lymphadenopathy seen. CONCLUSION: 1. Dense consolidation of both lower lobes and mild nonspecific infiltrate of both upper lobes. 2. Small right pleural effusion. Mychal Oneil MD on July 07, 2017 at 21:15 Board Certified Radiologist. This report was verified electronically.
[2017-07-07] MEDS: LEVOFLOXACIN 750 MG PREMIX INJ 150 ML IV SCH (21:49)
[2017-07-07] MEDS: AZITHROMYCIN INJ 500 MG in SODIUM CHLOR 0.9% 250 ML INJ 250 ML IV SCH (21:50)
[2017-07-07] MEDS: DIVALPROEX SODIUM E.R. 250 MG TAB PO SCH (21:52)
[2017-07-07] MEDS: VANCOMYCIN INJ 2,000 MG in SODIUM CHLORID 0.9% 500 ML INJ 500 ML IV SCH (22:19)
[2017-07-08] VITALS (16 sets, daily range): BP systolic 114–191; BP diastolic 67–99; PULSE 63–90; RESP 20–34; TEMP 98.4–99.8; O2SAT 90–100
[2017-07-08] MEDS: RESP: ALBUTEROL 2.5 MG/IPRATROPIUM 0.5 MG NEB (SCH) INH ×2 (02:57→10:00)
[2017-07-08] MEDS: CHLORHEXIDINE GLUCONATE 2 % 1 PACK (2 CLOTHS) TOP SCH (04:00)
[2017-07-08] MEDS: GEMFIBROZIL 600 MG TAB PO SCH ×2 (05:14→17:28)
[2017-07-08] MEDS: HEPARIN SODIUM - SQ 10,000 UNITS/ML VIAL SQ SCH ×3 (05:14→20:12)
[2017-07-08] MEDS: LEVOTHYROXINE SODIUM 125 MCG TAB PO SCH (05:14)
[2017-07-08] MEDS: CARBIDOPA/LEVODOPA 10 MG/100 MG TAB PO SCH ×3 (05:14→20:12)
[2017-07-08 05:56] LABS: ANION GAP 9 MEQ/L (5-15); AST (GOT) 21 U/L (15-37); BLOOD UREA NITROGEN 24 MG/DL (7-18); CHLORIDE 108 MEQ/L (98-107); GLOMERULAR FILTRATION RATE 45 ML/MIN (>89); POTASSIUM 4.8 MEQ/L (3.5-5.1); SODIUM (NA) 141 MEQ/L (136-145)
[2017-07-08 06:30] LABS: ALKALINE PHOSPHATASE 59 U/L (45-117); ALT (GPT) 24 U/L (10-53); TOTAL BILIRUBIN ADULT 0.2 MG/DL (0.2-1.0)
[2017-07-08 06:37] LABS: AUTOMATED NEUTROPHIL # 5.9 TH/MM3 (1.8-7.7); BASOPHIL % 0.2 % (0.0-2.0); EOSINOPHIL % 0.1 % (0.0-4.0); HEMATOCRIT 30.6 % (35.0-46.0); HEMO FLAGS DIFF FINAL; LYMPH % 16.9 % (9.0-44.0); LYMPHOCYTE # 1.2 TH/MM3 (1.0-4.8); MEAN CELL VOLUME 88.3 FL (80.0-100.0); MEAN CORPUSCULAR HGB CONC 30.6 % (32.0-36.0); MONO % 2.5 % (0.0-8.0); NEUT % 80.3 % (16.0-70.0); PLATELET COUNT 214 TH/MM3 (150-450); RED BLOOD COUNT 3.46 MIL/MM3 (4.00-5.30); RED CELL DISTRIBUTION WIDTH 16.1 % (11.6-17.2); WHITE BLOOD COUNT 7.3 TH/MM3 (4.0-11.0)
[2017-07-08] MEDS: RESP: ALBUTEROL 2.5 MG/IPRATROPIUM 0.5 MG NEB (SCH) NEB ×4 (07:43→20:26)
[2017-07-08] MEDS: INSULIN ASPART SUPPLEMENTAL SCALE SQ SCH ×4 (08:00→20:16)
[2017-07-08] MEDS: ASCORBIC ACID 500 MG TAB PO SCH ×2 (09:00→20:15)
[2017-07-08] MEDS: MULTIVITAMINS/MINERALS THERAPEUTIC TAB PO SCH (09:00)
[2017-07-08] MEDS: METOPROLOL TARTRATE 50 MG TAB PO SCH ×2 (09:00→20:15)
[2017-07-08] MEDS: risperiDONE 1 MG TAB PO SCH ×3 (09:00→17:29)
[2017-07-08] MEDS: methylPREDNISolone SOD SUCC 40 MG/1 ML VIAL IV PUSH SCH ×4 (09:00→20:11)
[2017-07-08] MEDS: LACTOBACILLUS ACIDOPHILUS TAB PO SCH ×2 (09:00→20:12)
[2017-07-08] MEDS: PRAVASTATIN SOD 40 MG TAB PO SCH (09:00)
[2017-07-08] MEDS: levETIRAcetam 500 MG TAB PO SCH ×2 (09:00→20:15)
[2017-07-08] MEDS: DOCUSATE SODIUM 50 MG/SENNA 8.6 MG TAB PO SCH ×2 (09:00→20:15)
[2017-07-08] MEDS: CHOLECALCIFEROL (VIT D3) 1000 UNIT TAB PO SCH (09:00)
[2017-07-08] MEDS: lamoTRIgine 100 MG TAB PO SCH (09:00)
[2017-07-08] MEDS: GABAPENTIN 400 MG CAP PO SCH ×2 (09:00→20:15)
[2017-07-08] MEDS: SODIUM CHLORIDE 0.9% FLUSH 10 ML FLUSH SCH ×2 (09:01→20:11)
[2017-07-08] MEDS: ISOSORBIDE DINITRATE 10 MG TAB PO SCH ×2 (09:32→17:29)
[2017-07-08] MEDS: SODIUM CHLOR 0.9% 1000 ML INJ 1,000 ML IV SCH (13:03)
--- NOTE | 2017-07-08 15:24 | HHI.PR ---
Subjective Remarks patient is wheelchair bound denies any pain bed bound baseline- sent here from a nearby facility- [place] no dentures but swallowing well- crushed Objective Vitals Vital Signs Date Time Temp Pulse Resp B/P (MAP) Pulse Ox O2 Delivery O2 Flow Rate FiO2 07/08/17 14:00 76 07/08/17 12:00 68 07/08/17 10:00 68 07/08/17 09:30 95 Room Air 07/08/17 08:00 79 07/08/17 08:00 98.4 79 20 147/70 (95) 98 07/08/17 07:43 100 Nasal Cannula 1.00 07/08/17 07:00 95 Nasal Cannula 1.00 07/08/17 06:00 67 07/08/17 04:00 63 07/08/17 04:00 98.9 63 34 114/67 (83) 97 07/08/17 02:00 71 07/08/17 00:00 68 07/08/17 00:00 98.5 68 27 139/68 (91) 98 07/07/17 22:00 81 07/07/17 20:14 99 Nasal Cannula 3.00 07/07/17 20:00 98.3 68 23 146/71 (96) 99 07/07/17 20:00 68 07/07/17 19:00 99 Nasal Cannula 0.50 07/07/17 18:00 79 07/07/17 16:00 74 07/07/17 16:00 98.1 74 24 153/74 (100) 96 I/O 07/07/17 07/07/17 07/07/17 07/08/17 07/08/17 07/08/17 07:00 15:00 23:00 07:00 15:00 23:00 Intake Total 250 ml 1654 ml 480 ml Output Total 1600 ml 1450 ml 1550 ml Balance -1350 ml 204 ml -1070 ml Intake Oral 250 ml 600 ml 480 ml IV Total 1054 ml Output Urine Total 1600 ml 1450 ml 1550 ml # Bowel Movements 0 Result Diagram: 07/08/1751107/08/17511 Imaging Last Impressions Chest CT 07/07/171999 Signed Impressions: Service Date/Time: June 20:48 - CONCLUSION: 1. Dense consolidation of both lower lobes and mild nonspecific infiltrate of both upper lobes. 2. Small right pleural effusion. Mychal Oneil MD Chest X-Ray 07/06/17 0000 Signed Impressions: Service Date/Time: Thursday, July 06, 2017 05:08 - CONCLUSION: 1. Right PICC line in superior vena cava. 2. Elevated right hemidiaphragm. Subsegmental atelectasis at the lung bases. Vidal Diaz MD Objective Remarks awake and alert, now on room air anicteric lungs- decreased breath sounds, no rales regular rhythm abdomen soft, nontender extremities -trace pretibial edema sacrum- with a ej base ulcer Urinary Catheter: Yes Assessment to: Continue Corrigan insert reason: Prolonged Immobilization Date of Insertion: Jul 05, 2017 A/P Assessment and Plan Respiratory failure - Hypercapnic -Refused BiPAP all night, will decrease O2 as long as her O2 sat is above 90% - Broad-spectrum antibiotics and IV steroids - DuoNeb scheduled and when necessary - Dr. Mac ff DIDI - BUN 33, creatinine 1.58, estimated GFR 32 - Continue gentle IV hydration - Avoid nephrotoxins - Monitor electrolytes and creatinine Sacral decubitus - stage IV - consult wound care, plastic surgery= pending Hypothyroidism - Levothyroxine Parkinson's disease- baseline bedbound - Carbidopa levodopa history Epilepsy - Lamictal - Depakote Hyperlipidemia - Gemfibrozil Bipolar disorder, Schizophrenia, paranoid - Risperidone - Ropinirole Hypertension - Metoprolol - Isosorbide DVT and GI prophylaxis - Heparin 5000 units subq q8h - Pepcid - Teds ARTUROs Baylee Mendez MD Jul 08, 2017 15:24
--- NOTE | 2017-07-08 18:44 | HHI.PR ---
Subjective Remarks Awake and seems Comfortable on 2 L O2. Refused Bipap. No cough and less wheezing. Objective Vital Signs Date Time Temp Pulse Resp B/P (MAP) Pulse Ox O2 Delivery O2 Flow Rate FiO2 07/08/17 14:00 76 07/08/17 12:00 68 07/08/17 12:00 98.9 76 22 126/75 (92) 90 07/08/17 10:00 68 07/08/17 09:30 95 Room Air 07/08/17 08:00 79 07/08/17 08:00 98.4 79 20 147/70 (95) 98 07/08/17 07:43 100 Nasal Cannula 1.00 07/08/17 07:00 95 Nasal Cannula 1.00 07/08/17 06:00 67 07/08/17 04:00 63 07/08/17 04:00 98.9 63 34 114/67 (83) 97 07/08/17 02:00 71 07/08/17 00:00 68 07/08/17 00:00 98.5 68 27 139/68 (91) 98 07/07/17 22:00 81 07/07/17 20:14 99 Nasal Cannula 3.00 07/07/17 20:00 98.3 68 23 146/71 (96) 99 07/07/17 20:00 68 07/07/17 19:00 99 Nasal Cannula 0.50 I/O 07/07/17 07/07/17 07/07/17 07/08/17 07/08/17 07/08/17 07:00 15:00 23:00 07:00 15:00 23:00 Intake Total 250 ml 1654 ml 480 ml Output Total 1600 ml 1450 ml 1550 ml Balance -1350 ml 204 ml -1070 ml Intake Oral 250 ml 600 ml 480 ml IV Total 1054 ml Output Urine Total 1600 ml 1450 ml 1550 ml # Bowel Movements 0 Result Diagram: 07/08/17 0512 07/08/17 0512 Objective Remarks GENERAL: This moderately obese elderly lady who is pale and no acute distress. HEENT: Head normocephalic. Pupils are reactive. Throat is clear. Nasal mucosa clear. NECK: Supple without venous distension. No thyromegaly or lymphadenopathy. CHEST: Decreased breath sounds at the bases with occasional bibasilar crackles. HEART: The heart sounds are irregular S1-S2 with no murmur. No S3. ABDOMEN: Soft, protuberant without masses. There is mild epigastric tenderness. No organomegaly. EXTREMITIES: Minimal edema with diminished peripheral pulses. Reflexes are 11+ with no gross motor deficits. RECTAL: Exam is deferred. SKIN: Skin was dry and warm. Assessment and Plan Assessment and Plan IMPRESSION 1. Hypercapnic respiratory failure. 2. Probable obstructive sleep apnea syndrome. 3. Chronic kidney disease. 4. Diabetes mellitus type 2. 5. Hypothyroidism. 6. Basilar atelectasis with possible pneumonia. 7. Parkinson's disease. 8. Bipolar disorder and schizophrenia. 9. Hypertension. Plan : 1. Wean o2 to 1 L. 2. Nebs qid , duoneb. 3. Continue solumedrol 40 mg IV BID. 4. Will arrange sleep study as OP. 5. Continue antibiotics 6. PFT when stable. Rocio Rivera MD Jul 08, 2017 18:44
[2017-07-08] MEDS: AZITHROMYCIN INJ 500 MG in SODIUM CHLOR 0.9% 250 ML INJ 250 ML IV SCH (20:11)
[2017-07-08] MEDS: DIVALPROEX SODIUM E.R. 250 MG TAB PO SCH (20:13)
[2017-07-08] MEDS: lamoTRIgine 25 MG TAB PO SCH (20:15)
[2017-07-08] MEDS ORDERED: PHARMACY ORDERED LAB ONE (21:45)
[2017-07-08] MEDS: VANCOMYCIN INJ 2,000 MG in SODIUM CHLORID 0.9% 500 ML INJ 500 ML IV SCH (22:51)
[2017-07-09] VITALS (23 sets, daily range): BP systolic 133–175; BP diastolic 70–110; PULSE 68–86; RESP 16–46; TEMP 97.9–98.9; O2SAT 90–99
[2017-07-09] MEDS: RESP: ALBUTEROL 2.5 MG/IPRATROPIUM 0.5 MG NEB (SCH) INH ×2 (04:00→11:58)
[2017-07-09] MEDS: CHLORHEXIDINE GLUCONATE 2 % 1 PACK (2 CLOTHS) TOP SCH ×2 (04:00→20:25)
[2017-07-09 06:08] LABS: BASOPHIL % 0.2 % (0.0-2.0); LYMPH % 17.9 % (9.0-44.0); LYMPHOCYTE # 1.4 TH/MM3 (1.0-4.8); MEAN CELL VOLUME 86.5 FL (80.0-100.0); MEAN CORPUSCULAR HEMOGLOBIN 27.7 PG (27.0-34.0); MONO % 4.1 % (0.0-8.0); NEUT % 77.8 % (16.0-70.0); PLATELET COUNT 234 TH/MM3 (150-450); RED BLOOD COUNT 3.36 MIL/MM3 (4.00-5.30); RED CELL DISTRIBUTION WIDTH 16.2 % (11.6-17.2); WHITE BLOOD COUNT 7.8 TH/MM3 (4.0-11.0)
[2017-07-09] MEDS: HEPARIN SODIUM - SQ 10,000 UNITS/ML VIAL SQ SCH ×3 (06:11→21:09)
[2017-07-09] MEDS: GEMFIBROZIL 600 MG TAB PO SCH ×2 (06:11→16:23)
[2017-07-09] MEDS: CARBIDOPA/LEVODOPA 10 MG/100 MG TAB PO SCH ×3 (06:11→21:10)
[2017-07-09] MEDS: LEVOTHYROXINE SODIUM 125 MCG TAB PO SCH (06:12)
[2017-07-09 06:23] LABS: HEMO FLAGS AUTO DIFF
[2017-07-09 06:32] LABS: ANION GAP 6 MEQ/L (5-15); AST (GOT) 13 U/L (15-37); BICARBONATE 25.7 MEQ/L (21.0-32.0); BLOOD UREA NITROGEN 24 MG/DL (7-18); CHLORIDE 110 MEQ/L (98-107); GLOMERULAR FILTRATION RATE 47 ML/MIN (>89); POTASSIUM 4.6 MEQ/L (3.5-5.1); SODIUM (NA) 142 MEQ/L (136-145)
[2017-07-09 06:37] LABS: ALKALINE PHOSPHATASE 56 U/L (45-117); ALT (GPT) 17 U/L (10-53); TOTAL BILIRUBIN ADULT 0.2 MG/DL (0.2-1.0)
[2017-07-09] MEDS: SODIUM CHLOR 0.9% 1000 ML INJ 1,000 ML IV SCH ×3 (06:52→19:20)
[2017-07-09] MEDS: INSULIN ASPART SUPPLEMENTAL SCALE SQ SCH ×4 (08:00→21:00)
[2017-07-09 08:07] LABS: BANDS 9 % (0-6); CORRECTED NUCLEATED RBC 1 /100 WBC (0-0); MYELOCYTES 4 % (0-0); PLATELET ESTIMATE SMEAR NORMAL (NORMAL); PLATELET MORPHOLOGY NORMAL (NORMAL); POLYS (SEG NEUTROPHILS) 64 % (16-70); SCAN/DIFF FINAL DIFF MANUAL; WBC DIFF SAMPLE 100
[2017-07-09] MEDS: RESP: ALBUTEROL 2.5 MG/IPRATROPIUM 0.5 MG NEB (SCH) NEB ×3 (08:33→23:11)
[2017-07-09] MEDS: LACTOBACILLUS ACIDOPHILUS TAB PO SCH ×2 (09:00→20:18)
[2017-07-09] MEDS: SODIUM CHLORIDE 0.9% FLUSH 10 ML FLUSH SCH ×2 (09:00→20:16)
[2017-07-09] MEDS: MULTIVITAMINS/MINERALS THERAPEUTIC TAB PO SCH (09:55)
[2017-07-09] MEDS: CHOLECALCIFEROL (VIT D3) 1000 UNIT TAB PO SCH (09:55)
[2017-07-09] MEDS: PRAVASTATIN SOD 40 MG TAB PO SCH (09:55)
[2017-07-09] MEDS: levETIRAcetam 500 MG TAB PO SCH ×2 (09:55→20:18)
[2017-07-09] MEDS: risperiDONE 1 MG TAB PO SCH ×3 (09:55→17:46)
[2017-07-09] MEDS: GABAPENTIN 400 MG CAP PO SCH ×2 (09:55→20:18)
[2017-07-09] MEDS: DOCUSATE SODIUM 50 MG/SENNA 8.6 MG TAB PO SCH ×2 (09:56→20:18)
[2017-07-09] MEDS: METOPROLOL TARTRATE 50 MG TAB PO SCH ×2 (09:56→20:17)
[2017-07-09] MEDS: methylPREDNISolone SOD SUCC 40 MG/1 ML VIAL IV PUSH SCH ×3 (09:56→20:18)
[2017-07-09] MEDS: lamoTRIgine 100 MG TAB PO SCH (09:57)
[2017-07-09] MEDS: ASCORBIC ACID 500 MG TAB PO SCH ×2 (09:57→20:18)
[2017-07-09] MEDS: ISOSORBIDE DINITRATE 10 MG TAB PO SCH ×3 (10:23→17:47)
--- NOTE | 2017-07-09 12:30 | HHI.PR ---
Subjective Remarks no complains swallowing well Objective Vitals Vital Signs Date Time Temp Pulse Resp B/P (MAP) Pulse Ox O2 Delivery O2 Flow Rate FiO2 07/09/17 12:21 73 23 152/84 (106) 97 07/09/17 12:00 68 24 99 07/09/17 11:00 69 24 99 07/09/17 10:00 80 23 96 07/09/17 09:00 73 16 97 07/09/17 08:34 98 Nasal Cannula 2.00 07/09/17 08:11 81 24 173/99 (123) 97 07/09/17 08:02 80 22 154/93 (113) 99 07/09/17 08:00 68 07/09/17 08:00 98.2 07/09/17 08:00 77 19 173/110 (131) 98 07/09/17 07:00 99 Room Air 1.00 07/09/17 06:00 69 07/09/17 06:00 98.4 69 18 133/72 (92) 96 07/09/17 05:00 80 27 173/91 (118) 95 07/09/17 04:00 86 20 161/82 (108) 96 07/09/17 04:00 86 07/09/17 02:00 85 07/09/17 01:00 73 26 163/80 (107) 90 07/09/17 00:00 82 07/09/17 00:00 98.8 82 35 175/86 (115) 91 07/08/17 23:00 76 26 184/90 (121) 92 07/08/17 22:00 77 07/08/17 22:00 77 29 191/99 (129) 95 07/08/17 21:00 90 25 154/76 (102) 96 07/08/17 20:26 95 21 07/08/17 20:00 76 07/08/17 20:00 99.8 76 27 167/82 (110) 95 07/08/17 19:00 96 Room Air 07/08/17 18:00 82 07/08/17 16:00 88 07/08/17 16:00 98.8 88 31 166/73 (104) 93 07/08/17 14:00 76 I/O 07/08/17 07/08/17 07/08/17 07/09/17 07/09/17 07/09/17 07:00 15:00 23:00 07:00 15:00 23:00 Intake Total 480 ml 1210 ml 2150 ml 1520 ml Output Total 1550 ml 1575 ml 1650 ml Balance -1070 ml -365 ml 500 ml 1520 ml Intake Oral 480 ml 960 ml 480 ml IV Total 250 ml 1670 ml 1520 ml Output Urine Total 1550 ml 1575 ml 1650 ml # Bowel Movements 0 0 Result Diagram: 07/09/1752107/09/17521 Imaging Last Impressions Chest CT 07/07/171999 Signed Impressions: Service Date/Time: June 20:48 - CONCLUSION: 1. Dense consolidation of both lower lobes and mild nonspecific infiltrate of both upper lobes. 2. Small right pleural effusion. Mychal Oneil MD Chest X-Ray 07/06/17 0000 Signed Impressions: Service Date/Time: Thursday, July 06, 2017 05:08 - CONCLUSION: 1. Right PICC line in superior vena cava. 2. Elevated right hemidiaphragm. Subsegmental atelectasis at the lung bases. Vidal Diaz MD Objective Remarks awake and alert, now on room air anicteric lungs- decreased breath sounds, no rales regular rhythm abdomen soft, nontender extremities -no edema sacrum- with a clean base ulcer Urinary Catheter: Yes Assessment to: Continue Corrigan insert reason: Prolonged Immobilization Date of Insertion: Jul 05, 2017 A/P Assessment and Plan Respiratory failure - Hypercapnic -Refused BiPAP all night, will decrease O2 as long as her O2 sat is above 90% - Broad-spectrum antibiotics and IV steroids- now on q 12 - DuoNeb scheduled and when necessary - Dr. Mac ff DIDI - BUN 33, creatinine 1.58, estimated GFR 32 - Continue gentle IV hydration - Avoid nephrotoxins - Monitor electrolytes and creatinine Sacral decubitus - stage IV - consult wound care, plastic surgery= pending Hypothyroidism - Levothyroxine Parkinson's disease- baseline bedbound - Carbidopa levodopa history Epilepsy - Lamictal - Depakote Hyperlipidemia - Gemfibrozil Bipolar disorder, Schizophrenia, paranoid - Risperidone - Ropinirole Hypertension - Metoprolol - Isosorbide DVT and GI prophylaxis - Heparin 5000 units subq q8h - Pepcid - Teds SCDs DC planning [facility] Baylee Mendez MD Jul 09, 2017 12:30
--- NOTE | 2017-07-09 14:18 | HHI.PR ---
Subjective Remarks Awake and feels better. on 2 L O2. Refused Bipap. No cough or wheezing. Good output Objective Vital Signs Date Time Temp Pulse Resp B/P (MAP) Pulse Ox O2 Delivery O2 Flow Rate FiO2 07/09/17 12:21 73 23 152/84 (106) 97 07/09/17 12:21 73 07/09/17 12:00 68 07/09/17 12:00 68 24 99 07/09/17 11:00 69 07/09/17 11:00 69 24 99 07/09/17 10:00 80 07/09/17 10:00 80 23 96 07/09/17 09:00 73 16 97 07/09/17 08:34 98 Nasal Cannula 2.00 07/09/17 08:11 81 24 173/99 (123) 97 07/09/17 08:02 80 22 154/93 (113) 99 07/09/17 08:00 68 07/09/17 08:00 98.2 07/09/17 08:00 77 19 173/110 (131) 98 07/09/17 07:00 99 Room Air 1.00 07/09/17 06:00 69 07/09/17 06:00 98.4 69 18 133/72 (92) 96 07/09/17 05:00 80 27 173/91 (118) 95 07/09/17 04:00 86 20 161/82 (108) 96 07/09/17 04:00 86 07/09/17 02:00 85 07/09/17 01:00 73 26 163/80 (107) 90 07/09/17 00:00 82 07/09/17 00:00 98.8 82 35 175/86 (115) 91 07/08/17 23:00 76 26 184/90 (121) 92 07/08/17 22:00 77 07/08/17 22:00 77 29 191/99 (129) 95 07/08/17 21:00 90 25 154/76 (102) 96 07/08/17 20:26 95 21 07/08/17 20:00 76 07/08/17 20:00 99.8 76 27 167/82 (110) 95 07/08/17 19:00 96 Room Air 07/08/17 18:00 82 07/08/17 16:00 88 07/08/17 16:00 98.8 88 31 166/73 (104) 93 I/O 07/08/17 07/08/17 07/08/17 07/09/17 07/09/17 07/09/17 07:00 15:00 23:00 07:00 15:00 23:00 Intake Total 480 ml 1210 ml 2150 ml 1520 ml Output Total 1550 ml 1575 ml 1650 ml Balance -1070 ml -365 ml 500 ml 1520 ml Intake Oral 480 ml 960 ml 480 ml IV Total 250 ml 1670 ml 1520 ml Output Urine Total 1550 ml 1575 ml 1650 ml # Bowel Movements 0 0 Result Diagram: 07/09/1752107/09/17521 Objective Remarks GENERAL: This moderately obese elderly lady who is pale and no acute distress. HEENT: Head normocephalic. Pupils are reactive. Throat is clear. Nasal mucosa clear. NECK: Supple without venous distension. No thyromegaly or lymphadenopathy. CHEST: Decreased breath sounds at the bases with occasional bibasilar crackles. HEART: The heart sounds are irregular S1-S2 with no murmur. No S3. ABDOMEN: Soft, protuberant without masses. There is mild epigastric tenderness. No organomegaly. EXTREMITIES: Minimal edema with diminished peripheral pulses. Reflexes are 11+ with no gross motor deficits. SKIN: Skin was dry and warm. Assessment and Plan Assessment and Plan IMPRESSION 1. Hypercapnic respiratory failure. 2. Probable obstructive sleep apnea syndrome. 3. Chronic kidney disease. 4. Diabetes mellitus type 2. 5. Hypothyroidism. 6. Basilar atelectasis with possible pneumonia. 7. Parkinson's disease. 8. Bipolar disorder and schizophrenia. 9. Hypertension. Plan : 1. Wean o2 to RA , Keep sat >92 2. Nebs qid , duoneb. 3. D/C solumedrol and add Prednisone 10 mg bid 4. Will arrange sleep study as OP. 5. Continue antibiotics 6. PFT when stable. Rocio Rivera MD Jul 09, 2017 14:18
[2017-07-09] MEDS: DIVALPROEX SODIUM E.R. 250 MG TAB PO SCH (20:18)
[2017-07-09] MEDS: predniSONE 10 MG TAB PO SCH (20:18)
[2017-07-09] MEDS: lamoTRIgine 25 MG TAB PO SCH (20:18)
[2017-07-09] MEDS ORDERED: LEVOFLOXACIN 750 MG PREMIX INJ 150 ML IV SCH (21:00)
[2017-07-10] VITALS (18 sets, daily range): BP systolic 128–180; BP diastolic 66–84; PULSE 66–96; RESP 12–32; TEMP 98–99.1; O2SAT 89–100
[2017-07-10] MEDS: CARBIDOPA/LEVODOPA 10 MG/100 MG TAB PO SCH ×3 (04:56→19:38)
[2017-07-10] MEDS: HEPARIN SODIUM - SQ 10,000 UNITS/ML VIAL SQ SCH ×3 (04:56→19:38)
[2017-07-10] MEDS: LEVOTHYROXINE SODIUM 125 MCG TAB PO SCH (04:56)
[2017-07-10] MEDS: GEMFIBROZIL 600 MG TAB PO SCH ×2 (04:56→16:00)
[2017-07-10] MEDS: SODIUM CHLOR 0.9% 1000 ML INJ 1,000 ML IV SCH ×2 (06:52→19:40)
[2017-07-10] MEDS: INSULIN ASPART SUPPLEMENTAL SCALE SQ SCH ×4 (08:00→21:00)
[2017-07-10] MEDS: RESP: ALBUTEROL 2.5 MG/IPRATROPIUM 0.5 MG NEB (SCH) NEB ×3 (08:08→19:20)
[2017-07-10] MEDS: SODIUM CHLORIDE 0.9% FLUSH 10 ML FLUSH SCH ×2 (09:00→19:37)
[2017-07-10] MEDS: risperiDONE 1 MG TAB PO SCH ×3 (09:12→17:44)
[2017-07-10] MEDS: AZITHROMYCIN 250 MG TAB PO SCH (09:12)
[2017-07-10] MEDS: methylPREDNISolone SOD SUCC 40 MG/1 ML VIAL IV PUSH SCH (09:12)
[2017-07-10] MEDS: LACTOBACILLUS ACIDOPHILUS TAB PO SCH ×2 (09:12→19:38)
[2017-07-10] MEDS: ISOSORBIDE DINITRATE 10 MG TAB PO SCH ×2 (09:13→17:44)
[2017-07-10] MEDS: ASCORBIC ACID 500 MG TAB PO SCH ×2 (09:13→19:37)
[2017-07-10] MEDS: DOCUSATE SODIUM 50 MG/SENNA 8.6 MG TAB PO SCH ×2 (09:13→19:40)
[2017-07-10] MEDS: lamoTRIgine 100 MG TAB PO SCH (09:13)
[2017-07-10] MEDS: MULTIVITAMINS/MINERALS THERAPEUTIC TAB PO SCH (09:13)
[2017-07-10] MEDS: levETIRAcetam 500 MG TAB PO SCH ×2 (09:13→19:40)
[2017-07-10] MEDS: CHOLECALCIFEROL (VIT D3) 1000 UNIT TAB PO SCH (09:14)
[2017-07-10] MEDS: GABAPENTIN 400 MG CAP PO SCH ×2 (09:14→19:37)
[2017-07-10] MEDS: predniSONE 10 MG TAB PO SCH ×2 (09:14→19:38)
[2017-07-10] MEDS: METOPROLOL TARTRATE 50 MG TAB PO SCH ×2 (09:14→19:38)
[2017-07-10] MEDS: PRAVASTATIN SOD 40 MG TAB PO SCH (09:14)
--- NOTE | 2017-07-10 14:21 | HHI.PR ---
Subjective Remarks patietn awake and alert, tolerating po, good sats at 2 LNC ate po 100% ff all commands- states she came from [place] Objective Vitals Vital Signs Date Time Temp Pulse Resp B/P (MAP) Pulse Ox O2 Delivery O2 Flow Rate FiO2 07/10/17 13:00 67 17 156/73 (100) 94 07/10/17 13:00 67 07/10/17 12:00 72 07/10/17 12:00 98.3 07/10/17 12:00 72 21 152/74 (100) 94 07/10/17 11:00 70 07/10/17 11:00 70 12 128/66 (86) 96 07/10/17 10:00 69 19 151/75 (100) 100 07/10/17 10:00 69 07/10/17 09:00 73 17 145/70 (95) 97 07/10/17 08:09 99 Nasal Cannula 2.00 07/10/17 08:00 88 32 180/84 (116) 100 07/10/17 08:00 66 07/10/17 08:00 98.6 07/10/17 07:00 Room Air 07/10/17 06:00 69 07/10/17 04:00 75 07/10/17 04:00 98.0 75 30 160/80 (106) 98 07/10/17 02:00 80 07/10/17 00:00 92 07/10/17 00:00 98.3 92 25 155/75 (101) 99 07/09/17 23:11 97 Nasal Cannula 2.00 07/09/17 22:00 84 07/09/17 20:00 82 07/09/17 20:00 97.9 82 26 137/70 (92) 98 07/09/17 19:00 98 Room Air 1.00 07/09/17 18:00 83 07/09/17 17:00 77 07/09/17 17:00 77 26 94 07/09/17 16:27 85 07/09/17 16:27 85 31 159/80 (106) 96 07/09/17 16:00 79 46 95 07/09/17 16:00 98.9 07/09/17 16:00 79 I/O 07/09/17 07/09/17 07/09/17 07/10/17 07/10/17 10/1/17 07:00 15:00 23:00 07:00 15:00 23:00 Intake Total 2150 ml 1520 ml 1680 ml 240 ml Output Total 1650 ml 1700 ml 1400 ml Balance 500 ml 1520 ml -20 ml -1160 ml Intake Oral 480 ml 1680 ml 240 ml IV Total 1670 ml 1520 ml Output Urine Total 1650 ml 1700 ml 1400 ml # Bowel Movements 0 Result Diagram: 07/09/1752107/09/17521 Imaging Last Impressions Chest CT 07/07/171999 Signed Impressions: Service Date/Time: June 20:48 - CONCLUSION: 1. Dense consolidation of both lower lobes and mild nonspecific infiltrate of both upper lobes. 2. Small right pleural effusion. Mychal Oneil MD Chest X-Ray 07/06/17 0000 Signed Impressions: Service Date/Time: Thursday, July 06, 2017 05:08 - CONCLUSION: 1. Right PICC line in superior vena cava. 2. Elevated right hemidiaphragm. Subsegmental atelectasis at the lung bases. Vidal Diaz MD Objective Remarks awake and alert, now on room air. ff all commands, speech clear anicteric lungs- decreased breath sounds, no rales regular rhythm abdomen soft, nontender extremities -no edema, moves all extremiteis eq ually moves all extremities spontaneously sacrum- with a clean base ulcer Urinary Catheter: Yes Corrigan insert reason: Prolonged Immobilization Date of Insertion: Jul 05, 2017 A/P Assessment and Plan Respiratory failure - Hypercapnic -Refused BiPAP all night, will decrease O2 as long as her O2 sat is above 90% - changed to po prednisone bid 07/09 - DuoNeb scheduled and when necessary - Dr. Mac ff DIDI - BUN 33, creatinine 1.58, estimated GFR 32. good urine output -repeat BMP now - gentle IVF- decrease rate - Monitor electrolytes and creatinine Sacral decubitus - stage IV -wound care, plastic surgery- ff Hypothyroidism - Levothyroxine Parkinson's disease- bedbound - Carbidopa levodopa history Epilepsy - Lamictal - Depakote Hyperlipidemia - Gemfibrozil Bipolar disorder, Schizophrenia, paranoid- cooperative today - Risperidone - Ropinirole Hypertension - Metoprolol - Isosorbide DVT and GI prophylaxis - Heparin 5000 units subq q8h - Pepcid - Teds SCDs DC planning- CM consult Transfer to the [facility] awaiting bed Baylee Mendez MD Jul 10, 2017 14:21
--- NOTE | 2017-07-10 15:18 | OTSOAPIP ---
TIME SESSION COMPLETED: AM TREATMENT TIME: 0 MINS. CHART REVIEWED. PATIENT WAS NOT AVAILABLE SECONDARY TO RECEIVING HYGIENE CARE. PLAN: WILL SEE WHEN ABLE OR NEXT TREATMENT DAY Therapist: KEKE CHOU/Jose Signature on file
[2017-07-10 16:31] LABS: BICARBONATE 27.1 MEQ/L (21.0-32.0); POTASSIUM 4.4 MEQ/L (3.5-5.1)
--- NOTE | 2017-07-10 17:22 | HHI.PR ---
Subjective Remarks Awake and much better. on 1 L O2. . No cough or wheezing. Good output Mostly in bed. CT shows basal infiltrates Objective Vital Signs Date Time Temp Pulse Resp B/P (MAP) Pulse Ox O2 Delivery O2 Flow Rate FiO2 07/10/17 17:00 85 07/10/17 16:00 89 07/10/17 14:00 86 07/10/17 13:00 67 17 156/73 (100) 94 07/10/17 13:00 67 07/10/17 12:00 72 07/10/17 12:00 98.3 07/10/17 12:00 72 21 152/74 (100) 94 07/10/17 11:00 70 07/10/17 11:00 70 12 128/66 (86) 96 07/10/17 10:00 69 19 151/75 (100) 100 07/10/17 10:00 69 07/10/17 09:00 73 17 145/70 (95) 97 07/10/17 08:09 99 Nasal Cannula 2.00 07/10/17 08:00 88 32 180/84 (116) 100 07/10/17 08:00 66 07/10/17 08:00 98.6 07/10/17 07:00 Room Air 07/10/17 06:00 69 07/10/17 04:00 75 07/10/17 04:00 98.0 75 30 160/80 (106) 98 07/10/17 02:00 80 07/10/17 00:00 92 07/10/17 00:00 98.3 92 25 155/75 (101) 99 07/09/17 23:11 97 Nasal Cannula 2.00 07/09/17 22:00 84 07/09/17 20:00 82 07/09/17 20:00 97.9 82 26 137/70 (92) 98 07/09/17 19:00 98 Room Air 1.00 07/09/17 18:00 83 I/O 07/09/17 07/09/17 07/09/17 07/10/17 07/10/17 07/10/17 07:00 15:00 23:00 07:00 15:00 23:00 Intake Total 2150 ml 1520 ml 1680 ml 240 ml Output Total 1650 ml 1700 ml 1400 ml Balance 500 ml 1520 ml -20 ml -1160 ml Intake Oral 480 ml 1680 ml 240 ml IV Total 1670 ml 1520 ml Output Urine Total 1650 ml 1700 ml 1400 ml # Bowel Movements 0 Result Diagram: 07/09/17 0522 07/10/17 1554 Objective Remarks GENERAL: This moderately obese elderly lady who is pale and no distress. HEENT: Head normocephalic. Pupils are reactive. Throat is clear. Nasal mucosa clear. NECK: Supple without venous distension. No thyromegaly or lymphadenopathy. CHEST: Decreased breath sounds at the bases with occasional bibasilar crackles. HEART: The heart sounds are irregular S1-S2 with no murmur. No S3. ABDOMEN: Soft, protuberant without masses. There is no tenderness. No organomegaly. EXTREMITIES: Minimal edema with diminished peripheral pulses. Reflexes are 11+ with no gross motor deficits. SKIN: Skin was dry and warm. Assessment and Plan Assessment and Plan IMPRESSION 1. Hypercapnic respiratory failure. 2. Probable obstructive sleep apnea syndrome. 3. Chronic kidney disease. 4. Diabetes mellitus type 2. 5. Hypothyroidism. 6. Basilar atelectasis with possible pneumonia. 7. Parkinson's disease. 8. Bipolar disorder and schizophrenia. 9. Hypertension. Plan : 1. Wean o2 to RA , Keep sat >92 2. Nebs qid , duoneb. 3. Cont Prednisone 10 mg bid 4. Will arrange sleep study as OP. 5. Continue antibiotics and switch to PO in am 6. Transfer to tele 7. Chest Xray in am Rocio Rivera MD Jul 10, 2017 17:22
[2017-07-10] MEDS: DIVALPROEX SODIUM E.R. 250 MG TAB PO SCH (19:37)
[2017-07-10] MEDS: lamoTRIgine 25 MG TAB PO SCH (19:37)
[2017-07-10] MEDS: CHLORHEXIDINE GLUCONATE 2 % 1 PACK (2 CLOTHS) TOP SCH (19:40)
[2017-07-11] VITALS (13 sets, daily range): BP systolic 121–175; BP diastolic 68–85; PULSE 62–89; RESP 16–20; TEMP 97.7–99.1; O2SAT 94–100
[2017-07-11] MEDS: HEPARIN SODIUM - SQ 10,000 UNITS/ML VIAL SQ SCH ×3 (05:53→22:54)
[2017-07-11] MEDS: CARBIDOPA/LEVODOPA 10 MG/100 MG TAB PO SCH ×3 (05:53→23:09)
[2017-07-11] MEDS: LEVOTHYROXINE SODIUM 125 MCG TAB PO SCH (05:53)
[2017-07-11] MEDS: GEMFIBROZIL 600 MG TAB PO SCH ×2 (05:54→18:39)
[2017-07-11] MEDS: RESP: ALBUTEROL 2.5 MG/IPRATROPIUM 0.5 MG NEB (SCH) NEB ×3 (07:57→20:00)
[2017-07-11] MEDS: INSULIN ASPART SUPPLEMENTAL SCALE SQ SCH ×4 (08:00→21:00)
--- NOTE | 2017-07-11 08:18 | HHI.PR ---
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 History is obtained from the chart and ED records. The patient was seen by her primary physician who noticed lethargy and respiratory distress. Her O2 saturations where in low in 80s on 2L nasal cannula, became even lower on room air, and improved on nonrebreather to high 90s. In the emergency department she was placed on face-mask BiPAP with further improvement of oxygenation. 07/06: Drowsy, easily arousable. On nasal cannula 2 L/m with O2 sat 96%. Has been refusing BiPAP all night. 07/07: Drowsy, easily arousable. Follows commands. On nasal cannula 2 L/m. Has been refusing BiPAP overnight. PCO2 improved to the 50s. Hospitalist Notes: 07/11: Seen in her bedroom and discussed with nurse Mr. Rodriguez no new complaint, has sacral ulcer continue antibiotics, recommended to transfer to the floor and continue Telemetry, marketing communications specialist following. on new Chest X ray no major change continue with consolidation specially on the Right lower lobe. no nausea, vomit or diarrhea. Objective Vital Signs Date Time Temp Pulse Resp B/P (MAP) Pulse Ox O2 Delivery O2 Flow Rate FiO2 07/11/17 07:57 100 Nasal Cannula 2.00 07/11/17 06:00 62 07/11/17 04:00 98.3 74 18 160/82 (108) 97 07/11/17 04:00 74 07/11/17 02:00 66 07/11/17 00:00 98.0 77 20 160/85 (110) 96 07/11/17 00:00 77 07/10/17 22:00 82 07/10/17 20:00 96 07/10/17 20:00 98.0 96 23 160/80 (106) 07/10/17 19:22 94 Nasal Cannula 1.00 07/10/17 19:00 95 Room Air 1.00 07/10/17 18:00 87 07/10/17 17:00 85 22 168/78 (108) 91 07/10/17 17:00 85 07/10/17 16:00 89 07/10/17 16:00 89 26 152/74 (100) 89 07/10/17 16:00 99.1 07/10/17 14:00 86 07/10/17 13:00 67 17 156/73 (100) 94 07/10/17 13:00 67 07/10/17 12:00 72 07/10/17 12:00 98.3 07/10/17 12:00 72 21 152/74 (100) 94 07/10/17 11:00 70 07/10/17 11:00 70 12 128/66 (86) 96 07/10/17 10:00 69 19 151/75 (100) 100 07/10/17 10:00 69 07/10/17 09:00 73 17 145/70 (95) 97 I/O 07/10/17 07/10/17 07/10/17 07/11/17 07/11/17 07/11/17 07:00 15:00 23:00 07:00 15:00 23:00 Intake Total 240 ml 1440 ml 800 ml Output Total 1400 ml 2400 ml 1900 ml Balance -1160 ml -960 ml -1100 ml Intake Oral 240 ml 1440 ml 800 ml Output Urine Total 1400 ml 2400 ml 1900 ml # Bowel Movements 0 0 Result Diagram: 07/09/17 0522 07/11/17 0633 Imaging Last Impressions Chest CT 07/07/171999 Signed Impressions: Service Date/Time: June 20:48 - CONCLUSION: 1. Dense consolidation of both lower lobes and mild nonspecific infiltrate of both upper lobes. 2. Small right pleural effusion. Mychal Oneli MD Chest X-Ray 07/06/17 0000 Signed Impressions: Service Date/Time: Thursday, July 06, 2017 05:08 - CONCLUSION: 1. Right PICC line in superior vena cava. 2. Elevated right hemidiaphragm. Subsegmental atelectasis at the lung bases. Vidal Diaz MD Procedures Endotracheal Intubation and Extubation. Other Results Laboratory Tests Test 07/05/17 15:50 07/05/17 22:25 07/05/17 22:45 07/06/17 01:25 Prothrombin Time 10.7 SEC Prothromb Time International Ratio 1.0 RATIO Activated Partial Thromboplast Time 26.6 SEC Total Creatine Kinase 160 U/L Creatine Kinase MB 5.6 NG/ML B-Type Natriuretic Peptide 34 PG/ML Nasal Screen MRSA (PCR) MRSA NOT DETECTED Urine Color YELLOW Urine Turbidity CLEAR Urine pH 6.0 Urine Specific [place] 1.014 Urine Protein 30 mg/dL Urine Glucose (UA) NEG mg/dL Urine Ketones NEG mg/dL Urine Occult Blood NEG Urine Nitrite NEG Urine Bilirubin NEG Urine Urobilinogen LESS THAN 2.0 MG/DL Urine Leukocyte Esterase NEG Urine RBC 2 /hpf Urine WBC 3 /hpf Microscopic Urinalysis Comment CULT NOT INDICATED Lactic Acid Level 2.1 mmol/L Blood Urea Nitrogen 33 MG/DL Creatinine 1.15 MG/DL Random Glucose 74 MG/DL Total Protein 6.4 GM/DL Albumin 2.3 GM/DL Calcium Level 9.5 MG/DL Phosphorus Level 2.2 MG/DL Magnesium Level 1.9 MG/DL Alkaline Phosphatase 56 U/L Aspartate Amino Transf (AST/SGOT) 41 U/L Alanine Aminotransferase (ALT/SGPT) 9 U/L Total Bilirubin 0.2 MG/DL Sodium Level 139 MEQ/L Potassium Level 4.3 MEQ/L Chloride Level 103 MEQ/L Carbon Dioxide Level 29.6 MEQ/L Troponin I LESS THAN 0.02 NG/ML Test 07/06/17 05:30 07/07/17 07:56 07/08/17 22:00 07/09/17 05:22 Blood Gas Ventilator Setting [id number] Blood Gas Inspired Oxygen 30 % Blood Gas Puncture Site LT RADIAL Blood Gas Patient Temperature 98.6 Blood Gas HCO3 27 mmol/L Blood Gas Base Excess 1.0 mmol/L Blood Gas Oxygen Saturation 94 % Arterial Blood pH 7.32 Arterial Blood Partial Pressure CO2 54 mmHg Arterial Blood Partial Pressure O2 87 mmHg Arterial Blood Oxygen Content 12.5 Vol % Arterial Blood Carboxyhemoglobin 1.8 % Arterial Blood Methemoglobin 1.1 % Blood Gas Hemoglobin 9.4 G/DL Oxygen Delivery Device NASAL CANNULA Blood Gas Liter Flow 1.5 L/M Vancomycin Level Trough 34.3 MCG/ML White Blood Count 7.8 TH/MM3 Red Blood Count 3.36 MIL/MM3 Hemoglobin 9.3 GM/DL Hematocrit 29.0 % Mean Corpuscular Volume 86.5 FL Mean Corpuscular Hemoglobin 27.7 PG Mean Corpuscular Hemoglobin Concent 32.0 % Red Cell Distribution Width 16.2 % Platelet Count 234 TH/MM3 Mean Platelet Volume 8.4 FL Neutrophils (%) (Auto) 77.8 % Lymphocytes (%) (Auto) 17.9 % Monocytes (%) (Auto) 4.1 % Eosinophils (%) (Auto) 0.0 % Basophils (%) (Auto) 0.2 % Neutrophils # (Auto) 6.0 TH/MM3 Lymphocytes # (Auto) 1.4 TH/MM3 Monocytes # (Auto) 0.3 TH/MM3 Eosinophils # (Auto) 0.0 TH/MM3 Basophils # (Auto) 0.0 TH/MM3 CBC Comment AUTO DIFF Differential Total Cells Counted 100 Neutrophils % (Manual) 64 % Band Neutrophils % 9 % Lymphocytes % 17 % Monocytes % 6 % Neutrophils # (Manual) 6.0 TH/MM3 Myelocytes 4 % Nucleated Red Blood Cells 1 /100 WBC Differential Comment FINAL DIFF MANUAL Platelet Estimate NORMAL Platelet Morphology Comment NORMAL Blood Urea Nitrogen 24 MG/DL Creatinine 1.15 MG/DL Random Glucose 134 MG/DL Total Protein 6.3 GM/DL Albumin 2.5 GM/DL Calcium Level 8.7 MG/DL Alkaline Phosphatase 56 U/L Aspartate Amino Transf (AST/SGOT) 13 U/L Alanine Aminotransferase (ALT/SGPT) 17 U/L Total Bilirubin 0.2 MG/DL Sodium Level 142 MEQ/L Potassium Level 4.6 MEQ/L Chloride Level 110 MEQ/L Carbon Dioxide Level 25.7 MEQ/L Test 07/10/17 15:54 07/11/17 06:33 Blood Urea Nitrogen 19 MG/DL Creatinine 1.10 MG/DL 0.95 MG/DL Random Glucose 237 MG/DL Calcium Level 8.6 MG/DL Sodium Level 145 MEQ/L Potassium Level 4.4 MEQ/L Chloride Level 111 MEQ/L Carbon Dioxide Level 27.1 MEQ/L Anion Gap 7 MEQ/L Estimat Glomerular Filtration Rate 58 ML/MIN Random Vancomycin Level 21.6 COMMENT Objective Remarks GENERAL: Elderly woman no acute distress. Obesity. SKIN: Warm and dry. HEAD: Normocephalic. EYES: No scleral icterus. No injection or drainage. NECK: Supple, trachea midline. No JVD or lymphadenopathy. CARDIOVASCULAR: Regular rate and rhythm without murmurs, gallops, or rubs. RESPIRATORY: decreased breath sounds bilateral. GASTROINTESTINAL: Abdomen soft, non-tender, nondistended. MUSCULOSKELETAL: No cyanosis, or edema. Medications and IVs Current Medications Medications (Trade) Dose Ordered Sig/Malena Route Start Time Stop Time Status Last Admin (Tylenol) 650 mg Q6H PRN PO 07/05/17 19:15 (Fosamax) 70 mg Q7D PO 07/06/17 09:00 07/06/17 09:18 (Sinemet 10-100 Mg) 1 tab Q8HR PO 07/05/17 22:00 07/11/17 05:53 (Vitamin D3) 1,000 units DAILY PO 07/06/17 09:00 07/10/17 09:14 (Depakote Er) 750 mg HS PO 07/05/17 21:00 07/10/17 19:37 (Lopid) 600 mg BIDAC PO 07/06/17 07:00 07/11/17 05:54 (Isordil) 10 mg BID@0900,1800 PO 07/06/17 09:00 07/10/17 17:44 (Lactinex) 1 tab Q12HR PO 07/05/17 21:00 07/10/17 19:38 (LaMICtal) 100 mg DAILY PO 07/06/17 09:00 07/10/17 09:13 (LaMICtal) 25 mg HS PO 07/05/17 21:00 07/10/17 19:37 (Keppra) 500 mg BID PO 07/05/17 21:00 07/10/17 19:40 (Synthroid) 125 mcg DAILY@0600 PO 07/06/17 06:00 07/11/17 05:53 (Ativan) 0.5 mg Q8H PRN PO 07/05/17 19:15 07/06/17 06:02 (Lopressor) 50 mg BID PO 07/05/17 21:00 07/10/17 19:38 (Theragran M Tab) 1 tab DAILY PO 07/06/17 09:00 07/10/17 09:13 (Pravachol) 40 mg DAILY PO 07/06/17 09:00 07/10/17 09:14 (risperDAL) 1 mg TID PO 07/06/17 09:00 07/10/17 17:44 (Requip) 1 mg TID PO 07/06/17 09:00 07/10/17 17:44 (Vitamin C) 500 mg BID PO 07/05/17 21:00 07/10/17 19:37 Sodium Chloride 1,000 ml @ 42 mls/hr [id number] IV 07/05/17 20:00 07/10/17 19:40 (NS Flush) 2 ml UNSCH PRN .XX 07/05/17 19:30 07/08/17 09:01 (NS Flush) 2 ml BID .XX 07/05/17 21:00 07/10/17 19:37 (Zofran Inj) 4 mg Q6H PRN IV PUSH 07/05/17 19:30 (Duoneb Neb) 1 ampule Q2HR NEB PRN INH 07/05/17 19:30 (Heparin Inj) 5,000 units Q8H SQ 07/05/17 22:00 07/11/17 05:53 Miscellaneous Information 1 Q361D XX 07/05/17 19:30 (Chlorhexidine 2% Cloth) Taper DAILY@04 TOP 07/06/17 04:00 07/02/18 03:59 07/09/17 20:25 (Chlorhexidine 2% Cloth) 3 pack UNSCH PRN TOP 07/05/17 19:30 (Hamida-Colace) 1 tab BID PO 07/05/17 21:00 07/10/17 19:40 (Milk Of Magnesia Liq) 30 ml Q12H PRN PO 07/05/17 19:30 (Senokot) 17.2 mg Q12H PRN PO 07/05/17 19:30 (Dulcolax Supp) 10 mg DAILY PRN RECTAL 07/05/17 19:30 (Lactulose Liq) 30 ml DAILY PRN PO 07/05/17 19:30 Pharmacy Profile Note 0 ml @ 0 mls/hr UNSCH OTHER 07/05/17 19:30 (D50w (Vial) Inj) 50 ml UNSCH PRN IV PUSH 07/05/17 19:30 (Glucagon Inj) 1 mg UNSCH PRN OTHER 07/05/17 19:30 (NovoLOG SUPPLEMENTAL SCALE) 1 ACHS SLIDING SCALE SQ 07/05/17 21:00 07/10/17 17:00 Vancomycin HCl 2000 mg/Sodium Chloride 520 ml @ 250 mls/hr Q24H IV 07/06/17 22:00 Future Hold 07/08/17 22:51 (Neurontin) 400 mg BID PO 07/06/17 21:00 07/10/17 19:37 (Duoneb Neb) 1 ampule QID NEB NEB 07/07/17 20:00 07/11/17 07:57 Levofloxacin/ Dextrose 150 ml @ 100 mls/hr Q48H IV 07/09/17 21:00 07/09/17 20:15 (Deltasone) 10 mg BID PO 07/09/17 21:00 07/10/17 19:38 (Zithromax) 500 mg DAILY PO 07/10/17 09:00 07/10/17 09:12 A/P Assessment and Plan 1. Hypercapnic Respiratory Failure/Pneumonia, on Bronchodilator, Mucolytic and incentive spirometry, Refused BiPAP, Prednisone 10 mg daily, marketing communications specialist Following 2. Questioned LUIS by marketing communications specialist Needs Sleep study as outpatient 3. DIDI Improved. 4. Sacral decubitus ulcer wound care and Plastic Surgery following. 5. Hypothyroidism on Levothyroxine 6. Parkinson's Disease bed bound on Carbidopa levodopa 7. Epilepsy on Lamictal and Depakote 8. Hyperlipidemia on Gemfibrozil 9. Bipolar Disorder/Schizophrenia Paranoid type. Risperidone, Ropinirole 10. Hypertension uncontrolled continue present care. 11. DM II continue sliding scale. DVT and GI prophylaxis - Heparin 5000 units subq q8h - Pepcid - Teds SCDs DC planning- CM consult Transfer to floor Discharge Planning Not yet cleared for discharge by marketing communications specialist. Shahid Alfred MD Jul 11, 2017 08:18
[2017-07-11] MEDS: SODIUM CHLORIDE 0.9% FLUSH 10 ML FLUSH SCH ×2 (09:00→21:00)
[2017-07-11] MEDS: ISOSORBIDE DINITRATE 10 MG TAB PO SCH ×2 (09:00→18:48)
[2017-07-11] MEDS: AZITHROMYCIN 250 MG TAB PO SCH (09:28)
[2017-07-11] MEDS: GABAPENTIN 400 MG CAP PO SCH ×2 (09:28→20:38)
[2017-07-11] MEDS: PRAVASTATIN SOD 40 MG TAB PO SCH (09:28)
[2017-07-11] MEDS: LACTOBACILLUS ACIDOPHILUS TAB PO SCH ×2 (09:29→20:36)
[2017-07-11] MEDS: predniSONE 10 MG TAB PO SCH ×2 (09:29→20:37)
[2017-07-11] MEDS: CHOLECALCIFEROL (VIT D3) 1000 UNIT TAB PO SCH (09:29)
[2017-07-11] MEDS: MULTIVITAMINS/MINERALS THERAPEUTIC TAB PO SCH (09:29)
[2017-07-11] MEDS: risperiDONE 1 MG TAB PO SCH ×3 (09:29→18:39)
[2017-07-11] MEDS: ASCORBIC ACID 500 MG TAB PO SCH ×2 (09:29→20:38)
[2017-07-11] MEDS: levETIRAcetam 500 MG TAB PO SCH ×2 (09:29→20:37)
[2017-07-11] MEDS: METOPROLOL TARTRATE 50 MG TAB PO SCH ×2 (09:29→20:37)
[2017-07-11] MEDS: DOCUSATE SODIUM 50 MG/SENNA 8.6 MG TAB PO SCH ×2 (09:29→20:38)
[2017-07-11] MEDS: lamoTRIgine 100 MG TAB PO SCH (09:36)
--- NOTE | 2017-07-11 12:57 | HHI.PR ---
Subjective Remarks Awake and feels better No cough or wheezing. CT shows basal infiltrates. Objective Vital Signs Date Time Temp Pulse Resp B/P (MAP) Pulse Ox O2 Delivery O2 Flow Rate FiO2 07/11/17 12:00 77 07/11/17 12:00 98.7 77 19 153/70 (97) 96 07/11/17 10:00 74 07/11/17 08:00 98.6 76 17 175/84 (114) 100 07/11/17 08:00 76 07/11/17 07:57 100 Nasal Cannula 2.00 07/11/17 07:00 99 Room Air 1.00 07/11/17 06:00 62 07/11/17 04:00 98.3 74 18 160/82 (108) 97 07/11/17 04:00 74 07/11/17 02:00 66 07/11/17 00:00 98.0 77 20 160/85 (110) 96 07/11/17 00:00 77 07/10/17 22:00 82 07/10/17 20:00 96 07/10/17 20:00 98.0 96 23 160/80 (106) 07/10/17 19:22 94 Nasal Cannula 1.00 07/10/17 19:00 95 Room Air 1.00 07/10/17 18:00 87 07/10/17 17:00 85 22 168/78 (108) 91 07/10/17 17:00 85 07/10/17 16:00 89 07/10/17 16:00 89 26 152/74 (100) 89 07/10/17 16:00 99.1 07/10/17 14:00 86 07/10/17 13:00 67 17 156/73 (100) 94 07/10/17 13:00 67 I/O 07/10/17 07/10/17 07/10/17 07/11/17 07/11/17 07/11/17 07:00 15:00 23:00 07:00 15:00 23:00 Intake Total 240 ml 1440 ml 800 ml Output Total 1400 ml 2400 ml 1900 ml Balance -1160 ml -960 ml -1100 ml Intake Oral 240 ml 1440 ml 800 ml Output Urine Total 1400 ml 2400 ml 1900 ml # Bowel Movements 0 0 Result Diagram: 07/09/17 05 07/11/17 0633 Objective Remarks GENERAL: This moderately obese elderly lady who is pale and no distress. HEENT: Head normocephalic. Pupils are reactive. Throat is clear. Nasal mucosa clear. NECK: Supple without venous distension. No thyromegaly or lymphadenopathy. CHEST: Decreased breath sounds at the bases with bibasilar crackles. HEART: The heart sounds are irregular S1-S2 with no murmur. No S3. ABDOMEN: Soft, protuberant without masses. There is no tenderness. No organomegaly. EXTREMITIES: Minimal edema with diminished peripheral pulses. Reflexes are 11+ with no gross motor deficits. SKIN: Skin was dry and warm. Assessment and Plan Assessment and Plan IMPRESSION 1. Hypercapnic respiratory failure. 2. Probable obstructive sleep apnea syndrome. 3. Chronic kidney disease. 4. Diabetes mellitus type 2. 5. Hypothyroidism. 6. Basilar atelectasis with possible pneumonia. 7. Parkinson's disease. 8. Bipolar disorder and schizophrenia. 9. Hypertension. Plan : 1. Wean o2 to RA , Keep sat >92 2. Nebs qid , duoneb. 3. Prednisone 10 mg bid 4. Will arrange sleep study as OP. 5. Continue antibiotics and switch to PO. 6. Transfer to tele 7. Labs in am Rocio Rivera MD Jul 11, 2017 12:57 pm Shahid Alfred MD Jul 13, 2017 10:10 am
[2017-07-11] MEDS ORDERED: LEVOFLOXACIN 500 MG TAB PO SCH (13:00)
--- NOTE | 2017-07-11 13:42 | RADRPT ---
EXAM DATE/TIME: 07/11/2017 13:16 [facility] COMPARISON: US ARM RIGHT VENOUS DOPPLER, June 01, 2017, 8:21. CHEST SINGLE AP, June 05, 2017, 13:06. POC [facility]ASCULAR ACCESS TEAM, July 05, 2017, 15:23. CHEST SINGLE AP, September 04, 2016, 9:35. CHEST SINGLE AP, June 01, 2017, 2:19. CHEST SINGLE AP, July 05, 2017, 15:07. CT THORAX W/O CONTRAST, July 07, 2017, 20:48. CHEST SINGLE AP, July 06, 2017, 5:08. INDICATIONS : Shortness of breath. MEDICAL HISTORY : Hypertension. Cardiovascular disease Osteoporosis. Diabetes. SURGICAL HISTORY : None. ENCOUNTER: Subsequent ACUITY: 1 week PAIN SCORE: Non-responsive. LOCATION: Bilateral chest FINDINGS: A right arm PICC line is present. The line loops in the SVC with tip returning back up to the level o f the azygos vein. This is a stable appearance. There is persistent moderate asymmetric elevation of the right diaphragm and hazy opacity in the lung bases bilaterally. Visualized cardiac contours are grossly stable. CONCLUSION: No significant interval change Mychal Ochoa MD on July 11, 2017 at 13:34 Board Certified Radiologist. This report was verified electronically.
[2017-07-11] MEDS: DIVALPROEX SODIUM E.R. 250 MG TAB PO SCH (20:37)
[2017-07-11] MEDS: lamoTRIgine 25 MG TAB PO SCH (20:37)
[2017-07-11] MEDS ORDERED: VANCOMYCIN 1,500 MG/NS 500 ML IV ONE ×2 (23:00)
[2017-07-12] VITALS (11 sets, daily range): BP systolic 149–162; BP diastolic 68–85; PULSE 71–85; RESP 18–22; TEMP 98.2–99.3; O2SAT 91–97
[2017-07-12] MEDS: CHLORHEXIDINE GLUCONATE 2 % 1 PACK (2 CLOTHS) TOP SCH (04:00)
[2017-07-12] MEDS: LEVOTHYROXINE SODIUM 125 MCG TAB PO SCH (05:48)
[2017-07-12] MEDS: CARBIDOPA/LEVODOPA 10 MG/100 MG TAB PO SCH ×3 (05:48→21:22)
[2017-07-12] MEDS: HEPARIN SODIUM - SQ 10,000 UNITS/ML VIAL SQ SCH ×3 (05:49→21:24)
[2017-07-12] MEDS: GEMFIBROZIL 600 MG TAB PO SCH ×2 (06:01→16:32)
[2017-07-12] MEDS: SODIUM CHLOR 0.9% 1000 ML INJ 1,000 ML IV SCH (06:06)
[2017-07-12] MEDS: RESP: ALBUTEROL 2.5 MG/IPRATROPIUM 0.5 MG NEB (SCH) NEB ×4 (07:44→20:10)
[2017-07-12] MEDS: INSULIN ASPART SUPPLEMENTAL SCALE SQ SCH ×4 (08:00→21:20)
[2017-07-12] MEDS: ASCORBIC ACID 500 MG TAB PO SCH ×2 (09:53→21:19)
[2017-07-12] MEDS: DOCUSATE SODIUM 50 MG/SENNA 8.6 MG TAB PO SCH ×2 (09:53→21:00)
[2017-07-12] MEDS: GABAPENTIN 400 MG CAP PO SCH ×2 (09:53→21:18)
[2017-07-12] MEDS: PRAVASTATIN SOD 40 MG TAB PO SCH (09:53)
[2017-07-12] MEDS: risperiDONE 1 MG TAB PO SCH ×3 (09:53→18:11)
[2017-07-12] MEDS: SODIUM CHLORIDE 0.9% FLUSH 10 ML FLUSH SCH ×2 (09:53→21:19)
[2017-07-12] MEDS: LACTOBACILLUS ACIDOPHILUS TAB PO SCH ×2 (09:54→21:18)
[2017-07-12] MEDS: METOPROLOL TARTRATE 50 MG TAB PO SCH ×2 (09:54→21:19)
[2017-07-12] MEDS: lamoTRIgine 100 MG TAB PO SCH (09:54)
[2017-07-12] MEDS: levETIRAcetam 500 MG TAB PO SCH ×2 (09:54→21:19)
[2017-07-12] MEDS: MULTIVITAMINS/MINERALS THERAPEUTIC TAB PO SCH (09:54)
[2017-07-12] MEDS: AZITHROMYCIN 250 MG TAB PO SCH (09:54)
[2017-07-12] MEDS: CHOLECALCIFEROL (VIT D3) 1000 UNIT TAB PO SCH (09:54)
[2017-07-12] MEDS: predniSONE 10 MG TAB PO SCH (09:55)
[2017-07-12] MEDS: ISOSORBIDE DINITRATE 10 MG TAB PO SCH ×2 (10:00→18:11)
--- NOTE | 2017-07-12 17:00 | HHI.PR ---
Subjective Remarks Resourcing Advisor Notes: 07/05: 72 -year-old female presents by EMS due to shortness of breath. History is obtained from the chart and ED records. The patient was seen by her primary physician who noticed lethargy and respiratory distress. Her O2 saturations where in low in 80s on 2L nasal cannula, became even lower on room air, and improved on nonrebreather to high 90s. In the emergency department she was placed on face-mask BiPAP with further improvement of oxygenation. 07/06: Drowsy, easily arousable. On nasal cannula 2 L/m with O2 sat 96%. Has been refusing BiPAP all night. 07/07: Drowsy, easily arousable. Follows commands. On nasal cannula 2 L/m. Has been refusing BiPAP overnight. PCO2 improved to the 50s. Hospitalist Notes: 07/11: Seen in her bedroom and discussed with nurse Mr. Rodriguez no new complaint, has sacral ulcer continue antibiotics, recommended to transfer to the floor and continue Telemetry, content specialist following. on new Chest X ray no major change continue with consolidation specially on the Right lower lobe. 07/12: Seen in her bedroom discussed with nurse No new issues, no nausea, vomit or diarrhea, okay to discharge to SNF from Medicine standpoint will need clearance by content specialist for discharge, today has 2 L by nasal cannula. Objective Vital Signs Date Time Temp Pulse Resp B/P (MAP) Pulse Ox O2 Delivery O2 Flow Rate FiO2 07/12/17 16:37 97 Nasal Cannula 2.00 07/12/17 12:00 98.4 71 18 149/68 (95) 91 07/12/17 08:00 98.8 81 18 162/78 (106) 93 07/12/17 07:51 97 Nasal Cannula 2.00 07/12/17 04:00 98.2 73 18 154/69 (97) 96 07/12/17 00:00 98.2 82 20 149/82 (104) 96 07/11/17 20:54 97 Nasal Cannula 2.00 07/11/17 20:52 84 07/11/17 20:00 98.4 85 18 153/68 (96) 96 07/11/17 19:31 99.1 75 16 121/69 (86) 96 07/11/17 19:30 Nasal Cannula 1.00 I/O 07/11/17 07/11/17 07/11/17 07/12/17 07/12/17 07/12/17 07:00 15:00 23:00 07:00 15:00 23:00 Intake Total 800 ml 1564 ml 103 ml Output Total 1900 ml 4650 ml Balance -1100 ml -3086 ml 103 ml Intake Oral 800 ml 480 ml IV Total 1084 ml 103 ml Output Urine Total 1900 ml 4650 ml # Bowel Movements 0 0 Result Diagram: 07/09/17 0522 07/11/17 0633 Imaging Last Impressions Chest X-Ray 07/11/17 0000 Signed Impressions: Service Date/Time: Tuesday, July 11, 2017 13:16 - CONCLUSION: No significant interval change Mychal Ochoa MD Chest CT 07/07/171999 Signed Impressions: Service Date/Time: June 20:48 - CONCLUSION: 1. Dense consolidation of both lower lobes and mild nonspecific infiltrate of both upper lobes. 2. Small right pleural effusion. Mychal Oneil MD Procedures Endotracheal Intubation and Extubation. Other Results Laboratory Tests Test 07/05/17 15:50 07/05/17 22:25 07/05/17 22:45 07/06/17 01:25 Prothrombin Time 10.7 SEC Prothromb Time International Ratio 1.0 RATIO Activated Partial Thromboplast Time 26.6 SEC Total Creatine Kinase 160 U/L Creatine Kinase MB 5.6 NG/ML B-Type Natriuretic Peptide 34 PG/ML Nasal Screen MRSA (PCR) MRSA NOT DETECTED Urine Color YELLOW Urine Turbidity CLEAR Urine pH 6.0 Urine Specific [place] 1.014 Urine Protein 30 mg/dL Urine Glucose (UA) NEG mg/dL Urine Ketones NEG mg/dL Urine Occult Blood NEG Urine Nitrite NEG Urine Bilirubin NEG Urine Urobilinogen LESS THAN 2.0 MG/DL Urine Leukocyte Esterase NEG Urine RBC 2 /hpf Urine WBC 3 /hpf Microscopic Urinalysis Comment CULT NOT INDICATED Lactic Acid Level 2.1 mmol/L Blood Urea Nitrogen 33 MG/DL Creatinine 1.15 MG/DL Random Glucose 74 MG/DL Total Protein 6.4 GM/DL Albumin 2.3 GM/DL Calcium Level 9.5 MG/DL Phosphorus Level 2.2 MG/DL Magnesium Level 1.9 MG/DL Alkaline Phosphatase 56 U/L Aspartate Amino Transf (AST/SGOT) 41 U/L Alanine Aminotransferase (ALT/SGPT) 9 U/L Total Bilirubin 0.2 MG/DL Sodium Level 139 MEQ/L Potassium Level 4.3 MEQ/L Chloride Level 103 MEQ/L Carbon Dioxide Level 29.6 MEQ/L Troponin I LESS THAN 0.02 NG/ML Test 07/06/17 05:30 07/07/17 07:56 07/08/17 22:00 07/09/17 05:22 Blood Gas Ventilator Setting IPAP15/EPAP6 Blood Gas Inspired Oxygen 30 % Blood Gas Puncture Site LT RADIAL Blood Gas Patient Temperature 98.6 Blood Gas HCO3 27 mmol/L Blood Gas Base Excess 1.0 mmol/L Blood Gas Oxygen Saturation 94 % Arterial Blood pH 7.32 Arterial Blood Partial Pressure CO2 54 mmHg Arterial Blood Partial Pressure O2 87 mmHg Arterial Blood Oxygen Content 12.5 Vol % Arterial Blood Carboxyhemoglobin 1.8 % Arterial Blood Methemoglobin 1.1 % Blood Gas Hemoglobin 9.4 G/DL Oxygen Delivery Device NASAL CANNULA Blood Gas Liter Flow 1.5 L/M Vancomycin Level Trough 34.3 MCG/ML White Blood Count 7.8 TH/MM3 Red Blood Count 3.36 MIL/MM3 Hemoglobin 9.3 GM/DL Hematocrit 29.0 % Mean Corpuscular Volume 86.5 FL Mean Corpuscular Hemoglobin 27.7 PG Mean Corpuscular Hemoglobin Concent 32.0 % Red Cell Distribution Width 16.2 % Platelet Count 234 TH/MM3 Mean Platelet Volume 8.4 FL Neutrophils (%) (Auto) 77.8 % Lymphocytes (%) (Auto) 17.9 % Monocytes (%) (Auto) 4.1 % Eosinophils (%) (Auto) 0.0 % Basophils (%) (Auto) 0.2 % Neutrophils # (Auto) 6.0 TH/MM3 Lymphocytes # (Auto) 1.4 TH/MM3 Monocytes # (Auto) 0.3 TH/MM3 Eosinophils # (Auto) 0.0 TH/MM3 Basophils # (Auto) 0.0 TH/MM3 CBC Comment AUTO DIFF Differential Total Cells Counted 100 Neutrophils % (Manual) 64 % Band Neutrophils % 9 % Lymphocytes % 17 % Monocytes % 6 % Neutrophils # (Manual) 6.0 TH/MM3 Myelocytes 4 % Nucleated Red Blood Cells 1 /100 WBC Differential Comment FINAL DIFF MANUAL Platelet Estimate NORMAL Platelet Morphology Comment NORMAL Blood Urea Nitrogen 24 MG/DL Creatinine 1.15 MG/DL Random Glucose 134 MG/DL Total Protein 6.3 GM/DL Albumin 2.5 GM/DL Calcium Level 8.7 MG/DL Alkaline Phosphatase 56 U/L Aspartate Amino Transf (AST/SGOT) 13 U/L Alanine Aminotransferase (ALT/SGPT) 17 U/L Total Bilirubin 0.2 MG/DL Sodium Level 142 MEQ/L Potassium Level 4.6 MEQ/L Chloride Level 110 MEQ/L Carbon Dioxide Level 25.7 MEQ/L Test 07/10/17 15:54 07/11/17 06:33 Blood Urea Nitrogen 19 MG/DL Creatinine 1.10 MG/DL 0.95 MG/DL Random Glucose 237 MG/DL Calcium Level 8.6 MG/DL Sodium Level 145 MEQ/L Potassium Level 4.4 MEQ/L Chloride Level 111 MEQ/L Carbon Dioxide Level 27.1 MEQ/L Anion Gap 7 MEQ/L Estimat Glomerular Filtration Rate 58 ML/MIN Random Vancomycin Level 21.6 COMMENT Objective Remarks GENERAL: Elderly woman no acute distress. Obesity. SKIN: Warm and dry. HEAD: Normocephalic. EYES: No scleral icterus. No injection or drainage. NECK: Supple, trachea midline. No JVD or lymphadenopathy. CARDIOVASCULAR: Regular rate and rhythm without murmurs, gallops, or rubs. RESPIRATORY: decreased breath sounds bilateral. GASTROINTESTINAL: Abdomen soft, non-tender, nondistended. MUSCULOSKELETAL: No cyanosis, or edema. Medications and IVs Current Medications Medications (Trade) Dose Ordered Sig/Malena Route Start Time Stop Time Status Last Admin (Tylenol) 650 mg Q6H PRN PO 07/05/17 19:15 07/11/17 15:00 (Fosamax) 70 mg Q7D PO 07/06/17 09:00 07/06/17 09:18 (Sinemet 10-100 Mg) 1 tab Q8HR PO 07/05/17 22:00 07/12/17 14:08 (Vitamin D3) 1,000 units DAILY PO 07/06/17 09:00 07/12/17 09:54 (Depakote Er) 750 mg HS PO 07/05/17 21:00 07/11/17 20:37 (Lopid) 600 mg BIDAC PO 07/06/17 07:00 07/12/17 16:32 (Isordil) 10 mg BID@0900,1800 PO 07/06/17 09:00 07/12/17 10:00 (Lactinex) 1 tab Q12HR PO 07/05/17 21:00 07/12/17 09:54 (LaMICtal) 100 mg DAILY PO 07/06/17 09:00 07/12/17 09:54 (LaMICtal) 25 mg HS PO 07/05/17 21:00 07/11/17 20:37 (Keppra) 500 mg BID PO 07/05/17 21:00 07/12/17 09:54 (Synthroid) 125 mcg DAILY@0600 PO 07/06/17 06:00 07/12/17 05:48 (Ativan) 0.5 mg Q8H PRN PO 07/05/17 19:15 07/06/17 06:02 (Lopressor) 50 mg BID PO 07/05/17 21:00 07/12/17 09:54 (Theragran M Tab) 1 tab DAILY PO 07/06/17 09:00 07/12/17 09:54 (Pravachol) 40 mg DAILY PO 07/06/17 09:00 07/12/17 09:53 (risperDAL) 1 mg TID PO 07/06/17 09:00 07/12/17 14:08 (Requip) 1 mg TID PO 07/06/17 09:00 07/12/17 14:07 (Vitamin C) 500 mg BID PO 07/05/17 21:00 07/12/17 09:53 (NS Flush) 2 ml UNSCH PRN .XX 07/05/17 19:30 07/08/17 09:01 (NS Flush) 2 ml BID .XX 07/05/17 21:00 07/12/17 09:53 (Zofran Inj) 4 mg Q6H PRN IV PUSH 07/05/17 19:30 (Duoneb Neb) 1 ampule Q2HR NEB PRN INH 07/05/17 19:30 (Heparin Inj) 5,000 units Q8H SQ 07/05/17 22:00 07/12/17 14:09 Miscellaneous Information 1 Q361D XX 07/05/17 19:30 (Chlorhexidine 2% Cloth) Taper DAILY@04 TOP 07/06/17 04:00 07/02/18 03:59 07/09/17 20:25 (Chlorhexidine 2% Cloth) 3 pack UNSCH PRN TOP 07/05/17 19:30 (Hamida-Colace) 1 tab BID PO 07/05/17 21:00 07/12/17 09:53 (Milk Of Magnesia Liq) 30 ml Q12H PRN PO 07/05/17 19:30 (Senokot) 17.2 mg Q12H PRN PO 07/05/17 19:30 (Dulcolax Supp) 10 mg DAILY PRN RECTAL 07/05/17 19:30 (Lactulose Liq) 30 ml DAILY PRN PO 07/05/17 19:30 07/12/17 16:32 Pharmacy Profile Note 0 ml @ 0 mls/hr UNSCH OTHER 07/05/17 19:30 (D50w (Vial) Inj) 50 ml UNSCH PRN IV PUSH 07/05/17 19:30 (Glucagon Inj) 1 mg UNSCH PRN OTHER 07/05/17 19:30 (NovoLOG SUPPLEMENTAL SCALE) 1 ACHS SLIDING SCALE SQ 07/05/17 21:00 07/10/17 17:00 Vancomycin HCl 2000 mg/Sodium Chloride 520 ml @ 250 mls/hr Q24H IV 07/06/17 22:00 Future Hold 07/08/17 22:51 (Neurontin) 400 mg BID PO 07/06/17 21:00 07/12/17 09:53 (Deltasone) 10 mg BID PO 07/09/17 21:00 07/12/17 09:55 (Zithromax) 500 mg DAILY PO 07/10/17 09:00 07/12/17 09:54 (Duoneb Neb) 1 ampule QID NEB NEB 07/11/17 16:00 07/12/17 16:31 (Levaquin) 500 mg Q48H PO 07/11/17 13:00 07/11/17 15:00 A/P Assessment and Plan 1. Hypercapnic Respiratory Failure/Pneumonia, on Bronchodilator, Mucolytic and incentive spirometry, Refused BiPAP, Prednisone 10 mg daily, Awaiting final by content specialist for discharge. 2. Questioned LUIS by content specialist Needs Sleep study as outpatient 3. DIDI Improved. 4. Sacral decubitus ulcer wound care and Plastic Surgery no need for surgical procedure will continue wound care. 5. Hypothyroidism on Levothyroxine 6. Parkinson's Disease bed bound on Carbidopa levodopa 7. Epilepsy on Lamictal and Depakote 8. Hyperlipidemia on Gemfibrozil 9. Bipolar Disorder/Schizophrenia Paranoid type. Risperidone, Ropinirole 10. Hypertension uncontrolled continue present care. 11. DM II continue sliding scale. better control continue her home medicines at discharge. DVT and GI prophylaxis - Heparin 5000 units subq q8h - Pepcid - Teds SCDs Discharge Planning Not yet cleared for discharge by content specialist. Shahid Alfred MD Jul 12, 2017 5:00 pm
--- NOTE | 2017-07-12 20:11 | HHI.PR ---
Subjective Remarks Awake and feels better No cough or wheezing. CT shows basal infiltrates. Objective Vital Signs Date Time Temp Pulse Resp B/P (MAP) Pulse Ox O2 Delivery O2 Flow Rate FiO2 07/12/17 19:30 98.2 85 22 159/85 (109) 93 07/12/17 16:37 97 Nasal Cannula 2.00 07/12/17 16:30 99.3 72 18 152/70 (97) 07/12/17 16:00 99.3 72 18 152/70 (97) 94 07/12/17 12:00 98.4 71 18 149/68 (95) 91 07/12/17 08:50 76 07/12/17 08:50 97 Nasal Cannula 1.00 21 07/12/17 08:00 98.8 81 18 162/78 (106) 93 07/12/17 07:51 97 Nasal Cannula 2.00 07/12/17 04:00 98.2 73 18 154/69 (97) 96 07/12/17 00:00 98.2 82 20 149/82 (104) 96 07/11/17 20:54 97 Nasal Cannula 2.00 07/11/17 20:52 84 I/O 07/11/17 07/11/17 07/11/17 07/12/17 07/12/17 07/12/17 07:00 15:00 23:00 07:00 15:00 23:00 Intake Total 800 ml 1564 ml 103 ml 720 ml Output Total 1900 ml 4650 ml 2600 ml Balance -1100 ml -3086 ml 103 ml -1880 ml Intake Oral 800 ml 480 ml 720 ml IV Total 1084 ml 103 ml Output Urine Total 1900 ml 4650 ml 2600 ml # Bowel Movements 0 0 0 Result Diagram: 07/09/17 0522 07/11/17 0633 Procedures Endotracheal Intubation and Extubation. Objective Remarks GENERAL: This moderately obese elderly lady who is pale and no distress. HEENT: Head normocephalic. Pupils are reactive. Throat is clear. Nasal mucosa clear. NECK: Supple without venous distension. No thyromegaly or lymphadenopathy. CHEST: Decreased breath sounds at the bases with occ bibasilar crackles. HEART: The heart sounds are irregular S1-S2 with no murmur. No S3. ABDOMEN: Soft, protuberant without masses. There is no tenderness. No organomegaly. EXTREMITIES: Minimal edema with diminished peripheral pulses. Reflexes are 11+ SKIN: Skin was dry and warm. Assessment and Plan Assessment and Plan IMPRESSION 1. Hypercapnic respiratory failure. 2. Probable obstructive sleep apnea syndrome. 3. Chronic kidney disease. 4. Diabetes mellitus type 2. 5. Hypothyroidism. 6. Basilar atelectasis with possible pneumonia. 7. Parkinson's disease. 8. Bipolar disorder and schizophrenia. 9. Hypertension. Plan : 1. Wean o2 to RA , Keep sat >92 2. Nebs qid , duoneb. 3. Prednisone 10 mg daily 4. Will arrange sleep study as OP. 5. Continue antibiotics and switch to PO. 6. Transfer to rehab . Rocio Rivera MD Jul 12, 2017 20:11
[2017-07-12] MEDS: DIVALPROEX SODIUM E.R. 250 MG TAB PO SCH (21:18)
[2017-07-12] MEDS: lamoTRIgine 25 MG TAB PO SCH (21:18)
[2017-07-13 00:40] VITALS: BP 161/79; PULSE 70; RESP 18; TEMP 98.5; O2SAT 90
[2017-07-13 03:49] VITALS: BP 152/67; PULSE 72; RESP 18; TEMP 99; O2SAT 95
[2017-07-13] MEDS: CHLORHEXIDINE GLUCONATE 2 % 1 PACK (2 CLOTHS) TOP SCH (04:00)
[2017-07-13] MEDS: HEPARIN SODIUM - SQ 10,000 UNITS/ML VIAL SQ SCH (06:00)
[2017-07-13] MEDS: CARBIDOPA/LEVODOPA 10 MG/100 MG TAB PO SCH (06:00)
[2017-07-13] MEDS: LEVOTHYROXINE SODIUM 125 MCG TAB PO SCH (06:00)
[2017-07-13] MEDS: GEMFIBROZIL 600 MG TAB PO SCH (06:11)
--- NOTE | 2017-07-13 06:33 | RADRPT ---
EXAM DATE/TIME: 07/13/2017 05:53 [facility] COMPARISON: CHEST SINGLE AP, July 11, 2017, 13:16. INDICATIONS : Edema. MEDICAL HISTORY : Hypertension. Cardiovascular disease. Osteoporosis. Diabetes. SURGICAL HISTORY : None. ENCOUNTER: Subsequent ACUITY: 1 week PAIN SCORE: 0/10 LOCATION: Bilateral chest FINDINGS: Bibasilar consolidation with moderate right and small left pleural effusions again seen, both sides s lightly improved in the interim. Don't see a pneumothorax. Heart size stable, upper limits of normal. CONCLUSION: Slightly decreased bibasilar consolidation/effusions. Mychal Oneil MD on July 13, 2017 at 6:31 Board Certified Radiologist. This report was verified electronically.
[2017-07-13] MEDS: INSULIN ASPART SUPPLEMENTAL SCALE SQ SCH (08:00)
[2017-07-13] MEDS: RESP: ALBUTEROL 2.5 MG/IPRATROPIUM 0.5 MG NEB (SCH) NEB ×2 (08:00→10:50)
[2017-07-13] MEDS ORDERED: predniSONE 10 MG TAB PO SCH (09:00)
[2017-07-13] MEDS: SODIUM CHLORIDE 0.9% FLUSH 10 ML FLUSH SCH (09:59)
[2017-07-13] MEDS: PRAVASTATIN SOD 40 MG TAB PO SCH (10:00)
[2017-07-13] MEDS: DOCUSATE SODIUM 50 MG/SENNA 8.6 MG TAB PO SCH (10:00)
[2017-07-13] MEDS: ASCORBIC ACID 500 MG TAB PO SCH (10:00)
[2017-07-13] MEDS: MULTIVITAMINS/MINERALS THERAPEUTIC TAB PO SCH (10:00)
[2017-07-13] MEDS: levETIRAcetam 500 MG TAB PO SCH (10:00)
[2017-07-13] MEDS: GABAPENTIN 400 MG CAP PO SCH (10:01)
[2017-07-13] MEDS: AZITHROMYCIN 250 MG TAB PO SCH (10:01)
[2017-07-13] MEDS: METOPROLOL TARTRATE 50 MG TAB PO SCH (10:01)
[2017-07-13] MEDS: ISOSORBIDE DINITRATE 10 MG TAB PO SCH (10:01)
[2017-07-13] MEDS: risperiDONE 1 MG TAB PO SCH (10:01)
[2017-07-13] MEDS: CHOLECALCIFEROL (VIT D3) 1000 UNIT TAB PO SCH (10:01)
[2017-07-13] MEDS: lamoTRIgine 100 MG TAB PO SCH (10:01)
[2017-07-13] MEDS: ALENDRONATE SODIUM 70 MG TAB PO SCH (10:02)
[2017-07-13] MEDS: LACTOBACILLUS ACIDOPHILUS TAB PO SCH (10:02)
[2017-07-13] MEDS ORDERED: AZIT250T3 PO (10:06)
[2017-07-13] MEDS ORDERED: LORA-392 PO ×2 (10:06→10:07)
[2017-07-13] MEDS ORDERED: LEVA500T20 PO (10:06)
[2017-07-13] MEDS ORDERED: PRED10 PO (10:06)
--- NOTE | 2017-07-13 10:15 | HHI.PR ---
Subjective Remarks Api Architect Notes: 07/05: 72 -year-old female presents by EMS due to shortness of breath. History is obtained from the chart and ED records. The patient was seen by her primary physician who noticed lethargy and respiratory distress. Her O2 saturations where in low in 80s on 2L nasal cannula, became even lower on room air, and improved on nonrebreather to high 90s. In the emergency department she was placed on face-mask BiPAP with further improvement of oxygenation. 07/06: Drowsy, easily arousable. On nasal cannula 2 L/m with O2 sat 96%. Has been refusing BiPAP all night. 07/07: Drowsy, easily arousable. Follows commands. On nasal cannula 2 L/m. Has been refusing BiPAP overnight. PCO2 improved to the 50s. Hospitalist Notes: 07/11: Seen in her bedroom and discussed with nurse Mr. Rodriguez no new complaint, has sacral ulcer continue antibiotics, recommended to transfer to the floor and continue Telemetry, geospatial specialist following. on new Chest X ray no major change continue with consolidation specially on the Right lower lobe. 07/12: Seen in her bedroom discussed with nurse No new issues, no nausea, vomit or diarrhea, okay to discharge to SNF from Medicine standpoint will need clearance by geospatial specialist for discharge, today has 2 L by nasal cannula. 07/13: Stable in her bedroom, discussed with Charge Nurse okay to discharge from Medicine standpoint and by geospatial specialist Doctor Rivera no nausea, vomit or diarrhea. Objective Vital Signs Date Time Temp Pulse Resp B/P (MAP) Pulse Ox O2 Delivery O2 Flow Rate FiO2 07/13/17 04:00 Room Air 07/13/17 03:49 99.0 72 18 152/67 (95) 95 07/13/17 00:40 98.5 70 18 161/79 (106) 90 07/13/17 00:00 Room Air 07/12/17 20:00 84 07/12/17 20:00 97 Nasal Cannula 1.00 21 07/12/17 19:30 98.2 85 22 159/85 (109) 93 07/12/17 16:37 97 Nasal Cannula 2.00 07/12/17 16:30 99.3 72 18 152/70 (97) 07/12/17 16:00 99.3 72 18 152/70 (97) 94 07/12/17 12:00 98.4 71 18 149/68 (95) 91 I/O 07/12/17 07/12/17 07/12/17 07/13/17 07/13/17 07/13/17 07:00 15:00 23:00 07:00 15:00 23:00 Intake Total 1564 ml 103 ml 720 ml Output Total 4650 ml 3775 ml Balance -3086 ml 103 ml -3055 ml Intake Oral 480 ml 720 ml IV Total 1084 ml 103 ml Output Urine Total 4650 ml 3775 ml # Bowel Movements 0 0 Result Diagram: 07/09/1752107/11/17 06 Imaging Last Impressions Chest X-Ray 07/13/17599 Signed Impressions: Service Date/Time: Thursday, July 13, 2017 05:53 - CONCLUSION: Slightly decreased bibasilar consolidation/effusions. Mychal Oneil MD Chest CT [id number]/07/171999 Signed Impressions: Service Date/Time: June 20:48 - CONCLUSION: 1. Dense consolidation of both lower lobes and mild nonspecific infiltrate of both upper lobes. 2. Small right pleural effusion. Mychal Oneil MD Procedures None Other Results Laboratory Tests Test 07/05/17 15:50 07/05/17 22:25 07/05/17 22:45 07/06/17 01:25 Prothrombin Time 10.7 SEC Prothromb Time International Ratio 1.0 RATIO Activated Partial Thromboplast Time 26.6 SEC Total Creatine Kinase 160 U/L Creatine Kinase MB 5.6 NG/ML B-Type Natriuretic Peptide 34 PG/ML Nasal Screen MRSA (PCR) MRSA NOT DETECTED Urine Color YELLOW Urine Turbidity CLEAR Urine pH 6.0 Urine Specific [place] 1.014 Urine Protein 30 mg/dL Urine Glucose (UA) NEG mg/dL Urine Ketones NEG mg/dL Urine Occult Blood NEG Urine Nitrite NEG Urine Bilirubin NEG Urine Urobilinogen LESS THAN 2.0 MG/DL Urine Leukocyte Esterase NEG Urine RBC 2 /hpf Urine WBC 3 /hpf Microscopic Urinalysis Comment CULT NOT INDICATED Lactic Acid Level 2.1 mmol/L Blood Urea Nitrogen 33 MG/DL Creatinine 1.15 MG/DL Random Glucose 74 MG/DL Total Protein 6.4 GM/DL Albumin 2.3 GM/DL Calcium Level 9.5 MG/DL Phosphorus Level 2.2 MG/DL Magnesium Level 1.9 MG/DL Alkaline Phosphatase 56 U/L Aspartate Amino Transf (AST/SGOT) 41 U/L Alanine Aminotransferase (ALT/SGPT) 9 U/L Total Bilirubin 0.2 MG/DL Sodium Level 139 MEQ/L Potassium Level 4.3 MEQ/L Chloride Level 103 MEQ/L Carbon Dioxide Level 29.6 MEQ/L Troponin I LESS THAN 0.02 NG/ML Test 07/06/17 05:30 07/07/17 07:56 07/08/17 22:00 07/09/17 05:22 Blood Gas Ventilator Setting IPAP15/EPAP6 Blood Gas Inspired Oxygen 30 % Blood Gas Puncture Site LT RADIAL Blood Gas Patient Temperature 98.6 Blood Gas HCO3 27 mmol/L Blood Gas Base Excess 1.0 mmol/L Blood Gas Oxygen Saturation 94 % Arterial Blood pH 7.32 Arterial Blood Partial Pressure CO2 54 mmHg Arterial Blood Partial Pressure O2 87 mmHg Arterial Blood Oxygen Content 12.5 Vol % Arterial Blood Carboxyhemoglobin 1.8 % Arterial Blood Methemoglobin 1.1 % Blood Gas Hemoglobin 9.4 G/DL Oxygen Delivery Device NASAL CANNULA Blood Gas Liter Flow 1.5 L/M Vancomycin Level Trough 34.3 MCG/ML White Blood Count 7.8 TH/MM3 Red Blood Count 3.36 MIL/MM3 Hemoglobin 9.3 GM/DL Hematocrit 29.0 % Mean Corpuscular Volume 86.5 FL Mean Corpuscular Hemoglobin 27.7 PG Mean Corpuscular Hemoglobin Concent 32.0 % Red Cell Distribution Width 16.2 % Platelet Count 234 TH/MM3 Mean Platelet Volume 8.4 FL Neutrophils (%) (Auto) 77.8 % Lymphocytes (%) (Auto) 17.9 % Monocytes (%) (Auto) 4.1 % Eosinophils (%) (Auto) 0.0 % Basophils (%) (Auto) 0.2 % Neutrophils # (Auto) 6.0 TH/MM3 Lymphocytes # (Auto) 1.4 TH/MM3 Monocytes # (Auto) 0.3 TH/MM3 Eosinophils # (Auto) 0.0 TH/MM3 Basophils # (Auto) 0.0 TH/MM3 CBC Comment AUTO DIFF Differential Total Cells Counted 100 Neutrophils % (Manual) 64 % Band Neutrophils % 9 % Lymphocytes % 17 % Monocytes % 6 % Neutrophils # (Manual) 6.0 TH/MM3 Myelocytes 4 % Nucleated Red Blood Cells 1 /100 WBC Differential Comment FINAL DIFF MANUAL Platelet Estimate NORMAL Platelet Morphology Comment NORMAL Blood Urea Nitrogen 24 MG/DL Creatinine 1.15 MG/DL Random Glucose 134 MG/DL Total Protein 6.3 GM/DL Albumin 2.5 GM/DL Calcium Level 8.7 MG/DL Alkaline Phosphatase 56 U/L Aspartate Amino Transf (AST/SGOT) 13 U/L Alanine Aminotransferase (ALT/SGPT) 17 U/L Total Bilirubin 0.2 MG/DL Sodium Level 142 MEQ/L Potassium Level 4.6 MEQ/L Chloride Level 110 MEQ/L Carbon Dioxide Level 25.7 MEQ/L Test 07/10/17 15:54 07/11/17 06:33 07/13/17 08:36 Blood Urea Nitrogen 19 MG/DL Creatinine 1.10 MG/DL Random Glucose 237 MG/DL Calcium Level 8.6 MG/DL Sodium Level 145 MEQ/L Potassium Level 4.4 MEQ/L Chloride Level 111 MEQ/L Carbon Dioxide Level 27.1 MEQ/L Anion Gap 7 MEQ/L Estimat Glomerular Filtration Rate 58 ML/MIN Objective Remarks GENERAL: This moderately obese elderly lady who is pale and no distress. HEENT: Head normocephalic. Pupils are reactive. Throat is clear. Nasal mucosa clear. NECK: Supple without venous distension. No thyromegaly or lymphadenopathy. CHEST: Decreased breath sounds at the bases with bibasilar crackles. HEART: The heart sounds are irregular S1-S2 with no murmur. No S3. ABDOMEN: Soft, protuberant without masses. There is no tenderness. No organomegaly. EXTREMITIES: Minimal edema with diminished peripheral pulses. Reflexes are 11+ with no gross motor deficits. SKIN: Skin was dry and warm. Medications and IVs Current Medications Medications (Trade) Dose Ordered Sig/Malena Route Start Time Stop Time Status Last Admin (Tylenol) 650 mg Q6H PRN PO 07/05/17 19:15 07/11/17 15:00 (Fosamax) 70 mg Q7D PO 07/06/17 09:00 07/13/17 10:02 (Sinemet 10-100 Mg) 1 tab Q8HR PO 07/05/17 22:00 07/13/17 06:00 (Vitamin D3) 1,000 units DAILY PO 07/06/17 09:00 07/13/17 10:01 (Depakote Er) 750 mg HS PO 07/05/17 21:00 07/12/17 21:18 (Lopid) 600 mg BIDAC PO 07/06/17 07:00 07/13/17 06:11 (Isordil) 10 mg BID@0900,1800 PO 07/06/17 09:00 07/13/17 10:01 (Lactinex) 1 tab Q12HR PO 07/05/17 21:00 07/13/17 10:02 (LaMICtal) 100 mg DAILY PO 07/06/17 09:00 07/13/17 10:01 (LaMICtal) 25 mg HS PO 07/05/17 21:00 07/12/17 21:18 (Keppra) 500 mg BID PO 07/05/17 21:00 07/13/17 10:00 (Synthroid) 125 mcg DAILY@0600 PO 07/06/17 06:00 07/13/17 06:00 (Ativan) 0.5 mg Q8H PRN PO 07/05/17 19:15 07/06/17 06:02 (Lopressor) 50 mg BID PO 07/05/17 21:00 07/13/17 10:01 (Theragran M Tab) 1 tab DAILY PO 07/06/17 09:00 07/13/17 10:00 (Pravachol) 40 mg DAILY PO 07/06/17 09:00 07/13/17 10:00 (risperDAL) 1 mg TID PO 07/06/17 09:00 07/13/17 10:01 (Requip) 1 mg TID PO 07/06/17 09:00 07/13/17 10:00 (Vitamin C) 500 mg BID PO 07/05/17 21:00 07/13/17 10:00 (NS Flush) 2 ml UNSCH PRN .XX 07/05/17 19:30 07/08/17 09:01 (NS Flush) 2 ml BID .XX 07/05/17 21:00 07/13/17 09:59 (Zofran Inj) 4 mg Q6H PRN IV PUSH 07/05/17 19:30 (Duoneb Neb) 1 ampule Q2HR NEB PRN INH 07/05/17 19:30 (Heparin Inj) 5,000 units Q8H SQ 07/05/17 22:00 07/13/17 06:00 Miscellaneous Information 1 Q361D XX 07/05/17 19:30 (Chlorhexidine 2% Cloth) Taper DAILY@04 TOP 07/06/17 04:00 07/02/18 03:59 07/09/17 20:25 (Chlorhexidine 2% Cloth) 3 pack UNSCH PRN TOP 07/05/17 19:30 (Hamida-Colace) 1 tab BID PO 07/05/17 21:00 07/13/17 10:00 (Milk Of Magnesia Liq) 30 ml Q12H PRN PO 07/05/17 19:30 (Senokot) 17.2 mg Q12H PRN PO 07/05/17 19:30 (Dulcolax Supp) 10 mg DAILY PRN RECTAL 07/05/17 19:30 (Lactulose Liq) 30 ml DAILY PRN PO 07/05/17 19:30 07/12/17 16:32 Pharmacy Profile Note 0 ml @ 0 mls/hr UNSCH OTHER 07/05/17 19:30 (D50w (Vial) Inj) 50 ml UNSCH PRN IV PUSH 07/05/17 19:30 (Glucagon Inj) 1 mg UNSCH PRN OTHER 07/05/17 19:30 (NovoLOG SUPPLEMENTAL SCALE) 1 ACHS SLIDING SCALE SQ 07/05/17 21:00 07/12/17 21:20 Vancomycin HCl 2000 mg/Sodium Chloride 520 ml @ 250 mls/hr Q24H IV 07/06/17 22:00 Future Hold 07/08/17 22:51 (Neurontin) 400 mg BID PO 07/06/17 21:00 07/13/17 10:01 (Zithromax) 500 mg DAILY PO 07/10/17 09:00 07/13/17 10:01 (Duoneb Neb) 1 ampule QID NEB NEB 07/11/17 16:00 07/12/17 20:10 (Levaquin) 500 mg Q48H PO 07/11/17 13:00 07/11/17 15:00 (Deltasone) 10 mg DAILY PO 07/13/17 09:00 07/13/17 10:00 A/P Assessment and Plan 1. Hypercapnic Respiratory Failure/Pneumonia, on Bronchodilator, Mucolytic and incentive spirometry, Refused BiPAP, Prednisone 10 mg daily,Cultures negative, okay to discharge as per geospatial specialist will continue Azithromycin for five days and continue Levaquin for eight days taking it every 48 hours. 2. Questioned LUIS by geospatial specialist Needs Sleep study as outpatient 3. DIDI Improved. 4. Sacral decubitus ulcer wound care and Plastic Surgery no need for surgical procedure will continue wound care. 5. Hypothyroidism on Levothyroxine 6. Parkinson's Disease bed bound on Carbidopa levodopa 7. Epilepsy on Lamictal and Depakote 8. Hyperlipidemia on Gemfibrozil 9. Bipolar Disorder/Schizophrenia Paranoid type. Risperidone, Ropinirole 10. Hypertension uncontrolled continue present care. 11. DM II continue sliding scale. better control continue her home medicines at discharge. DVT and GI prophylaxis - Heparin 5000 units subq q8h - Pepcid - Teds SCDs Discharge Planning Discharge to SNF today. Shahid Alfred MD Jul 13, 2017 10:15 am
--- NOTE | 2017-07-13 10:21 | HHI.DS ---
Discharge Summary Admission Date Jul 05, 2017 at 5:34 pm Discharge Date: Jul 13, 2017 Admitting Diagnosis Hypercapneic Resp Distress; R Lung PNA (1) Altered mental status ICD Code: R41.82 - Altered mental status, unspecified Diagnosis: Principal Status: Acute (2) Diabetes mellitus ICD Code: E11.9 - Type 2 diabetes mellitus without complications Diagnosis: Secondary Status: Chronic (3) Sacral decubitus ulcer ICD Code: L89.159 - Pressure ulcer of sacral region, unspecified stage Diagnosis: Principal Status: Acute (4) PNA (pneumonia) ICD Code: J18.9 - Pneumonia, unspecified organism Diagnosis: Principal Status: Acute (5) Hypercapnic acidosis ICD Code: E87.2 - Acidosis Diagnosis: Principal Status: Acute Procedures None Brief History - From Admission 72 -year-old female presents by EMS due to shortness of breath. History is obtained from the chart and ED records. The patient was seen by her primary physician who noticed lethargy and respiratory distress. Her O2 saturations where in low in 80s on 2L nasal cannula, became even lower on room air, and improved on nonrebreather to high 90s. In the emergency department she was placed on facemask BiPAP with further improvement of oxygenation. CBC/BMP: 07/09/17 0522 07/11/17 0633 Significant Findings Laboratory Tests Test 07/10/17 15:54 07/11/17 06:33 07/13/17 08:36 Blood Urea Nitrogen 19 MG/DL (7-18) Creatinine 1.10 MG/DL (0.50-1.00) Random Glucose 237 MG/DL (74-106) Chloride Level 111 MEQ/L (98-107) Estimat Glomerular Filtration Rate 49 ML/MIN (>89) 58 ML/MIN (>89) Imaging Last Impressions Chest X-Ray 07/13/17 0600 Signed Impressions: Service Date/Time: Thursday, July 13, 2017 05:53 - CONCLUSION: Slightly decreased bibasilar consolidation/effusions. Mychal Oneil MD Chest CT 07/07/171999 Signed Impressions: Service Date/Time: June 20:48 - CONCLUSION: 1. Dense consolidation of both lower lobes and mild nonspecific infiltrate of both upper lobes. 2. Small right pleural effusion. Mychal Oneil MD PE at Discharge GENERAL: This moderately obese elderly lady who is pale and no distress. HEENT: Head normocephalic. Pupils are reactive. Throat is clear. Nasal mucosa clear. NECK: Supple without venous distension. No thyromegaly or lymphadenopathy. CHEST: Decreased breath sounds, no wheezing or crackles. HEART: The heart sounds are irregular S1-S2 with no murmur. No S3. ABDOMEN: Soft, protuberant without masses. There is no tenderness. No organomegaly. EXTREMITIES: Minimal edema with diminished peripheral pulses. Reflexes are 11+ with no gross motor deficits. SKIN: Skin was dry and warm. Hospital Course Director Gift Notes: 07/05: 72 -year-old female presents by EMS due to shortness of breath. History is obtained from the chart and ED records. The patient was seen by her primary physician who noticed lethargy and respiratory distress. Her O2 saturations where in low in 80s on 2L nasal cannula, became even lower on room air, and improved on nonrebreather to high 90s. In the emergency department she was placed on face-mask BiPAP with further improvement of oxygenation. 07/06: Drowsy, easily arousable. On nasal cannula 2 L/m with O2 sat 96%. Has been refusing BiPAP all night. 07/07: Drowsy, easily arousable. Follows commands. On nasal cannula 2 L/m. Has been refusing BiPAP overnight. PCO2 improved to the 50s. Hospitalist Notes: 07/11: Seen in her bedroom and discussed with nurse Mr. Rodriguez no new complaint, has sacral ulcer continue antibiotics, recommended to transfer to the floor and continue Telemetry, automotive sales specialist following. on new Chest X ray no major change continue with consolidation specially on the Right lower lobe. 07/12: Seen in her bedroom discussed with nurse No new issues, no nausea, vomit or diarrhea, okay to discharge to SNF from Medicine standpoint will need clearance by automotive sales specialist for discharge, today has 2 L by nasal cannula. 07/13: Stable in her bedroom, discussed with Charge Nurse okay to discharge from Medicine standpoint and by automotive sales specialist Doctor D'Jurado no nausea, vomit or diarrhea. Assessment and Plan 1. Hypercapnic Respiratory Failure/Pneumonia, on Bronchodilator, Mucolytic and incentive spirometry, Refused BiPAP, Prednisone 10 mg daily,Cultures negative, okay to discharge as per automotive sales specialist will continue Azithromycin for five days and continue Levaquin for eight days taking it every 48 hours. 2. Questioned LUIS by automotive sales specialist Needs Sleep study as outpatient 3. DIDI Improved. 4. Sacral decubitus ulcer wound care and Plastic Surgery no need for surgical procedure will continue wound care. 5. Hypothyroidism on Levothyroxine 6. Parkinson's Disease bed bound on Carbidopa levodopa 7. Epilepsy on Lamictal and Depakote 8. Hyperlipidemia on Gemfibrozil 9. Bipolar Disorder/Schizophrenia Paranoid type. Risperidone, Ropinirole 10. Hypertension uncontrolled continue present care. 11. DM II continue sliding scale. better control continue her home medicines at discharge. DVT and GI prophylaxis - Heparin 5000 units subq q8h - Pepcid - Teds SCDs Discharge Planning Discharge to SNF today. Pt Condition on Discharge: Stable Discharge Disposition: Discharge to SNF Discharge Time: > 30 minutes Discharge Instructions DIET: Follow Instructions for: Heart Healthy Diet, Diabetic Diet Activities you can perform: Regular-No Restrictions Shahid Alfred MD Jul 13, 2017 10:21 am
[2017-07-13 10:51] VITALS: O2SAT 92
[2017-07-14] MEDS ORDERED: VANCOMYCIN INJ 1,500 MG in SODIUM CHLORID 0.9% 500 ML INJ 500 ML IV ONE ×2
== END 2017-07-13 12:19 | DRG 193 ==
LOC: NEPC 14:34 → NEDA 17:34 → HIMN 22:20 → N04B 07-11 14:12
PROVIDERS: ADMIT Internal Medicine; ATTEND Internal Medicine
PROC: 5A09357 Assistance with Respiratory Ventilation, Less than 24 Consecutive Hours, Continuous Positive Airway Pressure (ICD-10-PCS; principal; 2017-07-05)
DX: J18.9 Pneumonia, unspecified organism (principal); J96.92 Respiratory failure, unspecified with hypercapnia; N17.9 Acute kidney failure, unspecified; L89.154 Pressure ulcer of sacral region, stage 4; E87.2 Acidosis; G20 Parkinson's disease; G40.909 Epilepsy, unspecified, not intractable, without status epilepticus; E11.9 Type 2 diabetes mellitus without complications; F20.0 Paranoid schizophrenia; E03.9 Hypothyroidism, unspecified; E78.5 Hyperlipidemia, unspecified; F31.9 Bipolar disorder, unspecified; N18.2 Chronic kidney disease, stage 2 (mild); I12.9 Hypertensive chronic kidney disease with stage 1 through stage 4 chronic kidney disease, or unspecified chronic kidney disease; E66.9 Obesity, unspecified; Z68.33 Body mass index [BMI] 33.0-33.9, adult; Z74.01 Bed confinement status; M81.0 Age-related osteoporosis without current pathological fracture; Z79.84 Long term (current) use of oral hypoglycemic drugs; Z86.73 Personal history of transient ischemic attack (TIA), and cerebral infarction without residual deficits; K21.9 Gastro-esophageal reflux disease without esophagitis; Z99.3 Dependence on wheelchair
CPT/HCPCS: 36600; 71010; 71250; 76937; 80048; 80053; 80202; 81001; 82550; 82552; 82565; 82805; 82948; 83605; 83735; 83880; 84100; 84484; 85007; 85025; 85027; 85610; 85730; 87040; 87086; 87449; 87641; 93005; 94002; 94003; 94640; 94664; J0456; J0696; J1644; J1815; J1956; J2920; J2997; J3370; J7030; J7040; J7050; J7512

== ENCOUNTER 2017-09-07 12:58 | Inpatient (IN) | payer MEDICARE, OTHER ==
[~2017-09-07] VITALS: Ht 149.9 cm; Wt 82.0 kg
[2017-09-07] VITALS (10 sets, daily range): BP systolic 124–141; BP diastolic 57–63; PULSE 84–110; RESP 18–24; TEMP 98.5–99; O2SAT 93–97
[~2017-09-07 12:58] MED LIST changes: +AZIT250T3 PO; +LEVA500T33 PO; -LEVO750T3 PO; +PRED10 PO; -VANC1000P IV
[2017-09-07] MEDS ORDERED: SODIUM CHLOR 0.9% 1000 ML INJ 1,000 ML IV SCH ×2 (13:22→14:26)
--- NOTE | 2017-09-07 13:26 | PD ---
HPI Chief Complaint: dyspnea, fever Time Seen by Provider: 13:30 Travel History International Travel<30 days: No Contact w/Intl Traveler<30days: No Traveled to known affect area: No History of Present Illness HPI This is a 72-year-old female who presents from [facility] for evaluation. The patient was found this morning to have dyspnea, hypoxia and a fever of 102. She received albuterol and Tylenol at the detention and her oxygen saturation improved. Upon EMS arrival her oxygen saturation was in the high 80s, and is currently 93% on 4 L. She has had a cough for the past several days as well. She was started on Macrobid on September 05 for urinary tract infection. Upon review of systems she endorses cough and dyspnea for "a while" as well as lower abdominal pain, diarrhea for "a while." She is somewhat of a poor historian however she is alert and oriented 3. Per chart review it appears that the patient was admitted for hypercapnic respiratory distress and right lung pneumonia in June of this year. She has no other complaints at this time. PFSH Past Medical History Arthritis: No Asthma: No Autoimmune Disease: No Blood Disorders: No Bipolar Disorder: Yes Anxiety: Yes Depression: Yes Heart Rhythm Problems: No Cancer: No Cardiovascular Problems: No High Cholesterol: No Chemotherapy: No Chest Pain: No Congestive Heart Failure: No COPD: No Cerebrovascular Accident: Yes Coronary Artery Disease: Yes (ANGINA) Diabetes: Yes Diminished Hearing: No Endocrine: Yes Gastrointestinal Disorders: Yes (gastro reflux ) GERD: Yes Glaucoma: No Genitourinary: Yes (CKD stage II) Headaches: No Hepatitis: No Hiatal Hernia: No Hypertension: Yes Immune Disorder: No Kidney Stones: No Musculoskeletal: Yes (osteoporosis, chronic shoulderpain ) Neurologic: Yes (epilepsy, cerebral infarction ) Psychiatric: Yes (dependent personality disorder) Reproductive: No Respiratory: Yes Migraines: No Myocardial Infarction: No Radiation Therapy: No Renal Failure: No Schizophrenia: Yes (paranoid schizophrenia ) Sickle Cell Disease: No Sleep Apnea: No Thyroid Disease: Yes (hypothyroidism ) Ulcer: No Menopausal: Yes Past Surgical History Abdominal Surgery: No AICD: No Arteriovenous Shunt: No Cardiac Surgery: No Ear Surgery: No Endocrine Surgery: No Eye Surgery: No Genitourinary Surgery: No Gynecologic Surgery: Yes (D & C) Insulin Pump: No Joint Replacement: No Neurologic Surgery: No Oral Surgery: No Pacemaker: No Thoracic Surgery: No Other Surgery: Yes Social History Alcohol Use: No Tobacco Use: No Substance Use: No Allergies-Medications (Allergen,Severity, Reaction): Coded Allergies: adhesive (Unverified Allergy, Severe, 05/24/17) doxycycline (Unverified Allergy, Severe, 05/24/17) minocycline (Unverified Allergy, Severe, 05/24/17) penicillin G (Unverified Allergy, Severe, 05/24/17) tigecycline (Unverified Allergy, Severe, 05/24/17) Uncoded Allergies: ANTIHISTAMINES (Allergy, Severe, 09/05/07) Reported Meds & Prescriptions Reported Meds & Active Scripts Active Prednisone 10 Mg Tab 10 Mg PO DAILY Metoprolol Tartrate 25 Mg Tab 50 Mg PO BID Reported Macrobid (Nitrofurantoin Monoh/Nitrofur Macro) 100 Mg Cap 100 Mg PO BID 5 Days Ativan (Lorazepam) 0.5 Mg Tab 0.5 Mg PO HS Diff-Stat (Probiotic Product) 471 Mg Cap 1 Cap PO BID Ascorbic Acid 500 Mg Tab 500 Mg PO BID Senokot (Sennosides) 8.6 Mg Tab 8.6 Mg PO DAILY Divalproex ER (Divalproex Sodium) 250 Mg Pedro 750 Mg PO HS Vitamin D-1000 (Cholecalciferol) 1,000 Unit Tab 1,000 Units PO DAILY Synthroid (Levothyroxine Sodium) 125 Mcg Tab 125 Mcg PO DAILY Requip (Ropinirole) 1 Mg Tab 1 Mg PO TID Neurontin (Gabapentin) 300 Mg Cap 300 Mg PO TID One Daily-Minerals (Multiple Vitamins W/ Minerals) 1 Tab 1 Tab PO DAILY Lopid (Gemfibrozil) 600 Mg Tab 600 Mg PO BID Take 30 minutes prior to breakfast and dinner Glipizide 5 Mg Tab 5 Mg PO BID Take 30 minutes before a meal Tylenol (Acetaminophen) 325 Mg Tab 650 Mg PO Q6H PRN Levetiracetam 500 Mg Tab 500 Mg PO BID Lamotrigine 100 Mg Tab 100 Mg PO DAILY Lamictal (Lamotrigine) 25 Mg Tab 25 Mg PO HS Isosorbide Dinitrate 10 Mg Tab 10 Mg PO BID Glucophage (Metformin HCl) 500 Mg Tab 1,000 Mg PO BID With meals Fosamax (Alendronate Sodium) 70 Mg Tab 70 Mg PO Q7D Sinemet (Carbidopa/Levodopa) 10-100 Mg Tab 1 Tab PO Q8HR Risperdal (Risperidone) 1 Mg Tab 1 Mg PO TID Pravachol (Pravastatin) 40 Mg Tab 40 Mg PO DAILY Review of Systems Except as stated in HPI: all other systems reviewed are Neg Physical Exam Narrative GENERAL: Chronically ill-appearing female in no acute distress. Her oxygen saturation is 94% on 4 L nasal cannula. SKIN: Warm and dry. HEAD: Atraumatic. Normocephalic. EYES: Pupils equal and round. No scleral icterus. No injection or drainage. ENT: No nasal bleeding or discharge. Mucous membranes pink and moist. NECK: Trachea midline. No JVD. CARDIOVASCULAR: Regular rate and rhythm. No murmur appreciated. RESPIRATORY: No accessory muscle use. diminished breath sounds. GASTROINTESTINAL: Abdomen soft, tender to palpation in lower quadrants no guarding. MUSCULOSKELETAL: No obvious deformities. No clubbing. No cyanosis. No edema. NEUROLOGICAL: Awake and alert. No obvious cranial nerve deficits. Motor grossly within normal limits. Normal speech. PSYCHIATRIC: Appropriate mood and affect; insight and judgment normal. Data Data Last Documented VS Vital Signs Date Time Temp Pulse Resp B/P (MAP) Pulse Ox O2 Delivery O2 Flow Rate FiO2 09/07/17 16:00 98.6 98 22 127/61 (83) 96 Nasal Cannula 4.00 Orders Orders Sepsis Workup Initiated (09/07/17 ) Electrocardiogram (09/07/17 13:22) Complete Blood Count With Diff (09/07/17 13:22) Comprehensive Metabolic Panel (09/07/17 13:22) Lactic Acid Sepsis Protocol (09/07/17 13:22) Urinalysis - C+S If Indicated (09/07/17 13:22) Influenzae A/B Antigen (09/07/17 13:22) Blood Culture (09/07/17 13:22) Chest, Single Ap (09/07/17 13:22) Blood Glucose (09/07/17 13:22) Ecg Monitoring (09/07/17 13:22) Iv Access Insert/Monitor (09/07/17 13:22) Oximetry (09/07/17 13:22) Oxygen Administration (09/07/17 13:22) C Diff Toxin Pcr (09/07/17 13:22) Act Partial Throm Time (Ptt) (09/07/17 13:22) Prothrombin Time / Inr (Pt) (09/07/17 13:22) Sodium Chlor 0.9% 1000 Ml Inj (Ns 1000 M (09/07/17 13:22) Arterial Blood Gas (Abg) (09/07/17 13:22) Cath For Specimen (09/07/17 13:22) B-Type Natriuretic Peptide (09/07/17 13:35) Methylprednisolone So Succ Inj (Solumedr (09/07/17 13:45) Albuterol-Ipratropium Neb (Duoneb Neb) (09/07/17 13:45) Urine Culture (09/07/17 13:25) Sodium Chlor 0.9% 1000 Ml Inj (Ns 1000 M (09/07/17 14:26) Vascular Access Team Consult/P PRN (09/07/17 14:26) Vascular Poc Ultrasound (09/07/17 ) Ct Abd/Pel W/O Iv Contrast (09/07/17 14:37) Potassium, Serum (K) (09/07/17 14:46) Levofloxacin 750 Mg Premix Inj (Levaquin (09/07/17 15:15) Vancomycin Inj (Vancomycin Inj) (09/07/17 15:15) Lactic Acid Sepsis Protocol (09/07/17 16:09) Admit Order (Ed Use Only) (09/07/17 16:37) Labs Laboratory Tests Test 09/07/17 13:25 09/07/17 13:30 09/07/17 14:00 09/07/17 14:45 Urine Color YELLOW Urine Turbidity HAZY Urine pH 5.5 Urine Specific [place] 1.017 Urine Protein 30 mg/dL Urine Glucose (UA) NEG mg/dL Urine Ketones NEG mg/dL Urine Occult Blood TRACE Urine Nitrite NEG Urine Bilirubin NEG Urine Urobilinogen LESS THAN 2.0 MG/DL Urine Leukocyte Esterase LARGE Urine RBC 1 /hpf Urine WBC 89 /hpf Urine WBC Clumps MOD Urine Squamous Epithelial Cells 5 /hpf Urine Amorphous Sediment FEW Urine Bacteria FEW /hpf Urine Mucus FEW /lpf Microscopic Urinalysis Comment CATH-CULTURE IND White Blood Count 20.1 TH/MM3 Red Blood Count 3.98 MIL/MM3 Hemoglobin 11.5 GM/DL Hematocrit 37.4 % Mean Corpuscular Volume 94.0 FL Mean Corpuscular Hemoglobin 28.8 PG Mean Corpuscular Hemoglobin Concent 30.6 % Red Cell Distribution Width 20.4 % Platelet Count 238 TH/MM3 Mean Platelet Volume 9.0 FL Neutrophils (%) (Auto) 89.3 % Lymphocytes (%) (Auto) 3.9 % Monocytes (%) (Auto) 6.2 % Eosinophils (%) (Auto) 0.2 % Basophils (%) (Auto) 0.4 % Neutrophils # (Auto) 18.0 TH/MM3 Lymphocytes # (Auto) 0.8 TH/MM3 Monocytes # (Auto) 1.2 TH/MM3 Eosinophils # (Auto) 0.0 TH/MM3 Basophils # (Auto) 0.1 TH/MM3 CBC Comment AUTO DIFF Differential Total Cells Counted 100 Neutrophils % (Manual) 82 % Band Neutrophils % 12 % Monocytes % 6 % Neutrophils # (Manual) 18.9 TH/MM3 Nucleated Red Blood Cells 2 /100 WBC Differential Comment FINAL DIFF MANUAL Platelet Estimate NORMAL Platelet Morphology Comment NORMAL Tear Drop Cells 1+ Ovalocytes 1+ Stomatocytes 1+ Blood Urea Nitrogen 46 MG/DL Creatinine 1.72 MG/DL Random Glucose 237 MG/DL Total Protein 7.1 GM/DL Albumin 3.0 GM/DL Calcium Level 10.1 MG/DL Alkaline Phosphatase 42 U/L Aspartate Amino Transf (AST/SGOT) 38 U/L Alanine Aminotransferase (ALT/SGPT) 16 U/L Total Bilirubin 0.2 MG/DL Sodium Level 133 MEQ/L Potassium Level 5.9 MEQ/L 5.2 MEQ/L Chloride Level 100 MEQ/L Carbon Dioxide Level 23.2 MEQ/L Anion Gap 10 MEQ/L Estimat Glomerular Filtration Rate 29 ML/MIN Lactic Acid Level 6.2 mmol/L B-Type Natriuretic Peptide 131 PG/ML Blood Gas Puncture Site RT RADIAL Blood Gas Patient Temperature 37.0 Blood Gas HCO3 24 mmol/L Blood Gas Base Excess -2.7 mmol/L Blood Gas Oxygen Saturation 90 % Arterial Blood pH 7.24 Arterial Blood Partial Pressure CO2 58 mmHg Arterial Blood Partial Pressure O2 69 mmHG Arterial Blood Oxygen Content 13.6 Vol % Arterial Blood Carboxyhemoglobin 1.5 % Arterial Blood Methemoglobin 0.7 % Blood Gas Hemoglobin 10.6 G/DL Oxygen Delivery Device NASAL CANNULA Blood Gas Liter Flow 2 L/M MDM Medical Decision Making Medical Screen Exam Complete: Yes Emergency Medical Condition: Yes Medical Record Reviewed: Yes Differential Diagnosis Pneumonia, cystitis, pyelonephritis, diverticulitis, sepsis, respiratory failure , C. difficile colitis Narrative Course The patient was placed on ECG monitor pulse oximetry. A 12-lead EKG was obtained. Plan is for basic lab work, chest x-ray, CT abdomen and pelvis. She will be given IV fluids, 2 nebs, Solu-Medrol. Lab work notable for a lactic acid 6.2, WBC count 20.1, GFR 29, catheter urine specimen reveals 89 WBCs with moderate clumps and this is likely the source of infection. ABG reveals a pH of 7.24 with CO2 of 58 A C. difficile PCR is ordered but the patient has not produced a bowel movement. The patient was given Levaquin and vancomycin. The patient was admitted to the insurance claims assistant. Diagnosis Primary Impression: Acute respiratory failure with hypoxia and hypercarbia Additional Impressions: Severe sepsis Urinary tract infection Qualified Codes: N39.0 - Urinary tract infection, site not specified; R31.9 - Hematuria, unspecified Admitting Information Admitting Physician Requests: Admit Shekhar Benson Sep 07, 2017 13:26
[2017-09-07] MEDS ORDERED: methylPREDNISolone SOD SUCC 125 MG/2 ML VIAL IV PUSH ONE (13:45)
[2017-09-07] MEDS: RESP: ALBUTEROL 2.5 MG/IPRATROPIUM 0.5 MG NEB (SCH) INH ×3 (13:45→21:50)
[2017-09-07 14:12] LABS: BACTERIA, URINE FEW /hpf; BLOOD, URINE TRACE (NEG); GLUCOSE,URINE NEG (NEG); KETONE, URINE NEG (NEG); MUCUS URINE FEW /lpf (OCC); NITRITE,URINE NEG (NEG); PH, URINE 5.5 (5.0-8.5); SQUAMOUS EPITHELIAL CELL URINE 5 /hpf (0-5); URINE COLOR YELLOW (YELLW/STRAW)
[2017-09-07 14:13] LABS: BASOPHIL # 0.1 TH/MM3 (0-0.2); BASOPHIL % 0.4 % (0.0-2.0); EOSINOPHIL % 0.2 % (0.0-4.0); HEMATOCRIT 37.4 % (35.0-46.0); LYMPH % 3.9 % (9.0-44.0); LYMPHOCYTE # 0.8 TH/MM3 (1.0-4.8); MEAN CORPUSCULAR HEMOGLOBIN 28.8 PG (27.0-34.0); MEAN CORPUSCULAR HGB CONC 30.6 % (32.0-36.0); MONO % 6.2 % (0.0-8.0); NEUT % 89.3 % (16.0-70.0); PLATELET COUNT 238 TH/MM3 (150-450); RED BLOOD COUNT 3.98 MIL/MM3 (4.00-5.30); RED CELL DISTRIBUTION WIDTH 20.4 % (11.6-17.2); WHITE BLOOD COUNT 20.1 TH/MM3 (4.0-11.0)
[2017-09-07 14:13] LABS: COMMENT (UR) CATH-CULTURE IND; CULTURE IF INDICATED CATH CULTURE IND
[2017-09-07 14:14] LABS: HEMO FLAGS AUTO DIFF
[2017-09-07 14:14] LABS: BLOOD GAS BASE EXCESS -2.7 mmol/L (-2-2); BLOOD GAS CARBOXYHEMOGLOBIN 1.5 % (0-4); BLOOD GAS HCO3 24 mmol/L (22-26); BLOOD GAS METHEMOGLOBIN 0.7 % (0-2); BLOOD GAS O2 HGB SATURATION 90 % (90-100); BLOOD GAS OXYGEN CONTENT 13.6 Vol % (12.0-20.0); BLOOD GAS PCO2 58 mmHg (38-42); BLOOD GAS PO2 69 mmHG (61-120); BLOOD GAS TOTAL HGB 10.6 G/DL (12.0-16.0)
[2017-09-07 14:15] LABS: CRITICAL VALUE YES; DRAW SITE RT RADIAL; LITER FLOW 2 L/M; NUMBER OF ARTERIAL PUNCTURES 1; OXYGEN DEVICE NASAL CANNULA; STAT YES; ULNAR PULSE PRESENT
[2017-09-07 14:17] LABS: ALT (GPT) 16 U/L (10-53)
[2017-09-07 14:19] LABS: ALKALINE PHOSPHATASE 42 U/L (45-117); TOTAL BILIRUBIN ADULT 0.2 MG/DL (0.2-1.0)
[2017-09-07 14:24] LABS: ANION GAP 10 MEQ/L (5-15); AST (GOT) 38 U/L (15-37); BICARBONATE 23.2 MEQ/L (21.0-32.0); BLOOD UREA NITROGEN 46 MG/DL (7-18); CHLORIDE 100 MEQ/L (98-107); GLOMERULAR FILTRATION RATE 29 ML/MIN (>89); SODIUM (NA) 133 MEQ/L (136-145)
[2017-09-07 14:26] LABS: POTASSIUM 5.9 MEQ/L (3.5-5.1)
--- NOTE | 2017-09-07 14:31 | RADRPT ---
EXAM DATE/TIME: 09/07/2017 13:47 [facility] COMPARISON: CHEST SINGLE AP, July 13, 2017, 5:53. INDICATIONS : Cough. Patient complains of shortness of breath. MEDICAL HISTORY : Hypertension. Cardiovascular disease Osteoporosis. Diabetes SURGICAL HISTORY : None. ENCOUNTER: Initial ACUITY: 1 day PAIN SCORE: 0/10 LOCATION: Bilateral chest FINDINGS: \Elevation right hemidiaphragm. The lungs are clear. The heart is minimally enlarged. The pulmonary vascularity is normal. There is n o evidence for infiltrate or failure. The portion of the bony skeleton visualized is unremarkable. CONCLUSION: Compensated cardiomegaly otherwise negative Elevation right hemidiaphragm stable in the interval. Gianfranco Elena MD FACR on September 07, 2017 at 14:29 Board Certified Radiologist. This report was verified electronically.
[2017-09-07] MEDS ORDERED: VANCOMYCIN INJ 1,000 MG in SODIUM CHLOR 0.9% 250 ML INJ 250 ML IV ONE (15:15)
[2017-09-07] MEDS ORDERED: LEVOFLOXACIN 750 MG PREMIX INJ 150 ML IV ONE (15:15)
[2017-09-07] MEDS ORDERED: DIVA250T3 PO (15:17)
[2017-09-07] MEDS ORDERED: LORA-392 PO (15:17)
[2017-09-07] MEDS ORDERED: SENO8.6T5 PO (15:17)
[2017-09-07] MEDS ORDERED: DIFFCHW PO (15:17)
[2017-09-07] MEDS ORDERED: ASCO500T PO (15:17)
[2017-09-07] MEDS ORDERED: MACR100C2 PO (15:17)
[2017-09-07 15:38] LABS: BANDS 12 % (0-6); CORRECTED NUCLEATED RBC 2 /100 WBC (0-0); NEUTROPHIL # MANUAL DIFF 18.9 TH/MM3 (1.8-7.7); POLYS (SEG NEUTROPHILS) 82 % (16-70); WBC DIFF SAMPLE 100
[2017-09-07 15:40] LABS: OVALOCYTES 1+ (NORMAL); PLATELET ESTIMATE SMEAR NORMAL (NORMAL); PLATELET MORPHOLOGY NORMAL (NORMAL); SCAN/DIFF FINAL DIFF MANUAL; STOMATOCYTES 1+ (NORMAL); TEARDROP RBCS 1+ (NORMAL)
[2017-09-07 15:53] LABS: LACTIC ACID GHOST NOT REPORTABLE
--- NOTE | 2017-09-07 16:06 | RADRPT ---
EXAM DATE/TIME: 09/07/2017 15:03 [facility] COMPARISON: CT ABDOMEN & PELVIS W/O CONTRAST, September 02, 2016, 2:29. INDICATIONS : Lower abdominal pain and diarrhea. ORAL CONTRAST: No oral contrast ingested. RADIATION DOSE: 23.31 CTDIvol (mGy) MEDICAL HISTORY : Renal insufficiency, chronic. Diabetes mellitus type 2. Gastroesophageal reflux disease. SURGICAL HISTORY : None. ENCOUNTER: Initial ACUITY: 1 week PAIN SCALE: 3/10 LOCATION: Bilateral lower quadrant TECHNIQUE: Volumetric scanning of the abdomen and pelvis was performed. Using automated exposure control and ad justment of the mA and/or kV according to patient size, radiation dose was kept as low as reasonably achievable to obtain optimal diagnostic quality images. DICOM format image data is available electro nically for review and comparison. FINDINGS: The study is degraded by breathing motion artifact. LOWER LUNGS: There is elevation of the right hemidiaphragm. Dependent atelectasis involving the right lower lobe. LIVER: Homogeneous density without lesion. There is no dilation of the biliary tree. There is a solitary sm all gallstone within an otherwise normal-appearing gallbladder. SPLEEN: Normal size without lesion. PANCREAS: Within normal limits. KIDNEYS: Normal in size and shape. There is no mass, stone, or hydronephrosis. ADRENAL GLANDS: Within normal limits. VASCULAR: There is no aortic aneurysm. BOWEL/MESENTERY: The stomach, small bowel, and colon demonstrate no acute abnormality. There is no free intraperitone al air or fluid. ABDOMINAL WALL: Within normal limits. RETROPERITONEUM: There is no lymphadenopathy. BLADDER: No wall thickening or mass. REPRODUCTIVE: Within normal limits. INGUINAL: There is no lymphadenopathy or hernia. MUSCULOSKELETAL: Within normal limits for patient age. CONCLUSION: 1. Study is degraded by breathing motion artifact. 2. Elevation of the right hemidiaphragm with right basilar atelectasis. 3. Cholelithiasis. 4. No acute abnormality to explain the patient's pain. Abdelrahman Leon Jr., MD on September 07, 2017 at 16:01 Board Certified Radiologist. This report was verified electronically.
--- NOTE | 2017-09-07 17:34 | HHI.HP ---
HPI Service Critical Care Medicine Primary Care Physician Unknown Admission Diagnosis severe sepsis, hypercarbia, UTI Diagnosis: Travel History International Travel<30 Days: No Contact w/Intl Traveler <30 Da: No Traveled to Known Affected Are: No History of Present Illness HPI This is a 72-year-old female who presents from [facility] for evaluation. The patient was found this morning to have dyspnea, hypoxia and a fever of 102. She received albuterol and Tylenol at the longterm and her oxygen saturation improved. Upon EMS arrival her oxygen saturation was in the high 80s, and is currently 93% on 4 L. She has had a cough for the past several days as well. She was started on Macrobid on September 05 for urinary tract infection. Upon review of systems she endorses cough and dyspnea for "a while" as well as lower abdominal pain, diarrhea for "a while." She is somewhat of a poor historian however she is alert and oriented 3. Patient was admitted for hypercapnic respiratory distress and right lung pneumonia in June of this year. She has no other complaints at this time. Patient was noted to have an elevated lactic acid and pCO2. She was accepted for admission by critical care medicine service. She was maintaining her blood pressure and was not in any acute distress at the time of my evaluation. History was obtained by reviewing records and discussion with ER mid-level provider. Patient is not a very good historian. History PFSH Past Medical History Arthritis: No Asthma: No Autoimmune Disease: No Blood Disorders: No Bipolar Disorder: Yes Anxiety: Yes Depression: Yes Heart Rhythm Problems: No Cancer: No Cardiovascular Problems: No High Cholesterol: No Chemotherapy: No Chest Pain: No Congestive Heart Failure: No COPD: No Cerebrovascular Accident: Yes Coronary Artery Disease: Yes (ANGINA) Diabetes: Yes Diminished Hearing: No Endocrine: Yes Gastrointestinal Disorders: Yes (gastro reflux ) GERD: Yes Glaucoma: No Genitourinary: Yes (CKD stage II) Headaches: No Hepatitis: No Hiatal Hernia: No Hypertension: Yes Immune Disorder: No Kidney Stones: No Musculoskeletal: Yes (osteoporosis, chronic shoulderpain ) Neurologic: Yes (epilepsy, cerebral infarction ) Psychiatric: Yes (dependent personality disorder) Reproductive: No Respiratory: Yes Migraines: No Myocardial Infarction: No Radiation Therapy: No Renal Failure: No Schizophrenia: Yes (paranoid schizophrenia ) Sickle Cell Disease: No Sleep Apnea: No Thyroid Disease: Yes (hypothyroidism ) Ulcer: No Menopausal: Yes Past Surgical History Abdominal Surgery: No AICD: No Arteriovenous Shunt: No Cardiac Surgery: No Ear Surgery: No Endocrine Surgery: No Eye Surgery: No Genitourinary Surgery: No Gynecologic Surgery: Yes (D & C) Insulin Pump: No Joint Replacement: No Neurologic Surgery: No Oral Surgery: No Pacemaker: No Thoracic Surgery: No Other Surgery: Yes Social History Alcohol Use: No Tobacco Use: No Substance Use: No Allergies-Medications Allergies-Medications (Allergen,Severity, Reaction): Coded Allergies: adhesive (Unverified Allergy, Severe, 05/24/17) doxycycline (Unverified Allergy, Severe, 05/24/17) minocycline (Unverified Allergy, Severe, 05/24/17) penicillin G (Unverified Allergy, Severe, 05/24/17) tigecycline (Unverified Allergy, Severe, 05/24/17) Uncoded Allergies: ANTIHISTAMINES (Allergy, Severe, 09/05/07) Reported Meds & Prescriptions Reported Meds & Active Scripts Active Prednisone 10 Mg Tab 10 Mg PO DAILY Metoprolol Tartrate 25 Mg Tab 50 Mg PO BID Reported Macrobid (Nitrofurantoin Monoh/Nitrofur Macro) 100 Mg Cap 100 Mg PO BID 5 Days Ativan (Lorazepam) 0.5 Mg Tab 0.5 Mg PO HS Diff-Stat (Probiotic Product) 471 Mg Cap 1 Cap PO BID Ascorbic Acid 500 Mg Tab 500 Mg PO BID Senokot (Sennosides) 8.6 Mg Tab 8.6 Mg PO DAILY Divalproex ER (Divalproex Sodium) 250 Mg Pedro 750 Mg PO HS Vitamin D-1000 (Cholecalciferol) 1,000 Unit Tab 1,000 Units PO DAILY Synthroid (Levothyroxine Sodium) 125 Mcg Tab 125 Mcg PO DAILY Requip (Ropinirole) 1 Mg Tab 1 Mg PO TID Neurontin (Gabapentin) 300 Mg Cap 300 Mg PO TID One Daily-Minerals (Multiple Vitamins W/ Minerals) 1 Tab 1 Tab PO DAILY Lopid (Gemfibrozil) 600 Mg Tab 600 Mg PO BID Take 30 minutes prior to breakfast and dinner Glipizide 5 Mg Tab 5 Mg PO BID Take 30 minutes before a meal Tylenol (Acetaminophen) 325 Mg Tab 650 Mg PO Q6H PRN Levetiracetam 500 Mg Tab 500 Mg PO BID Lamotrigine 100 Mg Tab 100 Mg PO DAILY Lamictal (Lamotrigine) 25 Mg Tab 25 Mg PO HS Isosorbide Dinitrate 10 Mg Tab 10 Mg PO BID Glucophage (Metformin HCl) 500 Mg Tab 1,000 Mg PO BID With meals Fosamax (Alendronate Sodium) 70 Mg Tab 70 Mg PO Q7D Sinemet (Carbidopa/Levodopa) 10-100 Mg Tab 1 Tab PO Q8HR Risperdal (Risperidone) 1 Mg Tab 1 Mg PO TID Pravachol (Pravastatin) 40 Mg Tab 40 Mg PO DAILY ROS Review of Systems Except as stated in HPI: all other systems reviewed are Neg Past Family Social History Allergies: Coded Allergies: adhesive (Unverified Allergy, Severe, 05/24/17) doxycycline (Unverified Allergy, Severe, 05/24/17) minocycline (Unverified Allergy, Severe, 05/24/17) penicillin G (Unverified Allergy, Severe, 05/24/17) tigecycline (Unverified Allergy, Severe, 05/24/17) Uncoded Allergies: ANTIHISTAMINES (Allergy, Severe, 09/05/07) Physical Exam Vital Signs Vital Signs Date Time Temp Pulse Resp B/P (MAP) Pulse Ox O2 Delivery O2 Flow Rate FiO2 09/07/17 16:00 98.6 98 22 127/61 (83) 96 Nasal Cannula 4.00 09/07/17 15:30 98 22 127/57 (80) 96 Nasal Cannula 4.00 09/07/17 15:00 96 20 130/62 (84) 95 Nasal Cannula 4.00 09/07/17 14:30 110 21 141/63 (89) 95 Nasal Cannula 4.00 09/07/17 13:40 24 94 Nasal Cannula 09/07/17 13:34 94 Nasal Cannula 4.00 09/07/17 13:34 94 Nasal Cannula 4.00 09/07/17 13:13 99.0 101 24 93 Physical Exam Narrative GENERAL: Chronically ill-appearing female in no acute distress. Her oxygen saturation is 94% on 4 L nasal cannula. SKIN: Warm and dry. HEAD: Atraumatic. Normocephalic. EYES: Pupils equal and round. No scleral icterus. No injection or drainage. ENT: No nasal bleeding or discharge. Mucous membranes pink and moist. NECK: Trachea midline. No JVD. CARDIOVASCULAR: Regular rate and rhythm. No murmur appreciated. RESPIRATORY: No accessory muscle use. diminished breath sounds. GASTROINTESTINAL: Abdomen soft, tender to palpation in lower quadrants no guarding. MUSCULOSKELETAL: No obvious deformities. No clubbing. No cyanosis. No edema. NEUROLOGICAL: Awake and alert. No obvious cranial nerve deficits. Motor grossly within normal limits. Normal speech. PSYCHIATRIC: Appropriate mood and affect; insight and judgment normal. Laboratory Laboratory Tests Test 09/07/17 13:25 09/07/17 13:30 09/07/17 14:00 09/07/17 14:45 Urine Color YELLOW Urine Turbidity HAZY Urine pH 5.5 Urine Specific H[place]ourt 1.017 Urine Protein 30 Urine Glucose (UA) NEG Urine Ketones NEG Urine Occult Blood TRACE Urine Nitrite NEG Urine Bilirubin NEG Urine Urobilinogen LESS THAN 2.0 Urine Leukocyte Esterase LARGE Urine RBC 1 Urine WBC 89 Urine WBC Clumps MOD Urine Squamous Epithelial Cells 5 Urine Amorphous Sediment FEW Urine Bacteria FEW Urine Mucus FEW Microscopic Urinalysis Comment CATH-CULTURE IND White Blood Count 20.1 Red Blood Count 3.98 Hemoglobin 11.5 Hematocrit 37.4 Mean Corpuscular Volume 94.0 Mean Corpuscular Hemoglobin 28.8 Mean Corpuscular Hemoglobin Concent 30.6 Red Cell Distribution Width 20.4 Platelet Count 238 Mean Platelet Volume 9.0 Neutrophils (%) (Auto) 89.3 Lymphocytes (%) (Auto) 3.9 Monocytes (%) (Auto) 6.2 Eosinophils (%) (Auto) 0.2 Basophils (%) (Auto) 0.4 Neutrophils # (Auto) 18.0 Lymphocytes # (Auto) 0.8 Monocytes # (Auto) 1.2 Eosinophils # (Auto) 0.0 Basophils # (Auto) 0.1 CBC Comment AUTO DIFF Differential Total Cells Counted 100 Neutrophils % (Manual) 82 Band Neutrophils % 12 Monocytes % 6 Neutrophils # (Manual) 18.9 Nucleated Red Blood Cells 2 Differential Comment FINAL DIFF MANUAL Platelet Estimate NORMAL Platelet Morphology Comment NORMAL Tear Drop Cells 1+ Ovalocytes 1+ Stomatocytes 1+ Blood Urea Nitrogen 46 Creatinine 1.72 Random Glucose 237 Total Protein 7.1 Albumin 3.0 Calcium Level 10.1 Alkaline Phosphatase 42 Aspartate Amino Transf (AST/SGOT) 38 Alanine Aminotransferase (ALT/SGPT) 16 Total Bilirubin 0.2 Sodium Level 133 Potassium Level 5.9 5.2 Chloride Level 100 Carbon Dioxide Level 23.2 Anion Gap 10 Estimat Glomerular Filtration Rate 29 Lactic Acid Level 6.2 B-Type Natriuretic Peptide 131 Blood Gas Puncture Site RT RADIAL Blood Gas Patient Temperature 37.0 Blood Gas HCO3 24 Blood Gas Base Excess -2.7 Blood Gas Oxygen Saturation 90 Arterial Blood pH 7.24 Arterial Blood Partial Pressure CO2 58 Arterial Blood Partial Pressure O2 69 Arterial Blood Oxygen Content 13.6 Arterial Blood Carboxyhemoglobin 1.5 Arterial Blood Methemoglobin 0.7 Blood Gas Hemoglobin 10.6 Oxygen Delivery Device NASAL CANNULA Blood Gas Liter Flow 2 Date/Time Source Procedure Growth Status 09/07/17 13:30 Blood Peripheral Aerobic Blood Culture Pending Received 09/07/17 13:30 Blood Peripheral Anaerobic Blood Culture Pending Received 09/07/17 13:35 Nasal Aspirate Influenza Types A,B Antigen (HOMERO) - Final NEGATIVE FOR FLU A AND B ANTIGEN.... Complete 09/07/17 13:25 Urine Catheterized Urine Urine Culture Pending Worksheet Result Diagram: 09/07/17 1330 09/07/17 1445 Septic Shock Reassessment Heart: Regular rate and rhythm Lungs: Course Skin: Warm Peripheral Pulses: Bounding Right Radial Capillary Refill: Brisk Caprini VTE Risk Assessment Caprini VTE Risk Assessment: Mod/High Risk (score >= 2) Caprini Risk Assessment Model Point Value = 1 Point Value = 2 Point Value = 3 Point Value = 5 Age 41-60 Minor surgery BMI > 25 kg/m2 Swollen legs Varicose veins or History of unexplained or recurrent spontaneous Oral contraceptives or hormone replacement Sepsis (< 1 month) Serious lung disease, including pneumonia (< 1 month) Abnormal pulmonary function Acute myocardial infarction Congestive heart failure (< 1 month) History of inflammatory bowel disease Medical patient at bed rest Age 61-74 Arthroscopic surgery Major open surgery (> 45 min) Laparoscopic surgery (> 45 min) Malignancy Confined to bed (> 72 hours) Immobilizing plaster cast Central venous access Age >= 75 History of VTE Family history of VTE Factor V Leiden Prothrombin [id number] Lupus anticoagulant Anticardiolipin antibodies Elevated serum homocysteine Heparin-induced thrombocytopenia Other congenital or acquired thrombophilia Stroke (< 1 month) Elective arthroplasty Hip, pelvis, or leg fracture Acute spinal cord injury (< 1 month) Prophylaxis Regimen Total Risk Factor Score Risk Level Prophylaxis Regimen 0-1 Low Early ambulation 2 Moderate Order ONE of the following: *Sequential Compression Device (SCD) *Heparin 5000 units SQ BID 3-4 Higher Order ONE of the following medications: *Heparin 5000 units SQ TID *Enoxaparin/Lovenox 40 mg SQ daily (WT < 150 kg, CrCl > 30 mL/min) *Enoxaparin/Lovenox 30 mg SQ daily (WT < 150 kg, CrCl > 10-29 mL/min) *Enoxaparin/Lovenox 30 mg SQ BID (WT < 150 kg, CrCl > 30 mL/min) AND/OR *Sequential Compression Device (SCD) 5 or more Highest Order ONE of the following medications: *Heparin 5000 units SQ TID (Preferred with Epidurals) *Enoxaparin/Lovenox 40 mg SQ daily (WT < 150 kg, CrCl > 30 mL/min) *Enoxaparin/Lovenox 30 mg SQ daily (WT < 150 kg, CrCl > 10-29 mL/min) *Enoxaparin/Lovenox 30 mg SQ BID (WT < 150 kg, CrCl > 30 mL/min) AND *Sequential Compression Device (SCD) Assessment and Plan Assessment and Plan 72-year-old female with: Sepsis UTI CAD CKD GERD D mellitus bipolar disorder Paranoid schizophrenia Hypercapnic respiratory failure Plan: Neuro: Follow neuro status. Continue home psych meds. Cardiovascular: IV hydration, watch for hypotension. Pulmonary: Supplemental O2. Bronchodilators as needed. Patient has chronic CO2 retention. Followed by Dr. Watson who will be consulted for pulmonary. GI/liver: By mouth diet as tolerated Renal/: IV hydration, strict intake output, monitor and replete electro lites , follow BUN/creatinine. ID: Multiple antibiotic allergies noted. Patient received Levaquin IV in the ER and vancomycin. We will continue IV Levaquin. Follow-up cultures. Consult ID for sepsis/antibiotic trend lactic acid. Management in view of multiple allergies. Endocrine: Watch for hyperglycemia, SSI for glycemic control. Hold oral hypoglycemic agents for now. Heme: Follow CBC Prophylaxis: PPI/SCDs/Lovenox Reynaldo Ryan MD Sep 07, 2017 17:34
[2017-09-07] MEDS ORDERED: MISCELLANEOUS NURSING INFORMATION XX SCH (17:45)
[2017-09-07] MEDS ORDERED: SODIUM CHLORIDE 0.9% FLUSH 10 ML FLUSH IV FLUSH PRN (17:45)
[2017-09-07] MEDS ORDERED: CHLORHEXIDINE GLUCONATE 2 % 1 PACK (2 CLOTHS) TOP PRN (17:45)
[2017-09-07] MEDS ORDERED: GLUCAGON 1 MG/ML VIAL IM/SQ PRN (18:00)
[2017-09-07] MEDS ORDERED: DEXTROSE 50% IN WATER 50 ML VIAL(D50) IV PRN (18:00)
[2017-09-07 19:37] LABS: LACTIC ACID GHOST NOT REPORTABLE
[2017-09-07] MEDS ORDERED: RESP: ALBUTEROL 2.5 MG/IPRATROPIUM 0.5 MG NEB (PRN) NEB (19:45)
[2017-09-07] MEDS: SODIUM CHLORIDE 0.9% FLUSH 10 ML FLUSH IV FLUSH SCH (19:56)
[2017-09-07] MEDS: SODIUM CHLOR 0.9% 1000 ML INJ 1,000 ML IV SCH (19:56)
[2017-09-07] MEDS: methylPREDNISolone SOD SUCC 40 MG/1 ML VIAL IV SCH (19:58)
[2017-09-07] MEDS ORDERED: SODIUM CHLOR 0.9% 1000 ML INJ 1,000 ML IV ONE (20:00)
[2017-09-07 21:27] LABS: LACTIC ACID GHOST NOT REPORTABLE
[2017-09-07] MEDS: ENOXAPARIN SODIUM 40 MG/0.4 ML SYRINGE SQ SCH (21:45)
[2017-09-07] MEDS: INSULIN ASPART SUPPLEMENTAL SCALE SQ SCH (21:45)
[2017-09-07] MEDS: CHLORHEXIDINE GLUCONATE 2 % 1 PACK (2 CLOTHS) TOP SCH (21:46)
--- NOTE | 2017-09-07 23:48 | MB ---
cc: Rocio RIVERA M.D. DATE OF CONSULTATION 09/07/17 REASON FOR CONSULTATION Respiratory failure, hypercapnia and sleep apnea. HISTORY OF PRESENT ILLNESS This is a 72-year-old overweight white female of the [facility] was sent to the hospital for fever, hypoxia and shortness of breath. The patient has been coughing and was recently on Macrobid for a urinary infection but failed to improve and has had some diarrhea as well and was brought to the ER for evaluation and a chest x-ray showed volume loss and mild increase in vascular markings. She also had blood cultures done and a urine culture and found to have a lactic acidemia as well as elevated PCO2. She was placed on oxygen via nasal cannula and is presently awake but does not provide any details of her complaints and seems somewhat agitated and requesting to be sent back home. Denies any abdominal pains of nausea, vomiting. PAST HISTORY The patient's past history has included history of respiratory failure and chronic kidney disease, history of CVA and prior history of osteoporosis, history for seizures and paranoid schizophrenia as well as hypothyroidism. She has had a D&C in the past and no other significant surgery. The patient also has a history of diabetes as well as hypertension. HABITS The patient does not smoke. No significant alcohol use. ALLERGIES ANTIHISTAMINES, DOXYCYCLINE, MINOCYCLINE AND PENICILLIN AND TIGECYCLINE. MEDICATION LIST 1. Prednisone 10 milligrams a day 2. Metoprolol 50 milligrams b.i.d. 3. Ativan 0.5 milligrams h.s. 4. Divalproex sodium 250 milligrams h.s. 5. Synthroid 125 micrograms daily 6. Requip 1 milligram t.i.d. 7. Neurontin 300 milligrams t.i.d. 8. Lopid 600 milligrams b.i.d. 9. Glipizide 5 milligrams b.i.d. 10. Levetiracetam 500 milligrams b.i.d. 11. Lamotrigine 100 milligrams daily. 12. Isordil 10 milligrams b.i.d. 13. Metformin 1000 milligrams b.i.d. FAMILY HISTORY Unavailable, noncontributory REVIEW OF SYSTEMS The patient is a poor historian, unable to give any significant details. She is having some joint pains and leg swelling. She has urinary frequency. She has some anxiety and depression and the other system review is as in the presenting complaint. PHYSICAL EXAMINATION GENERAL: This moderately obese elderly lady who is anxious and dyspneic. VITAL SIGNS: Blood pressure 140/70, pulse is 100, respirations 22, temperature 98.5. HEENT: Head normocephalic. Pupils are reactive. Nasal mucosae erythematous. Throat is mildly injected. Ears mild cerumen. NECK: Supple without venous distension. No bruits or thyroid enlargement. CHEST: Decreased excursions, scattered coarse wheezes bilaterally with occasional crackles at lung bases. HEART: The heart sounds are regular S1-S2 with no murmur. ABDOMEN: Obese, protuberant with mild epigastric tenderness. Bowel sounds are active. There is mild tenderness also in the lower quadrants. EXTREMITIES: Mild peripheral edema with diminished pulses. Reflexes are 1+. The patient does move her extremities. Babinski negative. Left heel is in a heel brace. Peripheral pulses are not well felt. NEUROLOGICALLY: There are no focal deficits. IMPRESSION 1. Acute on chronic respiratory failure. 2. Sepsis with UTI. 3. Dehydration. 4. Hypertension. 5. Diabetes mellitus. 6. Obstructive sleep apnea. 7. Bipolar disorder. PLAN Patient has been placed on O2 at 3 liters, will use BiPap at night 12/5 and 30% FIO2. Also, started on nebulized DuoNeb solution q. 6 hours. Symbicort 160/4.5 two puffs twice a day and I continue with antibiotics as ordered including vancomycin 1 gram daily and cefepime 2 grams b.i.d. and Levaquin 500 milligrams a day. Solu-Medrol 40 milligrams b.i.d. was added and chest x-ray, blood gas to be repeated. Sputum was sent for Gram stain and culture and urine cultures pending. Follow up chest x-ray to be obtained in the a.m. as well. Thank you for this consultation. Mychal Rivera MD JMADAN/GINA /10:49 PM /11:21 PM
[2017-09-08] VITALS (16 sets, daily range): BP systolic 101–140; BP diastolic 52–63; PULSE 73–94; RESP 16–21; TEMP 97.6–98.8; O2SAT 93–100
[2017-09-08] MEDS: BUDESONIDE-FORMOTEROL 160/4.5 MCG INHALER INH SCH ×3 (00:24→19:52)
[2017-09-08 01:07] LABS: INTERNATIONAL NORMALIZED RATIO 1.1 RATIO
[2017-09-08 01:27] LABS: BICARBONATE 25.6 MEQ/L (21.0-32.0); POTASSIUM 5.6 MEQ/L (3.5-5.1)
[2017-09-08 01:39] LABS: APTT (PATIENT) 22.9 SEC (24.3-30.1)
[2017-09-08] MEDS: RESP: ALBUTEROL 2.5 MG/IPRATROPIUM 0.5 MG NEB (SCH) INH ×4 (02:56→20:48)
[2017-09-08 05:35] LABS: BLOOD GAS BASE EXCESS -2.3 mmol/L (-2-2); BLOOD GAS HCO3 25 mmol/L (22-26); BLOOD GAS METHEMOGLOBIN 1.1 % (0-2); BLOOD GAS O2 HGB SATURATION 88 % (90-100); BLOOD GAS OXYGEN CONTENT 12.1 Vol % (12.0-20.0); BLOOD GAS PCO2 74 mmHg (38-42); BLOOD GAS PO2 65 mmHg (61-120); BLOOD GAS TOTAL HGB 9.7 G/DL (12.0-16.0); TEMP CORR TO 98.6
[2017-09-08 05:36] LABS: CRITICAL VALUE YES; DRAW SITE RT RADIAL; FIO2 30 %; NUMBER OF ARTERIAL PUNCTURES 1; OXYGEN DEVICE BIPAP; STAT NO; ULNAR PULSE PRESENT; VENT SETTINGS IPAP 12/ EPAP 5
--- NOTE | 2017-09-08 05:42 | RADRPT ---
EXAM DATE/TIME: 09/08/2017 04:03 [place] COMPARISON: CHEST SINGLE AP, September 07, 2017, 13:47. INDICATIONS : Shortness of breath, possible pulmonary disease. MEDICAL HISTORY : Renal insufficiency, chronic. Diabetes mellitus type II. Gastroesophageal reflux disease. SURGICAL HISTORY : None. ENCOUNTER: Subsequent ACUITY: 2 days PAIN SCORE: Non-responsive. LOCATION: Bilateral chest FINDINGS: There is persistent elevation of the right hemidiaphragm. The heart size is borderline enlarged. The lungs are grossly clear. Calcification is seen at the aortic arch. CONCLUSION: 1. Persistent elevation the right hemidiaphragm. 2. Borderline cardiomegaly. Mychal Cordova MD on September 08, 2017 at 5:39 Board Certified Radiologist. This report was verified electronically.
[2017-09-08 06:47] LABS: AUTOMATED NEUTROPHIL # 11.3 TH/MM3 (1.8-7.7); BASOPHIL % 0.1 % (0.0-2.0); HEMATOCRIT 31.5 % (35.0-46.0); HEMO FLAGS DIFF FINAL; LYMPH % 4.1 % (9.0-44.0); LYMPHOCYTE # 0.5 TH/MM3 (1.0-4.8); MEAN CELL VOLUME 92.6 FL (80.0-100.0); MEAN CORPUSCULAR HEMOGLOBIN 28.9 PG (27.0-34.0); MEAN CORPUSCULAR HGB CONC 31.2 % (32.0-36.0); NEUT % 92.8 % (16.0-70.0); PLATELET COUNT 172 TH/MM3 (150-450); RED CELL DISTRIBUTION WIDTH 19.9 % (11.6-17.2); WHITE BLOOD COUNT 12.2 TH/MM3 (4.0-11.0)
[2017-09-08 07:09] LABS: ANION GAP 9 MEQ/L (5-15); AST (GOT) 21 U/L (15-37); BICARBONATE 25.3 MEQ/L (21.0-32.0); BLOOD UREA NITROGEN 38 MG/DL (7-18); CHLORIDE 108 MEQ/L (98-107); GLOMERULAR FILTRATION RATE 46 ML/MIN (>89); POTASSIUM 5.1 MEQ/L (3.5-5.1); SODIUM (NA) 142 MEQ/L (136-145)
[2017-09-08 07:10] LABS: ALT (GPT) 9 U/L (10-53)
[2017-09-08 07:13] LABS: ALKALINE PHOSPHATASE 34 U/L (45-117); TOTAL BILIRUBIN ADULT 0.1 MG/DL (0.2-1.0)
[2017-09-08] MEDS: INSULIN ASPART SUPPLEMENTAL SCALE SQ SCH ×4 (08:00→19:52)
[2017-09-08] MEDS: PANTOPRAZOLE SOD 40 MG DELAYED RELEASE TAB PO SCH (08:50)
[2017-09-08] MEDS: methylPREDNISolone SOD SUCC 40 MG/1 ML VIAL IV SCH ×2 (08:50→19:51)
[2017-09-08] MEDS: SODIUM CHLOR 0.9% 1000 ML INJ 1,000 ML IV SCH ×2 (08:51→22:50)
[2017-09-08] MEDS: SODIUM CHLORIDE 0.9% FLUSH 10 ML FLUSH IV FLUSH SCH ×2 (09:00→19:51)
--- NOTE | 2017-09-08 12:26 | MB ---
cc: ANUSHKA VILLAFANA MD DATE OF CONSULTATION 09/08/[address] Reynaldo Ryan REASONS Sepsis, UTI, multiple antibiotic allergies. HISTORY OF PRESENT ILLNESS This is a 72-year-old white female who presented to the emergency department yesterday with dyspnea and fever. The patient reportedly had a temperature of 102 degrees. She was given Tylenol at the shelter facility prior to being brought to the emergency department. The patient reportedly was being treated with Macrobid for urinary tract infection. She is currently on oxygen via BiPAP. The BiPap mask is on and she does not open her eyes and therefore I could not interview her and information is obtained from the medical record. The patient had a white blood cell count of 20.1 with 89% neutrophils and lactic acid level of 6.6 and also abnormal renal function and she also had heart rate of 110 yesterday afternoon. PAST MEDICAL HISTORY 1. Paranoid schizophrenia. 2. Hypothyroidism. 3. History of CVA. 4. Coronary artery disease. 5. Gastroesophageal reflux disease. 6. Chronic kidney disease Stage II. 7. Seizure disorder. 8. Osteoporosis. 9. Diabetes mellitus type 2. ALLERGIES DOXYCYCLINE. PENICILLIN. MINOCYCLINE. TIGECYCLINE. ANTIHISTAMINES. ADHESIVES. MEDICATIONS 1. Levaquin. 2. Protonix. 3. Lovenox. 4. Insulin. 5. Methylprednisolone. SOCIAL HISTORY No tobacco, alcohol or illicit drugs. The patient is a resident of a nursing facility. FAMILY HISTORY Unable to obtain. REVIEW OF SYSTEMS Unable to obtain. PHYSICAL EXAMINATION GENERAL: This is a moderately obese female who is currently on BiPAP oxygen administration. I could not get her to awaken. VITAL SIGNS: Temperature of 98.8, BP 123/63, heart rate 80, respirations 18. HEENT: Unable to fully assess since the patient cannot cooperate. The head appears atraumatic NECK: Supple. Increased adipose tissue of the neck. Soft. No masses palpable. LUNGS: Has basilar rhonchi. HEART: Regular, S1 and S2. No murmurs, rubs or gallops. ABDOMEN: Bowel sounds diminished, soft. No tenderness appreciated. RECTAL: Not performed. EXTREMITIES: No clubbing, cyanosis or edema. SKIN: No rash but it appears pale. The skin is warm and moist. NEURO: Unable to assess. PSYCH: Unable to assess. LABORATORY DATA WBC 12.2, platelets 172, hemoglobin 9.8, 92% neutrophils. Creatinine 1.17, BUN 38, estimated GFR 46, sodium 142. Chest x-ray shows persistent elevation of the right hemidiaphragm. The lungs were reported to be grossly clear. IMPRESSION 1. Severe sepsis secondary to urinary tract infection. 2. Urinary tract infection. Urine culture pending. 3. Prior treatment with Macrobid and apparent failure of treatment for UTI. 4. Leukocytosis improved. 5. Dyspnea and hypoxia. However, no evidence of pneumonia on chest x-ray. RECOMMENDATIONS 1. Continue the Levaquin. 2. Monitor the urinary culture. 3. Monitor the blood culture. 4. Antibiotic adjustments once further information is available on the cultures. I will be off September 09 through September 12 and I will sign off the patient to Infectious Disease covering physicians. Tank you for this consultation. Anushka Villafana MD FD/MILLER /11:34 AM /12:09 PM
--- NOTE | 2017-09-08 13:46 | PD.WCN.NOT ---
Wound Consult Description: Received consult from Doctor Reynaldo Ryan for wound management of Coccyx Communicated with: DEBORAH Daniels 5th floor [facility] and call placed to Doctor Ryan for orders Recommendation: Please cleanse wound to coccyx with normal saline and cut single strip of Maxorb II or calcium alginate and pack wound. Please apply skin prep to periwound before covering wound with Allevyn gentle border dressing, or Optifoam gentle border 7 x7 sacral dressing. Change dressing every 2 days or PRN if saturated or dislodged. Additional Information: Patient seen on 5th floor [facility] for wound management of coccyx area. Patient is known to inpatient wound care and have been seen for coccyx wound on previous admissions.Patient was turned to L side with the assistance of [employer] and contract technical writer to reveal small opened wound over coccyx. Wound measures 0.5cm x 0.5cm x 2.1cm. Wound presents as small round shaped wound, with defined wound margins.Wound bed is not visible due to small size and depth of wound. Tissue near the surface of wound is 100% pink. Periwound is noted with maceration that is circumferential. Minimal sero-sanguinous drainage is noted when wound was probed for depth. Bone was felt when probing for depth. Unable to assess for undermining and tunneling at this time due to patient tolerance. Wound drainage has no foul odor. cut single strip of Maxorb II (Calcium alginate) and packed into wound bed. Skin prep was then applied to periwound, before covering wound with a gentle silicone adherent foam dressing (Allevyn gentle border). Malorie Mcghee [facility] Sep 08, 2017 13:46
--- NOTE | 2017-09-08 15:25 | HHI.CCPN ---
Subjective Remarks/Hospital Course 09/07: This is a 72-year-old female who presents from [facility] for evaluation. The patient was found this morning to have dyspnea, hypoxia and a fever of 102. She received albuterol and Tylenol at the senior care and her oxygen saturation improved. Upon EMS arrival her oxygen saturation was in the high 80s, and is currently 93% on 4 L. She has had a cough for the past several days as well. She was started on Macrobid on September 05 for urinary tract infection. Upon review of systems she endorses cough and dyspnea for "a while" as well as lower abdominal pain, diarrhea for "a while." She is somewhat of a poor historian however she is alert and oriented 3. Patient was admitted for hypercapnic respiratory distress and right lung pneumonia in June of this year. She has no other complaints at this time. Patient was noted to have an elevated lactic acid and pCO2. She was accepted for admission by critical care medicine service. She was maintaining her blood pressure and was not in any acute distress at the time of my evaluation. History was obtained by reviewing records and discussion with ER mid-level provider. Patient is not a very good historian. 09/08: Drowsy, arousable on BiPAP with full facemask. Objective Vital Signs Date Time Temp Pulse Resp B/P (MAP) Pulse Ox O2 Delivery O2 Flow Rate FiO2 09/08/17 12:00 80 09/08/17 12:00 98.8 18 108/54 (72) 97 09/08/17 09:01 30 09/07/17 21:41 Nasal Cannula 3.50 Intake and Output 09/08/17 09/08/17 09/09/17 08:00 16:00 00:00 Intake Total 1000 ml Output Total 1350 ml Balance -1350 ml 1000 ml Result Diagram: 09/08/17 0521 09/08/17 0521 Other Results Microbiology Date/Time Source Procedure Growth Status 09/07/17 13:35 Nasal Aspirate Influenza Types A,B Antigen (HOMERO) - Final NEGATIVE FOR FLU A AND B ANTIGEN.... Complete Laboratory Tests Test 09/07/17 17:15 09/07/17 19:21 09/07/17 21:10 09/08/17 00:46 Lactic Acid Level 6.6 mmol/L 6.1 mmol/L 2.2 mmol/L Nasal Screen MRSA (PCR) MRSA NOT DETECTED Prothrombin Time 12.0 SEC Prothromb Time International Ratio 1.1 RATIO Activated Partial Thromboplast Time 22.9 SEC Blood Urea Nitrogen 41 MG/DL Creatinine 1.27 MG/DL Random Glucose 156 MG/DL Calcium Level 8.6 MG/DL Sodium Level 143 MEQ/L Potassium Level 5.6 MEQ/L Chloride Level 109 MEQ/L Carbon Dioxide Level 25.6 MEQ/L Anion Gap 8 MEQ/L Estimat Glomerular Filtration Rate 42 ML/MIN Test 09/08/17 05:20 09/08/17 05:21 Blood Gas Puncture Site RT RADIAL Blood Gas Patient Temperature 98.6 Blood Gas HCO3 25 mmol/L Blood Gas Base Excess -2.3 mmol/L Blood Gas Oxygen Saturation 88 % Arterial Blood pH 7.16 Arterial Blood Partial Pressure CO2 74 mmHg Arterial Blood Partial Pressure O2 65 mmHg Arterial Blood Oxygen Content 12.1 Vol % Arterial Blood Carboxyhemoglobin 1.0 % Arterial Blood Methemoglobin 1.1 % Blood Gas Hemoglobin 9.7 G/DL Oxygen Delivery Device BIPAP Blood Gas Ventilator Setting IPAP 12/ EPAP 5 Blood Gas Inspired Oxygen 30 % White Blood Count 12.2 TH/MM3 Red Blood Count 3.40 MIL/MM3 Hemoglobin 9.8 GM/DL Hematocrit 31.5 % Mean Corpuscular Volume 92.6 FL Mean Corpuscular Hemoglobin 28.9 PG Mean Corpuscular Hemoglobin Concent 31.2 % Red Cell Distribution Width 19.9 % Platelet Count 172 TH/MM3 Mean Platelet Volume 8.8 FL Neutrophils (%) (Auto) 92.8 % Lymphocytes (%) (Auto) 4.1 % Monocytes (%) (Auto) 3.0 % Eosinophils (%) (Auto) 0.0 % Basophils (%) (Auto) 0.1 % Neutrophils # (Auto) 11.3 TH/MM3 Lymphocytes # (Auto) 0.5 TH/MM3 Monocytes # (Auto) 0.4 TH/MM3 Eosinophils # (Auto) 0.0 TH/MM3 Basophils # (Auto) 0.0 TH/MM3 CBC Comment DIFF FINAL Differential Comment Blood Urea Nitrogen 38 MG/DL Creatinine 1.17 MG/DL Random Glucose 168 MG/DL Total Protein 6.4 GM/DL Albumin 2.5 GM/DL Calcium Level 8.8 MG/DL Alkaline Phosphatase 34 U/L Aspartate Amino Transf (AST/SGOT) 21 U/L Alanine Aminotransferase (ALT/SGPT) 9 U/L Total Bilirubin 0.1 MG/DL Sodium Level 142 MEQ/L Potassium Level 5.1 MEQ/L Chloride Level 108 MEQ/L Carbon Dioxide Level 25.3 MEQ/L Anion Gap 9 MEQ/L Estimat Glomerular Filtration Rate 46 ML/MIN Imaging Last Impressions Chest X-Ray 09/08/17 0000 Signed Impressions: Service Date/Time: August 04:03 - CONCLUSION: 1. Persistent elevation the right hemidiaphragm. 2. Borderline cardiomegaly. Mychal Cordova MD Abdomen/Pelvis CT 09/07/17 1437 Signed Impressions: Service Date/Time: Thursday, September 07, 2017 15:03 - CONCLUSION: 1. Study is degraded by breathing motion artifact. 2. Elevation of the right hemidiaphragm with right basilar atelectasis. 3. Cholelithiasis. 4. No acute abnormality to explain the patient's pain. Abdelrahman Leon Jr., MD Objective Remarks Narrative GENERAL: Chronically ill-appearing female in no acute distress. Her oxygen saturation is 94% on 4 L nasal cannula. SKIN: Warm and dry. HEAD: Atraumatic. Normocephalic. EYES: Pupils equal and round. No scleral icterus. No injection or drainage. ENT: No nasal bleeding or discharge. Mucous membranes pink and moist. NECK: Trachea midline. No JVD. CARDIOVASCULAR: Regular rate and rhythm. No murmur appreciated. RESPIRATORY: No accessory muscle use. diminished breath sounds. GASTROINTESTINAL: Abdomen soft, tender to palpation in lower quadrants no guarding. MUSCULOSKELETAL: No obvious deformities. No clubbing. No cyanosis. No edema. NEUROLOGICAL: Awake and alert. No obvious cranial nerve deficits. Motor grossly within normal limits. Normal speech. PSYCHIATRIC: Appropriate mood and affect; insight and judgment normal. A/P Assessment and Plan 72-year-old female with: Sepsis UTI Lactic acidosis CAD CKD GERD D mellitus bipolar disorder Paranoid schizophrenia Hypercapnic respiratory failure requiring BiPAP Plan: Neuro: Follow neuro status. Continue home psych meds. Cardiovascular: IV hydration, watch for hypotension. Pulmonary: Supplemental O2. Bronchodilators as needed. Patient has chronic CO2 retention. Consulted Dr. Meyer for pulmonary medicine. GI/liver: By mouth diet as tolerated Renal/: IV hydration, strict intake output, monitor and replete electro lites , follow BUN/creatinine. ID: Multiple antibiotic allergies noted. Patient received Levaquin IV in the ER and vancomycin. Continued IV Levaquin. Follow-up cultures. Consulted ID for sepsis/antibiotic management in view of multiple allergies. Lactic acid improving Endocrine: Watch for hyperglycemia, SSI for glycemic control. Hold oral hypoglycemic agents for now. Heme: Follow CBC Prophylaxis: PPI/SCDs/Lovenox Reynaldo Ryan MD Sep 08, 2017 15:25
--- NOTE | 2017-09-08 15:51 | EKG ---
Date Performed: 09/07/2017 Time Performed: 15:25:02 PTAGE: 72 years EKG: SINUS TACHYCARDIA ABNORMAL RHYTHM ECG Since PREVIOUS TRACING , no significant change noted PREVIOUS TRACIN07/05/2017 20.21 DOCTOR: Maira Fuller Interpretating Date/Time 09/08/2017 15:51:26
[2017-09-08] MEDS ORDERED: LEVOFLOXACIN 500 MG PREMIX INJ 100 ML IV SCH (17:00)
--- NOTE | 2017-09-08 19:22 | HHI.PR ---
Subjective Remarks Anxious and agitated. On O2 2 L. Seems to be better . Good output Objective Vital Signs Date Time Temp Pulse Resp B/P (MAP) Pulse Ox O2 Delivery O2 Flow Rate FiO2 09/08/17 18:00 80 09/08/17 16:00 80 09/08/17 14:00 80 09/08/17 12:00 80 09/08/17 12:00 98.8 76 18 108/54 (72) 97 09/08/17 10:00 80 09/08/17 09:01 98 30 09/08/17 08:00 80 09/08/17 08:00 98.8 81 18 121/60 (80) 97 09/08/17 06:00 83 09/08/17 05:44 96 30 09/08/17 04:41 94 30 09/08/17 04:00 98.6 90 16 101/52 (68) 93 09/08/17 04:00 90 09/08/17 02:00 83 09/08/17 00:00 94 09/08/17 00:00 97.6 89 18 106/52 (70) 94 09/07/17 22:00 84 09/07/17 21:41 95 Nasal Cannula 3.50 09/07/17 21:17 98.5 92 20 124/60 (81) 97 09/07/17 21:07 09/07/17 19:22 87 18 128/58 (81) 96 Nasal Cannula 2.00 I/O 09/07/17 09/07/17 09/07/17 09/08/17 09/08/17 09/08/17 07:00 15:00 23:00 07:00 15:00 23:00 Intake Total 1000 ml 1000 ml Output Total 1350 ml Balance 1000 ml -1350 ml 1000 ml Intake IV Total 1000 ml 1000 ml Output Urine Total 1350 ml Result Diagram: 09/08/1752009/08/1721 Objective Remarks GENERAL: This moderately obese elderly lady who is anxious and dyspneic. HEENT: Head normocephalic. Pupils are reactive. Nasal mucosae erythematous. Throat is clear. NECK: Supple without venous distension. No bruits or thyroid enlargement. CHEST: Decreased excursions, scattered wheezes bilaterally with occasional crackles at lung bases. HEART: The heart sounds are regular S1-S2 with no murmur. ABDOMEN: Obese, protuberant with mild epigastric tenderness. Bowel sounds are active. There is mild tenderness also in the lower quadrants. EXTREMITIES: Mild peripheral edema with diminished pulses. Reflexes are 1+. The patient does move her extremities. Babinski negative. Left heel is in a heel brace. Peripheral pulses are not well felt. NEUROLOGICALLY: There are no focal deficits. Assessment and Plan Assessment and Plan IMPRESSION 1. Acute on chronic respiratory failure. 2. Sepsis with UTI. 3. Dehydration. 4. Hypertension. 5. Diabetes mellitus. 6. Obstructive sleep apnea. 7. Bipolar disorder. Plan : 1. Antibiotics per ID. 2. Nebs qid , duoneb. 3. Continue BiPAP at HS. 4. Chest Xray , BMP in am. 5. Soft Diet. 6. Up with help. 7. Cont solumedrol 40 mg bid. Rocio Rivera MD Sep 08, 2017 19:22
[2017-09-08] MEDS: ENOXAPARIN SODIUM 40 MG/0.4 ML SYRINGE SQ SCH (19:51)
[2017-09-08] MEDS: CHLORHEXIDINE GLUCONATE 2 % 1 PACK (2 CLOTHS) TOP SCH (22:50)
[2017-09-09] VITALS (19 sets, daily range): BP systolic 147–174; BP diastolic 72–93; PULSE 72–145; RESP 22–25; TEMP 98.7–99.1; O2SAT 95–100
[2017-09-09] MEDS: hydrALAZINE HCL 20 MG/ML VIAL IV PUSH PRN ×2 (03:58→23:38)
[2017-09-09] MEDS: RESP: ALBUTEROL 2.5 MG/IPRATROPIUM 0.5 MG NEB (SCH) INH ×4 (05:29→19:30)
[2017-09-09 05:50] LABS: BLOOD GAS BASE EXCESS -1.9 mmol/L (-2-2); BLOOD GAS CARBOXYHEMOGLOBIN 1.3 % (0-4); BLOOD GAS HCO3 23 mmol/L (22-26); BLOOD GAS METHEMOGLOBIN 1.3 % (0-2); BLOOD GAS O2 HGB SATURATION 80 % (90-100); BLOOD GAS OXYGEN CONTENT 13.2 Vol % (12.0-20.0); BLOOD GAS PCO2 46 mmHg (38-42); BLOOD GAS PO2 49 mmHg (61-120); BLOOD GAS TOTAL HGB 11.7 G/DL (12.0-16.0); TEMP CORR TO 98.6
[2017-09-09 05:51] LABS: CRITICAL VALUE YES; OXYGEN DEVICE BiPAP
[2017-09-09 05:52] LABS: DRAW SITE RT RADIAL; FIO2 30 %; NUMBER OF ARTERIAL PUNCTURES 1; STAT NO; ULNAR PULSE PRESENT; VENT SETTINGS IPAP15/EPAP5/RR25
[2017-09-09 06:24] LABS: ALKALINE PHOSPHATASE 38 U/L (45-117); ALT (GPT) 26 U/L (10-53); ANION GAP 8 MEQ/L (5-15); AST (GOT) 13 U/L (15-37); BICARBONATE 22.7 MEQ/L (21.0-32.0); BLOOD UREA NITROGEN 36 MG/DL (7-18); CHLORIDE 117 MEQ/L (98-107); GLOMERULAR FILTRATION RATE 54 ML/MIN (>89); POTASSIUM 4.7 MEQ/L (3.5-5.1); SODIUM (NA) 148 MEQ/L (136-145); TOTAL BILIRUBIN ADULT 0.1 MG/DL (0.2-1.0)
[2017-09-09 07:29] LABS: AUTOMATED NEUTROPHIL # 9.3 TH/MM3 (1.8-7.7); BASOPHIL % 0.1 % (0.0-2.0); HEMATOCRIT 34.8 % (35.0-46.0); LYMPH % 4.5 % (9.0-44.0); LYMPHOCYTE # 0.4 TH/MM3 (1.0-4.8); MEAN CELL VOLUME 94.5 FL (80.0-100.0); MEAN CORPUSCULAR HEMOGLOBIN 28.9 PG (27.0-34.0); MEAN CORPUSCULAR HGB CONC 30.6 % (32.0-36.0); MONO % 3.2 % (0.0-8.0); NEUT % 92.2 % (16.0-70.0); PLATELET COUNT 151 TH/MM3 (150-450); RED BLOOD COUNT 3.68 MIL/MM3 (4.00-5.30); RED CELL DISTRIBUTION WIDTH 19.9 % (11.6-17.2); WHITE BLOOD COUNT 10.1 TH/MM3 (4.0-11.0)
[2017-09-09 07:32] LABS: HEMO FLAGS AUTO DIFF
[2017-09-09] MEDS: INSULIN ASPART SUPPLEMENTAL SCALE SQ SCH ×4 (08:00→19:54)
[2017-09-09 08:23] LABS: BANDS 13 % (0-6); NEUTROPHIL # MANUAL DIFF 9.6 TH/MM3 (1.8-7.7); POLYS (SEG NEUTROPHILS) 82 % (16-70); WBC DIFF SAMPLE 100
[2017-09-09 08:25] LABS: PLATELET ESTIMATE SMEAR LOW (NORMAL); PLATELET MORPHOLOGY NORMAL (NORMAL); SCAN/DIFF FINAL DIFF MANUAL
[2017-09-09] MEDS: SODIUM CHLORIDE 0.9% FLUSH 10 ML FLUSH IV FLUSH SCH ×2 (09:00→20:51)
[2017-09-09] MEDS: BUDESONIDE-FORMOTEROL 160/4.5 MCG INHALER INH SCH ×2 (09:00→19:54)
[2017-09-09] MEDS: methylPREDNISolone SOD SUCC 40 MG/1 ML VIAL IV SCH ×2 (09:12→20:51)
[2017-09-09] MEDS: PANTOPRAZOLE SOD 40 MG DELAYED RELEASE TAB PO SCH (09:12)
[2017-09-09] MEDS: SODIUM CHLOR 0.9% 1000 ML INJ 1,000 ML IV SCH (12:00)
--- NOTE | 2017-09-09 14:46 | HHI.CCPN ---
Subjective Remarks/Hospital Course 09/07: This is a 72-year-old female who presents from [facility] for evaluation. The patient was found this morning to have dyspnea, hypoxia and a fever of 102. She received albuterol and Tylenol at the senior care and her oxygen saturation improved. Upon EMS arrival her oxygen saturation was in the high 80s, and is currently 93% on 4 L. She has had a cough for the past several days as well. She was started on Macrobid on September 05 for urinary tract infection. Upon review of systems she endorses cough and dyspnea for "a while" as well as lower abdominal pain, diarrhea for "a while." She is somewhat of a poor historian however she is alert and oriented 3. Patient was admitted for hypercapnic respiratory distress and right lung pneumonia in June of this year. She has no other complaints at this time. Patient was noted to have an elevated lactic acid and pCO2. She was accepted for admission by critical care medicine service. She was maintaining her blood pressure and was not in any acute distress at the time of my evaluation. History was obtained by reviewing records and discussion with ER mid-level provider. Patient is not a very good historian. 09/08: Drowsy, arousable on BiPAP with full facemask. 09/09: Awake and alert on BiPAP with full facemask. Following commands. Objective Vital Signs Date Time Temp Pulse Resp B/P (MAP) Pulse Ox O2 Delivery O2 Flow Rate FiO2 09/09/17 14:00 99 09/09/17 12:20 97 Nasal Cannula 3.00 09/09/17 12:00 98.8 22 159/72 (101) 09/09/17 10:46 40 Intake and Output 09/09/17 09/09/17 09/10/17 08:00 16:00 00:00 Intake Total 120 ml 1000 ml Output Total 950 ml Balance -830 ml 1000 ml Result Diagram: 09/09/17 0520 09/09/17 0520 Other Results Microbiology Date/Time Source Procedure Growth Status 09/07/17 13:35 Nasal Aspirate Influenza Types A,B Antigen (HOMERO) - Final NEGATIVE FOR FLU A AND B ANTIGEN.... Complete 09/07/17 13:25 Urine Catheterized Urine Urine Culture - Final Klebsiella Oxytoca Esbl Pos Complete Laboratory Tests Test 09/09/17 05:41 Blood Gas Puncture Site RT RADIAL Blood Gas Patient Temperature 98.6 Blood Gas HCO3 23 mmol/L (22-26) Blood Gas Base Excess -1.9 mmol/L (-2-2) Blood Gas Oxygen Saturation 80 % (90-100) Arterial Blood pH 7.32 (7.380-7.420) Arterial Blood Partial Pressure CO2 46 mmHg (38-42) Arterial Blood Partial Pressure O2 49 mmHg (61-120) Arterial Blood Oxygen Content 13.2 Vol % (12.0-20.0) Arterial Blood Carboxyhemoglobin 1.3 % (0-4) Arterial Blood Methemoglobin 1.3 % (0-2) Blood Gas Hemoglobin 11.7 G/DL (12.0-16.0) Oxygen Delivery Device BiPAP Blood Gas Ventilator Setting IPAP15/[id number]/RR25 Blood Gas Inspired Oxygen 30 % Imaging Last Impressions Chest X-Ray 09/08/17 0000 Signed Impressions: Service Date/Time: August 04:03 - CONCLUSION: 1. Persistent elevation the right hemidiaphragm. 2. Borderline cardiomegaly. Mychal Cordova MD Abdomen/Pelvis CT 09/07/17 1437 Signed Impressions: Service Date/Time: Thursday, September 07, 2017 15:03 - CONCLUSION: 1. Study is degraded by breathing motion artifact. 2. Elevation of the right hemidiaphragm with right basilar atelectasis. 3. Cholelithiasis. 4. No acute abnormality to explain the patient's pain. Abdelrahman Leon Jr., MD Objective Remarks Narrative GENERAL: Chronically ill-appearing female in no acute distress. SKIN: Warm and dry. HEAD: Atraumatic. Normocephalic. EYES: Pupils equal and round. No scleral icterus. No injection or drainage. ENT: No nasal bleeding or discharge. Mucous membranes pink and moist. NECK: Trachea midline. No JVD. CARDIOVASCULAR: Regular rate and rhythm. No murmur appreciated. RESPIRATORY: On BiPAP with full facemask, diminished breath sounds. Scattered rhonchi. No wheezing or crackles GASTROINTESTINAL: Abdomen soft, tender to palpation in lower quadrants no guarding. MUSCULOSKELETAL: No obvious deformities. No clubbing. No cyanosis. No edema. NEUROLOGICAL: Awake and alert. No obvious cranial nerve deficits. Motor grossly within normal limits. Normal speech. PSYCHIATRIC: Appropriate mood and affect; insight and judgment normal. A/P Assessment and Plan 72-year-old female with: Sepsis UTI Lactic acidosis CAD CKD GERD D mellitus bipolar disorder Paranoid schizophrenia Hypercapnic respiratory failure requiring BiPAP Plan: Neuro: Follow neuro status. Continue home psych meds. Cardiovascular: IV hydration, watch for hypotension. Pulmonary: Supplemental O2. Bronchodilators as needed. Patient has chronic CO2 retention. Consulted Dr. Meyer for pulmonary medicine. GI/liver: By mouth diet as tolerated Renal/: IV hydration, strict intake output, monitor and replete electro lites , follow BUN/creatinine. ID: Multiple antibiotic allergies noted. Patient received Levaquin IV in the ER and vancomycin. On IV Levaquin however urine cultures with resistant Klebsiella. ID following for sepsis/antibiotic management in view of multiple allergies. Antibiotics to be decided by ID. Lactic acid improved. Endocrine: Watch for hyperglycemia, SSI for glycemic control. Hold oral hypoglycemic agents for now. Heme: Follow CBC Prophylaxis: PPI/SCDs/Lovenox Reynaldo Ryan MD Sep 09, 2017 14:46
[2017-09-09] MEDS ORDERED: ASP: Documented ESBL, MDR A baumannii or P. aeruginosa PRN (15:15)
[2017-09-09] MEDS ORDERED: MISCELLANEOUS PHARMACY INFORMATION XX PRN (15:15)
--- NOTE | 2017-09-09 15:25 | HHI.IDPN ---
Subjective Subjective Remarks ID [id number] This is a 72-year-old white female who presented to the emergency department yesterday with dyspnea and fever of 102. She was on BiPAP, now on NC O2 She is not communicating history She has UTI , urine cl + for ESBL + E.coli blood cx neg @ 2 days Antibiotics levaquin Allergies: Coded Allergies: adhesive (Unverified Allergy, Severe, 05/24/17) doxycycline (Unverified Allergy, Severe, 05/24/17) minocycline (Unverified Allergy, Severe, 05/24/17) penicillin G (Unverified Allergy, Severe, 05/24/17) tigecycline (Unverified Allergy, Severe, 05/24/17) Uncoded Allergies: ANTIHISTAMINES (Allergy, Severe, 09/05/07) Objective . Vital Signs Date Time Temp Pulse Resp B/P (MAP) Pulse Ox O2 Delivery O2 Flow Rate FiO2 09/09/17 14:00 99 09/09/17 12:20 97 Nasal Cannula 3.00 09/09/17 12:00 98.8 99 22 159/72 (101) 98 09/09/17 12:00 99 09/09/17 10:46 99 40 09/09/17 10:00 98.8 99 22 159/72 (101) 98 09/09/17 10:00 99 09/09/17 08:00 99 09/09/17 08:00 98.8 99 22 159/72 (101) 98 09/09/17 06:00 111 09/09/17 05:29 95 30 09/09/17 05:23 98.9 110 24 161/79 (106) 97 09/09/17 04:00 79 09/09/17 02:00 72 09/09/17 01:30 96 30 09/09/17 00:00 98.7 73 23 157/72 (100) 95 09/09/17 00:00 73 09/08/17 22:08 98 30 09/08/17 22:00 73 09/08/17 20:00 98.8 82 21 140/63 (88) 100 09/08/17 20:00 82 09/08/17 18:00 80 09/08/17 16:00 80 09/09/17 09/09/17 09/10/17 15:00 23:00 07:00 Intake Total 1000 ml Balance 1000 ml IV Total 1000 ml . Laboratory Tests Test 09/08/17 05:21 09/09/17 05:20 White Blood Count 12.2 TH/MM3 10.1 TH/MM3 Red Blood Count 3.40 MIL/MM3 3.68 MIL/MM3 Hemoglobin 9.8 GM/DL 10.6 GM/DL Hematocrit 31.5 % 34.8 % Mean Corpuscular Volume 92.6 FL 94.5 FL Mean Corpuscular Hemoglobin 28.9 PG 28.9 PG Mean Corpuscular Hemoglobin Concent 31.2 % 30.6 % Red Cell Distribution Width 19.9 % 19.9 % Platelet Count 172 TH/MM3 151 TH/MM3 Mean Platelet Volume 8.8 FL 9.3 FL Neutrophils (%) (Auto) 92.8 % 92.2 % Lymphocytes (%) (Auto) 4.1 % 4.5 % Monocytes (%) (Auto) 3.0 % 3.2 % Eosinophils (%) (Auto) 0.0 % 0.0 % Basophils (%) (Auto) 0.1 % 0.1 % Neutrophils # (Auto) 11.3 TH/MM3 9.3 TH/MM3 Lymphocytes # (Auto) 0.5 TH/MM3 0.4 TH/MM3 Monocytes # (Auto) 0.4 TH/MM3 0.3 TH/MM3 Eosinophils # (Auto) 0.0 TH/MM3 0.0 TH/MM3 Basophils # (Auto) 0.0 TH/MM3 0.0 TH/MM3 CBC Comment DIFF FINAL AUTO DIFF Differential Comment FINAL DIFF MANUAL Differential Total Cells Counted 100 Neutrophils % (Manual) 82 % Band Neutrophils % 13 % Lymphocytes % 4 % Monocytes % 1 % Neutrophils # (Manual) 9.6 TH/MM3 Platelet Estimate LOW Platelet Morphology Comment NORMAL Laboratory Tests Test 09/07/17 17:15 09/07/17 19:21 09/08/17 00:46 09/08/17 05:21 Lactic Acid Level 6.6 mmol/L 6.1 mmol/L 2.2 mmol/L Blood Urea Nitrogen 41 MG/DL 38 MG/DL Creatinine 1.27 MG/DL 1.17 MG/DL Random Glucose 156 MG/DL 168 MG/DL Calcium Level 8.6 MG/DL 8.8 MG/DL Sodium Level 143 MEQ/L 142 MEQ/L Potassium Level 5.6 MEQ/L 5.1 MEQ/L Chloride Level 109 MEQ/L 108 MEQ/L Carbon Dioxide Level 25.6 MEQ/L 25.3 MEQ/L Anion Gap 8 MEQ/L 9 MEQ/L Estimat Glomerular Filtration Rate 42 ML/MIN 46 ML/MIN Total Protein 6.4 GM/DL Albumin 2.5 GM/DL Alkaline Phosphatase 34 U/L Aspartate Amino Transf (AST/SGOT) 21 U/L Alanine Aminotransferase (ALT/SGPT) 9 U/L Total Bilirubin 0.1 MG/DL Test 09/09/17 05:20 Blood Urea Nitrogen 36 MG/DL Creatinine 1.01 MG/DL Random Glucose 178 MG/DL Total Protein 6.8 GM/DL Albumin 2.7 GM/DL Calcium Level 9.3 MG/DL Alkaline Phosphatase 38 U/L Aspartate Amino Transf (AST/SGOT) 13 U/L Alanine Aminotransferase (ALT/SGPT) 26 U/L Total Bilirubin 0.1 MG/DL Sodium Level 148 MEQ/L Potassium Level 4.7 MEQ/L Chloride Level 117 MEQ/L Carbon Dioxide Level 22.7 MEQ/L Anion Gap 8 MEQ/L Estimat Glomerular Filtration Rate 54 ML/MIN Lactic Acid Level 0.6 mmol/L Microbiology Date/Time Source Procedure Growth Status 09/07/17 13:30 Blood Peripheral Aerobic Blood Culture - Preliminary NO GROWTH IN 2 DAYS Resulted 09/07/17 13:30 Blood Peripheral Anaerobic Blood Culture - Preliminary NO GROWTH IN 2 DAYS Resulted 09/07/17 13:30 Blood Peripheral Aerobic Blood Culture - Preliminary NO GROWTH IN 2 DAYS Resulted 09/07/17 13:30 Blood Peripheral Anaerobic Blood Culture - Preliminary NO GROWTH IN 2 DAYS Resulted 09/07/17 13:35 Nasal Aspirate Influenza Types A,B Antigen (HOMERO) - Final NEGATIVE FOR FLU A AND B ANTIGEN.... Complete 09/07/17 13:25 Urine Catheterized Urine Urine Culture - Final Klebsiella Oxytoca Esbl Pos Complete Imaging Last Impressions Chest X-Ray 09/08/17 0000 Signed Impressions: Service Date/Time: August 04:03 - CONCLUSION: 1. Persistent elevation the right hemidiaphragm. 2. Borderline cardiomegaly. Mychal Cordova MD Abdomen/Pelvis CT 09/07/17 1437 Signed Impressions: Service Date/Time: Thursday, September 07, 2017 15:03 - CONCLUSION: 1. Study is degraded by breathing motion artifact. 2. Elevation of the right hemidiaphragm with right basilar atelectasis. 3. Cholelithiasis. 4. No acute abnormality to explain the patient's pain. Abdelrahman Leon Jr., MD Physical Exam GENERAL: This is a moderately obese female in NAD HEENT: PERRL. Edentulous. Moist mucosae NECK: Supple. Soft. No masses palpable. LUNGS: Scattered rhonchi. HEART: Regular, S1 and S2. No murmurs, rubs or gallops. ABDOMEN: Bowel sounds diminished, soft. No tenderness appreciated. : no palpable bladder distention EXTREMITIES: No clubbing, cyanosis or edema. SKIN: No rash but it appears pale. The skin is warm and moist. NEURO: awake alert speech incoherent PSYCH: Unable to assess. Assessment & Plan Remarks IMPRESSION 1. Severe sepsis secondary to urinary tract infection. 2. Urinary tract infection. ESBL+ E.coli 3. Prior treatment with Macrobid and apparent failure of treatment for UTI. 4. Leukocytosis improved. 5. Dyspnea and hypoxia. COPD exacerbation RECOMMENDATIONS 1. dc Levaquin. 2. Start Ertapenem 3. Monitor the blood culture. evan RN Charis Arenas Dr, MD Sep 09, 2017 15:25
[2017-09-09] MEDS: ERTAPENEM INJ 1,000 MG in SODIUM CHLORIDE 0.9% INJ 100 ML IV SCH ×2 (17:00→18:15)
[2017-09-09] MEDS ORDERED: AMIODARONE INJ 150 MG in DEXTROSE 5% IN WATER 100ML INJ 100 ML IV ONE ×2 (17:27)
[2017-09-09] MEDS ORDERED: DILTIAZEM INJ 125 MG in SODIUM CHLORIDE 0.9% INJ 100 ML IV PRN (17:30)
[2017-09-09] MEDS ORDERED: DILTIAZEM HCL 25 MG/5 ML VIAL IV PUSH ONE (17:30)
[2017-09-09] MEDS ORDERED: AMIODARONE INJ 450 MG in DEXTROSE 5% IN WATE(EXCEL) INJ 241 ML IV PRN ×2 (17:37)
[2017-09-09] MEDS ORDERED: DILTIAZEM HCL 25 MG/5 ML VIAL IV PUSH PRN (18:00)
--- NOTE | 2017-09-09 18:12 | HHI.PR ---
Subjective Remarks Calm and breathing better. Off BiPAP this am. On O2 2 L. Seems to be better . Good output Objective Vital Signs Date Time Temp Pulse Resp B/P (MAP) Pulse Ox O2 Delivery O2 Flow Rate FiO2 09/09/17 17:23 99 40 09/09/17 16:00 99.0 145 22 147/93 (111) 98 09/09/17 16:00 99 09/09/17 14:00 99 09/09/17 12:20 97 Nasal Cannula 3.00 09/09/17 12:00 98.8 99 22 159/72 (101) 98 09/09/17 12:00 99 09/09/17 10:46 99 40 09/09/17 10:00 98.8 99 22 159/72 (101) 98 09/09/17 10:00 99 09/09/17 08:00 99 09/09/17 08:00 98.8 99 22 159/72 (101) 98 09/09/17 06:00 111 09/09/17 05:29 95 30 09/09/17 05:23 98.9 110 24 161/79 (106) 97 09/09/17 04:00 79 09/09/17 02:00 72 09/09/17 01:30 96 30 09/09/17 00:00 98.7 73 23 157/72 (100) 95 09/09/17 00:00 73 09/08/17 22:08 98 30 09/08/17 22:00 73 09/08/17 20:00 98.8 82 21 140/63 (88) 100 09/08/17 20:00 82 I/O 09/08/17 09/08/17 09/08/17 09/09/17 09/09/17 09/09/17 07:00 15:00 23:00 07:00 15:00 23:00 Intake Total 1000 ml 1100 ml 120 ml 1000 ml 795 ml Output Total 1350 ml 950 ml Balance -1350 ml 1000 ml 1100 ml -830 ml 1000 ml 795 ml Intake Oral 120 ml IV Total 1000 ml 1100 ml 1000 ml 795 ml Output Urine Total 1350 ml 950 ml # Bowel Movements 1 Result Diagram: 09/09/17 0520 09/09/17 0520 Objective Remarks GENERAL: This moderately obese elderly lady who is awake and . HEENT: Head normocephalic. Pupils are reactive. Nasal mucosa clear Throat is clear. NECK: Supple without venous distension. No bruits or thyroid enlargement. CHEST: Decreased excursions, scattered wheezes bilaterally with occasional crackles at lung bases. HEART: The heart sounds are regular S1-S2 with no murmur. ABDOMEN: Obese, protuberant with mild epigastric tenderness. Bowel sounds are active. There is mild tenderness also in the lower quadrants. EXTREMITIES: Mild peripheral edema with diminished pulses. Reflexes are 1+. The patient does move her extremities. Left heel is in a heel brace. Peripheral pulses are not well felt. NEUROLOGICALLY: There are no focal deficits. Assessment and Plan Assessment and Plan IMPRESSION 1. Acute on chronic respiratory failure. 2. Sepsis with UTI. 3. Dehydration. 4. Hypertension. 5. Diabetes mellitus. 6. Obstructive sleep apnea. 7. Bipolar disorder. 8. Paranoid Schizophrenia Plan : 1. Antibiotics per ID. 2. Nebs qid , duoneb. 3. Use BiPAP at HS. 4. CBC BMP in am. 5. Soft Diet. 6. Up with help. 7. Wean solumedrol to 20 mg bid. Rocio Rivera MD Sep 09, 2017 18:12
[2017-09-09] MEDS: ENOXAPARIN SODIUM 40 MG/0.4 ML SYRINGE SQ SCH (20:52)
[2017-09-10] VITALS (17 sets, daily range): BP systolic 143–172; BP diastolic 65–77; PULSE 99–136; RESP 21–31; TEMP 98.7–99.5; O2SAT 97–100
[2017-09-10] MEDS: CHLORHEXIDINE GLUCONATE 2 % 1 PACK (2 CLOTHS) TOP SCH (03:02)
[2017-09-10] MEDS: hydrALAZINE HCL 20 MG/ML VIAL IV PUSH PRN ×2 (03:19→12:39)
[2017-09-10] MEDS: SODIUM CHLOR 0.9% 1000 ML INJ 1,000 ML IV SCH ×2 (03:19→16:38)
[2017-09-10] MEDS: RESP: ALBUTEROL 2.5 MG/IPRATROPIUM 0.5 MG NEB (SCH) INH ×4 (03:59→20:54)
[2017-09-10] MEDS ORDERED: METOPROLOL TARTRATE 5 MG/5 ML VIAL ONE (05:38)
[2017-09-10] MEDS: METOPROLOL TARTRATE 5 MG/5 ML VIAL IV PUSH PRN ×6 (05:47→17:20)
[2017-09-10] MEDS: INSULIN ASPART SUPPLEMENTAL SCALE SQ SCH ×4 (08:00→20:29)
[2017-09-10] MEDS: PANTOPRAZOLE SOD 40 MG DELAYED RELEASE TAB PO SCH (08:45)
[2017-09-10] MEDS: methylPREDNISolone SOD SUCC 40 MG/1 ML VIAL IV SCH ×2 (08:45→20:25)
[2017-09-10] MEDS: SODIUM CHLORIDE 0.9% FLUSH 10 ML FLUSH IV FLUSH SCH ×2 (08:46→20:25)
[2017-09-10] MEDS: BUDESONIDE-FORMOTEROL 160/4.5 MCG INHALER INH SCH ×2 (08:51→20:25)
--- NOTE | 2017-09-10 10:12 | HHI.CCPN ---
Subjective Remarks/Hospital Course 09/07: This is a 72-year-old female who presents from [facility] for evaluation. The patient was found this morning to have dyspnea, hypoxia and a fever of 102. She received albuterol and Tylenol at the skilled nursing and her oxygen saturation improved. Upon EMS arrival her oxygen saturation was in the high 80s, and is currently 93% on 4 L. She has had a cough for the past several days as well. She was started on Macrobid on September 05 for urinary tract infection. Upon review of systems she endorses cough and dyspnea for "a while" as well as lower abdominal pain, diarrhea for "a while." She is somewhat of a poor historian however she is alert and oriented 3. Patient was admitted for hypercapnic respiratory distress and right lung pneumonia in June of this year. She has no other complaints at this time. Patient was noted to have an elevated lactic acid and pCO2. She was accepted for admission by critical care medicine service. She was maintaining her blood pressure and was not in any acute distress at the time of my evaluation. History was obtained by reviewing records and discussion with ER mid-level provider. Patient is not a very good historian. 09/08: Drowsy, arousable on BiPAP with full facemask. 09/09: Awake and alert on BiPAP with full facemask. Following commands. 09/10: Awake and alert. On BiPAP with full facemask. Follows commands. Objective Vital Signs Date Time Temp Pulse Resp B/P (MAP) Pulse Ox O2 Delivery O2 Flow Rate FiO2 09/10/17 09:15 100 Nasal Cannula 3.00 09/10/17 08:00 98.7 99 31 172/75 (107) 09/10/17 08:00 30 Intake and Output 09/10/17 09/10/17 09/11/17 08:00 16:00 00:00 Intake Total 292 ml Output Total 1550 ml Balance -1258 ml Result Diagram: 09/09/1751909/09/17519 Other Results Microbiology Date/Time Source Procedure Growth Status 09/07/17 13:35 Nasal Aspirate Influenza Types A,B Antigen (HOMERO) - Final NEGATIVE FOR FLU A AND B ANTIGEN.... Complete 09/07/17 13:25 Urine Catheterized Urine Urine Culture - Final Klebsiella Oxytoca Esbl Pos Complete Imaging Last Impressions Chest X-Ray 09/08/17 0000 Signed Impressions: Service Date/Time: August 04:03 - CONCLUSION: 1. Persistent elevation the right hemidiaphragm. 2. Borderline cardiomegaly. Mychal Cordova MD Abdomen/Pelvis CT 09/07/17 1437 Signed Impressions: Service Date/Time: Thursday, September 07, 2017 15:03 - CONCLUSION: 1. Study is degraded by breathing motion artifact. 2. Elevation of the right hemidiaphragm with right basilar atelectasis. 3. Cholelithiasis. 4. No acute abnormality to explain the patient's pain. Abdelrahman Leon Jr., MD Objective Remarks Narrative GENERAL: Chronically ill-appearing female in no acute distress. SKIN: Warm and dry. HEAD: Atraumatic. Normocephalic. EYES: Pupils equal and round. No scleral icterus. No injection or drainage. ENT: No nasal bleeding or discharge. Mucous membranes pink and moist. NECK: Trachea midline. No JVD. CARDIOVASCULAR: Regular rate and rhythm. No murmur appreciated. RESPIRATORY: On BiPAP with full facemask, diminished breath sounds. Scattered rhonchi. No wheezing or crackles GASTROINTESTINAL: Abdomen soft, tender to palpation in lower quadrants no guarding. MUSCULOSKELETAL: No obvious deformities. No clubbing. No cyanosis. No edema. NEUROLOGICAL: Awake and alert. No obvious cranial nerve deficits. Motor grossly within normal limits. Normal speech. PSYCHIATRIC: Appropriate mood and affect; insight and judgment normal. A/P Assessment and Plan 72-year-old female with: Sepsis UTI Lactic acidosis CAD CKD GERD D mellitus bipolar disorder Paranoid schizophrenia Hypercapnic respiratory failure requiring BiPAP Plan: Neuro: Follow neuro status. Continue home psych meds. Cardiovascular: IV hydration, watch for hypotension. Pulmonary: Supplemental O2. Bronchodilators as needed. Patient has chronic CO2 retention. Consulted Dr. Meyer for pulmonary medicine who is following. GI/liver: By mouth diet as tolerated Renal/: IV hydration, strict intake output, monitor and replete electro lites , follow BUN/creatinine. ID: Multiple antibiotic allergies noted. Patient received Levaquin IV in the ER and vancomycin. Urine cultures with resistant Klebsiella. ID following for sepsis/antibiotic management in view of multiple allergies. Antibiotics to be decided by ID-on ertapenem IV. Lactic acid improved. Endocrine: Watch for hyperglycemia, SSI for glycemic control. Hold oral hypoglycemic agents for now. Heme: Follow CBC Prophylaxis: PPI/SCDs/Lovenox Reynaldo Ryan MD Sep 10, 2017 10:12
[2017-09-10] MEDS: ALPRAZolam 0.5 MG TAB PO PRN (12:39)
--- NOTE | 2017-09-10 17:26 | HHI.PR ---
Subjective Remarks ALERT ON O2 VIA MASK NO ACUTE DISTRESS Objective Vital Signs Date Time Temp Pulse Resp B/P (MAP) Pulse Ox O2 Delivery O2 Flow Rate FiO2 09/10/17 16:00 103 09/10/17 16:00 98.8 103 27 150/69 (96) 100 09/10/17 14:00 106 09/10/17 12:00 102 09/10/17 12:00 99.4 102 24 162/77 (105) 99 09/10/17 10:00 104 09/10/17 10:00 Nasal Cannula 3.00 09/10/17 09:15 100 Nasal Cannula 3.00 09/10/17 08:00 98.7 99 31 172/75 (107) 98 09/10/17 08:00 100 09/10/17 08:00 Bi-Pap 3.00 30 09/10/17 06:00 136 09/10/17 04:00 99.2 116 21 143/65 (91) 99 09/10/17 04:00 116 09/10/17 03:59 99 BiPAP 40 09/10/17 03:59 99 40 09/10/17 02:00 109 09/10/17 00:34 99 40 09/10/17 00:00 111 09/10/17 00:00 99.5 111 26 158/72 (100) 99 09/09/17 22:00 91 09/09/17 20:00 99.1 102 25 174/89 (117) 100 09/09/17 20:00 102 09/09/17 19:30 100 40 09/09/17 19:30 100 BiPAP 40 09/09/17 19:00 99 Bi-Pap 40 09/09/17 18:08 90 140/75 09/09/17 18:00 99 I/O 09/09/17 09/09/17 09/09/17 09/10/17 09/10/17 09/10/17 07:00 15:00 23:00 07:00 15:00 23:00 Intake Total 120 ml 1000 ml 1045 ml 292 ml Output Total 950 ml 1850 ml 1550 ml Balance -830 ml 1000 ml -805 ml -1258 ml Intake Oral 120 ml 250 ml IV Total 1000 ml 795 ml 292 ml Output Urine Total 950 ml 1850 ml 1550 ml # Bowel Movements 1 1 Result Diagram: 09/09/1751909/09/17519 Objective Remarks GENERAL: SKIN: Warm and dry. HEAD: Atraumatic. Normocephalic. EYES: Pupils equal and round. No scleral icterus. No injection or drainage. ENT: No nasal bleeding or discharge. Mucous membranes pink and moist. NECK: Trachea midline. No JVD. CARDIOVASCULAR: Regular rate and rhythm. RESPIRATORY: No accessory muscle use. Clear to auscultation. Breath sounds equal bilaterally. GASTROINTESTINAL: Abdomen soft, non-tender, nondistended. Hepatic and splenic margins not palpable. MUSCULOSKELETAL: Extremities without clubbing, cyanosis, or edema. No obvious deformities. NEUROLOGICAL: Awake and alert. No obvious cranial nerve deficits. Motor grossly within normal limits. Five out of 5 muscle strength in the arms and legs. Normal speech. PSYCHIATRIC: Appropriate mood and affect; insight and judgment normal. Assessment and Plan Assessment and Plan RESPIRATORY FAILURE COPD CHF PLAN O2 NEEDED BRONCHODILATOR THERAPY THERAPY FOR CHF INCREASE ACTIVITY Leonard Vlale MD Sep 10, 2017 17:26
[2017-09-10] MEDS: ENOXAPARIN SODIUM 40 MG/0.4 ML SYRINGE SQ SCH (20:25)
[2017-09-11] VITALS (15 sets, daily range): BP systolic 131–176; BP diastolic 62–113; PULSE 77–159; RESP 20–28; TEMP 97–99.4; O2SAT 95–100
[2017-09-11] MEDS: RESP: ALBUTEROL 2.5 MG/IPRATROPIUM 0.5 MG NEB (SCH) INH ×4 (03:22→21:15)
[2017-09-11] MEDS: CHLORHEXIDINE GLUCONATE 2 % 1 PACK (2 CLOTHS) TOP SCH (04:00)
[2017-09-11] MEDS: SODIUM CHLOR 0.9% 1000 ML INJ 1,000 ML IV SCH ×2 (05:36→18:52)
[2017-09-11] MEDS: ALPRAZolam 0.5 MG TAB PO PRN (05:36)
[2017-09-11 06:19] LABS: AUTOMATED NEUTROPHIL # 10.8 TH/MM3 (1.8-7.7); BASOPHIL % 0.3 % (0.0-2.0); HEMATOCRIT 32.8 % (35.0-46.0); LYMPH % 10.6 % (9.0-44.0); LYMPHOCYTE # 1.4 TH/MM3 (1.0-4.8); MEAN CELL VOLUME 92.1 FL (80.0-100.0); MEAN CORPUSCULAR HEMOGLOBIN 28.8 PG (27.0-34.0); MEAN CORPUSCULAR HGB CONC 31.3 % (32.0-36.0); MONO % 6.2 % (0.0-8.0); NEUT % 82.9 % (16.0-70.0); PLATELET COUNT 229 TH/MM3 (150-450); RED BLOOD COUNT 3.56 MIL/MM3 (4.00-5.30)
[2017-09-11 06:22] LABS: HEMO FLAGS AUTO DIFF
[2017-09-11 06:59] LABS: ANION GAP 9 MEQ/L (5-15); AST (GOT) 16 U/L (15-37); BICARBONATE 24.5 MEQ/L (21.0-32.0); BLOOD UREA NITROGEN 32 MG/DL (7-18); CHLORIDE 118 MEQ/L (98-107); GLOMERULAR FILTRATION RATE 54 ML/MIN (>89); POTASSIUM 4.4 MEQ/L (3.5-5.1); SODIUM (NA) 151 MEQ/L (136-145)
[2017-09-11 07:00] LABS: ALT (GPT) 24 U/L (10-53)
[2017-09-11 07:02] LABS: ALKALINE PHOSPHATASE 34 U/L (45-117); TOTAL BILIRUBIN ADULT 0.2 MG/DL (0.2-1.0)
[2017-09-11 07:28] LABS: SCAN/DIFF AUTO DIFF CONFIRMED
[2017-09-11] MEDS: methylPREDNISolone SOD SUCC 40 MG/1 ML VIAL IV SCH ×2 (08:03→21:23)
[2017-09-11] MEDS: PANTOPRAZOLE SOD 40 MG DELAYED RELEASE TAB PO SCH (08:03)
[2017-09-11] MEDS: SODIUM CHLORIDE 0.9% FLUSH 10 ML FLUSH IV FLUSH SCH ×2 (08:03→21:00)
[2017-09-11] MEDS: INSULIN ASPART SUPPLEMENTAL SCALE SQ SCH ×4 (08:04→21:00)
[2017-09-11] MEDS: BUDESONIDE-FORMOTEROL 160/4.5 MCG INHALER INH SCH ×2 (09:00→21:00)
--- NOTE | 2017-09-11 12:15 | HHI.CCPN ---
Subjective Remarks/Hospital Course 09/07: This is a 72-year-old female who presents from [facility] for evaluation. The patient was found this morning to have dyspnea, hypoxia and a fever of 102. She received albuterol and Tylenol at the care home and her oxygen saturation improved. Upon EMS arrival her oxygen saturation was in the high 80s, and is currently 93% on 4 L. She has had a cough for the past several days as well. She was started on Macrobid on September 05 for urinary tract infection. Upon review of systems she endorses cough and dyspnea for "a while" as well as lower abdominal pain, diarrhea for "a while." She is somewhat of a poor historian however she is alert and oriented 3. Patient was admitted for hypercapnic respiratory distress and right lung pneumonia in June of this year. She has no other complaints at this time. Patient was noted to have an elevated lactic acid and pCO2. She was accepted for admission by critical care medicine service. She was maintaining her blood pressure and was not in any acute distress at the time of my evaluation. History was obtained by reviewing records and discussion with ER mid-level provider. Patient is not a very good historian. 09/08: Drowsy, arousable on BiPAP with full facemask. 09/09: Awake and alert on BiPAP with full facemask. Following commands. 122: Awake and alert. On BiPAP with full facemask. Follows commands. 09/11: Awake and alert. Tolerating nasal cannula with intermittent BiPAP. Following commands. Wants to drink water. Being followed by pulmonary. No hypotension since admission. Lactic acid normalized. Objective Vital Signs Date Time Temp Pulse Resp B/P (MAP) Pulse Ox O2 Delivery O2 Flow Rate FiO2 09/11/17 10:00 95 09/11/17 08:49 99 Nasal Cannula 2.00 09/11/17 08:00 99.1 21 162/74 (103) 09/11/17 04:30 30 Intake and Output 09/11/17 09/11/17 09/12/17 08:00 16:00 00:00 Intake Total 1758 ml Output Total 1000 ml Balance 758 ml Result Diagram: 09/11/17 0525 09/11/17 0525 Imaging Last Impressions Chest X-Ray 09/08/17 0000 Signed Impressions: Service Date/Time: August 04:03 - CONCLUSION: 1. Persistent elevation the right hemidiaphragm. 2. Borderline cardiomegaly. Mychal Cordova MD Abdomen/Pelvis CT 09/07/17 1437 Signed Impressions: Service Date/Time: Thursday, September 07, 2017 15:03 - CONCLUSION: 1. Study is degraded by breathing motion artifact. 2. Elevation of the right hemidiaphragm with right basilar atelectasis. 3. Cholelithiasis. 4. No acute abnormality to explain the patient's pain. Abdelrahman Leon Jr., MD Objective Remarks Narrative GENERAL: Chronically ill-appearing female in no acute distress. SKIN: Warm and dry. HEAD: Atraumatic. Normocephalic. EYES: Pupils equal and round. No scleral icterus. No injection or drainage. ENT: No nasal bleeding or discharge. Mucous membranes pink and moist. NECK: Trachea midline. No JVD. CARDIOVASCULAR: Regular rate and rhythm. No murmur appreciated. RESPIRATORY: On BiPAP with full facemask, diminished breath sounds. Scattered rhonchi. No wheezing or crackles GASTROINTESTINAL: Abdomen soft, tender to palpation in lower quadrants no guarding. MUSCULOSKELETAL: No obvious deformities. No clubbing. No cyanosis. No edema. NEUROLOGICAL: Awake and alert. No obvious cranial nerve deficits. Motor grossly within normal limits. Normal speech. PSYCHIATRIC: Appropriate mood and affect; insight and judgment normal. A/P Assessment and Plan 72-year-old female with: Sepsis UTI Lactic acidosis CAD CKD GERD D mellitus bipolar disorder Paranoid schizophrenia Hypercapnic respiratory failure requiring BiPAP Plan: Neuro: Follow neuro status. Continue home psych meds. Cardiovascular: IV hydration, watch for hypotension. Pulmonary: Supplemental O2. Bronchodilators as needed. Patient has chronic CO2 retention. Consulted Dr. Meyer for pulmonary medicine who is following. On BiPAP at night and when necessary. Tolerating nasal cannula. GI/liver: By mouth diet as tolerated Renal/: IV hydration, strict intake output, monitor and replete electro lites , follow BUN/creatinine. ID: Multiple antibiotic allergies noted. Patient received Levaquin IV in the ER and vancomycin. Urine cultures with resistant Klebsiella. ID following for sepsis/antibiotic management in view of multiple allergies. Antibiotics to be decided by ID-on ertapenem IV. Lactic acid improved. Endocrine: Watch for hyperglycemia, SSI for glycemic control. Hold oral hypoglycemic agents for now. Heme: Follow CBC Prophylaxis: PPI/SCDs/Lovenox Transfer out of ICU. Consult and transfer to hospitalist service for further medical management. Critical care will be signing off, please reconsult if needed. Reynaldo Ryan MD Sep 11, 2017 12:15
--- NOTE | 2017-09-11 13:41 | HHI.PR ---
Subjective Remarks ALERT ON O2 VIA MASK NO ACUTE DISTRESS Objective Vital Signs Date Time Temp Pulse Resp B/P (MAP) Pulse Ox O2 Delivery O2 Flow Rate FiO2 09/11/17 12:00 97.0 97 24 144/64 (90) 99 09/11/17 12:00 97 09/11/17 10:00 95 09/11/17 08:49 99 Nasal Cannula 2.00 09/11/17 08:00 93 09/11/17 08:00 99.1 93 21 162/74 (103) 99 09/11/17 08:00 Nasal Cannula 3.00 09/11/17 06:00 97 09/11/17 04:30 98 30 09/11/17 04:00 98.8 159 21 176/86 (116) 98 09/11/17 04:00 159 09/11/17 02:00 84 09/11/17 00:45 95 30 09/11/17 00:00 99.4 107 28 174/113 (133) 97 09/11/17 00:00 107 09/10/17 22:00 103 09/10/17 21:00 97 30 09/10/17 20:54 97 BiPAP 30 09/10/17 20:00 99.2 100 24 148/70 (96) 98 09/10/17 20:00 100 09/10/17 19:00 98 Nasal Cannula 3.00 09/10/17 18:00 100 09/10/17 16:00 103 09/10/17 16:00 98.8 103 27 150/69 (96) 100 09/10/17 14:00 106 I/O 09/10/17 09/10/17 09/10/17 09/11/17 09/11/17 09/11/17 07:00 15:00 23:00 07:00 15:00 23:00 Intake Total 292 ml 1396 ml 1758 ml Output Total 1550 ml 1050 ml 1000 ml Balance -1258 ml 346 ml 758 ml Intake Oral 450 ml 950 ml IV Total 292 ml 946 ml 808 ml Output Urine Total 1550 ml 1050 ml 1000 ml # Bowel Movements 1 Result Diagram: 09/11/1725 09/11/17524 Objective Remarks GENERAL: SKIN: Warm and dry. HEAD: Atraumatic. Normocephalic. EYES: Pupils equal and round. No scleral icterus. No injection or drainage. ENT: No nasal bleeding or discharge. Mucous membranes pink and moist. NECK: Trachea midline. No JVD. CARDIOVASCULAR: Regular rate and rhythm. RESPIRATORY: No accessory muscle use. Clear to auscultation. Breath sounds equal bilaterally. GASTROINTESTINAL: Abdomen soft, non-tender, nondistended. Hepatic and splenic margins not palpable. MUSCULOSKELETAL: Extremities without clubbing, cyanosis, or edema. No obvious deformities. NEUROLOGICAL: Awake and alert. No obvious cranial nerve deficits. Motor grossly within normal limits. Five out of 5 muscle strength in the arms and legs. Normal speech. PSYCHIATRIC: Appropriate mood and affect; insight and judgment normal. Assessment and Plan Assessment and Plan RESPIRATORY FAILURE COPD CHF PLAN O2 NEEDED BRONCHODILATOR THERAPY THERAPY FOR CHF INCREASE ACTIVITY Leonard Valle MD Sep 11, 2017 13:41
[2017-09-11] MEDS: DILTIAZEM-CD 120 MG CAP ER PO SCH (14:45)
[2017-09-11] MEDS: ERTAPENEM INJ 1,000 MG in SODIUM CHLORIDE 0.9% INJ 100 ML IV SCH (17:03)
--- NOTE | 2017-09-11 18:32 | HHI.IDPN ---
Subjective Subjective Remarks ID X cover pt remains in ICU doing OK Yday got somewhat agitated whle whatching football game today sleepy no fever Antibiotics ertapenem Allergies: Coded Allergies: adhesive (Unverified Allergy, Severe, 05/24/17) doxycycline (Unverified Allergy, Severe, 05/24/17) minocycline (Unverified Allergy, Severe, 05/24/17) penicillin G (Unverified Allergy, Severe, 05/24/17) tigecycline (Unverified Allergy, Severe, 05/24/17) Uncoded Allergies: ANTIHISTAMINES (Allergy, Severe, 09/05/07) Objective . Vital Signs Date Time Temp Pulse Resp B/P (MAP) Pulse Ox O2 Delivery O2 Flow Rate FiO2 09/11/17 16:00 98.6 96 20 148/70 (96) 100 09/11/17 16:00 96 09/11/17 14:00 80 09/11/17 12:00 97.0 97 24 144/64 (90) 99 09/11/17 12:00 97 09/11/17 10:00 95 09/11/17 08:49 99 Nasal Cannula 2.00 09/11/17 08:00 93 09/11/17 08:00 99.1 93 21 162/74 (103) 99 09/11/17 08:00 Nasal Cannula 3.00 09/11/17 06:00 97 09/11/17 04:30 98 30 09/11/17 04:00 98.8 159 21 176/86 (116) 98 09/11/17 04:00 159 09/11/17 02:00 84 09/11/17 00:45 95 30 09/11/17 00:00 99.4 107 28 174/113 (133) 97 09/11/17 00:00 107 09/10/17 22:00 103 09/10/17 21:00 97 30 09/10/17 20:54 97 BiPAP 30 09/10/17 20:00 99.2 100 24 148/70 (96) 98 09/10/17 20:00 100 09/10/17 19:00 98 Nasal Cannula 3.00 09/11/17 09/11/17 09/12/17 15:00 23:00 07:00 Intake Total 1425 ml Output Total 950 ml Balance 475 ml Intake Oral 600 ml IV Total 825 ml Output Urine Total 950 ml . Laboratory Tests Test 09/11/17 05:25 White Blood Count 13.0 TH/MM3 Red Blood Count 3.56 MIL/MM3 Hemoglobin 10.3 GM/DL Hematocrit 32.8 % Mean Corpuscular Volume 92.1 FL Mean Corpuscular Hemoglobin 28.8 PG Mean Corpuscular Hemoglobin Concent 31.3 % Red Cell Distribution Width 20.0 % Platelet Count 229 TH/MM3 Mean Platelet Volume 9.0 FL Neutrophils (%) (Auto) 82.9 % Lymphocytes (%) (Auto) 10.6 % Monocytes (%) (Auto) 6.2 % Eosinophils (%) (Auto) 0.0 % Basophils (%) (Auto) 0.3 % Neutrophils # (Auto) 10.8 TH/MM3 Lymphocytes # (Auto) 1.4 TH/MM3 Monocytes # (Auto) 0.8 TH/MM3 Eosinophils # (Auto) 0.0 TH/MM3 Basophils # (Auto) 0.0 TH/MM3 CBC Comment AUTO DIFF Differential Comment AUTO DIFF CONFIRMED Laboratory Tests Test 09/11/17 05:25 Blood Urea Nitrogen 32 MG/DL Creatinine 1.01 MG/DL Random Glucose 158 MG/DL Total Protein 6.5 GM/DL Albumin 2.5 GM/DL Calcium Level 9.0 MG/DL Alkaline Phosphatase 34 U/L Aspartate Amino Transf (AST/SGOT) 16 U/L Alanine Aminotransferase (ALT/SGPT) 24 U/L Total Bilirubin 0.2 MG/DL Sodium Level 151 MEQ/L Potassium Level 4.4 MEQ/L Chloride Level 118 MEQ/L Carbon Dioxide Level 24.5 MEQ/L Anion Gap 9 MEQ/L Estimat Glomerular Filtration Rate 54 ML/MIN Imaging Last Impressions Chest X-Ray 09/08/17 0000 Signed Impressions: Service Date/Time: August 04:03 - CONCLUSION: 1. Persistent elevation the right hemidiaphragm. 2. Borderline cardiomegaly. Mychal Cordova MD Abdomen/Pelvis CT 09/07/17 1437 Signed Impressions: Service Date/Time: Thursday, September 07, 2017 15:03 - CONCLUSION: 1. Study is degraded by breathing motion artifact. 2. Elevation of the right hemidiaphragm with right basilar atelectasis. 3. Cholelithiasis. 4. No acute abnormality to explain the patient's pain. Abdelrahman Leon Jr., MD Physical Exam GENERAL: This is a moderately obese female in NAD HEENT: PERRL. Edentulous. Moist mucosae NECK: Supple. Soft. No masses palpable. LUNGS: clear to auscultation HEART: Regular, S1 and S2. No murmurs, rubs or gallops. ABDOMEN: Bowel sounds diminished, soft. No tenderness appreciated. : no palpable bladder distention EXTREMITIES: No clubbing, cyanosis or edema. SKIN: No rash but it appears pale. The skin is warm and moist. NEURO: asleep PSYCH: Unable to assess. Assessment & Plan Remarks IMPRESSION 1. Severe sepsis secondary to urinary tract infection. 2. Urinary tract infection. ESBL+ E.coli 3. Prior treatment with Macrobid and apparent failure of treatment for UTI. 4. Leukocytosis worse 5. Dyspnea and hypoxia. COPD exacerbation RECOMMENDATIONS 1. cont Ertapenem 2. Monitor the blood culture. 3. monitor WBC dw Charis Florentino MD Sep 11, 2017 18:32
[2017-09-11] MEDS: ENOXAPARIN SODIUM 40 MG/0.4 ML SYRINGE SQ SCH (21:24)
[2017-09-12] VITALS (11 sets, daily range): BP systolic 112–172; BP diastolic 59–112; PULSE 72–88; RESP 11–32; TEMP 97–97.9; O2SAT 97–100
[2017-09-12 01:14] LABS: BICARBONATE 26.1 MEQ/L (21.0-32.0); MAGNESIUM 1.9 MG/DL (1.5-2.5); POTASSIUM 4.8 MEQ/L (3.5-5.1)
[2017-09-12] MEDS: CHLORHEXIDINE GLUCONATE 2 % 1 PACK (2 CLOTHS) TOP SCH (04:00)
[2017-09-12] MEDS: METOPROLOL TARTRATE 5 MG/5 ML VIAL IV PUSH PRN (05:29)
--- NOTE | 2017-09-12 06:26 | RADRPT ---
EXAM DATE/TIME: 09/12/2017 04:50 [facility] COMPARISON: CT ABDOMEN & PELVIS W/O CONTRAST, September 07, 2017, 15:03. CHEST SINGLE AP, September 08, 2017, 4:03 . INDICATIONS : Shortness of breath, possible pulmonary disease. MEDICAL HISTORY : Renal insufficiency. Diabetes mellitus type II. Gastroesophageal reflux disease. SURGICAL HISTORY : None. ENCOUNTER: Subsequent ACUITY: 1 week PAIN SCORE: 10/10 LOCATION: Bilateral chest FINDINGS: A single AP semierect view of the chest was obtained. The study is Midinspiratory with chronic lung v asculature. There is abnormal opacity at the lung bases with blunting of the costophrenic angles. The heart size is mildly prominent. The bony thorax remains intact. There are multiple overlying electro cardiogram leads. CONCLUSION: Abnormal opacity at both lung bases with blunting of the costophrenic angles. The findings could mitesh ying infiltrate and/or effusions. Lenin Barragan MD on September 12, 2017 at 6:23 Board Certified Radiologist. This report was verified electronically.
[2017-09-12] MEDS: INSULIN ASPART SUPPLEMENTAL SCALE SQ SCH ×4 (08:00→20:37)
[2017-09-12] MEDS: SODIUM CHLORIDE 0.9% FLUSH 10 ML FLUSH IV FLUSH SCH ×2 (09:00→20:37)
[2017-09-12] MEDS: methylPREDNISolone SOD SUCC 40 MG/1 ML VIAL IV SCH ×2 (10:25→20:37)
[2017-09-12] MEDS: DILTIAZEM-CD 120 MG CAP ER PO SCH (10:26)
[2017-09-12] MEDS: PANTOPRAZOLE SOD 40 MG DELAYED RELEASE TAB PO SCH (10:26)
--- NOTE | 2017-09-12 11:17 | HHI.IDPN ---
Subjective Subjective Remarks ID X cover pt remains in ICU doing OK agitated again no fever Antibiotics ertapenem Allergies: Coded Allergies: adhesive (Unverified Allergy, Severe, 05/24/17) doxycycline (Unverified Allergy, Severe, 05/24/17) minocycline (Unverified Allergy, Severe, 05/24/17) penicillin G (Unverified Allergy, Severe, 05/24/17) tigecycline (Unverified Allergy, Severe, 05/24/17) Uncoded Allergies: ANTIHISTAMINES (Allergy, Severe, 09/05/07) Objective . Vital Signs Date Time Temp Pulse Resp B/P (MAP) Pulse Ox O2 Delivery O2 Flow Rate FiO2 09/12/17 07:28 100 Nasal Cannula 2.00 09/12/17 04:00 97.0 85 18 172/82 (112) 100 09/12/17 00:00 97.2 78 11 112/59 (76) 97 09/11/17 21:16 100 Nasal Cannula 2.00 09/11/17 20:00 Nasal Cannula 3.00 09/11/17 20:00 97.8 77 27 131/62 (85) 100 09/11/17 18:00 81 09/11/17 16:00 98.6 96 20 148/70 (96) 100 09/11/17 16:00 96 09/11/17 14:00 80 09/11/17 12:00 97.0 97 24 144/64 (90) 99 09/11/17 12:00 97 . Laboratory Tests Test 09/11/17 05:25 White Blood Count 13.0 TH/MM3 Red Blood Count 3.56 MIL/MM3 Hemoglobin 10.3 GM/DL Hematocrit 32.8 % Mean Corpuscular Volume 92.1 FL Mean Corpuscular Hemoglobin 28.8 PG Mean Corpuscular Hemoglobin Concent 31.3 % Red Cell Distribution Width 20.0 % Platelet Count 229 TH/MM3 Mean Platelet Volume 9.0 FL Neutrophils (%) (Auto) 82.9 % Lymphocytes (%) (Auto) 10.6 % Monocytes (%) (Auto) 6.2 % Eosinophils (%) (Auto) 0.0 % Basophils (%) (Auto) 0.3 % Neutrophils # (Auto) 10.8 TH/MM3 Lymphocytes # (Auto) 1.4 TH/MM3 Monocytes # (Auto) 0.8 TH/MM3 Eosinophils # (Auto) 0.0 TH/MM3 Basophils # (Auto) 0.0 TH/MM3 CBC Comment AUTO DIFF Differential Comment AUTO DIFF CONFIRMED Laboratory Tests Test 09/11/17 05:25 09/12/17 00:28 Blood Urea Nitrogen 32 MG/DL 30 MG/DL Creatinine 1.01 MG/DL 0.90 MG/DL Random Glucose 158 MG/DL 102 MG/DL Total Protein 6.5 GM/DL Albumin 2.5 GM/DL Calcium Level 9.0 MG/DL 8.9 MG/DL Alkaline Phosphatase 34 U/L Aspartate Amino Transf (AST/SGOT) 16 U/L Alanine Aminotransferase (ALT/SGPT) 24 U/L Total Bilirubin 0.2 MG/DL Sodium Level 151 MEQ/L 151 MEQ/L Potassium Level 4.4 MEQ/L 4.8 MEQ/L Chloride Level 118 MEQ/L 118 MEQ/L Carbon Dioxide Level 24.5 MEQ/L 26.1 MEQ/L Anion Gap 9 MEQ/L 7 MEQ/L Estimat Glomerular Filtration Rate 54 ML/MIN 62 ML/MIN Magnesium Level 1.9 MG/DL Imaging Last Impressions Chest X-Ray 09/12/17 0600 Signed Impressions: Service Date/Time: Tuesday, September 12, 2017 04:50 - CONCLUSION: Abnormal opacity at both lung bases with blunting of the costophrenic angles. The findings could indicate infiltrate and/or effusions. Lenin Barragan MD Abdomen/Pelvis CT 09/07/17 1437 Signed Impressions: Service Date/Time: Thursday, September 07, 2017 15:03 - CONCLUSION: 1. Study is degraded by breathing motion artifact. 2. Elevation of the right hemidiaphragm with right basilar atelectasis. 3. Cholelithiasis. 4. No acute abnormality to explain the patient's pain. Abdelrahman Leon Jr., MD Physical Exam GENERAL: This is a moderately obese female in NAD HEENT: PERRL. Edentulous. Moist mucosae NECK: Supple. Soft. No masses palpable. LUNGS: clear to auscultation HEART: Regular, S1 and S2. No murmurs, rubs or gallops. ABDOMEN: Bowel sounds diminished, soft. No tenderness appreciated. : no palpable bladder distention EXTREMITIES: No clubbing, cyanosis or edema. SKIN: No rash but it appears pale. The skin is warm and moist. NEURO: awake, agitated, confused, incoherent PSYCH: Unable to assess. Assessment & Plan Remarks IMPRESSION 1. Severe sepsis secondary to urinary tract infection. 2. Urinary tract infection. ESBL+ E.coli 3. Prior treatment with Macrobid and apparent failure of treatment for UTI. 4. Leukocytosis worse 5. Dyspnea and hypoxia. COPD exacerbation 6. Abnormal CXR RECOMMENDATIONS 1. cont Ertapenem 2. Monitor the blood culture. 3. repeat WBC dw Charis Florentino MD Sep 12, 2017 11:17
[2017-09-12 12:35] LABS: AUTOMATED NEUTROPHIL # 5.8 TH/MM3 (1.8-7.7); BASOPHIL % 0.2 % (0.0-2.0); EOSINOPHIL % 0.1 % (0.0-4.0); HEMATOCRIT 34.3 % (35.0-46.0); HEMO FLAGS DIFF FINAL; LYMPH % 10.2 % (9.0-44.0); LYMPHOCYTE # 0.7 TH/MM3 (1.0-4.8); MEAN CELL VOLUME 92.1 FL (80.0-100.0); MEAN CORPUSCULAR HEMOGLOBIN 29.4 PG (27.0-34.0); MEAN CORPUSCULAR HGB CONC 31.9 % (32.0-36.0); MONO % 3.4 % (0.0-8.0); NEUT % 86.1 % (16.0-70.0); PLATELET COUNT 210 TH/MM3 (150-450); RED BLOOD COUNT 3.72 MIL/MM3 (4.00-5.30); RED CELL DISTRIBUTION WIDTH 19.2 % (11.6-17.2); WHITE BLOOD COUNT 6.8 TH/MM3 (4.0-11.0)
--- NOTE | 2017-09-12 12:44 | HHI.PR ---
Subjective Remarks Alert breathing better. Off BiPAP this am. On O2 2 L. Sodium is high, and taking po diet better. Good output Objective Vital Signs Date Time Temp Pulse Resp B/P (MAP) Pulse Ox O2 Delivery O2 Flow Rate FiO2 09/12/17 07:28 100 Nasal Cannula 2.00 09/12/17 04:00 97.0 85 18 172/82 (112) 100 09/12/17 00:00 97.2 78 11 112/59 (76) 97 09/11/17 21:16 100 Nasal Cannula 2.00 09/11/17 20:00 Nasal Cannula 3.00 09/11/17 20:00 97.8 77 27 131/62 (85) 100 09/11/17 18:00 81 09/11/17 16:00 98.6 96 20 148/70 (96) 100 09/11/17 16:00 96 09/11/17 14:00 80 I/O 09/11/17 09/11/17 09/11/17 09/12/17 09/12/17 09/12/17 06:59 14:59 22:59 06:59 14:59 22:59 Intake Total 1758 ml 1525 ml 1235 ml Output Total 1000 ml 950 ml 1100 ml Balance 758 ml 575 ml 135 ml Intake Oral 950 ml 600 ml 480 ml IV Total 808 ml 925 ml 755 ml Output Urine Total 1000 ml 950 ml 1100 ml # Bowel Movements 0 Result Diagram: 09/12/17 1215 09/12/17 0028 Objective Remarks GENERAL: This moderately obese elderly lady who is awake and . HEENT: Head normocephalic. Pupils are reactive. Nasal mucosa clear Throat is clear. NECK: Supple without venous distension. No bruits or thyroid enlargement. CHEST: Decreased excursions, scattered wheezes bilaterally. HEART: The heart sounds are regular S1-S2 with no murmur. ABDOMEN: Obese, protuberant with mild epigastric tenderness. Bowel sounds are active. There is mild tenderness also in the lower quadrants. EXTREMITIES: Mild peripheral edema with diminished pulses. Reflexes are 1+. The patient does move her extremities. Peripheral pulses are not well felt. NEUROLOGICALLY: There are no focal deficits. Assessment and Plan Assessment and Plan IMPRESSION 1. Acute on chronic respiratory failure. 2. Sepsis with UTI. 3. Dehydration. 4. Hypertension. 5. Diabetes mellitus. 6. Obstructive sleep apnea. 7. Bipolar disorder. 8. Paranoid Schizophrenia Plan : 1. Antibiotics per ID. 2. Nebs qid , duoneb. 3. Use BiPAP at HS. 4. CBC BMP in am. 5. Soft Diet. 6. Change IV to 1/2 NS at 80CC. 7. D/C solumedrol Rocio Rivera MD Sep 12, 2017 12:44
[2017-09-12] MEDS ORDERED: SODIUM CHLOR 0.45% 1000 ML INJ 1,000 ML IV SCH (12:45)
[2017-09-12] MEDS ORDERED: DEXTROSE 5% IN WATE 500 ML INJ 500 ML IV SCH (14:45)
--- NOTE | 2017-09-12 14:47 | HHI.CCPN ---
Subjective Remarks/Hospital Course 09/07: This is a 72-year-old female who presents from [facility] for evaluation. The patient was found this morning to have dyspnea, hypoxia and a fever of 102. [facility] and her oxygen saturation improved. Upon EMS arrival her oxygen saturation was in the high 80s, and is currently 93% on 4 L. She has had a cough for the past several days as well. She was started on Macrobid on September 05 for urinary tract infection. Upon review of systems she endorses cough and dyspnea for "a while" as well as lower abdominal pain, diarrhea for "a while." She is somewhat of a poor historian however she is alert and oriented 3. Patient was admitted for hypercapnic respiratory distress and right lung pneumonia in June of this year. She has no other complaints at this time. Patient was noted to have an elevated lactic acid and pCO2. She was accepted for admission by critical care medicine service. She was maintaining her blood pressure and was not in any acute distress at the time of my evaluation. History was obtained by reviewing records and discussion with ER mid-level provider. Patient is not a very good historian. 09/08: Drowsy, arousable on BiPAP with full facemask. 09/09: Awake and alert on BiPAP with full facemask. Following commands. 09/10: Awake and alert. On BiPAP with full facemask. Follows commands. 09/11: Awake and alert. Tolerating nasal cannula with intermittent BiPAP. Following commands. Wants to drink water. Being followed by pulmonary. No hypotension since admission. Lactic acid normalized. 09/12 Patient is lying in bed in NAD. Awaiting transfer to floor. Objective Vital Signs Date Time Temp Pulse Resp B/P (MAP) Pulse Ox O2 Delivery O2 Flow Rate FiO2 09/12/17 07:28 100 Nasal Cannula 2.00 09/12/17 04:00 97.0 85 18 172/82 (112) 09/11/17 04:30 30 Intake and Output 09/12/17 09/12/17 09/13/17 08:00 16:00 00:00 Intake Total 1235 ml Output Total 1100 ml Balance 135 ml Result Diagram: 09/12/17 1215 09/12/17 0028 Other Results Laboratory Tests Test 09/12/17 00:28 09/12/17 12:15 Blood Urea Nitrogen 30 MG/DL Creatinine 0.90 MG/DL Random Glucose 102 MG/DL Calcium Level 8.9 MG/DL Magnesium Level 1.9 MG/DL Sodium Level 151 MEQ/L Potassium Level 4.8 MEQ/L Chloride Level 118 MEQ/L Carbon Dioxide Level 26.1 MEQ/L Anion Gap 7 MEQ/L Estimat Glomerular Filtration Rate 62 ML/MIN White Blood Count 6.8 TH/MM3 Red Blood Count 3.72 MIL/MM3 Hemoglobin 10.9 GM/DL Hematocrit 34.3 % Mean Corpuscular Volume 92.1 FL Mean Corpuscular Hemoglobin 29.4 PG Mean Corpuscular Hemoglobin Concent 31.9 % Red Cell Distribution Width 19.2 % Platelet Count 210 TH/MM3 Mean Platelet Volume 8.3 FL Neutrophils (%) (Auto) 86.1 % Lymphocytes (%) (Auto) 10.2 % Monocytes (%) (Auto) 3.4 % Eosinophils (%) (Auto) 0.1 % Basophils (%) (Auto) 0.2 % Neutrophils # (Auto) 5.8 TH/MM3 Lymphocytes # (Auto) 0.7 TH/MM3 Monocytes # (Auto) 0.2 TH/MM3 Eosinophils # (Auto) 0.0 TH/MM3 Basophils # (Auto) 0.0 TH/MM3 CBC Comment DIFF FINAL Differential Comment Imaging Last Impressions Chest X-Ray 09/12/17 0600 Signed Impressions: Service Date/Time: Tuesday, September 12, 2017 04:50 - CONCLUSION: Abnormal opacity at both lung bases with blunting of the costophrenic angles. The findings could indicate infiltrate and/or effusions. Lenin Barragan MD Abdomen/Pelvis CT 09/07/17 1437 Signed Impressions: Service Date/Time: Thursday, September 07, 2017 15:03 - CONCLUSION: 1. Study is degraded by breathing motion artifact. 2. Elevation of the right hemidiaphragm with right basilar atelectasis. 3. Cholelithiasis. 4. No acute abnormality to explain the patient's pain. Abdelrahman Leon Jr., MD Objective Remarks Narrative GENERAL: Chronically ill-appearing female in no acute distress. SKIN: Warm and dry. HEAD: Atraumatic. Normocephalic. EYES: Pupils equal and round. No scleral icterus. No injection or drainage. ENT: No nasal bleeding or discharge. Mucous membranes pink and moist. NECK: Trachea midline. No JVD. CARDIOVASCULAR: Regular rate and rhythm. No murmur appreciated. RESPIRATORY: On BiPAP with full facemask, diminished breath sounds. Scattered rhonchi. No wheezing or crackles GASTROINTESTINAL: Abdomen soft, tender to palpation in lower quadrants no guarding. MUSCULOSKELETAL: No obvious deformities. No clubbing. No cyanosis. No edema. NEUROLOGICAL: Awake and alert. No obvious cranial nerve deficits. Motor grossly within normal limits. Normal speech. PSYCHIATRIC: Appropriate mood and affect; insight and judgment normal. A/P Assessment and Plan 72-year-old female with: Sepsis UTI Lactic acidosis CAD CKD GERD D mellitus bipolar disorder Paranoid schizophrenia Hypercapnic respiratory failure requiring BiPAP Plan: Neuro: Monitor neuro status. Continue home psych meds. CV: Monitor HR and BP keep MAP>65mmHg Lactic acid cleared. On Cardizem CD 120mg daily Pulmo: Supplemental O2. Bronchodilators as needed. Patient has chronic CO2 retention. Dr. Meyer from pulmonary medicine is following. NIPPV PRN for resp distress, on solumederol 20mg BID GI/liver: On PO diet Renal/: Monitor renal function, electrolytes replacement as needed D5W@50ml/hr x 1 bag then stop. Monitor sodium level. ID: Multiple antibiotic allergies noted. Patient received Levaquin IV in the ER and vancomycin. Urine cultures with resistant Klebsiella. ID is following- on ertapenem IV. Endocrine: SSI for glycemic control. Heme: Follow CBC Prophylaxis: PPI/SCDs/Lovenox Awaiting transfer to floor , [facility] consulted for medical management Level 2 Choco Monk MD Sep 12, 2017 14:47
[2017-09-12] MEDS: ERTAPENEM INJ 1,000 MG in SODIUM CHLORIDE 0.9% INJ 100 ML IV SCH (18:40)
[2017-09-12] MEDS: BUDESONIDE-FORMOTEROL 160/4.5 MCG INHALER INH SCH (20:36)
[2017-09-12] MEDS: ALPRAZolam 0.5 MG TAB PO PRN (20:37)
[2017-09-12] MEDS: ENOXAPARIN SODIUM 40 MG/0.4 ML SYRINGE SQ SCH (20:37)
[2017-09-13] VITALS (8 sets, daily range): BP systolic 154–180; BP diastolic 70–91; PULSE 78–98; RESP 22–27; TEMP 97.6–99.9; O2SAT 94–100
[2017-09-13] MEDS: CHLORHEXIDINE GLUCONATE 2 % 1 PACK (2 CLOTHS) TOP SCH (04:00)
[2017-09-13 07:02] LABS: AUTOMATED NEUTROPHIL # 6.5 TH/MM3 (1.8-7.7); BASOPHIL % 0.2 % (0.0-2.0); EOSINOPHIL # 0.1 TH/MM3 (0-0.4); EOSINOPHIL % 0.9 % (0.0-4.0); HEMATOCRIT 35.3 % (35.0-46.0); HEMO FLAGS DIFF FINAL; LYMPH % 20.5 % (9.0-44.0); LYMPHOCYTE # 1.9 TH/MM3 (1.0-4.8); MEAN CELL VOLUME 90.7 FL (80.0-100.0); MEAN CORPUSCULAR HEMOGLOBIN 29.1 PG (27.0-34.0); MEAN CORPUSCULAR HGB CONC 32.1 % (32.0-36.0); MONO % 6.8 % (0.0-8.0); NEUT % 71.6 % (16.0-70.0); PLATELET COUNT 232 TH/MM3 (150-450); RED BLOOD COUNT 3.89 MIL/MM3 (4.00-5.30); RED CELL DISTRIBUTION WIDTH 19.1 % (11.6-17.2)
[2017-09-13 07:31] LABS: BICARBONATE 25.4 MEQ/L (21.0-32.0); POTASSIUM 4.5 MEQ/L (3.5-5.1)
[2017-09-13] MEDS: INSULIN ASPART SUPPLEMENTAL SCALE SQ SCH ×4 (08:00→21:00)
[2017-09-13] MEDS: DILTIAZEM-CD 120 MG CAP ER PO SCH (08:39)
[2017-09-13] MEDS: SODIUM CHLORIDE 0.9% FLUSH 10 ML FLUSH IV FLUSH SCH ×2 (08:39→21:00)
[2017-09-13] MEDS: PANTOPRAZOLE SOD 40 MG DELAYED RELEASE TAB PO SCH (08:39)
[2017-09-13] MEDS: methylPREDNISolone SOD SUCC 40 MG/1 ML VIAL IV SCH (08:39)
[2017-09-13] MEDS: BUDESONIDE-FORMOTEROL 160/4.5 MCG INHALER INH SCH ×2 (09:00→21:00)
[2017-09-13] MEDS: ALPRAZolam 0.5 MG TAB PO PRN ×2 (11:56→21:11)
--- NOTE | 2017-09-13 13:40 | HHI.CCPN ---
Subjective Remarks/Hospital Course 09/07: This is a 72-year-old female who presents from [facility] for evaluation. The patient was found this morning to have dyspnea, hypoxia and a fever of 102. She [facility]ol [facility]enol [facility] and her oxygen saturation improved. Upon EMS arrival her oxygen saturation was in the high 80s, and is currently 93% on 4 L. She has had a cough for the past several days as well. She was started on Macrobid on September 05 for urinary tract infection. Upon review of systems she endorses cough and dyspnea for "a while" as well as lower abdominal pain, diarrhea for "a while." She is somewhat of a poor historian however she is alert and oriented 3. Patient was admitted for hypercapnic respiratory distress and right lung pneumonia in June of this year. She has no other complaints at this time. Patient was noted to have an elevated lactic acid and pCO2. She was accepted for admission by critical care medicine service. She was maintaining her blood pressure and was not in any acute distress at the time of my evaluation. History was obtained by reviewing records and discussion with ER mid-level provider. Patient is not a very good historian. 09/08: Drowsy, arousable on BiPAP with full facemask. 09/09: Awake and alert on BiPAP with full facemask. Following commands. 09/10: Awake and alert. On BiPAP with full facemask. Follows commands. 09/11: Awake and alert. Tolerating nasal cannula with intermittent BiPAP. Following commands. Wants to drink water. Being followed by pulmonary. No hypotension since admission. Lactic acid normalized. 09/12, 09/13: Patient is lying in bed in NAD. Awaiting transfer to floor. Objective Vital Signs Date Time Temp Pulse Resp B/P (MAP) Pulse Ox O2 Delivery O2 Flow Rate FiO2 09/13/17 09:20 98 Nasal Cannula 2.00 09/13/17 08:00 98.3 79 27 177/84 (115) 09/11/17 04:30 30 Intake and Output 09/13/17 09/13/17 09/13/17 07:59 15:59 23:59 Intake Total 720 ml Balance 720 ml Result Diagram: 09/13/17 0609/13/17 06 Imaging Last Impressions Chest X-Ray 09/12/17 0600 Signed Impressions: Service Date/Time: Tuesday, September 12, 2017 04:50 - CONCLUSION: Abnormal opacity at both lung bases with blunting of the costophrenic angles. The findings could indicate infiltrate and/or effusions. Lenin Barragan MD Abdomen/Pelvis CT 09/07/17 1437 Signed Impressions: Service Date/Time: Thursday, September 07, 2017 15:03 - CONCLUSION: 1. Study is degraded by breathing motion artifact. 2. Elevation of the right hemidiaphragm with right basilar atelectasis. 3. Cholelithiasis. 4. No acute abnormality to explain the patient's pain. Abdelrahman Leon Jr., MD Objective Remarks Narrative GENERAL: Chronically ill-appearing female in no acute distress. SKIN: Warm and dry. HEAD: Atraumatic. Normocephalic. EYES: Pupils equal and round. No scleral icterus. No injection or drainage. ENT: No nasal bleeding or discharge. Mucous membranes pink and moist. NECK: Trachea midline. No JVD. CARDIOVASCULAR: Regular rate and rhythm. No murmur appreciated. RESPIRATORY: On BiPAP with full facemask, diminished breath sounds. Scattered rhonchi. No wheezing or crackles GASTROINTESTINAL: Abdomen soft, tender to palpation in lower quadrants no guarding. MUSCULOSKELETAL: No obvious deformities. No clubbing. No cyanosis. No edema. NEUROLOGICAL: Awake and alert. No obvious cranial nerve deficits. Motor grossly within normal limits. Normal speech. PSYCHIATRIC: Appropriate mood and affect; insight and judgment normal. A/P Assessment and Plan 72-year-old female with: Sepsis UTI Lactic acidosis CAD CKD GERD D mellitus bipolar disorder Paranoid schizophrenia Hypercapnic respiratory failure requiring BiPAP Plan: Neuro: Monitor neuro status. Continue home psych meds. CV: Monitor HR and BP keep MAP>65mmHg Lactic acid cleared. On Cardizem CD 120mg daily Pulmo: Supplemental O2. Bronchodilators as needed. Patient has chronic CO2 retention. Dr. Meyer from pulmonary medicine is following. NIPPV PRN for resp distress, on solumederol GI/liver: On PO diet Renal/: Monitor renal function, electrolytes replacement as needed D5W@50ml/hr x 1 bag then stop. Monitor sodium level. ID: Multiple antibiotic allergies noted. Patient received Levaquin IV in the ER and vancomycin. Urine cultures with resistant Klebsiella. ID is following- on ertapenem IV. Endocrine: SSI for glycemic control. Heme: Follow CBC Prophylaxis: PPI/SCDs/Lovenox Awaiting transfer to floor , [facility] consulted for medical management Level 2 Reynaldo Ryan MD Sep 13, 2017 13:39
--- NOTE | 2017-09-13 14:28 | PD.CONS ---
Consult Service Palliative Care Consult Requested By Dr. Delonte Ryan . Primary Care Physician Unknown Reason for Consultation a. To assist with evaluation and management of symptoms including: dyspnea, anxiety b. To assist medical decision maker(s) with: better understanding of current medical conditions; weighing benefits/burdens of medical treatment options; making medical treatment decisions. HPI History of Present Illness This 72-year-old female presented to the ED 09/07/17 from her nursing facility [facility] for further evaluation of dyspnea, hypoxia and fever of 102. She is reported to receive albuterol and Tylenol at her nursing facility and her O2 sats improved. EMS arrival her O2 sat saturation was in the 80s, she was 93% on 4 L at ER arrival. She was also reported to have a cough for the past several days, she had been started on Macrobid 09/05 for UTI. In the ED she further endorsed cough and dyspnea for "a while", as well as lower abdominal pain and diarrhea for "awhile". ED physician documents that she is alert and oriented 3 however she is also somewhat of a poor historian. Patient is further noted to have previous admission for hypercapnic respiratory distress and right lung pneumonia in June 2017. * ED course: Lactic acid 6.2, WBC elevated at 20.1. GFR 29. UA indicative of infection. Stool for C. difficile ordered. Patient started on Levaquin, vancomycin. She was admitted to intensive care for further evaluation and management of sepsis/UTI/hypoxia. * Cultures pending, ID consulted: ID continues Levaquin, monitor cultures, follow clinical course * Patient continued on nebulizers, O2, Pulmonary consulted: Pulmonology recommends O2 nasal cannula during the day BiPAP at night as needed, scheduled DuoNeb every 6 hours, Solu-Medrol, continue Levaquin, also continue vancomycin, cefepime. Follow cultures, CXR * 09/08 - 09/10 patient with periods of lethargy, on and off BiPAP. Patient with periods more awake and alert, following commands. Urine cultures with resistant Klebsiella. ID following pt on ertapenem IV, lactic acid improved. * 09/11 - 09/13 patient more alert, tolerating nasal cannula with intermittent BiPAP. Following commands. Dynamic stable. 09/13 awaiting transfer to regular room, critical care has signed off hospitalist to take over as attending. Palliative care was consulted to assist with clarification of goals of treatment. OT and PT following the note patient with increased anxiety and some agitation with attempted activities. Patient seen in room nurse is present for part of visit. Patient is alert and mostly oriented. Patient has some limited insight into hospitalization she tells me that she came in for her breathing. She is mildly anxious at times during conversation. She tells me her breathing is feeling a little better. She denies GI complaints says at times her stomach feels tender when she touches it. Endorses good appetite for breakfast and lunch today. Denies headache. Denies pain. She is surprised that I review that she is in the ICU. She tells me she has no other family locally. She tells me she is from her . 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 She indicates she has never had any children. She has a few friends and acquaintances at [facility]. She tells me she has parents but the last she spoke to them was a year or so ago when they "moved " though she is unable to indicate where they moved, and given her age I am not certain if the parents would still be living. Palliative care healthcare social worker spoke with [facility] regarding next of kin or possible decision makers for patient--they have apparently been in the process of working on guardianship for the patient however per their recent follow-up there is no local securities attorney available to assist with this, therefore patient does not have any guardian in place. They only know of patient estranged who has been living in a nursing facility himself for many years. Their healthcare social worker recommended proceed with social work advantage or other appropriate decision maker as patient with no other known family. Function/Cognitive Trajectory Per review of available records patient is a long-term resident of [facility], and has lived areas locations of [facility] for the past many years, has also had inpatient hospitalization in [facility] facility in [facility]. Review of Systems ROS Limitations: Poor Historian Constitutional: DENIES: Change in appetite, Pain Endocrine: COMPLAINS OF: Polyuria Respiratory: COMPLAINS OF: Cough, Shortness of breath, DENIES: Sputum production Cardiovascular: COMPLAINS OF: Lower Extremity Edema, Orthopnea, DENIES: Chest pain Gastrointestinal: DENIES: Abdominal pain, Constipation, Diarrhea, Nausea, Vomiting, Difficulty Swallowing, Anorexia Musculoskeletal: DENIES: Muscle aches Neurologic: DENIES: Headache Psychiatric: COMPLAINS OF: Anxiety Past Family Social History Coded Allergies: adhesive (Unverified Allergy, Severe, 05/24/17) doxycycline (Unverified Allergy, Severe, 05/24/17) minocycline (Unverified Allergy, Severe, 05/24/17) penicillin G (Unverified Allergy, Severe, 05/24/17) tigecycline (Unverified Allergy, Severe, 05/24/17) Uncoded Allergies: ANTIHISTAMINES (Allergy, Severe, 09/05/07) Past Medical History Paranoid schizophrenia Hypothyroidism CKD stage III Seizure disorder Osteoporosis Diabetes ? Parkinsons . Past Surgical History D&C . Reported Medications Prednisone 10 Mg Tab 10 Mg PO DAILY Metoprolol Tartrate 25 Mg Tab 50 Mg PO BID Macrobid (Nitrofurantoin Monoh/Nitrofur Macro) 100 Mg Cap 100 Mg PO BID 5 Days Ativan (Lorazepam) 0.5 Mg Tab 0.5 Mg PO HS Diff-Stat (Probiotic Product) 471 Mg Cap 1 Cap PO BID Ascorbic Acid 500 Mg Tab 500 Mg PO BID Senokot (Sennosides) 8.6 Mg Tab 8.6 Mg PO DAILY Divalproex ER (Divalproex Sodium) 250 Mg Pedro 750 Mg PO HS Vitamin D-1000 (Cholecalciferol) 1,000 Unit Tab 1,000 Units PO DAILY Synthroid (Levothyroxine Sodium) 125 Mcg Tab 125 Mcg PO DAILY Requip (Ropinirole) 1 Mg Tab 1 Mg PO TID Neurontin (Gabapentin) 300 Mg Cap 300 Mg PO TID One Daily-Minerals (Multiple Vitamins W/ Minerals) 1 Tab 1 Tab PO DAILY Lopid (Gemfibrozil) 600 Mg Tab 600 Mg PO BID Take 30 minutes prior to breakfast and dinner Glipizide 5 Mg Tab 5 Mg PO BID Take 30 minutes before a meal Tylenol (Acetaminophen) 325 Mg Tab 650 Mg PO Q6H PRN Levetiracetam 500 Mg Tab 500 Mg PO BID Lamotrigine 100 Mg Tab 100 Mg PO DAILY Lamictal (Lamotrigine) 25 Mg Tab 25 Mg PO HS Isosorbide Dinitrate 10 Mg Tab 10 Mg PO BID Glucophage (Metformin HCl) 500 Mg Tab 1,000 Mg PO BID With meals Fosamax (Alendronate Sodium) 70 Mg Tab 70 Mg PO Q7D Sinemet (Carbidopa/Levodopa) 10-100 Mg Tab 1 Tab PO Q8HR Risperdal (Risperidone) 1 Mg Tab 1 Mg PO TID Pravachol (Pravastatin) 40 Mg Tab 40 Mg PO DAILY . Current Medications Medications (Trade) Dose Ordered Sig/Malena Route Start Time Stop Time Status Last Admin (NS Flush) 2 ml UNSCH PRN IV FLUSH 09/07/17 17:45 (NS Flush) 2 ml BID IV FLUSH 09/07/17 21:00 09/13/17 08:39 (Protonix) 40 mg DAILY PO 09/08/17 09:00 09/13/17 08:39 (Duoneb Neb) 1 ampule Q2HR NEB PRN NEB 09/07/17 19:45 (Lovenox Inj) 40 mg Q24H SQ 09/07/17 21:00 09/12/17 20:37 Miscellaneous Information 1 Q361D XX 09/07/17 17:45 09/07/17 17:45 (Chlorhexidine 2% Cloth) Taper DAILY@04 TOP 09/08/17 04:00 09/04/18 03:59 09/13/17 04:00 (Chlorhexidine 2% Cloth) 3 pack UNSCH PRN TOP 09/07/17 17:45 (NovoLOG SUPPLEMENTAL SCALE) 1 ACHS SQ 09/07/17 21:00 09/13/17 12:00 (D50w (Vial) Inj) 25 ml UNSCH PRN IV 09/07/17 18:00 (Glucagon Inj) 1 mg UNSCH PRN IM/SQ 09/07/17 18:00 (Symbicort 160-4.5 Mcg Inh) 2 puff Q12HR INH 09/07/17 21:00 09/10/17 20:25 Ertapenem 1000 mg/ Sodium Chloride 100 ml @ 200 mls/hr Q24H IV 09/09/17 17:00 09/12/17 18:40 (SoluMEDROL INJ) 20 mg BID IV 09/09/17 21:00 09/13/17 08:39 (Xanax) 0.5 mg Q6H PRN PO 09/09/17 21:30 09/13/17 11:56 (Lopressor Inj) 5 mg Q5M PRN IV PUSH 09/10/17 05:45 09/12/17 05:29 (Cardizem Cd) 120 mg DAILY PO 09/11/17 12:30 09/13/17 08:39 Family History Her prior records by psychiatry patient unaware of family history of psychiatric problems but appears she did not have much knowledge of family origin Substance Use Per review of EMR Tobacco: Smoked "a long time ago "-20-30 years ago Alcohol: None reported, none per EMR Prescription med abuse: None reported none per EMR Illicits: None reported none. EMR . Psychosocial History Patient most recently a resident of [facility]. She is previously lived in [facility]. Patient has also had previous hospitalization at [facility] in September 2008, and placement at various other [facility] in nursing facilities. During prior psychiatric evaluation patient noted to have a who at that time was 79 years old, they have been for 31 years, though he also had health concerns and he required jail placement.(This was in 2010, his status is not known currently). Per this evaluation patient noted to be originally from [place]. She completed high school in [place]. 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 Both parents . She reported being adopted at a very young age by her grandparents and had some difficulties during her childhood. She never had any contact with biological parents and did not have contact with extended family. Further nodes to her to me, they both have suffered from severe mental illness most of their lives. He has been noted to be placed in a nursing facility in [place]. Spiritual/Cultural Factors Hoahaoism, would want manager party support Living Will: Never completed Health Care Surrogate: Never completed Durable Power of Winch Derrick Operator: Never completed Ethical and Legal Issues Per multiple admissions here at this hospital facility patient has no next of kin listed. Patient apparently may be however she has long been estranged from her and he apparently has health issues and has lived in a nursing facility dependent for care himself. [facility] where she resides had been working on exploring guardianship for this patient however has not been able to secure an securities attorney to assist with proceedings therefore she has no guardian. There are no known advance directives. Patient indicates she has no children. Not known if her parents are still living. She also indicates she has a brother though she is somewhat of an unreliable historian as I do not see mention of a brother during prior psychiatric evaluations. She is alert and oriented at times though insight is quite limited and given her psychiatric history it is not clear that she would fully be able to understand benefits/burdens of her health conditions and may be best supported in decision- making by an appropriate proxy. May be appropriate to utilize social work advantage services to assist on an as-needed basis during acute hospitalization but ultimately patient would require long-term decision-maker support. Physical Exam Vital Signs Date Time Temp Pulse Resp B/P (MAP) Pulse Ox O2 Delivery O2 Flow Rate FiO2 09/13/17 09:20 98 Nasal Cannula 2.00 09/13/17 08:00 Nasal Cannula 2.00 09/13/17 08:00 98.3 79 27 177/84 (115) 96 09/13/17 04:00 Nasal Cannula 2.00 09/13/17 04:00 97.8 81 27 154/78 (103) 96 09/13/17 00:00 97.6 78 22 159/70 (99) 99 09/13/17 00:00 Nasal Cannula 2.00 09/12/17 20:28 97 Nasal Cannula 2.00 09/12/17 20:00 97.9 88 32 167/81 (109) 97 09/12/17 20:00 Nasal Cannula 2.00 09/12/17 18:00 88 09/12/17 16:00 97.5 86 24 166/78 (107) 99 09/12/17 16:00 99 Nasal Cannula 2.00 09/12/17 16:00 86 Exam CONSTITUTIONAL/GENERAL: This is an obese/ well nourished nourished patient, in no apparent distress, cooperative TUBES/LINES/DRAINS: PIV BUE, NC o2 SKIN: No jaundice, rashes, or lesions. No wounds seen anteriorly. Skin warm HEAD: Atraumatic. Normocephalic. EYES: Pupils equal and round and reactive. Extraocular motions intact. No scleral icterus. No injection or drainage. Fundi not examined. ENT: Nose without bleeding or purulent drainage. Throat without visible erythema , exudates, masses, or lesions. NECK: Trachea midline, large thick neck. Supple, nontender. No palpable thyroid enlargement or nodularity. CARDIOVASCULAR: Regular rate and rhythm without murmur.No JVD. Peripheral pulses symmetric. RESPIRATORY/CHEST: Symmetric, unlabored respirations. mildly short of breath w ongoing conversation. some scattered rhonchi, breath sounds equal bilaterally. GASTROINTESTINAL: Abdomen soft,obese, nontender, slightly distended. No palpable masses. No guarding. Bowel sounds present. GENITOURINARY: Without palpable bladder distension. voids into bedding. MUSCULOSKELETAL: Extremities without cyanosis, or edema. +clubbing . No joint tenderness or effusion noted. LYMPHATICS: No palpable cervical or supraclavicular adenopathy. NEUROLOGICAL: Awake and alert,mostly oriented x 2-3. Some limited insight to hospitalization. Cooperative, moving all 4 extremities with significant generalized weakness. Follows commands. Repetitive chewing motion of mouth. PSYCHIATRIC: Mild anxiety during some conversation. No apparent hallucinations Diagnostic Tests Laboratory Laboratory Tests Test 09/11/17 05:25 09/12/17 00:28 09/12/17 12:15 09/13/17 06:00 White Blood Count 13.0 TH/MM3 (4.0-11.0) 6.8 TH/MM3 (4.0-11.0) 9.0 TH/MM3 (4.0-11.0) Red Blood Count 3.56 MIL/MM3 (4.00-5.30) 3.72 MIL/MM3 (4.00-5.30) 3.89 MIL/MM3 (4.00-5.30) Hemoglobin 10.3 GM/DL (11.6-15.3) 10.9 GM/DL (11.6-15.3) 11.3 GM/DL (11.6-15.3) Hematocrit 32.8 % (35.0-46.0) 34.3 % (35.0-46.0) 35.3 % (35.0-46.0) Mean Corpuscular Volume 92.1 FL (80.0-100.0) 92.1 FL (80.0-100.0) 90.7 FL (80.0-100.0) Mean Corpuscular Hemoglobin 28.8 PG (27.0-34.0) 29.4 PG (27.0-34.0) 29.1 PG (27.0-34.0) Mean Corpuscular Hemoglobin Concent 31.3 % (32.0-36.0) 31.9 % (32.0-36.0) 32.1 % (32.0-36.0) Red Cell Distribution Width 20.0 % (11.6-17.2) 19.2 % (11.6-17.2) 19.1 % (11.6-17.2) Platelet Count 229 TH/MM3 (150-450) 210 TH/MM3 (150-450) 232 TH/MM3 (150-450) Mean Platelet Volume 9.0 FL (7.0-11.0) 8.3 FL (7.0-11.0) 8.3 FL (7.0-11.0) Neutrophils (%) (Auto) 82.9 % (16.0-70.0) 86.1 % (16.0-70.0) 71.6 % (16.0-70.0) Lymphocytes (%) (Auto) 10.6 % (9.0-44.0) 10.2 % (9.0-44.0) 20.5 % (9.0-44.0) Monocytes (%) (Auto) 6.2 % (0.0-8.0) 3.4 % (0.0-8.0) 6.8 % (0.0-8.0) Eosinophils (%) (Auto) 0.0 % (0.0-4.0) 0.1 % (0.0-4.0) 0.9 % (0.0-4.0) Basophils (%) (Auto) 0.3 % (0.0-2.0) 0.2 % (0.0-2.0) 0.2 % (0.0-2.0) Neutrophils # (Auto) 10.8 TH/MM3 (1.8-7.7) 5.8 TH/MM3 (1.8-7.7) 6.5 TH/MM3 (1.8-7.7) Lymphocytes # (Auto) 1.4 TH/MM3 (1.0-4.8) 0.7 TH/MM3 (1.0-4.8) 1.9 TH/MM3 (1.0-4.8) Monocytes # (Auto) 0.8 TH/MM3 (0-0.9) 0.2 TH/MM3 (0-0.9) 0.6 TH/MM3 (0-0.9) Eosinophils # (Auto) 0.0 TH/MM3 (0-0.4) 0.0 TH/MM3 (0-0.4) 0.1 TH/MM3 (0-0.4) Basophils # (Auto) 0.0 TH/MM3 (0-0.2) 0.0 TH/MM3 (0-0.2) 0.0 TH/MM3 (0-0.2) CBC Comment AUTO DIFF DIFF FINAL DIFF FINAL Differential Comment AUTO DIFF CONFIRMED Blood Urea Nitrogen 32 MG/DL (7-18) 30 MG/DL (7-18) Creatinine 1.01 MG/DL (0.50-1.00) 0.90 MG/DL (0.50-1.00) Random Glucose 158 MG/DL (74-106) 102 MG/DL (74-106) Total Protein 6.5 GM/DL (6.4-8.2) Albumin 2.5 GM/DL (3.4-5.0) Calcium Level 9.0 MG/DL (8.5-10.1) 8.9 MG/DL (8.5-10.1) Alkaline Phosphatase 34 U/L (45-117) Aspartate Amino Transf (AST/SGOT) 16 U/L (15-37) Alanine Aminotransferase (ALT/SGPT) 24 U/L (10-53) Total Bilirubin 0.2 MG/DL (0.2-1.0) Sodium Level 151 MEQ/L (136-145) 151 MEQ/L (136-145) Potassium Level 4.4 MEQ/L (3.5-5.1) 4.8 MEQ/L (3.5-5.1) Chloride Level 118 MEQ/L (98-107) 118 MEQ/L (98-107) Carbon Dioxide Level 24.5 MEQ/L (21.0-32.0) 26.1 MEQ/L (21.0-32.0) Anion Gap 9 MEQ/L (5-15) 7 MEQ/L (5-15) Estimat Glomerular Filtration Rate 54 ML/MIN (>89) 62 ML/MIN (>89) Magnesium Level 1.9 MG/DL (1.5-2.5) Test 09/13/17 06:09 Blood Urea Nitrogen 26 MG/DL (7-18) Creatinine 1.05 MG/DL (0.50-1.00) Random Glucose 119 MG/DL (74-106) Calcium Level 9.5 MG/DL (8.5-10.1) Sodium Level 145 MEQ/L (136-145) Potassium Level 4.5 MEQ/L (3.5-5.1) Chloride Level 111 MEQ/L (98-107) Carbon Dioxide Level 25.4 MEQ/L (21.0-32.0) Anion Gap 9 MEQ/L (5-15) Estimat Glomerular Filtration Rate 52 ML/MIN (>89) Result Diagram: 09/13/17 0600 09/13/17 0609 Microbiology Microbiology Date/Time Source Procedure Growth Status 09/07/17 13:30 Blood Peripheral Aerobic Blood Culture - Final NO GROWTH IN 5 DAYS Complete 09/07/17 13:30 Blood Peripheral Anaerobic Blood Culture - Final NO GROWTH IN 5 DAYS Complete 09/07/17 13:35 Nasal Aspirate Influenza Types A,B Antigen (HOMERO) - Final NEGATIVE FOR FLU A AND B ANTIGEN.... Complete 09/07/17 13:25 Urine Catheterized Urine Urine Culture - Final Klebsiella Oxytoca Esbl Pos Complete Imaging Last Impressions Chest X-Ray 09/12/17 0600 Signed Impressions: Service Date/Time: Tuesday, September 12, 2017 04:50 - CONCLUSION: Abnormal opacity at both lung bases with blunting of the costophrenic angles. The findings could indicate infiltrate and/or effusions. Lenin Barragan MD Abdomen/Pelvis CT 09/07/17 1437 Signed Impressions: Service Date/Time: Thursday, September 07, 2017 15:03 - CONCLUSION: 1. Study is degraded by breathing motion artifact. 2. Elevation of the right hemidiaphragm with right basilar atelectasis. 3. Cholelithiasis. 4. No acute abnormality to explain the patient's pain. Abdelrahman Leon Jr., MD Patient/Family Conference Issues Discussed: Further discussions pending appropriate decision-maker. Very limited discussion with patient as she seems to have limited insight and not fully able to weigh benefits/burdens. Assessment and Plan Disease Oriented Problem List: (1) Sepsis (2) UTI (urinary tract infection) (3) DIDI (acute kidney injury) (4) Diabetes mellitus (5) Altered mental status (6) Acute respiratory failure with hypoxia and hypercarbia Symptom Scale: (1) Anxiety 0-10 Scale: Unable to quantify (2) Dyspnea 0-10 Scale: Unable to quantify Pertinent Non-Medical Issues Psychosocial:Patient most recently a resident of [facility]. She is previously lived in [facility]. Patient has also had previous hospitalization at [facility] in September 2008, and placement at various other [facility]'s in nursing facilities. During prior psychiatric evaluation patient noted to have a who at that time was 79 years old, they have been for 31 years, though he also had health concerns and he required jail placement.(This was in 2010, his status is not known currently). Per this evaluation patient noted to be originally from [place]. She completed high school in [place]. 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 Both parents . She reported being adopted at a very young age by her grandparents and had some difficulties during her childhood. She never had any contact with biological parents and did not have contact with extended family. Further nodes to her to me, they both have suffered from severe mental illness most of their lives. He has been noted to be placed in a nursing facility in [place]. Spiritual: Legal: Ethical issues impacting care: Important Contacts No NOK per several admissions reviewed here in our EMR, patient long-term resident at [facility] will need follow-up to find appropriate contact information Prognosis This patient was admitted for dyspnea, fever, respiratory distress. Of note she has had several hospitalizations this year for hypercapnic respiratory failure, with episodes requiring BiPAP in addition to nasal cannula. She has a long psychiatric history during her lifetime which likely compounds some of her medical conditions. Current episode appears to be responding to treatments in place and she is stabilized and would be expected to discharge back to her long- term nursing facility. However she does remain high risk for ongoing respiratory failure, infections, and ongoing complications and setbacks which would include recurrent hospitalizations. If she does experience further decline and recurrent hospitalizations, may be appropriate for hospice if goals were compatible. . Code Status: Full Code Plan * Legal decision maker:Per multiple admissions here at this hospital facility patient has no next of kin listed. Patient apparently may be however she has long been estranged from her and he apparently has health issues and has lived in a nursing facility dependent for care himself. [facility] where she resides had been working on exploring guardianship for this patient however has not been able to secure an securities attorney to assist with proceedings therefore she has no guardian. There are no known advance directives. Patient indicates she has no children. Not known if her parents are still living. She also indicates she has a brother though she is somewhat of an unreliable historian as I do not see mention of a brother during prior psychiatric evaluations. She is alert and oriented at times, though insight is quite limited and given her psychiatric history it is not clear that she would fully be able to understand benefits/burdens of her health conditions and may be best supported in decision-making by an appropriate proxy. May be appropriate to utilize social work advantage services to assist on an as-needed basis during acute hospitalization but ultimately patient would require long- term decision-maker support. * RECOMMEND PSYCHIATRY EVALUATION TO DETERMINE PT CAPACITY TO MAKE DECISIONS, if pt is not capacitated then would need to proceed w ACCURINTS search per case management to ID any potential NOK to serve as decision maker, and if does not return family, then could proceed w utilization of Social Work Advantage. * Goals: TBD pending appropriate decision maker. Per palliative SW discussion with healthcare social worker at [facility] patient in the past had discussed with staff regarding CODE STATUS and hospice and she was not interested in DNR or hospice services in the past. * CODE STATUS: Full code by default * SYMPTOMS: --Anxiety-patient with long psychiatric history and multiple psychiatric admissions during her lifetime. He has anxious components as well as hallucinations though no hallucinations noted this admission. Inpatient endorse anxiety and feeling distressed with acute hospitalization. Currently well relieved by Xanax 0.5 mg by mouth every 6 hours prn, has used about once per day. --Dyspnea-admitted for hypoxia, respiratory distress. Ongoing management with nasal cannula and BiPAP as well as steroids, nebulizers, pulmonology following. Appears to be improving during hospitalization. If goals were comfort oriented would be appropriate to treat with opiates/benzodiazepines. * Palliative care will continue to follow during hospital course as condition evolves, to assist patient/decision-maker with understanding of medical conditions, weighing benefits/burdens of treatment options, for clarification of goals of treatment. Additionally will assist with any symptoms of palliative concern . Time Spent Total Floor Time (mins): 45 (Chart review, PE, discussion with nursing, discussion with patient) Thank you for the opportunity to participate in the care of Ms. Shields. Attestation To help prompt me to consider important information that might be impacting today's encounter and assessment, information from prior notes written by myself or my colleagues may have been "brought forward" into today's note. My signature on this note, however, is an attestation that I personally performed the exam, history, and/or decision-making noted today, and, unless otherwise indicated, the interactions with patient, family, and staff as well as the review of records all occurred today. I also attest that the listed assessment and stated plan reflect my best clinical judgment today based on the combination of historical information, prior notes, and today's exam/ interactions. When time spent is documented, it refers only to time spent today by the signer, or if indicated, combined time spent today by collaborating physician/nurse practitioner. Sherie Davidson Sep 13, 2017 14:28
[2017-09-13] MEDS: ERTAPENEM INJ 1,000 MG in SODIUM CHLORIDE 0.9% INJ 100 ML IV SCH (17:00)
--- NOTE | 2017-09-13 18:08 | HHI.PR ---
Subjective Remarks Alert breathing well. Took her meals well. On O2 2 L. Sodium is better. Calmer with Xanax Good output Objective Vital Signs Date Time Temp Pulse Resp B/P (MAP) Pulse Ox O2 Delivery O2 Flow Rate FiO2 09/13/17 12:00 Nasal Cannula 2.00 09/13/17 12:00 98.5 98 26 180/91 (120) 100 09/13/17 09:20 98 Nasal Cannula 2.00 09/13/17 08:00 Nasal Cannula 2.00 09/13/17 08:00 98.3 79 27 177/84 (115) 96 09/13/17 04:00 Nasal Cannula 2.00 09/13/17 04:00 97.8 81 27 154/78 (103) 96 09/13/17 00:00 97.6 78 22 159/70 (99) 99 09/13/17 00:00 Nasal Cannula 2.00 09/12/17 20:28 97 Nasal Cannula 2.00 09/12/17 20:00 97.9 88 32 167/81 (109) 97 09/12/17 20:00 Nasal Cannula 2.00 I/O 09/12/17 09/12/17 09/12/17 09/13/17 09/13/17 09/13/17 07:00 15:00 23:00 07:00 15:00 23:00 Intake Total 1235 ml 3000 ml 720 ml Output Total 1100 ml 1350 ml Balance 135 ml 1650 ml 720 ml Intake Oral 480 ml 2500 ml 720 ml IV Total 755 ml 500 ml Output Urine Total 1100 ml 1350 ml # Voids 3 # Bowel Movements 0 1 Result Diagram: 09/13/17 0600 09/13/17 0609 Objective Remarks GENERAL: This moderately obese elderly lady who is awake and . HEENT: Head normocephalic. Pupils are reactive. Nasal mucosa clear Throat is clear. NECK: Supple without venous distension. No bruits or thyroid enlargement. CHEST: Decreased excursions, scattered wheezes bilaterally.Occ Crackles. HEART: The heart sounds are regular S1-S2 with no murmur. ABDOMEN: Obese, protuberant with mild epigastric tenderness. Bowel sounds are active. There is mild tenderness also in the lower quadrants. EXTREMITIES: Mild peripheral edema with diminished pulses. Reflexes are 1+. The patient does move her extremities. Peripheral pulses are not well felt. NEUROLOGICALLY: There are no focal deficits. Assessment and Plan Assessment and Plan IMPRESSION 1. Acute on chronic respiratory failure. 2. Sepsis with UTI. 3. Dehydration. 4. Hypertension. 5. Diabetes mellitus. 6. Obstructive sleep apnea. 7. Bipolar disorder. 8. Paranoid Schizophrenia Plan : 1. Antibiotics per ID. 2. Nebs qid , duoneb. 3. Use BiPAP at HS.12/5 , FIO2 28 % 4. CXR in am. 5. Soft Diet. 6. Add Prednisone 20 mg daily 7. D/C solumedrRocio Castañeda MD Sep 13, 2017 18:08
--- NOTE | 2017-09-13 19:30 | HHI.IDPN ---
Note Infectious Disease Note Notes reviewed. Patient is awake and alert. Verbal. Afebrile. Admitted with dyspnea and fever. PAST MEDICAL HISTORY 1. Paranoid schizophrenia. 2. Hypothyroidism. 3. History of CVA. 4. Coronary artery disease. 5. Gastroesophageal reflux disease. 6. Chronic kidney disease Stage II. 7. Seizure disorder. 8. Osteoporosis. 9. Diabetes mellitus type 2. ALLERGIES DOXYCYCLINE. PENICILLIN. MINOCYCLINE. TIGECYCLINE. ANTIHISTAMINES. ADHESIVES. ANTIBIOTICS: Ertapenem. OBJECTIVE: Vital Signs Date Time Temp Pulse Resp B/P (MAP) Pulse Ox O2 Delivery O2 Flow Rate FiO2 09/13/17 16:00 Nasal Cannula 2.00 09/13/17 16:00 99.9 93 162/78 (106) 94 09/13/17 12:00 Nasal Cannula 2.00 09/13/17 12:00 98.5 98 26 180/91 (120) 100 09/13/17 09:20 98 Nasal Cannula 2.00 09/13/17 08:00 Nasal Cannula 2.00 09/13/17 08:00 98.3 79 27 177/84 (115) 96 09/13/17 04:00 Nasal Cannula 2.00 09/13/17 04:00 97.8 81 27 154/78 (103) 96 09/13/17 00:00 97.6 78 22 159/70 (99) 99 09/13/17 00:00 Nasal Cannula 2.00 09/12/17 20:28 97 Nasal Cannula 2.00 09/12/17 20:00 97.9 88 32 167/81 (109) 97 09/12/17 20:00 Nasal Cannula 2.00 Laboratory Tests Test 09/12/17 12:15 09/13/17 06:00 White Blood Count 6.8 TH/MM3 9.0 TH/MM3 Red Blood Count 3.72 MIL/MM3 3.89 MIL/MM3 Hemoglobin 10.9 GM/DL 11.3 GM/DL Hematocrit 34.3 % 35.3 % Mean Corpuscular Volume 92.1 FL 90.7 FL Mean Corpuscular Hemoglobin 29.4 PG 29.1 PG Mean Corpuscular Hemoglobin Concent 31.9 % 32.1 % Red Cell Distribution Width 19.2 % 19.1 % Platelet Count 210 TH/MM3 232 TH/MM3 Mean Platelet Volume 8.3 FL 8.3 FL Neutrophils (%) (Auto) 86.1 % 71.6 % Lymphocytes (%) (Auto) 10.2 % 20.5 % Monocytes (%) (Auto) 3.4 % 6.8 % Eosinophils (%) (Auto) 0.1 % 0.9 % Basophils (%) (Auto) 0.2 % 0.2 % Neutrophils # (Auto) 5.8 TH/MM3 6.5 TH/MM3 Lymphocytes # (Auto) 0.7 TH/MM3 1.9 TH/MM3 Monocytes # (Auto) 0.2 TH/MM3 0.6 TH/MM3 Eosinophils # (Auto) 0.0 TH/MM3 0.1 TH/MM3 Basophils # (Auto) 0.0 TH/MM3 0.0 TH/MM3 CBC Comment DIFF FINAL DIFF FINAL Differential Comment Laboratory Tests Test 09/12/17 00:28 09/13/17 06:09 Blood Urea Nitrogen 30 MG/DL 26 MG/DL Creatinine 0.90 MG/DL 1.05 MG/DL Random Glucose 102 MG/DL 119 MG/DL Calcium Level 8.9 MG/DL 9.5 MG/DL Magnesium Level 1.9 MG/DL Sodium Level 151 MEQ/L 145 MEQ/L Potassium Level 4.8 MEQ/L 4.5 MEQ/L Chloride Level 118 MEQ/L 111 MEQ/L Carbon Dioxide Level 26.1 MEQ/L 25.4 MEQ/L Anion Gap 7 MEQ/L 9 MEQ/L Estimat Glomerular Filtration Rate 62 ML/MIN 52 ML/MIN IMAGING: Chest X-Ray 09/12/17 0600 Signed Impressions: Service Date/Time: Tuesday, September 12, 2017 04:50 - CONCLUSION: Abnormal opacity at both lung bases with blunting of the costophrenic angles. The findings could indicate infiltrate and/or effusions. Lenin Barragan MD PHYSICAL EXAMINATION GENERAL: Awake and alert. HEENT: EOMI, No icterus. NECK: Supple. Increased adipose tissue of the neck. LUNGS: Basilar rhonchi. HEART: Regular, S1 and S2. No murmurs, rubs or gallops. ABDOMEN: Bowel sounds diminished, soft. EXTREMITIES: No clubbing, cyanosis or edema. SKIN: No rash. NEURO: non focal. PSYCH: Unable to assess. IMPRESSION 1. Severe sepsis secondary to urinary tract infection. 2. Urinary tract infection. ESBL Klebsiella. 3. Prior treatment with Macrobid and apparent failure of treatment for UTI. 4. Leukocytosis improved. 5. Dyspnea and hypoxia. However, no evidence of pneumonia on chest x-ray. RECOMMENDATIONS Continue Ertapenem another couple of days. Monitor clinical status. Carlton Toribio MD Sep 13, 2017 19:30
[2017-09-13] MEDS: predniSONE 10 MG TAB PO SCH (21:11)
[2017-09-13] MEDS: ENOXAPARIN SODIUM 40 MG/0.4 ML SYRINGE SQ SCH (21:11)
[2017-09-13] MEDS: METOPROLOL TARTRATE 5 MG/5 ML VIAL IV PUSH PRN (21:14)
[2017-09-14] VITALS (8 sets, daily range): BP systolic 143–163; BP diastolic 63–77; PULSE 63–79; RESP 19–30; TEMP 97.4–98.7; O2SAT 93–99
[2017-09-14] MEDS: CHLORHEXIDINE GLUCONATE 2 % 1 PACK (2 CLOTHS) TOP SCH (03:39)
--- NOTE | 2017-09-14 05:33 | RADRPT ---
EXAM DATE/TIME: 09/14/2017 04:26 [place] COMPARISON: CHEST SINGLE AP, September 12, 2017, 4:50. INDICATIONS : Short of breath, edema. MEDICAL HISTORY : Renal insufficiency. Diabetes mellitus type II. Gastroesophageal reflux disease. SURGICAL HISTORY : None. ENCOUNTER: Subsequent ACUITY: 4 - 6 days PAIN SCORE: 0/10 LOCATION: Bilateral chest FINDINGS: A single AP semierect view of the chest was obtained and again demonstrates abnormal opacity at the r ight lung base with blunting of the right costophrenic angle. The heart size is mildly prominent. Min imal blunting of the left costophrenic angle. Atherosclerotic changes are present in the aorta. CONCLUSION: 1. Interval improvement in opacity at the left lung base with apparent small residual left effusion. 2. Abnormal opacity remains the right lung base with blunting of costophrenic angle consistent with e ffusion. Lenin Barragan MD on September 14, 2017 at 5:30 Board Certified Radiologist. This report was verified electronically.
[2017-09-14] MEDS: INSULIN ASPART SUPPLEMENTAL SCALE SQ SCH ×4 (08:00→20:55)
[2017-09-14] MEDS: BUDESONIDE-FORMOTEROL 160/4.5 MCG INHALER INH SCH ×2 (09:00→20:57)
[2017-09-14] MEDS: SODIUM CHLORIDE 0.9% FLUSH 10 ML FLUSH IV FLUSH SCH ×2 (09:45→20:56)
[2017-09-14] MEDS: predniSONE 10 MG TAB PO SCH ×2 (09:45→20:54)
[2017-09-14] MEDS: PANTOPRAZOLE SOD 40 MG DELAYED RELEASE TAB PO SCH (09:45)
[2017-09-14] MEDS: DILTIAZEM-CD 120 MG CAP ER PO SCH (09:45)
--- NOTE | 2017-09-14 12:03 | HHI.HCPN ---
Reason for visit a. To assist with evaluation and management of symptoms including: dyspnea, anxiety b. To assist medical decision maker(s) with: better understanding of current medical conditions; weighing benefits/burdens of medical treatment options; making medical treatment decisions. Subjective/Interval History Pt seen today to follow up on comfort/anxiety. Pt remains in ICU, transfer to medical unit pending. d/w nursing, pt calmer today, less anxiety, generally communicating needs well, good appetite, breathing comfortably. Last dose prn xanax 9pm yesterday, used 2x yesterday, 1x per day in prior days. CXR with some improvement. Tolerating 2-3L NC, did not require bipap overnight. No new labs today. Adequate PO intake, eating 75-100% meals.Having BMs. VS stable, afebrile. Pt seen in room , no visitors present. She is sleeping soundly - arouses some to verbal/touch, but doesn't stay awake. She asks me if I am "Regina" and goes back to sleep. Breathing comfortably, lungs clear. . Advance Directives Living Will: Never completed Health Care Surrogate: Never completed Durable Power of Bedspread Cutter: Never completed Objective Vital Signs Date Time Temp Pulse Resp B/P (MAP) Pulse Ox O2 Delivery O2 Flow Rate FiO2 09/14/17 10:00 78 09/14/17 08:20 97 Nasal Cannula 2.00 09/14/17 08:00 98.0 79 19 163/77 (105) 98 09/14/17 08:00 Nasal Cannula 3.00 09/14/17 08:00 79 09/14/17 04:00 Nasal Cannula 2.00 09/14/17 04:00 98.6 63 30 148/67 (94) 98 09/14/17 00:00 Nasal Cannula 2.00 09/14/17 00:00 98.7 68 30 143/68 (93) 93 09/13/17 22:00 Nasal Cannula 2.00 09/13/17 20:30 95 Nasal Cannula 2.00 09/13/17 20:00 Nasal Cannula 2.00 09/13/17 20:00 98.9 91 22 178/87 (117) 97 09/13/17 16:00 Nasal Cannula 2.00 09/13/17 16:00 99.9 93 162/78 (106) 94 09/13/17 12:00 Nasal Cannula 2.00 09/13/17 12:00 98.5 98 26 180/91 (120) 100 Intake & Output 09/14/17 09/14/17 07:00 19:00 Intake Total 960 ml Balance 960 ml Intake Oral 960 ml # Voids 4 # Bowel Movements 0 Physical Exam CONSTITUTIONAL/GENERAL: This is an obese/ well nourished nourished patient, in no apparent distress,lethargic TUBES/LINES/DRAINS: PIV BUE, NC o2 SKIN: No jaundice, rashes, or lesions. No wounds seen anteriorly. Skin warm CARDIOVASCULAR: Regular rate and rhythm without murmur. Peripheral pulses symmetric. RESPIRATORY/CHEST: Symmetric, unlabored respirations. lungs clear, diminished. Equal bilaterally. GASTROINTESTINAL: Abdomen soft,obese, nontender, slightly distended. No palpable masses. No guarding. Bowel sounds present. NEUROLOGICAL: lethargic/sleeping today. Arouses slightly. Observe moving extremities spontaneously but lethargic/sleeping does not follow my commands. PSYCHIATRIC: no apparent anxiety or hallucinations Diagnostic Tests Laboratory Laboratory Tests Test 09/12/17 00:28 09/12/17 12:15 09/13/17 06:00 09/13/17 06:09 Blood Urea Nitrogen 30 MG/DL (7-18) 26 MG/DL (7-18) Creatinine 0.90 MG/DL (0.50-1.00) 1.05 MG/DL (0.50-1.00) Random Glucose 102 MG/DL (74-106) 119 MG/DL (74-106) Calcium Level 8.9 MG/DL (8.5-10.1) 9.5 MG/DL (8.5-10.1) Magnesium Level 1.9 MG/DL (1.5-2.5) Sodium Level 151 MEQ/L (136-145) 145 MEQ/L (136-145) Potassium Level 4.8 MEQ/L (3.5-5.1) 4.5 MEQ/L (3.5-5.1) Chloride Level 118 MEQ/L (98-107) 111 MEQ/L (98-107) Carbon Dioxide Level 26.1 MEQ/L (21.0-32.0) 25.4 MEQ/L (21.0-32.0) Anion Gap 7 MEQ/L (5-15) 9 MEQ/L (5-15) Estimat Glomerular Filtration Rate 62 ML/MIN (>89) 52 ML/MIN (>89) White Blood Count 6.8 TH/MM3 (4.0-11.0) 9.0 TH/MM3 (4.0-11.0) Red Blood Count 3.72 MIL/MM3 (4.00-5.30) 3.89 MIL/MM3 (4.00-5.30) Hemoglobin 10.9 GM/DL (11.6-15.3) 11.3 GM/DL (11.6-15.3) Hematocrit 34.3 % (35.0-46.0) 35.3 % (35.0-46.0) Mean Corpuscular Volume 92.1 FL (80.0-100.0) 90.7 FL (80.0-100.0) Mean Corpuscular Hemoglobin 29.4 PG (27.0-34.0) 29.1 PG (27.0-34.0) Mean Corpuscular Hemoglobin Concent 31.9 % (32.0-36.0) 32.1 % (32.0-36.0) Red Cell Distribution Width 19.2 % (11.6-17.2) 19.1 % (11.6-17.2) Platelet Count 210 TH/MM3 (150-450) 232 TH/MM3 (150-450) Mean Platelet Volume 8.3 FL (7.0-11.0) 8.3 FL (7.0-11.0) Neutrophils (%) (Auto) 86.1 % (16.0-70.0) 71.6 % (16.0-70.0) Lymphocytes (%) (Auto) 10.2 % (9.0-44.0) 20.5 % (9.0-44.0) Monocytes (%) (Auto) 3.4 % (0.0-8.0) 6.8 % (0.0-8.0) Eosinophils (%) (Auto) 0.1 % (0.0-4.0) 0.9 % (0.0-4.0) Basophils (%) (Auto) 0.2 % (0.0-2.0) 0.2 % (0.0-2.0) Neutrophils # (Auto) 5.8 TH/MM3 (1.8-7.7) 6.5 TH/MM3 (1.8-7.7) Lymphocytes # (Auto) 0.7 TH/MM3 (1.0-4.8) 1.9 TH/MM3 (1.0-4.8) Monocytes # (Auto) 0.2 TH/MM3 (0-0.9) 0.6 TH/MM3 (0-0.9) Eosinophils # (Auto) 0.0 TH/MM3 (0-0.4) 0.1 TH/MM3 (0-0.4) Basophils # (Auto) 0.0 TH/MM3 (0-0.2) 0.0 TH/MM3 (0-0.2) CBC Comment DIFF FINAL DIFF FINAL Differential Comment Result Diagram: 09/13/1759909/13/17608 Microbiology Last Impressions Chest X-Ray 09/14/17599 Signed Impressions: Service Date/Time: Thursday, September 14, 2017 04:26 - CONCLUSION: 1. Interval improvement in opacity at the left lung base with apparent small residual left effusion. 2. Abnormal opacity remains the right lung base with blunting of costophrenic angle consistent with effusion. Lenin Barragan MD Abdomen/Pelvis CT 09/07/[id number] Signed Impressions: Service Date/Time: Thursday, September 07, 2017 15:03 - CONCLUSION: 1. Study is degraded by breathing motion artifact. 2. Elevation of the right hemidiaphragm with right basilar atelectasis. 3. Cholelithiasis. 4. No acute abnormality to explain the patient's pain. Abdelrahman Leon Jr., MD Imaging Last Impressions Chest X-Ray 09/14/17599 Signed Impressions: Service Date/Time: Thursday, September 14, 2017 04:26 - CONCLUSION: 1. Interval improvement in opacity at the left lung base with apparent small residual left effusion. 2. Abnormal opacity remains the right lung base with blunting of costophrenic angle consistent with effusion. Lenin Barragan MD Abdomen/Pelvis CT 09/07/[id number] Signed Impressions: Service Date/Time: Thursday, September 07, 2017 15:03 - CONCLUSION: 1. Study is degraded by breathing motion artifact. 2. Elevation of the right hemidiaphragm with right basilar atelectasis. 3. Cholelithiasis. 4. No acute abnormality to explain the patient's pain. Abdelrahman Leon Jr., MD Assessment and Plan Disease Oriented Problem List: (1) Sepsis (2) UTI (urinary tract infection) (3) DIDI (acute kidney injury) (4) Diabetes mellitus (5) Altered mental status (6) Acute respiratory failure with hypoxia and hypercarbia Symptom Scale: (1) Anxiety 0-10 Scale: Unable to quantify (2) Dyspnea 0-10 Scale: Unable to quantify Pertinent Non-Medical Issues Psychosocial:Patient most recently a resident of [facility]. She is previously lived in [facility]. Patient has also had previous hospitalization at [facility] in September 2008, and placement at various other [facility] in nursing facilities. During prior psychiatric evaluation patient noted to have a who at that time was 79 years old, they have been for 31 years, though he also had health concerns and he required senior living placement.(This was in 2010, his status is not known currently). Per this evaluation patient noted to be originally from [place]. She completed high school in [place]. 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 Both parents . She reported being adopted at a very young age by her grandparents and had some difficulties during her childhood. She never had any contact with biological parents and did not have contact with extended family. Further nodes to her to mi, they both have suffered from severe mental illness most of their lives. He has been noted to be placed in a nursing facility in [place]. Spiritual: Legal: Ethical issues impacting care: Important Contacts No NOK per several admissions reviewed here in our EMR, patient long-term resident at [facility] will need follow-up to find appropriate contact information Prognosis This patient was admitted for dyspnea, fever, respiratory distress. Of note she has had several hospitalizations this year for hypercapnic respiratory failure, with episodes requiring BiPAP in addition to nasal cannula. She has a long psychiatric history during her lifetime which likely compounds some of her medical conditions. Current episode appears to be responding to treatments in place and she is stabilized and would be expected to discharge back to her long- term nursing facility. However she does remain high risk for ongoing respiratory failure, infections, and ongoing complications and setbacks which would include recurrent hospitalizations. If she does experience further decline and recurrent hospitalizations, may be appropriate for hospice if goals were compatible. . Code Status: Full Code Plan * Legal decision maker:Per multiple admissions here at this hospital facility patient has no next of kin listed. Patient apparently may be however she has long been estranged from her and he apparently has health issues and has lived in a nursing facility dependent for care himself. [facility] where she resides had been working on exploring guardianship for this patient however has not been able to secure an transformation coach to assist with proceedings therefore she has no guardian. There are no known advance directives. Patient indicates she has no children. Not known if her parents are still living. She also indicates she has a brother though she is somewhat of an unreliable historian as I do not see mention of a brother during prior psychiatric evaluations. She is alert and oriented at times, though insight is quite limited and given her psychiatric history it is not clear that she would fully be able to understand benefits/burdens of her health conditions and may be best supported in decision-making by an appropriate proxy. May be appropriate to utilize social work advantage services to assist on an as-needed basis during acute hospitalization but ultimately patient would require long- term decision-maker support. * RECOMMEND PSYCHIATRY EVALUATION TO DETERMINE PT CAPACITY TO MAKE DECISIONS, if pt is not capacitated then would need to proceed w ACCURINTS search per case management to ID any potential NOK to serve as decision maker, and if does not return family, then could proceed w utilization of Social Work Advantage. * Goals: TBD pending appropriate decision maker. Per palliative SW discussion with social work lecturer at [facility] patient in the past had discussed with staff regarding CODE STATUS and hospice and she was not interested in DNR or hospice services in the past. * CODE STATUS: Full code by default * SYMPTOMS: --Anxiety-patient with long psychiatric history and multiple psychiatric admissions during her lifetime. He has anxious components as well as hallucinations though no hallucinations noted this admission. yesterday pt endorse anxiety and feeling distressed with acute hospitalization. Currently well managed by Xanax 0.5 mg by mouth every 6 hours prn, has used about once per day, used 2x yesterday, last dose around 9pm last night. --Dyspnea-admitted for hypoxia, respiratory distress. Ongoing management with nasal cannula and BiPAP as well as steroids, nebulizers, pulmonology following. Appears to be improving during hospitalization. tolerating 2-3L NC yesterday, today. If goals were comfort oriented would be appropriate to treat with opiates/benzodiazepines. * Palliative care will continue to follow during hospital course as condition evolves, to assist patient/decision-maker with understanding of medical conditions, weighing benefits/burdens of treatment options, for clarification of goals of treatment. Additionally will assist with any symptoms of palliative concern . Time Spent Total Floor Time (mins): 20 (chart review, PE, d/w nursing) Attestation To help prompt me to consider important information that might be impacting today's encounter and assessment, information from prior notes written by myself or my colleagues may have been "brought forward" into today's note. My signature on this note, however, is an attestation that I personally performed the exam, history, and/or decision-making noted today, and, unless otherwise indicated, the interactions with patient, family, and staff as well as the review of records all occurred today. I also attest that the listed assessment and stated plan reflect my best clinical judgment today based on the combination of historical information, prior notes, and today's exam/ interactions. When time spent is documented, it refers only to time spent today by the signer, or if indicated, combined time spent today by collaborating physician/nurse practitioner. Sherie Davidson Sep 14, 2017 12:03
--- NOTE | 2017-09-14 13:05 | HHI.PR ---
Subjective Remarks Alert breathing better . On O2 2 L. ON CPAP at HS Good output Objective Vital Signs Date Time Temp Pulse Resp B/P (MAP) Pulse Ox O2 Delivery O2 Flow Rate FiO2 09/14/17 12:00 Nasal Cannula 3.00 09/14/17 12:00 98.0 77 25 158/75 (102) 99 09/14/17 12:00 65 09/14/17 10:00 78 09/14/17 08:20 97 Nasal Cannula 2.00 09/14/17 08:00 98.0 79 19 163/77 (105) 98 09/14/17 08:00 Nasal Cannula 3.00 09/14/17 08:00 79 09/14/17 04:00 Nasal Cannula 2.00 09/14/17 04:00 98.6 63 30 148/67 (94) 98 09/14/17 00:00 Nasal Cannula 2.00 09/14/17 00:00 98.7 68 30 143/68 (93) 93 09/13/17 22:00 Nasal Cannula 2.00 09/13/17 20:30 95 Nasal Cannula 2.00 09/13/17 20:00 Nasal Cannula 2.00 09/13/17 20:00 98.9 91 22 178/87 (117) 97 09/13/17 16:00 Nasal Cannula 2.00 09/13/17 16:00 99.9 93 162/78 (106) 94 I/O 09/13/17 09/13/17 09/13/17 09/14/17 09/14/17 09/14/17 07:00 15:00 23:00 07:00 15:00 23:00 Intake Total 720 ml 1250 ml 960 ml Balance 720 ml 1250 ml 960 ml Intake Oral 720 ml 1250 ml 960 ml # Voids 3 5 4 # Bowel Movements 1 1 0 Result Diagram: 09/13/17 0600 09/13/17 0609 Objective Remarks GENERAL: This moderately obese elderly lady who is awake and . HEENT: Head normocephalic. Pupils are reactive. Nasal mucosa clear Throat is clear. NECK: Supple without venous distension. No bruits or thyroid enlargement. CHEST: Decreased excursions, scattered wheezes bilaterally.Occ Basal Crackles. HEART: The heart sounds are regular S1-S2 with no murmur. ABDOMEN: Obese, protuberant . Bowel sounds are active. There is no tenderness EXTREMITIES: Mild peripheral edema. Reflexes are 1+. The patient does move her extremities. Peripheral pulses are not well felt. NEUROLOGICALLY: There are no focal deficits. Assessment and Plan Assessment and Plan IMPRESSION 1. Acute on chronic respiratory failure. 2. Sepsis with UTI. 3. Dehydration. 4. Hypertension. 5. Diabetes mellitus. 6. Obstructive sleep apnea. 7. Bipolar disorder. 8. Paranoid Schizophrenia Plan : 1. Antibiotics per ID. 2. Nebs qid , duoneb. 3. Use BiPAP at HS.12/5 , FIO2 28 % today and then D/C 4. Labs in am. 5. Will get Sleep test as OP when discharged 6. Prednisone 20 mg daily 7. Transfer to [facility] Rocio Rivera MD Sep 14, 2017 13:05
--- NOTE | 2017-09-14 14:55 | HHI.CCPN ---
Subjective Remarks/Hospital Course 09/07: This is a 72-year-old female who presents from [facility] for evaluation. The patient was found this morning to have dyspnea, hypoxia and a fever of 102. She received albuterol and Tylenol at the long term and her oxygen saturation improved. Upon EMS arrival her oxygen saturation was in the high 80s, and is currently 93% on 4 L. She has had a cough for the past several days as well. She was started on Macrobid on September 05 for urinary tract infection. Upon review of systems she endorses cough and dyspnea for "a while" as well as lower abdominal pain, diarrhea for "a while." She is somewhat of a poor historian however she is alert and oriented 3. Patient was admitted for hypercapnic respiratory distress and right lung pneumonia in June of this year. She has no other complaints at this time. Patient was noted to have an elevated lactic acid and pCO2. She was accepted for admission by critical care medicine service. She was maintaining her blood pressure and was not in any acute distress at the time of my evaluation. History was obtained by reviewing records and discussion with ER mid-level provider. Patient is not a very good historian. 09/08: Drowsy, arousable on BiPAP with full facemask. 09/09: Awake and alert on BiPAP with full facemask. Following commands. 09/10: Awake and alert. On BiPAP with full facemask. Follows commands. 09/11: Awake and alert. Tolerating nasal cannula with intermittent BiPAP. Following commands. Wants to drink water. Being followed by pulmonary. No hypotension since admission. Lactic acid normalized. 09/12, 09/13, 09/14: Patient is lying in bed in NAD. Awaiting transfer to floor. On nasal cannula Objective Vital Signs Date Time Temp Pulse Resp B/P (MAP) Pulse Ox O2 Delivery O2 Flow Rate FiO2 09/14/17 12:00 Nasal Cannula 3.00 09/14/17 12:00 98.0 77 25 158/75 (102) 99 09/11/17 04:30 30 Intake and Output 09/14/17 09/14/17 09/15/17 08:00 16:00 00:00 Intake Total 960 ml Balance 960 ml Result Diagram: 09/13/17 0600 09/13/17 0609 Imaging Last Impressions Chest X-Ray 09/12/17 0600 Signed Impressions: Service Date/Time: Tuesday, September 12, 2017 04:50 - CONCLUSION: Abnormal opacity at both lung bases with blunting of the costophrenic angles. The findings could indicate infiltrate and/or effusions. Lenin Barragan MD Abdomen/Pelvis CT 09/07/17 1437 Signed Impressions: Service Date/Time: Thursday, September 07, 2017 15:03 - CONCLUSION: 1. Study is degraded by breathing motion artifact. 2. Elevation of the right hemidiaphragm with right basilar atelectasis. 3. Cholelithiasis. 4. No acute abnormality to explain the patient's pain. Abdelrahman Leon Jr., MD Objective Remarks Narrative GENERAL: Chronically ill-appearing female in no acute distress. SKIN: Warm and dry. HEAD: Atraumatic. Normocephalic. EYES: Pupils equal and round. No scleral icterus. No injection or drainage. ENT: No nasal bleeding or discharge. Mucous membranes pink and moist. NECK: Trachea midline. No JVD. CARDIOVASCULAR: Regular rate and rhythm. No murmur appreciated. RESPIRATORY: On BiPAP with full facemask, diminished breath sounds. Scattered rhonchi. No wheezing or crackles GASTROINTESTINAL: Abdomen soft, tender to palpation in lower quadrants no guarding. MUSCULOSKELETAL: No obvious deformities. No clubbing. No cyanosis. No edema. NEUROLOGICAL: Awake and alert. No obvious cranial nerve deficits. Motor grossly within normal limits. Normal speech. PSYCHIATRIC: Appropriate mood and affect; insight and judgment normal. A/P Assessment and Plan 72-year-old female with: Sepsis UTI Lactic acidosis CAD CKD GERD D mellitus bipolar disorder Paranoid schizophrenia Hypercapnic respiratory failure requiring BiPAP Plan: Neuro: Monitor neuro status. Continue home psych meds. CV: Monitor HR and BP keep MAP>65mmHg Lactic acid cleared. On Cardizem CD 120mg daily Pulmo: Supplemental O2. Bronchodilators as needed. Patient has chronic CO2 retention. Dr. Meyer from pulmonary medicine is following. NIPPV PRN for resp distress, on solumederol GI/liver: On PO diet Renal/: Monitor renal function, electrolytes replacement as needed Monitor sodium level. ID: Multiple antibiotic allergies noted. Patient received Levaquin IV in the ER and vancomycin. Urine cultures with resistant Klebsiella. ID is following- on ertapenem IV. Endocrine: SSI for glycemic control. Heme: Follow CBC Prophylaxis: PPI/SCDs/Lovenox Awaiting transfer to floor , [facility] consulted for medical management Level 2 Reynaldo Ryan MD Sep 14, 2017 14:55
[2017-09-14] MEDS: ERTAPENEM INJ 1,000 MG in SODIUM CHLORIDE 0.9% INJ 100 ML IV SCH (17:00)
[2017-09-14] MEDS: ENOXAPARIN SODIUM 40 MG/0.4 ML SYRINGE SQ SCH (20:56)
[2017-09-15] VITALS (7 sets, daily range): BP systolic 130–172; BP diastolic 68–81; PULSE 60–83; RESP 18–24; TEMP 97.8–99; O2SAT 94–100
[2017-09-15] MEDS: CHLORHEXIDINE GLUCONATE 2 % 1 PACK (2 CLOTHS) TOP SCH (04:00)
[2017-09-15] MEDS: INSULIN ASPART SUPPLEMENTAL SCALE SQ SCH ×4 (08:22→21:00)
[2017-09-15] MEDS: predniSONE 10 MG TAB PO SCH ×2 (08:23→21:13)
[2017-09-15] MEDS: DILTIAZEM-CD 120 MG CAP ER PO SCH (08:23)
[2017-09-15] MEDS: PANTOPRAZOLE SOD 40 MG DELAYED RELEASE TAB PO SCH (08:23)
[2017-09-15] MEDS: BUDESONIDE-FORMOTEROL 160/4.5 MCG INHALER INH SCH ×2 (08:27→21:13)
[2017-09-15] MEDS: SODIUM CHLORIDE 0.9% FLUSH 10 ML FLUSH IV FLUSH SCH ×2 (08:28→21:13)
--- NOTE | 2017-09-15 14:14 | HHI.PR ---
Subjective Remarks awake and alert rersponds appropriate;y denies any pain at present per patient bedbound Objective Vitals Vital Signs Date Time Temp Pulse Resp B/P (MAP) Pulse Ox O2 Delivery O2 Flow Rate FiO2 09/15/17 12:00 98.0 73 20 150/68 (95) 94 09/15/17 08:00 60 09/15/17 08:00 98.3 69 20 172/81 (111) 97 09/15/17 07:15 Nasal Cannula 3.00 09/15/17 04:00 Nasal Cannula 3.00 09/15/17 04:00 97.8 64 22 142/71 (94) 100 09/15/17 04:00 71 09/15/17 00:00 98.0 65 22 130/70 (90) 98 09/15/17 00:00 Nasal Cannula 3.00 09/15/17 00:00 72 09/14/17 20:00 70 09/14/17 20:00 Nasal Cannula 3.00 09/14/17 20:00 98.0 67 22 150/63 (92) 97 09/14/17 16:15 97.4 66 20 145/65 (91) 97 I/O 09/14/17 09/14/17 09/14/17 09/15/17 09/15/17 09/15/17 07:00 15:00 23:00 07:00 15:00 23:00 Intake Total 960 ml 180 ml 480 ml Balance 960 ml 180 ml 480 ml Intake Oral 960 ml 180 ml 480 ml # Voids 4 2 4 # Bowel Movements 0 0 Result Diagram: 09/13/17 0600 09/13/17 0609 Imaging Last Impressions Chest X-Ray 09/14/17 0600 Signed Impressions: Service Date/Time: Thursday, September 14, 2017 04:26 - CONCLUSION: 1. Interval improvement in opacity at the left lung base with apparent small residual left effusion. 2. Abnormal opacity remains the right lung base with blunting of costophrenic angle consistent with effusion. Lenin Barragan MD Abdomen/Pelvis CT 09/07/17 0063 Signed Impressions: Service Date/Time: Thursday, September 07, 2017 15:03 - CONCLUSION: 1. Study is degraded by breathing motion artifact. 2. Elevation of the right hemidiaphragm with right basilar atelectasis. 3. Cholelithiasis. 4. No acute abnormality to explain the patient's pain. Abdelrahman Leon Jr., MD Objective Remarks awake and alert, blunt affect, sppech slow to response but clear speech anciteric no nuchal rigidity decreasedbreath sounds, no rales regular rhythm abdomen-soft extrmeities traced edema A/P Assessment and Plan 72-year-old female with: Sepsis UTI Lactic acidosis ID ff. On IV Ertapenem Hypercapnic respiratory failure requiring BiPAP -Dr. Meyer ff. On steroids CAD CKD GERD D mellitus bipolar disorder Paranoid schizophrenia Plan: Neuro: Monitor neuro status. Continue home psych meds. CV: Monitor HR and BP keep MAP>65mmHg Lactic acid cleared. On Cardizem CD 120mg daily Pulmo: Supplemental O2. Bronchodilators as needed. Patient has chronic CO2 retention. Dr. Meyer from pulmonary medicine is following. NIPPV PRN for resp distress, on solumederol GI/liver: On PO diet Renal/: Monitor renal function, electrolytes replacement as needed Monitor sodium level. ID: Multiple antibiotic allergies noted. Patient received Levaquin IV in the ER and vancomycin. Urine cultures with resistant Klebsiella. ID is following- on ertapenem IV- DC 09/14 Endocrine: SSI for glycemic control. Heme: Follow CBC Prophylaxis: PPI/SCDs/Lovenox Baylee Mendez MD Sep 15, 2017 14:14
--- NOTE | 2017-09-15 18:01 | HHI.PR ---
Subjective Remarks Alert and has No complaints . On O2 2 L. ON CPAP at HS. Responds well to questions Objective Vital Signs Date Time Temp Pulse Resp B/P (MAP) Pulse Ox O2 Delivery O2 Flow Rate FiO2 09/15/17 17:35 94 Nasal Cannula 3.00 09/15/17 16:00 68 09/15/17 12:00 98.0 73 20 150/68 (95) 94 09/15/17 12:00 79 09/15/17 08:00 60 09/15/17 08:00 98.3 69 20 172/81 (111) 97 09/15/17 07:15 Nasal Cannula 3.00 09/15/17 04:00 Nasal Cannula 3.00 09/15/17 04:00 97.8 64 22 142/71 (94) 100 09/15/17 04:00 71 09/15/17 00:00 98.0 65 22 130/70 (90) 98 09/15/17 00:00 Nasal Cannula 3.00 09/15/17 00:00 72 09/14/17 20:00 70 09/14/17 20:00 Nasal Cannula 3.00 09/14/17 20:00 98.0 67 22 150/63 (92) 97 I/O 09/14/17 09/14/17 09/14/17 09/15/17 09/15/17 09/15/17 07:00 15:00 23:00 07:00 15:00 23:00 Intake Total 960 ml 180 ml 480 ml Balance 960 ml 180 ml 480 ml Intake Oral 960 ml 180 ml 480 ml # Voids 4 2 4 # Bowel Movements 0 0 Result Diagram: 09/13/17 0600 09/13/17 0609 Objective Remarks GENERAL: This moderately obese elderly lady who is awake and . HEENT: Head normocephalic. Pupils are reactive. Nasal mucosa clear Throat is clear. NECK: Supple without venous distension. No bruits or thyroid enlargement. CHEST: Decreased excursions, scattered wheezes bilaterally.Occ Basal Crackles. HEART: The heart sounds are regular S1-S2 with no murmur. ABDOMEN: Obese, protuberant . Bowel sounds are active. There is no tenderness EXTREMITIES: Mild peripheral edema. Reflexes are 1+. The patient does move her extremities. Peripheral pulses are not well felt. NEUROLOGICALLY: There are no focal deficits. Assessment and Plan Assessment and Plan IMPRESSION 1. Acute on chronic respiratory failure. 2. Sepsis with UTI. 3. Dehydration. 4. Hypertension. 5. Diabetes mellitus. 6. Obstructive sleep apnea. 7. Bipolar disorder. 8. Paranoid Schizophrenia Plan : 1. Antibiotics per ID. 2. Nebs qid , duoneb. 3. D/C BiPAP at HS. 4. BMP in am 5. Will get Sleep test as OP when discharged 6. Prednisone 20 mg daily 7. [facility] Rocio Rivera MD Sep 15, 2017 18:01
--- NOTE | 2017-09-15 18:14 | HHI.IDPN ---
Note Infectious Disease Note Patient is awake and alert. Verbal. No distress. Afebrile. Admitted with dyspnea and fever. PAST MEDICAL HISTORY 1. Paranoid schizophrenia. 2. Hypothyroidism. 3. History of CVA. 4. Coronary artery disease. 5. Gastroesophageal reflux disease. 6. Chronic kidney disease Stage II. 7. Seizure disorder. 8. Osteoporosis. 9. Diabetes mellitus type 2. ALLERGIES DOXYCYCLINE. PENICILLIN. MINOCYCLINE. TIGECYCLINE. ANTIHISTAMINES. ADHESIVES. ANTIBIOTICS: Stopped 09/14. OBJECTIVE: Vital Signs Date Time Temp Pulse Resp B/P (MAP) Pulse Ox O2 Delivery O2 Flow Rate FiO2 09/15/17 17:35 94 Nasal Cannula 3.00 09/15/17 16:00 68 09/15/17 12:00 98.0 73 20 150/68 (95) 94 09/15/17 12:00 79 09/15/17 08:00 60 09/15/17 08:00 98.3 69 20 172/81 (111) 97 09/15/17 07:15 Nasal Cannula 3.00 09/15/17 04:00 Nasal Cannula 3.00 09/15/17 04:00 97.8 64 22 142/71 (94) 100 09/15/17 04:00 71 09/15/17 00:00 98.0 65 22 130/70 (90) 98 09/15/17 00:00 Nasal Cannula 3.00 09/15/17 00:00 72 09/14/17 20:00 70 09/14/17 20:00 Nasal Cannula 3.00 09/14/17 20:00 98.0 67 22 150/63 (92) 97 IMAGING: Chest X-Ray 09/14/17599 Signed Impressions: Service Date/Time: Thursday, September 14, 2017 04:26 - CONCLUSION: 1. Interval improvement in opacity at the left lung base with apparent small residual left effusion. 2. Abnormal opacity remains the right lung base with blunting of costophrenic angle consistent with effusion. Lenin Barragan MD Chest X-Ray 09/12/17599 Signed Impressions: Service Date/Time: Tuesday, September 12, 2017 04:50 - CONCLUSION: Abnormal opacity at both lung bases with blunting of the costophrenic angles. The findings could indicate infiltrate and/or effusions. Lenin Barragan MD PHYSICAL EXAMINATION GENERAL: Awake and alert. HEENT: EOMI, No icterus. NECK: Supple. LUNGS: Decreased breath sounds. HEART: Regular, S1 and S2. No murmurs, rubs or gallops. ABDOMEN: Bowel sounds diminished, soft. EXTREMITIES: No clubbing, cyanosis or edema. SKIN: No rash. NEURO: non focal. PSYCH: Unable to assess. IMPRESSION 1. Severe sepsis secondary to urinary tract infection. Treated. 2. Urinary tract infection. ESBL Klebsiella. Treated. 3. Prior treatment with Macrobid and apparent failure of treatment for UTI. 4. Leukocytosis resolved. RECOMMENDATIONS No need for additional antibiotics from my standpoint. Nothing further to add. I WILL SIGN OFF NOW. Carlton Toribio MD Sep 15, 2017 18:14
[2017-09-15] MEDS: ENOXAPARIN SODIUM 40 MG/0.4 ML SYRINGE SQ SCH (21:13)
[2017-09-15] MEDS: ALPRAZolam 0.5 MG TAB PO PRN (21:13)
[2017-09-16] VITALS (8 sets, daily range): BP systolic 126–158; BP diastolic 59–76; PULSE 55–74; RESP 16–24; TEMP 96.7–98.8; O2SAT 94–98
[2017-09-16] MEDS: CHLORHEXIDINE GLUCONATE 2 % 1 PACK (2 CLOTHS) TOP SCH (00:23)
[2017-09-16] MEDS: PANTOPRAZOLE SOD 40 MG DELAYED RELEASE TAB PO SCH (08:13)
[2017-09-16] MEDS: predniSONE 10 MG TAB PO SCH (08:13)
[2017-09-16] MEDS: INSULIN ASPART SUPPLEMENTAL SCALE SQ SCH ×4 (08:13→20:59)
[2017-09-16] MEDS: DILTIAZEM-CD 120 MG CAP ER PO SCH (08:15)
[2017-09-16] MEDS: BUDESONIDE-FORMOTEROL 160/4.5 MCG INHALER INH SCH ×2 (08:15→20:59)
[2017-09-16] MEDS: SODIUM CHLORIDE 0.9% FLUSH 10 ML FLUSH IV FLUSH SCH ×2 (08:16→20:59)
--- NOTE | 2017-09-16 13:06 | HHI.PR ---
Subjective Remarks patient appears comfortable good eye contact gets very sung when examining her patient ate and fed well by staff aide Objective Vitals Vital Signs Date Time Temp Pulse Resp B/P (MAP) Pulse Ox O2 Delivery O2 Flow Rate FiO2 09/16/17 10:31 94 Nasal Cannula 3.00 09/16/17 08:00 98.1 61 18 135/69 (91) 96 09/16/17 04:00 98.3 64 24 136/65 (88) 98 09/16/17 04:00 65 09/16/17 00:00 98.7 67 22 130/59 (82) 97 09/16/17 00:00 68 09/15/17 20:00 98.8 75 24 135/74 (94) 97 09/15/17 20:00 Nasal Cannula 3.00 09/15/17 20:00 67 09/15/17 17:35 94 Nasal Cannula 3.00 09/15/17 16:00 68 09/15/17 16:00 99.0 83 18 163/75 (104) 97 I/O 09/15/17 09/15/17 09/15/17 09/16/17 09/16/17 09/16/17 07:00 15:00 23:00 07:00 15:00 23:00 Intake Total 480 ml 960 ml 480 ml Balance 480 ml 960 ml 480 ml Intake Oral 480 ml 960 ml 480 ml # Voids 4 3 6 # Bowel Movements 0 Result Diagram: 09/13/17 0600 09/13/17 0609 Imaging Last Impressions Chest X-Ray 09/14/17 0600 Signed Impressions: Service Date/Time: Thursday, September 14, 2017 04:26 - CONCLUSION: 1. Interval improvement in opacity at the left lung base with apparent small residual left effusion. 2. Abnormal opacity remains the right lung base with blunting of costophrenic angle consistent with effusion. Lenin Barragan MD Abdomen/Pelvis CT 09/07/17 1437 Signed Impressions: Service Date/Time: Thursday, September 07, 2017 15:03 - CONCLUSION: 1. Study is degraded by breathing motion artifact. 2. Elevation of the right hemidiaphragm with right basilar atelectasis. 3. Cholelithiasis. 4. No acute abnormality to explain the patient's pain. Abdelrahman Leon Jr., MD Objective Remarks awake and alert, blunt affect, speech slow to response but clear speech anicteric no nuchal rigidity decreased breath sounds, no rales regular rhythm abdomen-soft extremeities trace edema A/P Assessment and Plan 72-year-old female with: Sepsis UTI Lactic acidosis ID ff. On IV Ertapenem Hypercapnic respiratory failure requiring BiPAP -Dr. Meyer ff. On steroids CAD CKD GERD D mellitus bipolar disorder Paranoid schizophrenia Plan: Neuro: Monitor neuro status. Continue home psych meds. CV: Monitor HR and BP keep MAP>65mmHg Lactic acid cleared. On Cardizem CD 120mg daily Pulmo: Supplemental O2. Bronchodilators as needed. Patient has chronic CO2 retention. Dr. Meyer from pulmonary medicine is following. NIPPV PRN for resp distress, o decrease prednisone to 5 mg po bid GI/liver: On PO diet Renal/: Monitor renal function, electrolytes replacement as needed Monitor sodium level. ID: Multiple antibiotic allergies noted. Patient received Levaquin IV in the ER and vancomycin. Urine cultures with resistant Klebsiella. S/P ertapenem IV. 09/14 Endocrine: SSI for glycemic control. Heme: Follow CBC Prophylaxis: PPI/SCDs/Lovenox CM ff- accepted by [facility]- awaiting guardianship Baylee Gutierrez MD Sep 16, 2017 13:06
--- NOTE | 2017-09-16 16:09 | HHI.HCPN ---
Reason for visit a. To assist with evaluation and management of symptoms including: dyspnea, anxiety b. To assist medical decision maker(s) with: better understanding of current medical conditions; weighing benefits/burdens of medical treatment options; making medical treatment decisions. Subjective/Interval History Pt seen today to follow up on comfort/anxiety. Pt has been transferred out of the ICU. Respiratory status stable, she is tolerating nasal cannula. Eating well. no new imaging. No new labs. Discharge pending back to nursing facility. Vital signs generally stable some elevated blood pressures. Required prn alprazolam 0.5 mg 1 yesterday, has not required today. Did not required all the day before, required 2 doses 09/13. He appears well controlled. Patient seen in room no visitors present. She is awake and watching television. She has a very flat affect today and is minimally interactive with me. To my greeting she asks me "who are you ". She does not answer further questions for me. After repeated questioning of our you feeling she tells me" not feeling good"-- I attempt to further qualify what wasn't feeling well and she would not further describe if there is any specific pain etc. bothering her she did finally tell me that she did not like the bed in the bed was what was wrong. She would not elaborate further. She appeared comfortable in no apparent distress. I asked her if she would like assistance with repositioning or if there is something particular bothering her and she would not further answer. . Advance Directives Living Will: Never completed Health Care Surrogate: Never completed Durable Power of Balance Recesser: Never completed Objective Vital Signs Date Time Temp Pulse Resp B/P (MAP) Pulse Ox O2 Delivery O2 Flow Rate FiO2 09/16/17 12:00 97.7 74 18 145/66 (92) 95 09/16/17 10:31 94 Nasal Cannula 3.00 09/16/17 08:00 98.1 61 18 135/69 (91) 96 09/16/17 04:00 98.3 64 24 136/65 (88) 98 09/16/17 04:00 65 09/16/17 00:00 98.7 67 22 130/59 (82) 97 09/16/17 00:00 68 09/15/17 20:00 98.8 75 24 135/74 (94) 97 09/15/17 20:00 Nasal Cannula 3.00 09/15/17 20:00 67 09/15/17 17:35 94 Nasal Cannula 3.00 Intake & Output 09/16/17 09/16/17 07:00 19:00 Intake Total 480 ml Balance 480 ml Intake Oral 480 ml # Voids 6 Physical Exam CONSTITUTIONAL/GENERAL: This is an obese/ well nourished nourished patient, in no apparent distress, alert TUBES/LINES/DRAINS: PIV LEFT UPPER EXTREMITY, RIGHT CHEST, NC o2 SKIN: No jaundice, rashes, or lesions. No wounds seen anteriorly. Skin warm CARDIOVASCULAR: Regular rate and rhythm without murmur. Peripheral pulses symmetric. RESPIRATORY/CHEST: Symmetric, unlabored respirations. Remainder nasal cannula. Lungs clear, diminished. Equal bilaterally. GASTROINTESTINAL: Abdomen soft,obese, nontender, slightly distended. No palpable masses. No guarding. Bowel sounds present. NEUROLOGICAL: Awake, appears oriented to self. She does not answer most of my questions. Observe her moving extremities spontaneously. PSYCHIATRIC: Very flat affect, no apparent anxiety or hallucinations Diagnostic Tests Result Diagram: 09/13/17 0600 09/13/17 0609 Microbiology Microbiology Date/Time Source Procedure Growth Status 09/07/17 13:30 Blood Peripheral Aerobic Blood Culture - Final NO GROWTH IN 5 DAYS Complete 09/07/17 13:30 Blood Peripheral Anaerobic Blood Culture - Final NO GROWTH IN 5 DAYS Complete 09/07/17 13:35 Nasal Aspirate Influenza Types A,B Antigen (HOMERO) - Final NEGATIVE FOR FLU A AND B ANTIGEN.... Complete 09/07/17 13:25 Urine Catheterized Urine Urine Culture - Final Klebsiella Oxytoca Esbl Pos Complete Imaging Last Impressions Chest X-Ray 09/14/17 0600 Signed Impressions: Service Date/Time: Thursday, September 14, 2017 04:26 - CONCLUSION: 1. Interval improvement in opacity at the left lung base with apparent small residual left effusion. 2. Abnormal opacity remains the right lung base with blunting of costophrenic angle consistent with effusion. Lenin Barragan MD Abdomen/Pelvis CT 09/07/17 0307 Signed Impressions: Service Date/Time: Thursday, September 07, 2017 15:03 - CONCLUSION: 1. Study is degraded by breathing motion artifact. 2. Elevation of the right hemidiaphragm with right basilar atelectasis. 3. Cholelithiasis. 4. No acute abnormality to explain the patient's pain. Abdelrahman Leon Jr., MD Assessment and Plan Disease Oriented Problem List: (1) Sepsis (2) UTI (urinary tract infection) (3) DIDI (acute kidney injury) (4) Diabetes mellitus (5) Altered mental status (6) Acute respiratory failure with hypoxia and hypercarbia Symptom Scale: (1) Anxiety 0-10 Scale: Unable to quantify (2) Dyspnea 0-10 Scale: Unable to quantify Pertinent Non-Medical Issues Psychosocial:[facility] She is previously lived in [facility]. Patient has also had previous hospitalization at [facility] in September 2008, and placement at various other [facility]' in nursing facilities. During prior psychiatric evaluation patient noted to have a who at that time was 79 years old, they have been for 31 years, though he also had health concerns and he required prison placement.(This was in 2010, his status is not known currently). Per this evaluation patient noted to be originally from [place]. She completed high school in [place]. 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 Both parents . She reported being adopted at a very young age by her grandparents and had some difficulties during her childhood. She never had any contact with biological parents and did not have contact with extended family. Further nodes to her to me, they both have suffered from severe mental illness most of their lives. He has been noted to be placed in a nursing facility in [place]. Spiritual: Legal: Ethical issues impacting care: Important Contacts No NOK per several admissions reviewed here in our EMR, patient long-term resident at [facility] will need follow-up to find appropriate contact information Prognosis This patient was admitted for dyspnea, fever, respiratory distress. Of note she has had several hospitalizations this year for hypercapnic respiratory failure, with episodes requiring BiPAP in addition to nasal cannula. She has a long psychiatric history during her lifetime which likely compounds some of her medical conditions. Current episode appears to be responding to treatments in place and she is stabilized and would be expected to discharge back to her long- term nursing facility. However she does remain high risk for ongoing respiratory failure, infections, and ongoing complications and setbacks which would include recurrent hospitalizations. If she does experience further decline and recurrent hospitalizations, may be appropriate for hospice if goals were compatible. . Code Status: Full Code Plan * Legal decision maker:Per multiple admissions here at this hospital facility patient has no next of kin listed. Patient apparently may be however she has long been estranged from her and he apparently has health issues and has lived in a nursing facility dependent for care himself. [facility] where she resides had been working on exploring guardianship for this patient however has not been able to secure an assistant district attorney to assist with proceedings therefore she has no guardian. There are no known advance directives. Patient indicates she has no children. Not known if her parents are still living. She also indicates she has a brother though she is somewhat of an unreliable historian as I do not see mention of a brother during prior psychiatric evaluations. She is alert and oriented at times, though insight is quite limited and given her psychiatric history it is not clear that she would fully be able to understand benefits/burdens of her health conditions and may be best supported in decision-making by an appropriate proxy. May be appropriate to utilize social work advantage services to assist on an as-needed basis during acute hospitalization but ultimately patient would require long- term decision-maker support. * RECOMMEND PSYCHIATRY EVALUATION TO DETERMINE PT CAPACITY TO MAKE DECISIONS, if pt is not capacitated then would need to proceed w [facility]TS search per case management to ID any potential NOK to serve as decision maker, and if does not return family, then could proceed w utilization of Social Work Advantage. * Goals: TBD pending appropriate decision maker. Per palliative SW discussion with director social service at [facility] patient in the past had discussed with staff regarding CODE STATUS and hospice and she was not interested in DNR or hospice services in the past. 09/16/17-it does not appear that patient has any acute decisions or issues that need to be addressed. if she had a decision- maker one could address CODE STATUS. She apparently has guardianship proceedings in process from her nursing facility(with no actual guardian yet.) She does not appear capacitated; I would recommend identification of appropriate decision maker as per above legal notation regarding decision- making. There are no acute decisions to be made at this moment though certainly if something arose during hospitalization may require social work advantage consultation. * CODE STATUS: Full code by default * SYMPTOMS: --Anxiety-patient with long psychiatric history and multiple psychiatric admissions during her lifetime. He has anxious components as well as hallucinations though no hallucinations noted this admission. yesterday pt endorse anxiety and feeling distressed with acute hospitalization. Currently well managed by Xanax 0.5 mg by mouth every 6 hours prn, has used about once per day, none required yet today. Occur appears calm, flat during my interaction. --Dyspnea-admitted for hypoxia, respiratory distress. Ongoing management with nasal cannula and BiPAP as well as steroids, nebulizers, pulmonology following. He is no longer requiring BiPAP, Appears to be improving during hospitalization. tolerating 2-3L NC yesterday, today. If goals were comfort oriented would be appropriate to treat increased respiratory distress with opiates/benzodiazepines. * Palliative care will continue to follow during hospital course as condition evolves, to assist patient/decision-maker with understanding of medical conditions, weighing benefits/burdens of treatment options, for clarification of goals of treatment. Additionally will assist with any symptoms of palliative concern . Time Spent Total Floor Time (mins): 20 (Chart review, PE) Attestation To help prompt me to consider important information that might be impacting today's encounter and assessment, information from prior notes written by myself or my colleagues may have been "brought forward" into today's note. My signature on this note, however, is an attestation that I personally performed the exam, history, and/or decision-making noted today, and, unless otherwise indicated, the interactions with patient, family, and staff as well as the review of records all occurred today. I also attest that the listed assessment and stated plan reflect my best clinical judgment today based on the combination of historical information, prior notes, and today's exam/ interactions. When time spent is documented, it refers only to time spent today by the signer, or if indicated, combined time spent today by collaborating physician/nurse practitioner. Sherie Davidson Sep 16, 2017 16:09
--- NOTE | 2017-09-16 19:07 | HHI.PR ---
Subjective Remarks Alert and has No complaints . On O2 2 L. Seems anxious Off Antibiotic Objective Vital Signs Date Time Temp Pulse Resp B/P (MAP) Pulse Ox O2 Delivery O2 Flow Rate FiO2 09/16/17 18:12 95 Nasal Cannula 3.00 09/16/17 16:00 96.7 60 18 126/60 (82) 95 09/16/17 12:00 97.7 74 18 145/66 (92) 95 09/16/17 10:31 94 Nasal Cannula 3.00 09/16/17 08:00 98.1 61 18 135/69 (91) 96 09/16/17 04:00 98.3 64 24 136/65 (88) 98 09/16/17 04:00 65 09/16/17 00:00 98.7 67 22 130/59 (82) 97 09/16/17 00:00 68 09/15/17 20:00 98.8 75 24 135/74 (94) 97 09/15/17 20:00 Nasal Cannula 3.00 09/15/17 20:00 67 I/O 09/15/17 09/15/17 09/15/17 09/16/17 09/16/17 09/16/17 07:00 15:00 23:00 07:00 15:00 23:00 Intake Total 480 ml 960 ml 480 ml 1220 ml Balance 480 ml 960 ml 480 ml 1220 ml Intake Oral 480 ml 960 ml 480 ml 1220 ml # Voids 4 3 6 6 # Bowel Movements 0 Result Diagram: 09/13/17 0600 09/13/17 0609 Objective Remarks GENERAL: This moderately obese elderly lady who is in no distress HEENT: Head normocephalic. Pupils are reactive. Nasal mucosa clear Throat is clear. NECK: Supple without venous distension. No bruits or thyroid enlargement. CHEST: Decreased excursions, scattered wheezes bilaterally.Occ Basal Crackles. HEART: The heart sounds are regular S1-S2 with no murmur. ABDOMEN: Obese, protuberant . Bowel sounds are active. There is no tenderness EXTREMITIES: 1 + peripheral edema. Reflexes are 1+. The patient does move her extremities. Peripheral pulses are not well felt. NEUROLOGICALLY: There are no focal deficits. Assessment and Plan Assessment and Plan IMPRESSION 1. Acute on chronic respiratory failure. 2. Sepsis with UTI. 3. Dehydration. 4. Hypertension. 5. Diabetes mellitus. 6. Obstructive sleep apnea. 7. Bipolar disorder. 8. Paranoid Schizophrenia Plan : 1. D/C Antibiotics 2. Nebs tid , duoneb. 3. D/C BiPAP at HS. 4. CBC,BMP 5. Will get Sleep test as OP when discharged 6. Prednisone 10 mg daily and taper off in 2 weeks 7. Transfer to rehab soon Rocio Rivera MD Sep 16, 2017 19:07
[2017-09-16] MEDS: ENOXAPARIN SODIUM 40 MG/0.4 ML SYRINGE SQ SCH (20:59)
[2017-09-16] MEDS: predniSONE 5 MG TAB PO SCH (20:59)
[2017-09-17] VITALS: BP 143/65; PULSE 56; RESP 16; TEMP 98.7; O2SAT 97
[2017-09-17] MEDS: CHLORHEXIDINE GLUCONATE 2 % 1 PACK (2 CLOTHS) TOP SCH (03:27)
[2017-09-17 04:00] VITALS: BP 125/61; PULSE 63; RESP 16; TEMP 97.6; O2SAT 96
[2017-09-17 08:00] VITALS: BP 136/65; PULSE 60; PULSE 64; RESP 20; TEMP 98.9; O2SAT 98
[2017-09-17] MEDS: INSULIN ASPART SUPPLEMENTAL SCALE SQ SCH ×2 (08:15→12:19)
[2017-09-17] MEDS: SODIUM CHLORIDE 0.9% FLUSH 10 ML FLUSH IV FLUSH SCH (08:16)
[2017-09-17] MEDS: DILTIAZEM-CD 120 MG CAP ER PO SCH (08:16)
[2017-09-17] MEDS: PANTOPRAZOLE SOD 40 MG DELAYED RELEASE TAB PO SCH (08:16)
[2017-09-17] MEDS: predniSONE 5 MG TAB PO SCH (08:16)
[2017-09-17] MEDS: BUDESONIDE-FORMOTEROL 160/4.5 MCG INHALER INH SCH (08:17)
--- NOTE | 2017-09-17 10:33 | HHI.PR ---
Subjective Remarks patient awake and alert occasinally impulsive but not requiring any meds for agitation Objective Vitals Vital Signs Date Time Temp Pulse Resp B/P (MAP) Pulse Ox O2 Delivery O2 Flow Rate FiO2 09/17/17 04:00 97.6 63 16 125/61 (82) 96 09/17/17 00:00 98.7 56 16 143/65 (91) 97 09/16/17 20:00 98.8 55 16 158/76 (103) 96 09/16/17 18:12 95 Nasal Cannula 3.00 09/16/17 16:00 96.7 60 18 126/60 (82) 95 09/16/17 16:00 60 09/16/17 12:00 97.7 74 18 145/66 (92) 95 09/16/17 12:00 73 I/O 09/16/17 09/16/17 09/16/17 09/17/17 09/17/17 09/17/17 07:00 15:00 23:00 07:00 15:00 23:00 Intake Total 480 ml 1220 ml Balance 480 ml 1220 ml Intake Oral 480 ml 1220 ml # Voids 6 6 5 Result Diagram: 09/13/17 0600 09/13/17 0609 Imaging Last Impressions Chest X-Ray 09/14/17 06 Signed Impressions: Service Date/Time: Thursday, September 14, 2017 04:26 - CONCLUSION: 1. Interval improvement in opacity at the left lung base with apparent small residual left effusion. 2. Abnormal opacity remains the right lung base with blunting of costophrenic angle consistent with effusion. Lenin Barragan MD Abdomen/Pelvis CT 09/07/17 1437 Signed Impressions: Service Date/Time: Thursday, September 07, 2017 15:03 - CONCLUSION: 1. Study is degraded by breathing motion artifact. 2. Elevation of the right hemidiaphragm with right basilar atelectasis. 3. Cholelithiasis. 4. No acute abnormality to explain the patient's pain. Abdelrahman Leon Jr., MD Objective Remarks awake and alert, blunt affect, speech slow to response but clear speech anicteric no nuchal rigidity decreased breath sounds, no rales regular rhythm abdomen-soft extremities- no edema A/P Assessment and Plan 72-year-old female with: Sepsis UTI Lactic acidosis ID ff. On IV Ertapenem Hypercapnic respiratory failure requiring BiPAP -Dr. Meyer ff. On steroids CAD CKD GERD D mellitus bipolar disorder Paranoid schizophrenia Plan: Neuro: Monitor neuro status. Continue home psych meds. CV: Monitor HR and BP keep MAP>65mmHg Lactic acid cleared. On Cardizem CD 120mg daily Pulmo: Supplemental O2. Bronchodilators as needed. Patient has chronic CO2 retention. Dr. Meyer from pulmonary medicine is following. - good sats at 2 LNC - decrease prednisone to 5 mg po bid- decrease to 5 mg daily GI/liver: On PO diet Renal/: Monitor renal function, electrolytes replacement as needed Monitor sodium level. ID: Multiple antibiotic allergies noted. Patient received Levaquin IV in the ER and vancomycin. Urine cultures with resistant Klebsiella. S/P ertapenem IV. 09/14 Endocrine: SSI for glycemic control. Heme: Follow CBC Prophylaxis: PPI/SCDs/Lovenox CM ff- accepted by [facility]- awaiting guardianship paperworks will ask CM if accepted by [facility] pending guardianship Baylee Mendez MD Sep 17, 2017 10:33
[2017-09-17 12:00] VITALS: BP 115/57; PULSE 71; PULSE 75; RESP 28; TEMP 98.8; O2SAT 92
[2017-09-17] MEDS ORDERED: PANT40TA3 PO (12:07)
[2017-09-17] MEDS ORDERED: ENOX40P SQ (12:07)
[2017-09-17] MEDS ORDERED: PRED5TAB PO (12:07)
--- NOTE | 2017-09-17 12:09 | HHI.DS ---
Discharge Summary Admission Date Sep 07, 2017 at 16:38 Discharge Date: Sep 17, 2017 Admitting Diagnosis severe sepsis, hypercarbia, UTI (1) Acute respiratory failure with hypoxia and hypercarbia ICD Code: J96.01 - Acute respiratory failure with hypoxia; J96.02 - Acute respiratory failure with hypercapnia Status: Chronic (2) Sepsis ICD Code: A41.9 - Sepsis, unspecified organism Diagnosis: Principal Status: Resolved (3) UTI (urinary tract infection) ICD Code: N39.0 - Urinary tract infection, site not specified Status: Resolved (4) Parkinson's disease ICD Code: G20 - Parkinson's disease Diagnosis: Secondary Status: Chronic Brief History - From Admission HPI This is a 72-year-old female who presents from [facility] for evaluation. The patient was found this morning to have dyspnea, hypoxia and a fever of 102. She received albuterol and Tylenol at the senior living and her oxygen saturation improved. Upon EMS arrival her oxygen saturation was in the high 80s, and is currently 93% on 4 L. She has had a cough for the past several days as well. She was started on Macrobid on September 05 for urinary tract infection. Upon review of systems she endorses cough and dyspnea for "a while" as well as lower abdominal pain, diarrhea for "a while." She is somewhat of a poor historian however she is alert and oriented 3. Patient was admitted for hypercapnic respiratory distress and right lung pneumonia in June of this year. She has no other complaints at this time. Patient was noted to have an elevated lactic acid and pCO2. She was accepted for admission by critical care medicine service. She was maintaining her blood pressure and was not in any acute distress at the time of my evaluation. History was obtained by reviewing records and discussion with ER mid-level provider. Patient is not a very good historian. History PFSH Past Medical History Arthritis: No Asthma: No Autoimmune Disease: No Blood Disorders: No Bipolar Disorder: Yes Anxiety: Yes Depression: Yes Heart Rhythm Problems: No Cancer: No Cardiovascular Problems: No High Cholesterol: No Chemotherapy: No Chest Pain: No Congestive Heart Failure: No COPD: No Cerebrovascular Accident: Yes Coronary Artery Disease: Yes (ANGINA) Diabetes: Yes Diminished Hearing: No Endocrine: Yes Gastrointestinal Disorders: Yes (gastro reflux ) GERD: Yes Glaucoma: No Genitourinary: Yes (CKD stage II) Headaches: No Hepatitis: No Hiatal Hernia: No Hypertension: Yes Immune Disorder: No Kidney Stones: No Musculoskeletal: Yes (osteoporosis, chronic shoulderpain ) Neurologic: Yes (epilepsy, cerebral infarction ) Psychiatric: Yes (dependent personality disorder) Reproductive: No Respiratory: Yes Migraines: No Myocardial Infarction: No Radiation Therapy: No Renal Failure: No Schizophrenia: Yes (paranoid schizophrenia ) Sickle Cell Disease: No Sleep Apnea: No Thyroid Disease: Yes (hypothyroidism ) Ulcer: No Menopausal: Yes Past Surgical History Abdominal Surgery: No AICD: No Arteriovenous Shunt: No Cardiac Surgery: No Ear Surgery: No Endocrine Surgery: No Eye Surgery: No Genitourinary Surgery: No Gynecologic Surgery: Yes (D & C) Insulin Pump: No Joint Replacement: No Neurologic Surgery: No Oral Surgery: No Pacemaker: No Thoracic Surgery: No Other Surgery: Yes Social History Alcohol Use: No Tobacco Use: No Substance Use: No Allergies-Medications Allergies-Medications (Allergen,Severity, Reaction): Coded Allergies: adhesive (Unverified Allergy, Severe, 05/24/17) doxycycline (Unverified Allergy, Severe, 05/24/17) minocycline (Unverified Allergy, Severe, 05/24/17) penicillin G (Unverified Allergy, Severe, 05/24/17) tigecycline (Unverified Allergy, Severe, 05/24/17) Uncoded Allergies: ANTIHISTAMINES (Allergy, Severe, 09/05/07) Reported Meds & Prescriptions Reported Meds & Active Scripts Active Prednisone 10 Mg Tab 10 Mg PO DAILY Metoprolol Tartrate 25 Mg Tab 50 Mg PO BID Reported Macrobid (Nitrofurantoin Monoh/Nitrofur Macro) 100 Mg Cap 100 Mg PO BID 5 Days Ativan (Lorazepam) 0.5 Mg Tab 0.5 Mg PO HS Diff-Stat (Probiotic Product) 471 Mg Cap 1 Cap PO BID Ascorbic Acid 500 Mg Tab 500 Mg PO BID Senokot (Sennosides) 8.6 Mg Tab 8.6 Mg PO DAILY Divalproex ER (Divalproex Sodium) 250 Mg Pedro 750 Mg PO HS Vitamin D-1000 (Cholecalciferol) 1,000 Unit Tab 1,000 Units PO DAILY Synthroid (Levothyroxine Sodium) 125 Mcg Tab 125 Mcg PO DAILY Requip (Ropinirole) 1 Mg Tab 1 Mg PO TID Neurontin (Gabapentin) 300 Mg Cap 300 Mg PO TID One Daily-Minerals (Multiple Vitamins W/ Minerals) 1 Tab 1 Tab PO DAILY Lopid (Gemfibrozil) 600 Mg Tab 600 Mg PO BID Take 30 minutes prior to breakfast and dinner Glipizide 5 Mg Tab 5 Mg PO BID Take 30 minutes before a meal Tylenol (Acetaminophen) 325 Mg Tab 650 Mg PO Q6H PRN Levetiracetam 500 Mg Tab 500 Mg PO BID Lamotrigine 100 Mg Tab 100 Mg PO DAILY Lamictal (Lamotrigine) 25 Mg Tab 25 Mg PO HS Isosorbide Dinitrate 10 Mg Tab 10 Mg PO BID Glucophage (Metformin HCl) 500 Mg Tab 1,000 Mg PO BID With meals Fosamax (Alendronate Sodium) 70 Mg Tab 70 Mg PO Q7D Sinemet (Carbidopa/Levodopa) 10-100 Mg Tab 1 Tab PO Q8HR Risperdal (Risperidone) 1 Mg Tab 1 Mg PO TID Pravachol (Pravastatin) 40 Mg Tab 40 Mg PO DAILY ROS Review of Systems Except as stated in HPI: all other systems reviewed are Neg CBC/BMP: 09/13/17 0600 09/13/17 0609 Imaging Last Impressions Chest X-Ray 09/14/17 0600 Signed Impressions: Service Date/Time: Thursday, September 14, 2017 04:26 - CONCLUSION: 1. Interval improvement in opacity at the left lung base with apparent small residual left effusion. 2. Abnormal opacity remains the right lung base with blunting of costophrenic angle consistent with effusion. Lenin Barragan MD Abdomen/Pelvis CT 09/07/17 1437 Signed Impressions: Service Date/Time: Thursday, September 07, 2017 15:03 - CONCLUSION: 1. Study is degraded by breathing motion artifact. 2. Elevation of the right hemidiaphragm with right basilar atelectasis. 3. Cholelithiasis. 4. No acute abnormality to explain the patient's pain. Abdelrahman Leon Jr., MD PE at Discharge awake and alert, blunt affect, speech slow to response but clear speech anicteric no nuchal rigidity decreased breath sounds, no rales regular rhythm abdomen-soft extremities- no edema Pt update on day of discharge awake and alert, and a little impulsive Hospital Course 72-year-old female with: Sepsis UTI Lactic acidosis ID ff. On IV Ertapenem Hypercapnic respiratory failure requiring BiPAP -Dr. Meyer ff. On steroids CAD CKD GERD D mellitus bipolar disorder Paranoid schizophrenia Plan: Neuro: Monitor neuro status. Continue home psych meds. CV: Monitor HR and BP keep MAP>65mmHg Lactic acid cleared. On Cardizem CD 120mg daily Pulmo: Supplemental O2. Bronchodilators as needed. Patient has chronic CO2 retention. Dr. Meyer from pulmonary medicine is following. - good sats at 2 LNC - decrease prednisone to 5 mg po bid- decrease to 5 mg daily GI/liver: On PO diet Renal/: Monitor renal function, electrolytes replacement as needed Monitor sodium level. ID: Multiple antibiotic allergies noted. Patient received Levaquin IV in the ER and vancomycin. Urine cultures with resistant Klebsiella. S/P ertapenem IV. 09/14 Endocrine: SSI for glycemic control. Heme: Follow CBC Prophylaxis: PPI/SCDs/Lovenox CM ff- accepted by [facility]- awaiting guardianship paperworks will ask CM if accepted by [facility] pending guardianship Pt Condition on Discharge: Stable Discharge Disposition: ACLF/CARE HOME Discharge Time: <= 30 minutes Discharge Instructions DIET: Follow Instructions for: Diabetic Diet Speech Therapy-Diet Recommends: Pureed Activities you can perform: Weight Bearing as Pedro Follow up Referrals: PCP Follow-up - 2-3 Days with PCP Pulmonology - 09/20/17 with Rocio Rivera MD New Medications: Enoxaparin Inj (Lovenox Inj) 40 Mg/0.4 Ml Syr 40 MG SQ Q24H for prohyylaxs for 5 Days, INJECTION Pantoprazole (Pantoprazole) 40 Mg Tab 40 MG PO DAILY for GI proph for 30 Days, #30 TAB Prednisone (Prednisone) 5 Mg Tab 5 MG PO DAILY for taper steroid for 3 Days, #3 TAB Continued Medications: Acetaminophen (Tylenol) 325 Mg Tab 650 MG PO Q6H PRN for PAIN SCALE 1 TO 10, TAB 0 Refills Alendronate (Fosamax) 70 Mg Tab 70 MG PO Q7D for Osteoporosis Treatment, #4 TAB 0 Refills Ascorbic Acid (Ascorbic Acid) 500 Mg Tab 500 MG PO BID for Nutritional Supplement, TAB Carbidopa-Levodopa (Sinemet) 10-100 Mg Tab 1 TAB PO Q8HR for Parkinson Disease Mgmt, #90 TAB 0 Refills Cholecalciferol (Vitamin D-1000) 1,000 Unit Tab 1000 UNITS PO DAILY for Nutritional Supplement, #1 BOTTLE 0 Refills Divalproex ER (Divalproex ER) 250 Mg Pedro 750 MG PO HS for Control Seizures, #90 TAB 0 Refills Gabapentin (Neurontin) 300 Mg Cap 300 MG PO TID, #90 CAP 0 Refills Gemfibrozil (Lopid) 600 Mg Tab 600 MG PO BID, #60 TAB 0 Refills Take 30 minutes prior to breakfast and dinner Glipizide (Glipizide) 5 Mg Tab 5 MG PO BID for Blood Sugar Management, #60 TAB 0 Refills Take 30 minutes before a meal Isosorbide Dinitrate (Isosorbide Dinitrate) 10 Mg Tab 10 MG PO BID, #60 TAB 0 Refills Lamotrigine (Lamictal) 25 Mg Tab 25 MG PO HS for Control Seizures, #30 TAB 0 Refills Lamotrigine (Lamotrigine) 100 Mg Tab 100 MG PO DAILY for Control Seizures, #30 TAB 0 Refills Levetiracetam (Levetiracetam) 500 Mg Tab 500 MG PO BID for Control Seizures, #60 TAB 0 Refills Levothyroxine (Synthroid) 125 Mcg Tab 125 MCG PO DAILY for Thyroid, #30 TAB 0 Refills Lorazepam (Ativan) 0.5 Mg Tab 0.5 MG PO HS for Anxiety, TAB 0 Refills Metformin (Glucophage) 500 Mg Tab 1000 MG PO BID for Blood Sugar Management, #60 TAB 0 Refills With meals Metoprolol Tartrate (Metoprolol Tartrate) 25 Mg Tab 50 MG PO BID for Blood Pressure Management, #60 TAB Multiple Vitamins W/ Minerals (One Daily-Minerals) 1 Tab 1 TAB PO DAILY for Nutritional Supplement, #100 TAB 0 Refills Pravastatin (Pravachol) 40 Mg Tab 40 MG PO DAILY for Cholesterol Management, #30 TAB 0 Refills Risperidone (Risperdal) 1 Mg Tab 1 MG PO TID, #30 TAB 0 Refills Ropinirole (Requip) 1 Mg Tab 1 MG PO TID, #90 TAB 0 Refills Discontinued Medications: Nitrofurantoin Monohydrate Macrocrystals (Macrobid) 100 Mg Cap 100 MG PO BID for Infection for 5 Days, #10 CAP 0 Refills Sennosides (Senokot) 8.6 Mg Tab 8.6 MG PO DAILY for Constipation, #30 TAB 0 Refills Baylee Mendez MD Sep 17, 2017 12:09
[2017-09-18] MEDS ORDERED: predniSONE 5 MG TAB PO SCH (09:00)
== END 2017-09-17 15:08 | DRG 871 ==
LOC: NEPC 12:58 → NEDA 16:38 → HIME 21:05 → N04A 09-14 15:30 → N04B 09-14 18:34
PROVIDERS: ADMIT Family Medicine; ATTEND Family Medicine
PROC: 5A09457 Assistance with Respiratory Ventilation, 24-96 Consecutive Hours, Continuous Positive Airway Pressure (ICD-10-PCS; principal; 2017-09-08)
DX: A41.51 Sepsis due to Escherichia coli [E. coli] (principal); J96.21 Acute and chronic respiratory failure with hypoxia; J96.22 Acute and chronic respiratory failure with hypercapnia; N17.9 Acute kidney failure, unspecified; E87.2 Acidosis; I13.0 Hypertensive heart and chronic kidney disease with heart failure and stage 1 through stage 4 chronic kidney disease, or unspecified chronic kidney disease; N39.0 Urinary tract infection, site not specified; F20.0 Paranoid schizophrenia; J44.1 Chronic obstructive pulmonary disease with (acute) exacerbation; I50.9 Heart failure, unspecified; E11.22 Type 2 diabetes mellitus with diabetic chronic kidney disease; G20 Parkinson's disease; A41.4 Sepsis due to anaerobes; R65.20 Severe sepsis without septic shock; I25.10 Atherosclerotic heart disease of native coronary artery without angina pectoris; E86.0 Dehydration; G47.33 Obstructive sleep apnea (adult) (pediatric); I12.9 Hypertensive chronic kidney disease with stage 1 through stage 4 chronic kidney disease, or unspecified chronic kidney disease; K21.9 Gastro-esophageal reflux disease without esophagitis; N18.3 Chronic kidney disease, stage 3 (moderate); M81.0 Age-related osteoporosis without current pathological fracture; E03.9 Hypothyroidism, unspecified; G40.909 Epilepsy, unspecified, not intractable, without status epilepticus; F60.7 Dependent personality disorder; F31.9 Bipolar disorder, unspecified; Z16.12 Extended spectrum beta lactamase (ESBL) resistance; Z16.24 Resistance to multiple antibiotics; Z79.84 Long term (current) use of oral hypoglycemic drugs; Z86.73 Personal history of transient ischemic attack (TIA), and cerebral infarction without residual deficits; Z88.0 Allergy status to penicillin; Z88.1 Allergy status to other antibiotic agents
CPT/HCPCS: 36600; 71010; 74176; 76937; 80048; 80053; 81001; 82805; 82948; 83605; 83735; 83880; 84132; 85007; 85025; 85027; 85610; 85730; 87040; 87077; 87086; 87186; 87641; 87804; 93005; 94002; 94003; 94640; 94664; 96374; 96375; J0360; J1335; J1650; J1815; J1956; J2920; J2930; J3370; J7030; J7050; J7060; J7512; P9612

== ENCOUNTER 2017-10-09 08:55 | Emergency (ER) | payer MEDICARE, OTHER ==
[~2017-10-09] VITALS: Ht 157.5 cm; Wt 86.3 kg
[~2017-10-09 08:55] MED LIST changes: +ASCO500T PO; -AZIT250T3 PO; -DEPA500T3 PO; +DIFFCHW PO; +DIVA250T3 PO; +ENOX40P SQ; -IPRASOL INH; -LACT PO; -LEVA500T33 PO; +PANT40TA3 PO; +PRED5TAB PO; -SENN1TAB17 PO; -VITA250C3 CHEW
[2017-10-09] MEDS ORDERED: SODIUM BICARBONATE 8.4% INJ 50 MEQ/50 ML SYR IV ONE (08:56)
[2017-10-09] MEDS ORDERED: EPINEPHrine HCL (1:10,000) 1 MG/10 ML SYRINGE IV ONE (08:56)
[2017-10-09 09:20] VITALS: BP 79/49; PULSE 85; RESP 16; TEMP 97.6; O2SAT 92
--- NOTE | 2017-10-09 10:07 | PD ---
HPI Chief Complaint: Code Blue Time Seen by Provider: 09:05 Travel History International Travel<30 days: No Contact w/Intl Traveler<30days: No Traveled to known affect area: No History of Present Illness HPI 72 y/o female presents as a cardiac arrest CPR in progress. She originally was in PEA and briefly went into V. tach. They got return of pulses but that would back into PEA. Patient has had 3 epinephrine, bicarbonate, Narcan, amiodarone. She has an IO and combi-tube. History is significantly limited. [facility] Past Medical History Narrative Medical By records Medical History: Unable to Obtain Arthritis: No Asthma: No Autoimmune Disease: No Blood Disorders: No Bipolar Disorder: Yes Anxiety: Yes Depression: Yes Heart Rhythm Problems: No Cancer: No Cardiovascular Problems: No High Cholesterol: No Chemotherapy: No Chest Pain: No Congestive Heart Failure: No COPD: No Cerebrovascular Accident: Yes Coronary Artery Disease: Yes (ANGINA) Diabetes: Yes Diminished Hearing: No Endocrine: Yes Gastrointestinal Disorders: Yes (gastro reflux ) GERD: Yes Glaucoma: No Genitourinary: Yes (CKD stage II) Headaches: No Hepatitis: No Hiatal Hernia: No Hypertension: Yes Immune Disorder: No Kidney Stones: No Musculoskeletal: Yes (osteoporosis, chronic shoulderpain ) Neurologic: Yes (epilepsy, cerebral infarction ) Psychiatric: Yes (dependent personality disorder) Reproductive: No Respiratory: Yes Migraines: No Myocardial Infarction: No Radiation Therapy: No Renal Failure: No Schizophrenia: Yes (paranoid schizophrenia ) Sickle Cell Disease: No Sleep Apnea: No Thyroid Disease: Yes (hypothyroidism ) Ulcer: No ?: Unknown Menopausal: Yes Past Surgical History Narrative Surgical By records Surgical History: Unable to Obtain Abdominal Surgery: No AICD: No Arteriovenous Shunt: No Cardiac Surgery: No Ear Surgery: No Endocrine Surgery: No Eye Surgery: No Genitourinary Surgery: No Gynecologic Surgery: Yes (D & C) Insulin Pump: No Joint Replacement: No Neurologic Surgery: No Oral Surgery: No Pacemaker: No Thoracic Surgery: No Other Surgery: Yes Social History Alcohol Use: No Tobacco Use: No Substance Use: No Allergies-Medications (Allergen,Severity, Reaction): Coded Allergies: adhesive (Unverified Allergy, Severe, 05/24/17) doxycycline (Unverified Allergy, Severe, 05/24/17) minocycline (Unverified Allergy, Severe, 05/24/17) penicillin G (Unverified Allergy, Severe, 05/24/17) tigecycline (Unverified Allergy, Severe, 05/24/17) Uncoded Allergies: ANTIHISTAMINES (Allergy, Severe, 09/05/07) Reported Meds & Prescriptions Reported Meds & Active Scripts Active Prednisone 5 Mg Tab 5 Mg PO DAILY 3 Days Pantoprazole (Pantoprazole Sodium) 40 Mg Tab 40 Mg PO DAILY 30 Days Lovenox Inj (Enoxaparin Sodium) 40 Mg/0.4 Ml Syr 40 Mg SQ Q24H 5 Days Prednisone 10 Mg Tab 10 Mg PO DAILY Metoprolol Tartrate 25 Mg Tab 50 Mg PO BID Reported Ativan (Lorazepam) 0.5 Mg Tab 0.5 Mg PO HS Diff-Stat (Probiotic Product) 471 Mg Cap 1 Cap PO BID Ascorbic Acid 500 Mg Tab 500 Mg PO BID Divalproex ER (Divalproex Sodium) 250 Mg Pedro 750 Mg PO HS Vitamin D-1000 (Cholecalciferol) 1,000 Unit Tab 1,000 Units PO DAILY Synthroid (Levothyroxine Sodium) 125 Mcg Tab 125 Mcg PO DAILY Requip (Ropinirole) 1 Mg Tab 1 Mg PO TID Neurontin (Gabapentin) 300 Mg Cap 300 Mg PO TID One Daily-Minerals (Multiple Vitamins W/ Minerals) 1 Tab 1 Tab PO DAILY Lopid (Gemfibrozil) 600 Mg Tab 600 Mg PO BID Take 30 minutes prior to breakfast and dinner Glipizide 5 Mg Tab 5 Mg PO BID Take 30 minutes before a meal Tylenol (Acetaminophen) 325 Mg Tab 650 Mg PO Q6H PRN Levetiracetam 500 Mg Tab 500 Mg PO BID Lamotrigine 100 Mg Tab 100 Mg PO DAILY Lamictal (Lamotrigine) 25 Mg Tab 25 Mg PO HS Isosorbide Dinitrate 10 Mg Tab 10 Mg PO BID Glucophage (Metformin HCl) 500 Mg Tab 1,000 Mg PO BID With meals Fosamax (Alendronate Sodium) 70 Mg Tab 70 Mg PO Q7D Sinemet (Carbidopa/Levodopa) 10-100 Mg Tab 1 Tab PO Q8HR Risperdal (Risperidone) 1 Mg Tab 1 Mg PO TID Pravachol (Pravastatin) 40 Mg Tab 40 Mg PO DAILY Review of Systems ROS Limitations: Clinical Condition Physical Exam Exam Limitations: Clinical Condition Narrative GENERAL: Well-nourished, well-developed patient. SKIN: Warm and dry. HEAD: Normocephalic and atraumatic. EYES: No injection or drainage. Pupils fixed and dilated ENT: No nasal drainage noted. NECK: Supple, trachea midline. CARDIOVASCULAR: CPR in progress RESPIRATORY: CPR in progress with [employer] GASTROINTESTINAL: Abdomen nondistended. NEUROLOGICAL: Unresponsive Data Data Last Documented VS Vital Signs Date Time Temp Pulse Resp B/P (MAP) Pulse Ox O2 Delivery O2 Flow Rate FiO2 10/09/17 09:20 97.6 85 16 79/49 (59) 92 10/09/17 09:20 Bag Valve Orders Orders Ed Discharge Order (10/09/17 09:41) MDM Medical Decision Making Medical Screen Exam Complete: Yes Emergency Medical Condition: Yes Medical Record Reviewed: Yes (past history confirmed) Differential Diagnosis Respiratory failure, mi, cardiac arrest, sepsis. Narrative Course patient arrived in cardiac arrest. Given epinephrine and CPR continued. While coding patient was informed patient is DNR and hospice. This was confirmed with court-appointed proxy. CPR was stopped she had return of her pulse. Her blood pressure remained low. Discussed with health care proxy and patient would not want pressor therapy but she does not have power to withdrawal advanced airway. She states if she codes again to not code patient and let her pass as that is her wishes. went to reassess and Patient's blood pressure and heart rate started to slowly go down and then she went into asystole. bagging through [employer] was stopped then and called at [phone] Critical Care Narrative Aggregate critical care time was 31 minutes. Time to perform other separately billable procedures was not included in the critical care time. My time did not include minutes spent treating any other patients simultaneously or on activities that did not directly contribute to the patient's treatment. The services I provided to this patient were to treat and/or prevent clinically significant deterioration that could result in: shock, I provided critical care services requiring my management, as noted below: Chart data review, documentation time, medication orders and management, vital sign assessments/reviewing monitor data, ordering and reviewing lab tests, ordering and interpreting/reviewing x-rays and diagnostic studies, care of the patient and discussion of the patient with the admitting physicians. Diagnosis Primary Impression: Cardiac arrest Disposition: 20 Condition: Lucita Jameson MD Oct 09, 2017 10:07
--- NOTE | 2017-10-09 22:28 | EKG ---
Date Performed: 10/09/2017 Time Performed: 09:03:37 PTAGE: 72 years EKG: Sinus rhythm RIGHT BUNDLE BRANCH BLOCK LEFT ANTERIOR FASCICULAR BLOCK ABNORMAL ECG Compared to prior electrocardi ogram, Right bundle branch block is now present DOCTOR: Britton Cho Interpretating Date/Time 10/09/2017 22:27:21
== END 2017-10-09 10:14 | disposition expired ==
LOC: NEPC 08:55
DX: I46.9 Cardiac arrest, cause unspecified (principal); I45.10 Unspecified right bundle-branch block; I44.4 Left anterior fascicular block; F31.9 Bipolar disorder, unspecified; I25.10 Atherosclerotic heart disease of native coronary artery without angina pectoris; E11.9 Type 2 diabetes mellitus without complications; I12.9 Hypertensive chronic kidney disease with stage 1 through stage 4 chronic kidney disease, or unspecified chronic kidney disease; E11.22 Type 2 diabetes mellitus with diabetic chronic kidney disease; N18.2 Chronic kidney disease, stage 2 (mild)
CPT/HCPCS: 93005; 99291; J0171